=== PATIENT | male | born 1930 | race Hispanic/Latino ===

== ENCOUNTER 2018-05-06 15:08 | Inpatient (IN) | payer SELFPAY ==
[2018-05-06 16:07] LABS: BASO % 0.2 % (0.0-2.0); HEMOGLOBIN 16.3 g/dL (12.0-18.0); LYMPH # 0.6 K/uL (1.0-4.3); LYMPH % 4.7 % (20.0-40.0); MEAN CELL VOLUME 91.4 fL (80.0-94.0); MEAN CORPUSCULAR HEMOGLOBIN 31.9 pg (27.0-31.0); MEAN CORPUSCULAR HGB CONC 34.9 g/dL (33.0-37.0); MEAN PLATELET VOLUME 8.3 fL (7.2-11.7); MONO # 1.2 K/uL (0.0-0.8); MONO % 8.9 % (0.0-10.0); NEUT # 11.3 K/uL (1.8-7.0); NEUT % 86.2 % (50.0-75.0); PLATELET COUNT 272 K/uL (130-400); RBC 5.11 Mil/uL (4.40-5.90); RED CELL DISTRIBUTION WIDTH 13.7 % (11.5-14.5); WHITE BLOOD COUNT 13.1 K/uL (4.8-10.8)
[2018-05-06] MEDS ORDERED: cefTRIAXone IV 1 gm in Dextros 50 ML IV ONE (16:09)
[2018-05-06] MEDS ORDERED: Azithromycin 500 MG in Sodium Chloride 0.9% 250 ML IV STA (16:09)
[2018-05-06 16:17] LABS: INR 1.2; PROTHROMBIN TIME 12.6 SECONDS (9.7-12.2)
[2018-05-06 16:17] LABS: SQUAMOUS EPITHIAL < 1 /hpf (0-5); URINE BACTERIA RARE (<OCC); URINE BILIRUBIN NEGATIVE (NEGATIVE); URINE BLOOD 3+ (NEGATIVE); URINE CLARITY Clear (Clear); URINE COLOR Amber (YELLOW); URINE GLUCOSE (UA) NORMAL (Normal); URINE LEUKOCYTE ESTERASE NEG Leu/uL (Negative); URINE PROTEIN 3+ mg/dL (NEGATIVE)
--- NOTE | 2018-05-06 16:27 | RAD ---
Date of service: 05/06/2018 PROCEDURE: CHEST RADIOGRAPH, 1 VIEW HISTORY: SOB COMPARISON: None available. FINDINGS: LUNGS: Left lower lobe atelectasis versus infiltrate. PLEURA: No pneumothorax or pleural fluid seen. CARDIOVASCULAR: Atherosclerotic aortic calcifications. Cardiomediastinal silhouette enlarged. OSSEOUS STRUCTURES: Old left 7th posterior rib fracture. Degenerative changes. VISUALIZED UPPER ABDOMEN: Normal. OTHER FINDINGS: None. IMPRESSION: Left lower lobe atelectasis versus infiltrate.
[2018-05-06 16:40] LABS: B-TYPE NATRIURETIC PEPTIDE 7020 pg/mL (0-900)
[2018-05-06 16:47] LABS: ALB/GLOB RATIO 1.2 (1.0-2.1); ALBUMIN 4.1 g/dL (3.5-5.0); ALT/SGPT 47 U/L (21-72); AST/SGOT 94 U/L (17-59); BLOOD UREA NITROGEN 33 mg/dL (9-20); CALCIUM 9.2 mg/dl (8.6-10.4); GFR NON-AFRICAN AMERICAN > 60
--- NOTE | 2018-05-06 16:51 | CT ---
Date of service: 05/06/2018 PROCEDURE: CT HEAD WITHOUT CONTRAST. HISTORY: fall, change of MS, on ground @ home COMPARISON: None available. TECHNIQUE: Axial computed tomography images were obtained through the head/brain without intravenous contrast. Radiation dose: Total exam DLP = 1029.5 mGy-cm. This CT exam was performed using one or more of the following dose reduction techniques: Automated exposure control, adjustment of the mA and/or kV according to patient size, and/or use of iterative reconstruction technique. FINDINGS: HEMORRHAGE: No intracranial hemorrhage. BRAIN: No mass effect or edema. Atrophy. Chronic microvascular ischemic changes. Subtle hypodensity in the left MCA territory. 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 VENTRICLES: Unremarkable. No hydrocephalus. CALVARIUM: Unremarkable. PARANASAL SINUSES: Unremarkable as visualized. No significant inflammatory changes. MASTOID AIR CELLS: Unremarkable as visualized. No inflammatory changes. OTHER FINDINGS: None. IMPRESSION: Subtle hypodensity in the left MCA territory is nonspecific and may represent subacute infarction. MRI can be obtained for further evaluation as clinically warranted.
[2018-05-06 16:59] LABS: BARBITURATES, UR NEGATIVE (NEGATIVE); BENZODIAZEPINES, UR NEGATIVE (NEGATIVE); OPIATES, UR NEGATIVE (NEGATIVE); PHENCYCLIDINE, UR NEGATIVE (NEGATIVE)
--- NOTE | 2018-05-06 17:05 | C.PDOC ---
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 Patient lives alone. Of note, HPI is limited because patient has dementia. per social work program coordinator pt without h/o expressive aphasia Time Seen by Provider: 05/06/18 15:45 Chief Complaint (Nursing): Altered Mental Status History Per: Patient History/Exam Limitations: Clinical Condition (dementia) Past Medical History Reviewed: Historical Data, Nursing Documentation, Vital Signs Vital Signs: Last Vital Signs Temp 98.2 F 05/06/18 18:25 Pulse 72 05/06/18 19:35 Resp 19 05/06/18 19:35 BP 178/59 H 05/06/18 19:35 Pulse Ox 95 05/06/18 19:40 Surgical History: No Surg Hx Family History: States: No Known Family Hx - Social History Hx Alcohol Use: No (UNKNOWN) Hx Substance Use: No (UNKNOWN) - Immunization History Hx Tetanus Toxoid Vaccination: (UNK) Hx Influenza Vaccination: (UNK) Hx Pneumococcal Vaccination: (UNK) Review Of Systems Review Of Systems: ROS cannot be obtained secondary to pt's inabilty to answer questions. Physical Exam - Physical Exam Appears: Non-toxic, No Acute Distress, Other (awake, alert, confused) Skin: Normal Color, Warm, Dry Head: Normacephalic, Other Eye(s): bilateral: Normal Inspection Nose: Normal Oral Mucosa: Moist Neck: Supple Chest: Symmetrical Cardiovascular: Rhythm Regular Respiratory: Normal Breath Sounds, No Rales, No Rhonchi, No Wheezing Gastrointestinal/Abdominal: Normal Exam, Soft, No Tenderness, No Guarding, No Rebound Neurological/Psych: Other (awake, alert, confused) ED Course And Treatment - Laboratory Results Result Diagrams: 05/06/18 16:03 05/06/18 16:03 Lab Interpretation: Abnormal (+ mild leukocytosis) ECG: Interpreted By Ks ECG Rhythm: Atrial Flutter ECG Interpretation: Abnormal Rate From EC (no prior to compare) O2 Sat by Pulse Oximetry: 95 Pulse Ox Interpretation: Normal - Radiology CXR: Interpreted by Ks CXR Interpretation: Yes: Infiltrates (+LLL PNA) - CT Scan/US head CT Other Rad Studies (CT/US): Radiology Report Reviewed (no acute changes) Reevaluation Time: 17:06 Reassessment Condition: Improved - Physician Consult Information Outcome Of Conversation: 1700: d/w Hospialist- Dr. Conway- covering uninsured pt 's, ok to admit. NIHSS Stroke Scale - Date/Time Evaluation Performed Date Performed: 05/06/18 Time Performed: 15:45 When Was NIHSS Performed: Baseline - How Severe is the Stoke Level of Consciousness: 0=Alert LOC to Questions: 0=Both comments correct LOC to commands: 0=Obeys both correctly Best Gaze: 0=Normal Visual: 0=No visual loss Facial: 0=Normal Motor Arm - Left: 0=No drift Motor Arm - Right: 0=No drift Motor Leg - Left: 0=No drift Motor Leg - Right: 0=No drift Limb Ataxia: 0=Absent Sensory: 0=Normal Best Language: 2=Severe aphasia Dysarthia: 0=Normal articulation Extinction & Inattention (Neglect): 0=Normal, no object Score: 2 Severity Of Stroke: 1-4= Minor Stroke rTPA Inclusion/Exclusion - Refusal of Treatment Patient Refused Treatment: No - Inclusion Criteria for Altepase Patient is 18 years or Older: Yes Clinical DX Ischemic Stroke Cause Neurological Deficit: Yes Time of Onset Established Less Than 270 Mins Before TX Begin: No Risk/Benefit Discussed With Patient/Family Member Present: No - Exclusion Criteria for Altepase Uncontrolled Hypertension at Time of TX (SBP>185 or DBP>110): Yes - Warning to TPA With Conditions Condition: Stroke Serevity Too Mild Medical Decision Making Medical Decision Making: advanced dementia Unclear how not observed in advanced dementia LLL PNA: Rocephin/Azithromycin for CAP low susp of rhabdo: CPK pending. Renal and urine labs wnl gentle hydration started. A-flutter 55 ? new or old ? related to PNA Defer anticoagulation now in light of recent fall/trauma. L MCA area hypotensity c/w subacute infarct pt with expressive aphasia not previously described ASA given consider MRI in AM Disposition Doctor Will See Patient In The: Hospital - Disposition Disposition: HOSPITALIZED Disposition Time: 17:08 Condition: GOOD - Clinical Impression Clinical Impression: Change in mental state, CAP (community acquired pneumonia) - Scribe Statement The provider has reviewed the documentation as recorded by the Scribe Ann Cuenca Provider Attestation: All medical record entries made by the Scribe were at my direction and personally dictated by me. I have reviewed the chart and agree that the record accurately reflects my personal performance of the history, physical exam, medical decision making, and the department course for this patient. I have also personally directed, reviewed, and agree with the discharge instructions and disposition.
[2018-05-06] MEDS ORDERED: Sodium Chloride 0.9% 1,000 ML IV STA (17:06)
[2018-05-06] MEDS ORDERED: Sodium Chloride 0.9% 1,000 ML ONE (17:14)
[2018-05-06 18:36] LABS: LYMPHOCYTE 2 % (20-40); MONOCYTE 6 % (0-10); NEUTROPHIL 92 % (50-75); PLATELET ESTIMATE NORMAL (NORMAL); TOTAL CELLS COUNTED 100
[2018-05-06] MEDS: Sodium Chloride 0.9% 1,000 ML IV SCH (19:06)
[2018-05-06 19:33] LABS: HDL CHOLESTEROL 37 mg/dL (30-70)
[2018-05-06] MEDS ORDERED: Aspirin 325 mg EC Tablets PO STA ×2 (19:38→21:01)
[2018-05-06 19:44] LABS: LDL CHOLESTEROL 62 mg/dL (0-129)
[2018-05-06 19:52] LABS: T4 9.17 ug/dL (5.5-11.0)
--- NOTE | 2018-05-06 20:05 | CP.PCM.HP ---
Addendum entered and electronically signed by Chi Welch DO 05/07/18 07: 18: Correction on Physical Exam Findings: skin tears noted on *RIGHT* lateral thigh , shoulder, and lateral malleolus. Original Note: <Chi Welch - Last Filed: 05/06/18 20:02> History of Present Illness - History of Present Illness History of Present Illness: This is an 88 year old male with past medical history of hypertension, advanced dementia and psychiatric illness, and possible past medical history of hypertension who presents to ED brought in by ambulance for AMS. Note: most of the history was obtained by ED nurse, as the patient is a poor historian. Patient was found to be altered and on the ground covered in his feces. EMS was called by the patient's cleaning lady who comes to visit on a weekly basis to help the patient with chores at home. It is unknown how long the patient was down on the ground. Patient was apparently not verbal. Per nurse, the patient has a case sealer who helps the patient since he lives at home alone and has underlying dementia and psychiatric issue, however, per nurse, the patient was said to be completely independent at performing activities of daily life according to the case sealer who is on his case on an out-patient basis. Per nurse, the rest of the patient's history was unknown to the case sealer. Present on Admission - Present on Admission Any Indicators Present on Admission: Yes History of DVT/PE: No History of Uncontrolled Diabetes: No Urinary Catheter: No Decubitus Ulcer Present: Yes (Left thigh, Left lateral malleolus, Left shoulder ) History Surgical Site Infection Following: None Review of Systems - Review of Systems All systems: reviewed and no additional remarkable complaints except - Constitutional Constitutional: As Per HPI - EENT Eyes: As Per HPI Nose/Mouth/Throat: As Per HPI - Cardiovascular Cardiovascular: As Per HPI - Respiratory Respiratory: As Per HPI - Gastrointestinal Gastrointestinal: As Per HPI - Genitourinary Genitourinary: As Per HPI - Musculoskeletal Musculoskeletal: As Per HPI - Integumentary Integumentary: As Per HPI - Neurological Neurological: As Per HPI - Psychiatric Psychiatric: As Per HPI Past Patient History - Tetanus Immunizations Tetanus Immunization: Unknown - Past Medical History & Family History Past Medical History?: No - Past Social History Smoking Status: Unknown If Ever Smoked - PSYCHIATRIC Hx Substance Use: No (UNKNOWN) - SURGICAL HISTORY Other/Comment: UNABLE TO OBTAIN AT TIME OF TRIAGE Meds Allergies/Adverse Reactions: Allergies Allergy/AdvReac Type Severity Reaction Status Date / Time Unobtainable Allergy Unverified 05/06/18 15:28 Physical Exam - Constitutional Appears: Non-toxic, No Acute Distress, Unkempt, Confused Additional comments: Patient is non-verbal, but able to follow commands, and use body language to communicate "yes/no" to most questions, but not all. - Head Exam Head Exam: ATRAUMATIC, NORMAL INSPECTION, NORMOCEPHALIC - Eye Exam Eye Exam: EOMI, Normal appearance, PERRL. absent: Conjunctival injection, Scleral icterus Pupil Exam: PERRL. absent: NORMAL ACCOMODATION - ENT Exam ENT Exam: Mucous Membranes Dry Additional comments: Dry oral cavity. No teeth. No dentures were worn by patient. - Cardiovascular Exam Cardiovascular Exam: Irregular Rhythm (atrial flutter ), +S1, +S2, Systolic Murmur (appreciated on auscultation of both right and left sternal border at 2nd intercostal space bilaterally. ). absent: Gallop, Rubs - GI/Abdominal Exam GI & Abdominal Exam: Normal Bowel Sounds, Soft. absent: Firm, Guarding, Hernia , Pulsatile Mass, Rebound, Tenderness - Extremities Exam Extremities exam: Positive for: full ROM, normal capillary refill, pedal pulses present. Negative for: calf tenderness, joint swelling, pedal edema, tenderness Additional comments: lateral malleolus (Left) ulcer lateral thigh (left) ulcer shoulder (left) ulcer - Back Exam Back exam: FULL ROM, NORMAL INSPECTION. absent: muscle spasm, tenderness - Neurological Exam Neurological exam: Alert, CN II-XII Intact, Normal Gait, Reflexes Normal - Psychiatric Exam Psychiatric exam: Normal Affect, Normal Mood - Skin Skin Exam: Dry, Intact, Warm Additional comments: noted ulcers on left shoulder, lateral thigh, and lateral malleolus. Results - Vital Signs Recent Vital Signs: Last Vital Signs Temp 98.2 F 05/06/18 18:25 Pulse 72 05/06/18 19:35 Resp 19 05/06/18 19:35 BP 178/59 H 05/06/18 19:35 Pulse Ox 95 05/06/18 19:40 - Labs Result Diagrams: 05/06/18 16:03 05/06/18 16:03 Labs: Laboratory Results - last 24 hr 05/06/18 05/06/18 05/06/18 15:31 16:03 16:03 WBC 13.1 H RBC 5.11 Hgb 16.3 Hct 46.7 MCV 91.4 MCH 31.9 H MCHC 34.9 RDW 13.7 Plt Count 272 MPV 8.3 Neut % (Auto) 86.2 H Lymph % (Auto) 4.7 L Norton % (Auto) 8.9 Eos % (Auto) 0.0 Baso % (Auto) 0.2 Neut # (Auto) 11.3 H Lymph # (Auto) 0.6 L Norton # (Auto) 1.2 H Eos # (Auto) 0.0 Baso # (Auto) 0.0 Neutrophils % (Manual) 92 H Lymphocytes % (Manual) 2 L Monocytes % (Manual) 6 Platelet Estimate Normal PT 12.6 H INR 1.2 APTT 28 Sodium Potassium Chloride Carbon Dioxide Anion Gap BUN Creatinine Est GFR ( Amer) Est GFR (Non-Af Amer) POC Glucose (mg/dL) 119 H Random Glucose Hemoglobin A1c Calcium Total Bilirubin AST ALT Alkaline Phosphatase Troponin I NT-Pro-B Natriuret Pep Total Protein Albumin Globulin Albumin/Globulin Ratio Triglycerides Cholesterol LDL Cholesterol Direct HDL Cholesterol Procalcitonin Thyroxine (T4) Urine Color Urine Clarity Urine pH Ur Specific [place] Urine Protein Urine Glucose (UA) Urine Ketones Urine Blood Urine Nitrate Urine Bilirubin Urine Urobilinogen Ur Leukocyte Esterase Urine WBC (Auto) Urine RBC (Auto) Ur Squamous Epith Cells Urine Bacteria Urine Opiates Screen Urine Methadone Screen Ur Barbiturates Screen Ur Phencyclidine Scrn Ur Amphetamines Screen U Benzodiazepines Scrn U Oth Cocaine Metabols U Cannabinoids Screen RPR 05/06/18 05/06/18 05/06/18 16:03 16:11 16:11 WBC RBC Hgb Hct MCV MCH MCHC RDW Plt Count MPV Neut % (Auto) Lymph % (Auto) Norton % (Auto) Eos % (Auto) Baso % (Auto) Neut # (Auto) Lymph # (Auto) Norton # (Auto) Eos # (Auto) Baso # (Auto) Neutrophils % (Manual) Lymphocytes % (Manual) Monocytes % (Manual) Platelet Estimate PT INR APTT Sodium 142 Potassium 3.9 Chloride 103 Carbon Dioxide 25 Anion Gap 18 BUN 33 H Creatinine 0.9 Est GFR ( Amer) > 60 Est GFR (Non-Af Amer) > 60 POC Glucose (mg/dL) Random Glucose 128 H Hemoglobin A1c Calcium 9.2 Total Bilirubin 1.5 H AST 94 H ALT 47 Alkaline Phosphatase 86 Troponin I 0.0600 NT-Pro-B Natriuret Pep 7020 H Total Protein 7.5 Albumin 4.1 Globulin 3.4 Albumin/Globulin Ratio 1.2 Triglycerides Cholesterol LDL Cholesterol Direct HDL Cholesterol Procalcitonin Thyroxine (T4) Urine Color [place] Urine Clarity Clear Urine pH 5.0 Ur Specific [place] 1.027 Urine Protein 3+ H Urine Glucose (UA) Normal Urine Ketones 1+ H Urine Blood 3+ H Urine Nitrate Negative Urine Bilirubin Negative Urine Urobilinogen 2.0 Ur Leukocyte Esterase Neg Urine WBC (Auto) 1 Urine RBC (Auto) 3 Ur Squamous Epith Cells < 1 Urine Bacteria Rare Urine Opiates Screen Negative Urine Methadone Screen Negative Ur Barbiturates Screen Negative Ur Phencyclidine Scrn Negative Ur Amphetamines Screen Negative U Benzodiazepines Scrn Negative U Oth Cocaine Metabols Negative U Cannabinoids Screen Negative RPR 05/06/18 05/06/18 05/06/18 19:18 19:18 19:18 WBC RBC Hgb Hct MCV MCH MCHC RDW Plt Count MPV Neut % (Auto) Lymph % (Auto) Norton % (Auto) Eos % (Auto) Baso % (Auto) Neut # (Auto) Lymph # (Auto) Norton # (Auto) Eos # (Auto) Baso # (Auto) Neutrophils % (Manual) Lymphocytes % (Manual) Monocytes % (Manual) Platelet Estimate PT INR APTT Sodium Potassium Chloride Carbon Dioxide Anion Gap BUN Creatinine Est GFR ( Amer) Est GFR (Non-Af Amer) POC Glucose (mg/dL) Random Glucose Hemoglobin A1c 5.1 Calcium Total Bilirubin AST ALT Alkaline Phosphatase Troponin I NT-Pro-B Natriuret Pep Total Protein Albumin Globulin Albumin/Globulin Ratio Triglycerides 69 Cholesterol 132 LDL Cholesterol Direct 62 HDL Cholesterol 37 Procalcitonin Thyroxine (T4) 9.17 Urine Color Urine Clarity Urine pH Ur Specific [place] Urine Protein Urine Glucose (UA) Urine Ketones Urine Blood Urine Nitrate Urine Bilirubin Urine Urobilinogen Ur Leukocyte Esterase Urine WBC (Auto) Urine RBC (Auto) Ur Squamous Epith Cells Urine Bacteria Urine Opiates Screen Urine Methadone Screen Ur Barbiturates Screen Ur Phencyclidine Scrn Ur Amphetamines Screen U Benzodiazepines Scrn U Oth Cocaine Metabols U Cannabinoids Screen RPR Nonreactive 05/06/18 Unknown WBC RBC Hgb Hct MCV MCH MCHC RDW Plt Count MPV Neut % (Auto) Lymph % (Auto) Norton % (Auto) Eos % (Auto) Baso % (Auto) Neut # (Auto) Lymph # (Auto) Norton # (Auto) Eos # (Auto) Baso # (Auto) Neutrophils % (Manual) Lymphocytes % (Manual) Monocytes % (Manual) Platelet Estimate PT INR APTT Sodium Potassium Chloride Carbon Dioxide Anion Gap BUN Creatinine Est GFR ( Amer) Est GFR (Non-Af Amer) POC Glucose (mg/dL) Random Glucose Hemoglobin A1c Calcium Total Bilirubin AST ALT Alkaline Phosphatase Troponin I NT-Pro-B Natriuret Pep Total Protein Albumin Globulin Albumin/Globulin Ratio Triglycerides Cholesterol LDL Cholesterol Direct HDL Cholesterol Procalcitonin < 0.05 L Thyroxine (T4) Urine Color Urine Clarity Urine pH Ur Specific [place] Urine Protein Urine Glucose (UA) Urine Ketones Urine Blood Urine Nitrate Urine Bilirubin Urine Urobilinogen Ur Leukocyte Esterase Urine WBC (Auto) Urine RBC (Auto) Ur Squamous Epith Cells Urine Bacteria Urine Opiates Screen Urine Methadone Screen Ur Barbiturates Screen Ur Phencyclidine Scrn Ur Amphetamines Screen U Benzodiazepines Scrn U Oth Cocaine Metabols U Cannabinoids Screen RPR - EKG Data EKG Interpreted by: Myself - EKG Data EKG comments: atrial flutter Assessment & Plan - Assessment and Plan (Free Text) Assessment: This is an 88 year old male with past medical history of hypertension, advanced dementia and psychiatric illness, and possible past medical history of hypertension who presents to ED brought in by ambulance for AMS. Note: most of the history was obtained by ED nurse, as the patient is a poor historian. Patient was subsequently admitted to Telemetry for further evaluation and treatment of possible CVA Altered mental status likely secondary to CVA - Neurology consulted on case (Dr. Kumar) - CT without contrast: subtle hypodensity in the left MCA territory ( nonspecific and may represent subacute infarct) - Focal deficit on physical exam: Aphagia - Chest X-ray: Left lower lobe infiltrates/atelectasis - CTA of Head and Neck ordered stat: pending - MRI without contrast: pending - ASA 81mg PO daily - Started on Cardiac heparin therapy, per Dr. Vance and Dr. Kumar recommendation - Neuro check Q4H - Community Acquired Pneumonia - Chest X-ray: Left lower lobe infiltrates/atelectasis - CBC: WBC=13.1 - CMP: BUN=33 - Rocephin 1g IVBP - Azithromycin 500mg IVPB Q24H - probiotic 250mg PO Q12H - IV fluids @100mls/hr - AM CBC, CMP - Urine Cx pending - Blood Cx pending Atrial flutter - EKG reviewed - known risk factors: age, hypertension - Cardio consulted on case (Dr. Vance) recommendations appreciated - Echo pending - ASA 81mg PO daily - Rosuvastatin 10mg HS - ECHO pending - Pending T4, TSH, B12, Folate, Magnesium, Phos, CPK - BNP > 7000 - Trop neg x1 - Started on cardiac heparin therapy (per Dr. Vance and Dr. Kumar recommendation) - monitor on tele Ulcers secondary to being on the ground for unknown duration - Wound Care consulted, eval and treat Advanced Dementia - Case management consulted, recommendations appreciated - PT/OT eval and treat - Swallow eval performed at ED bedside - Pureed diet and thick liquid diet PPx: - DVT: SCD - GI: Protonix 40mg PO daily Patient evaluated and case discussed in detail with Attending Physician Dr. Tricia Welch PGY1 <Madina Clarke - Last Filed: 05/08/18 19:39> Results - Vital Signs Recent Vital Signs: Last Vital Signs Temp 98.6 F 05/08/18 18:00 Pulse 68 05/08/18 18:30 Resp 19 05/08/18 18:30 BP 168/71 H 05/08/18 17:47 Pulse Ox 100 05/08/18 15:20 - Labs Result Diagrams: 05/08/18 06:34 05/08/18 06:28 Labs: Laboratory Results - last 24 hr 05/08/18 05/08/18 05/08/18 06:28 06:34 06:34 WBC 10.1 RBC 4.28 L Hgb 13.9 Hct 39.6 MCV 92.6 MCH 32.4 H MCHC 35.0 RDW 13.9 Plt Count 220 MPV 8.6 Neut % (Auto) 81.7 H Lymph % (Auto) 7.8 L [place] % (Auto) 9.1 Eos % (Auto) 0.9 Baso % (Auto) 0.5 Neut # (Auto) 8.3 H Lymph # (Auto) 0.8 L Norton # (Auto) 0.9 H Eos # (Auto) 0.1 Baso # (Auto) 0.1 Neutrophils % (Manual) 86 H Lymphocytes % (Manual) 6 L Monocytes % (Manual) 7 Eosinophils % (Manual) 1 Platelet Estimate Normal RBC Morphology Normal APTT 88 H Sodium 146 Potassium 3.6 Chloride 112 H Carbon Dioxide 20 L Anion Gap 17 BUN 33 H Creatinine 0.8 Est GFR ( Amer) > 60 Est GFR (Non-Af Amer) > 60 Random Glucose 106 Calcium 8.6 Phosphorus 2.7 Magnesium 1.9 Total Bilirubin 1.1 AST 57 ALT 42 Alkaline Phosphatase 67 Troponin I Total Protein 6.6 Albumin 3.4 L Globulin 3.2 Albumin/Globulin Ratio 1.0 05/08/18 09:43 WBC RBC Hgb Hct MCV MCH MCHC RDW Plt Count MPV Neut % (Auto) Lymph % (Auto) Norton % (Auto) Eos % (Auto) Baso % (Auto) Neut # (Auto) Lymph # (Auto) Norton # (Auto) Eos # (Auto) Baso # (Auto) Neutrophils % (Manual) Lymphocytes % (Manual) Monocytes % (Manual) Eosinophils % (Manual) Platelet Estimate RBC Morphology APTT Sodium Potassium Chloride Carbon Dioxide Anion Gap BUN Creatinine Est GFR ( Amer) Est GFR (Non-Af Amer) Random Glucose Calcium Phosphorus Magnesium Total Bilirubin AST ALT Alkaline Phosphatase Troponin I 0.0640 Total Protein Albumin Globulin Albumin/Globulin Ratio Attending/Attestation - Attestation I have personally seen and examined this patient.: Yes I have fully participated in the care of the patient.: Yes I have reviewed all pertinent clinical information: Yes Notes (Text): seen and examined. patient is awake and nonverbal. follow commands.denies pain.able to move all four extremities without pain no focal weakness noted .He is aphasic,not able to write?. has Atrial flutter with heart block,subacute CVA Patient was living alone with social service help?. History of dementia ?, psychiatry disorder and HTN as per ER documentation. we will contact patient's guardian Assessment and the plan discussed with the resident
[2018-05-06] MEDS ORDERED: Iohexol 350mg/ml 100 ML ONE (21:23)
[2018-05-06 21:24] LABS: FOLATE 8.2 ng/mL
[2018-05-06] MEDS: Saccharomyces Boulardi 250 mg Cap PO SCH ×2 (21:56→22:21)
[2018-05-06] MEDS: Heparin25000 units/250ml 1/2NS 25,000 UNITS/250 ML BAG IV PRN (22:25)
[2018-05-07] MEDS: Sodium Chloride 0.9% 1,000 ML IV SCH ×3 (04:24→23:28)
[2018-05-07 08:00] LABS: BASO # 0.1 K/uL (0.0-0.2); BASO % 0.6 % (0.0-2.0); EOS % 0.3 % (0.0-4.0); HEMOGLOBIN 14.5 g/dL (12.0-18.0); LYMPH % 10.4 % (20.0-40.0); MEAN CELL VOLUME 92.1 fL (80.0-94.0); MEAN CORPUSCULAR HEMOGLOBIN 32.6 pg (27.0-31.0); MEAN CORPUSCULAR HGB CONC 35.5 g/dL (33.0-37.0); MEAN PLATELET VOLUME 8.6 fL (7.2-11.7); MONO # 1.1 K/uL (0.0-0.8); MONO % 11.2 % (0.0-10.0); NEUT # 7.4 K/uL (1.8-7.0); NEUT % 77.5 % (50.0-75.0); NRBC % 0.2 % (0.0-2.0); RBC 4.43 Mil/uL (4.40-5.90); RED CELL DISTRIBUTION WIDTH 14.2 % (11.5-14.5); WHITE BLOOD COUNT 9.6 K/uL (4.8-10.8)
[2018-05-07] MEDS ORDERED: Azithromycin 500 MG in Sodium Chloride 0.9% 250 ML IVPB SCH (08:00)
[2018-05-07 08:01] LABS: ALB/GLOB RATIO 1.2 (1.0-2.1); ALBUMIN 3.3 g/dL (3.5-5.0); ALT/SGPT 45 U/L (21-72); AST/SGOT 67 U/L (17-59); BLOOD UREA NITROGEN 35 mg/dL (9-20); CALCIUM 8.7 mg/dl (8.6-10.4); GFR NON-AFRICAN AMERICAN > 60
--- NOTE | 2018-05-07 08:19 | CP.PCM.CON ---
History of Present Illness - History of Present Illness History of Present Illness: 88 yo male with h/o dementia, HTN, under legal guardianship, was reportedly found at home, on the floor covered in feces. Patient is unable to provide history. Aphasia is reportedly new. Denies chest pain or dyspnea at present. Called last night by the resident with EKG, which showed Aflutter with slow response. CT head suggestive of acute/subacute stroke. Review of Systems - Review of Systems Review of Systems: Unable to obtain, except HPI Past Patient History - Tetanus Immunizations Tetanus Immunization: Unknown - Past Medical History & Family History Past Medical History?: No - Past Social History Smoking Status: Unknown If Ever Smoked - MUSCULOSKELETAL/RHEUMATOLOGICAL Hx Falls: Yes - PSYCHIATRIC Hx Substance Use: No (UNKNOWN) - SURGICAL HISTORY Other/Comment: UNABLE TO OBTAIN AT TIME OF TRIAGE - ANESTHESIA Hx Anesthesia: (UNABLE TO GET INFO AT THIS TIME ,PT APHASIC) Meds Allergies/Adverse Reactions: Allergies Allergy/AdvReac Type Severity Reaction Status Date / Time Unobtainable Allergy Unverified 05/06/18 15:28 - Medications Medications: Current Medications Aspirin (Aspirin Chewable) 81 mg PO DAILY ANUPAM Sodium Chloride (Sodium Chloride 0.9%) 1,000 mls @ 100 mls/hr IV .Q10H ANUPAM Last Admin: 05/07/18 04:24 Dose: Not Given Azithromycin 500 mg/ Sodium (Chloride) 250 mls @ 250 mls/hr IVPB Q24H ANUPAM PRN Reason: Protocol Ceftriaxone Sodium 1 gm/ (Sodium Chloride) 100 mls @ 200 mls/hr IVPB DAILY ANUPAM PRN Reason: Protocol Heparin Sodium/Sodium Chloride (Heparin 46888 Units/250ml 1/2 Normal Saline) 25 ,000 units in 250 mls @ 9.798 mls/hr IV .Q24H PRN; Protocol; 12 UNITS/KG/HR PRN Reason: ADJUST RATE PER PROTOCOL Last Admin: 05/06/18 22:25 Dose: 12 units/kg/hr, 9.798 mls/hr Pantoprazole Sodium (Protonix Ec Tab) 40 mg PO DAILY ANUPAM Rosuvastatin Calcium (Crestor) 10 mg PO HS ANUPAM Last Admin: 05/06/18 21:56 Dose: 10 mg Saccharomyces Boulardii (Florastor) 250 mg PO Q12H ANUPAM Last Admin: 05/06/18 22:21 Dose: Not Given Physical Exam - Constitutional Appears: Unkempt, Cachectic - Head Exam Head Exam: ATRAUMATIC, NORMOCEPHALIC - Eye Exam Pupil Exam: PERRL - ENT Exam ENT Exam: Mucous Membranes Moist - Respiratory Exam Respiratory Exam: Clear to Auscultation Bilateral. absent: Rales - Cardiovascular Exam Cardiovascular Exam: Bradycardia, +S1, +S2. absent: JVD - GI/Abdominal Exam GI & Abdominal Exam: Soft. absent: Tenderness - Extremities Exam Extremities exam: Negative for: calf tenderness - Back Exam Back exam: absent: CVA tenderness (L) - Neurological Exam Additional comments: Aphasia+ - Skin Skin Exam: Normal Color Results - Vital Signs Recent Vital Signs: Last Vital Signs Temp 98.2 F 05/06/18 23:35 Pulse 55 L 05/07/18 06:00 Resp 18 05/07/18 06:00 BP 118/51 L 05/07/18 06:00 Pulse Ox 96 05/06/18 23:35 - Labs Result Diagrams: 05/07/18 07:35 05/07/18 07:35 Labs: Laboratory Results - last 24 hr 05/06/18 05/06/18 05/06/18 15:31 16:03 16:03 WBC 13.1 H RBC 5.11 Hgb 16.3 Hct 46.7 MCV 91.4 MCH 31.9 H MCHC 34.9 RDW 13.7 Plt Count 272 MPV 8.3 Neut % (Auto) 86.2 H Lymph % (Auto) 4.7 L [place] % (Auto) 8.9 Eos % (Auto) 0.0 Baso % (Auto) 0.2 Neut # (Auto) 11.3 H Lymph # (Auto) 0.6 L [place] # (Auto) 1.2 H Eos # (Auto) 0.0 Baso # (Auto) 0.0 Neutrophils % (Manual) 92 H Lymphocytes % (Manual) 2 L Monocytes % (Manual) 6 Platelet Estimate Normal PT 12.6 H INR 1.2 APTT 28 Sodium Potassium Chloride Carbon Dioxide Anion Gap BUN Creatinine Est GFR ( Amer) Est GFR (Non-Af Amer) POC Glucose (mg/dL) 119 H Random Glucose Hemoglobin A1c Calcium Phosphorus Magnesium Total Bilirubin AST ALT Alkaline Phosphatase Troponin I NT-Pro-B Natriuret Pep Total Protein Albumin Globulin Albumin/Globulin Ratio Triglycerides Cholesterol LDL Cholesterol Direct HDL Cholesterol Vitamin B12 Folate Procalcitonin Thyroxine (T4) TSH 3rd Generation Urine Color Urine Clarity Urine pH Ur Specific [place] Urine Protein Urine Glucose (UA) Urine Ketones Urine Blood Urine Nitrate Urine Bilirubin Urine Urobilinogen Ur Leukocyte Esterase Urine WBC (Auto) Urine RBC (Auto) Ur Squamous Epith Cells Urine Bacteria Urine Opiates Screen Urine Methadone Screen Ur Barbiturates Screen Ur Phencyclidine Scrn Ur Amphetamines Screen U Benzodiazepines Scrn U Oth Cocaine Metabols U Cannabinoids Screen RPR 05/06/18 05/06/18 05/06/18 16:03 16:11 16:11 WBC RBC Hgb Hct MCV MCH MCHC RDW Plt Count MPV Neut % (Auto) Lymph % (Auto) [place] % (Auto) Eos % (Auto) Baso % (Auto) Neut # (Auto) Lymph # (Auto) [place] # (Auto) Eos # (Auto) Baso # (Auto) Neutrophils % (Manual) Lymphocytes % (Manual) Monocytes % (Manual) Platelet Estimate PT INR APTT Sodium 142 Potassium 3.9 Chloride 103 Carbon Dioxide 25 Anion Gap 18 BUN 33 H Creatinine 0.9 Est GFR ( Amer) > 60 Est GFR (Non-Af Amer) > 60 POC Glucose (mg/dL) Random Glucose 128 H Hemoglobin A1c Calcium 9.2 Phosphorus Magnesium Total Bilirubin 1.5 H AST 94 H ALT 47 Alkaline Phosphatase 86 Troponin I 0.0600 NT-Pro-B Natriuret Pep 7020 H Total Protein 7.5 Albumin 4.1 Globulin 3.4 Albumin/Globulin Ratio 1.2 Triglycerides Cholesterol LDL Cholesterol Direct HDL Cholesterol Vitamin B12 Folate Procalcitonin Thyroxine (T4) TSH 3rd Generation Urine Color [place] Urine Clarity Clear Urine pH 5.0 Ur Specific [place] 1.027 Urine Protein 3+ H Urine Glucose (UA) Normal Urine Ketones 1+ H Urine Blood 3+ H Urine Nitrate Negative Urine Bilirubin Negative Urine Urobilinogen 2.0 Ur Leukocyte Esterase Neg Urine WBC (Auto) 1 Urine RBC (Auto) 3 Ur Squamous Epith Cells < 1 Urine Bacteria Rare Urine Opiates Screen Negative Urine Methadone Screen Negative Ur Barbiturates Screen Negative Ur Phencyclidine Scrn Negative Ur Amphetamines Screen Negative U Benzodiazepines Scrn Negative U Oth Cocaine Metabols Negative U Cannabinoids Screen Negative RPR 05/06/18 05/06/18 05/06/18 19:18 19:18 19:18 WBC RBC Hgb Hct MCV MCH MCHC RDW Plt Count MPV Neut % (Auto) Lymph % (Auto) [place] % (Auto) Eos % (Auto) Baso % (Auto) Neut # (Auto) Lymph # (Auto) [place] # (Auto) Eos # (Auto) Baso # (Auto) Neutrophils % (Manual) Lymphocytes % (Manual) Monocytes % (Manual) Platelet Estimate PT INR APTT Sodium Potassium Chloride Carbon Dioxide Anion Gap BUN Creatinine Est GFR ( Amer) Est GFR (Non-Af Amer) POC Glucose (mg/dL) Random Glucose Hemoglobin A1c 5.1 Calcium Phosphorus Magnesium Total Bilirubin AST ALT Alkaline Phosphatase Troponin I NT-Pro-B Natriuret Pep Total Protein Albumin Globulin Albumin/Globulin Ratio Triglycerides 69 Cholesterol 132 LDL Cholesterol Direct 62 HDL Cholesterol 37 Vitamin B12 > 1000 H Folate 8.2 Procalcitonin Thyroxine (T4) 9.17 TSH 3rd Generation 1.30 Urine Color Urine Clarity Urine pH Ur Specific [place] Urine Protein Urine Glucose (UA) Urine Ketones Urine Blood Urine Nitrate Urine Bilirubin Urine Urobilinogen Ur Leukocyte Esterase Urine WBC (Auto) Urine RBC (Auto) Ur Squamous Epith Cells Urine Bacteria Urine Opiates Screen Urine Methadone Screen Ur Barbiturates Screen Ur Phencyclidine Scrn Ur Amphetamines Screen U Benzodiazepines Scrn U Oth Cocaine Metabols U Cannabinoids Screen RPR Nonreactive 05/06/18 05/07/18 05/07/18 Unknown 07:35 07:35 WBC 9.6 RBC 4.43 Hgb 14.5 Hct 40.8 MCV 92.1 MCH 32.6 H MCHC 35.5 RDW 14.2 Plt Count 218 MPV 8.6 Neut % (Auto) 77.5 H Lymph % (Auto) 10.4 L [place] % (Auto) 11.2 H Eos % (Auto) 0.3 Baso % (Auto) 0.6 Neut # (Auto) 7.4 H Lymph # (Auto) 1.0 [place] # (Auto) 1.1 H Eos # (Auto) 0.0 Baso # (Auto) 0.1 Neutrophils % (Manual) Lymphocytes % (Manual) Monocytes % (Manual) Platelet Estimate PT INR APTT Sodium 144 Potassium 3.7 Chloride 110 H Carbon Dioxide 24 Anion Gap 14 BUN 35 H Creatinine 1.0 Est GFR ( Amer) > 60 Est GFR (Non-Af Amer) > 60 POC Glucose (mg/dL) Random Glucose 104 Hemoglobin A1c Calcium 8.7 Phosphorus 2.9 Magnesium 2.1 Total Bilirubin 1.2 AST 67 H D ALT 45 Alkaline Phosphatase 69 Troponin I NT-Pro-B Natriuret Pep Total Protein 6.2 L Albumin 3.3 L Globulin 2.9 Albumin/Globulin Ratio 1.2 Triglycerides Cholesterol LDL Cholesterol Direct HDL Cholesterol Vitamin B12 Folate Procalcitonin < 0.05 L Thyroxine (T4) TSH 3rd Generation Urine Color Urine Clarity Urine pH Ur Specific [place] Urine Protein Urine Glucose (UA) Urine Ketones Urine Blood Urine Nitrate Urine Bilirubin Urine Urobilinogen Ur Leukocyte Esterase Urine WBC (Auto) Urine RBC (Auto) Ur Squamous Epith Cells Urine Bacteria Urine Opiates Screen Urine Methadone Screen Ur Barbiturates Screen Ur Phencyclidine Scrn Ur Amphetamines Screen U Benzodiazepines Scrn U Oth Cocaine Metabols U Cannabinoids Screen RPR 05/07/18 07:35 WBC RBC Hgb Hct MCV MCH MCHC RDW Plt Count MPV Neut % (Auto) Lymph % (Auto) [place] % (Auto) Eos % (Auto) Baso % (Auto) Neut # (Auto) Lymph # (Auto) [place] # (Auto) Eos # (Auto) Baso # (Auto) Neutrophils % (Manual) Lymphocytes % (Manual) Monocytes % (Manual) Platelet Estimate PT INR APTT 72 H D Sodium Potassium Chloride Carbon Dioxide Anion Gap BUN Creatinine Est GFR ( Amer) Est GFR (Non-Af Amer) POC Glucose (mg/dL) Random Glucose Hemoglobin A1c Calcium Phosphorus Magnesium Total Bilirubin AST ALT Alkaline Phosphatase Troponin I NT-Pro-B Natriuret Pep Total Protein Albumin Globulin Albumin/Globulin Ratio Triglycerides Cholesterol LDL Cholesterol Direct HDL Cholesterol Vitamin B12 Folate Procalcitonin Thyroxine (T4) TSH 3rd Generation Urine Color Urine Clarity Urine pH Ur Specific [place] Urine Protein Urine Glucose (UA) Urine Ketones Urine Blood Urine Nitrate Urine Bilirubin Urine Urobilinogen Ur Leukocyte Esterase Urine WBC (Auto) Urine RBC (Auto) Ur Squamous Epith Cells Urine Bacteria Urine Opiates Screen Urine Methadone Screen Ur Barbiturates Screen Ur Phencyclidine Scrn Ur Amphetamines Screen U Benzodiazepines Scrn U Oth Cocaine Metabols U Cannabinoids Screen RPR Assessment & Plan (1) Acute ischemic stroke Assessment and Plan: Likely stroke with aphasia, unknown duration Cont with Aspirin and high dose statin Anticoagulation for stroke prevention if cleared by neurology Obtain MRI head Permissive HTN, avoid antiHTN for now 2D echo Status: Acute (2) Atrial flutter Assessment and Plan: Likely the cause of stroke Bradycardic ventricular response, but hemodynamically stable Anticoagulation for stroke prevention if cleared by neuro 2D echo Status: Acute (3) Bradycardia Assessment and Plan: Bradycardiac ventricualr response Heomodynamically stable Will discuss with EP Status: Acute
--- NOTE | 2018-05-07 09:49 | CT ---
PROCEDURE: CTA HEAD AND NECK WITH CONTRAST HISTORY: CVA (?) COMPARISON: None available. TECHNIQUE: Initial noncontrast head CT was performed. Subsequently, CT angiogram of the head and neck were performed after the intravenous administration of 80 mL of Omnipaque 350. Contiguous 1.5mm thick images were obtained in the axial plane of the neck. 2-D coronal and sagittal MPR images were obtained. Imaging postprocessing was performed with 3-D images also obtained. A delayed contrast head CT was also obtained. This CT exam was performed using one or more of the following dose reduction techniques: Automated exposure control, adjustment of the mA and/or kV according to patient size, and/or use of iterative reconstruction technique. Contrast dose: 100 mL Omnipaque 350 Radiation dose: Total exam DLP = 724.72 mGy-cm. FINDINGS: HEAD: Right: The intracranial internal carotid artery, and anterior and middle cerebral arteries are widely patent. The A1 segment is hypoplastic, an anatomic variant with Left: The intracranial internal carotid artery, and anterior and middle cerebral arteries are widely patent. Atherosclerotic soft plaque and mild asymmetric narrowing of the supraclinoid ICA. Posterior circulation: The visualized intracranial vertebral arteries, basilar artery and posterior cerebral arteries are widely patent. There is origin of the right posterior cerebral artery, an anatomic variant. There is low origin of the left posterior inferior cerebellar artery. There is no endoluminal filling defect to suggest thrombus. There is no intracranial saccular aneurysm. NECK: There is a three vessel aortic arch. There is no stenosis at the origins of the great vessels at the level of the aortic arch. Right Carotid: On the right, the common carotid and external carotid arteries are widely patent. There are advanced atherosclerotic calcified and noncalcified plaques in the proximal ICA with approximately 60% luminal narrowing. There is no hemodynamically significant stenosis in the internal carotid artery by NASCET criteria. Left Carotid: On the left, the common carotid, internal carotid and external carotid arteries are widely patent.There is no hemodynamically significant stenosis in the internal carotid arteries. There are atherosclerotic soft and calcified plaques in the proximal ICA. There is no hemodynamically significant stenosis in the internal carotid artery by NASCET criteria. The vertebral arteries are widely patent. The left vertebral artery is hypoplastic, an anatomic variant. The visualized soft tissues of the neck are normal. The visualized brain and cervical spine are within normal limits. The lung apices are clear. IMPRESSION: 1. No evidence of endoluminal thrombus,occlusion or definite significant stenosis in the intracranial arteries. 2. No evidence of hemodynamically significant stenosis in the internal carotid arteries.Approximately 60% luminal narrowing in the proximal right internal carotid artery. Correlation with duplex carotid ultrasound is advised. 3. Patent bilateral vertebral arteries. The left vertebral artery is hypoplastic, an anatomic variant. A preliminary report was provided by [employer].
[2018-05-07] MEDS: Pantoprazole 40 mg EC Tab PO SCH ×2 (11:33→11:52)
[2018-05-07] MEDS: Saccharomyces Boulardi 250 mg Cap PO SCH ×3 (11:34→22:25)
--- NOTE | 2018-05-07 15:00 | CP.PCM.CON ---
Addendum entered and electronically signed by Artur Womack 05/07/18 20:13: Patient's NIHSS on my examination was 6 Original Note: <Artur Womack - Last Filed: 05/07/18 15:08> History of Present Illness - History of Present Illness History of Present Illness: PGY-2 neurology consult note for Dr Kumar Mr Javed is a 88 year old male with a PMHx of dementia, HTN, living alone under legal guardianship who was found by patient's cleaning lady lying on the ground at his home. Per chart review patient was said to be completely independent of ADL prior to this incident. It is unknown how long the patient was on the floor. Patient was brought to the ED where a CT head showed hypodensity in left MCA territory which may represent subacute infarction. On evaluation patient is asphasic, able to follow commands, and denied pain or weakness. It was reported the patient's aphasia is new. Review of Systems - Review of Systems Systems not reviewed;Unavailable: Dementia Past Patient History - Tetanus Immunizations Tetanus Immunization: Unknown - Past Medical History & Family History Past Medical History?: No - Past Social History Smoking Status: Unknown If Ever Smoked - MUSCULOSKELETAL/RHEUMATOLOGICAL Hx Falls: Yes - PSYCHIATRIC Hx Substance Use: No (UNKNOWN) - SURGICAL HISTORY Other/Comment: UNABLE TO OBTAIN AT TIME OF TRIAGE - ANESTHESIA Hx Anesthesia: (UNABLE TO GET INFO AT THIS TIME ,PT APHASIC) Meds Allergies/Adverse Reactions: Allergies Allergy/AdvReac Type Severity Reaction Status Date / Time Unobtainable Allergy Unverified 05/06/18 15:28 - Medications Medications: Current Medications Aspirin (Aspirin Chewable) 81 mg PO DAILY ANUPAM Last Admin: 05/07/18 11:51 Dose: Not Given Sodium Chloride (Sodium Chloride 0.9%) 1,000 mls @ 100 mls/hr IV .Q10H ANUPAM Last Admin: 05/07/18 04:24 Dose: Not Given Azithromycin 500 mg/ Sodium (Chloride) 250 mls @ 250 mls/hr IVPB Q24H ANUPAM PRN Reason: Protocol Last Admin: 05/07/18 12:05 Dose: 250 mls/hr Ceftriaxone Sodium 1 gm/ (Sodium Chloride) 100 mls @ 200 mls/hr IVPB DAILY ANUPAM PRN Reason: Protocol Last Admin: 05/07/18 11:35 Dose: 200 mls/hr Heparin Sodium/Sodium Chloride (Heparin 42229 Units/250ml 1/2 Normal Saline) 25 ,000 units in 250 mls @ 9.798 mls/hr IV .Q24H PRN; Protocol; 12 UNITS/KG/HR PRN Reason: ADJUST RATE PER PROTOCOL Last Admin: 05/06/18 22:25 Dose: 12 units/kg/hr, 9.798 mls/hr Pantoprazole Sodium (Protonix Ec Tab) 40 mg PO DAILY [facility] Last Admin: 05/07/18 11:52 Dose: Not Given Pneumococcal Polyvalent Vaccine (Pneumovax 23 Vaccine) 0.5 ml IM .ONCE ONE Stop: 05/08/18 10:01 Rosuvastatin Calcium (Crestor) 10 mg PO HS [facility] Last Admin: 05/06/18 21:56 Dose: 10 mg Saccharomyces Boulardii (Florastor) 250 mg PO Q12H [facility] Last Admin: 05/07/18 11:51 Dose: Not Given Physical Exam - Expanded Neurological Exam Expanded Neurological exam: Expressive Aphasia Patient oriented to: person, place Speech: Expressive Aphasia Cranial nerves: EOM's Intact: Normal, Gag Reflex: Normal, Tongue Deviation: Normal Cerebellar Function: Finger to Nose: Normal, Heel to [place]: Normal Upper motor neuron: Babinski Sign: Normal, Pronator Drift: Normal Sensory exam: Lower Extremity 2 Point Discrimination: Normal, Upper Extremity 2 Point Discrimination: Normal Neuro motor strength exam: Left Upper Extremity: 5, Right Upper Extremity: 5, Left Lower Extremity: 5, Right Lower Extremity: 5 Coma Scale Eye Opening: SPONTANEOUS Coma Scale Motor Response: OBEYS COMMANDS - Additional Findings Additional findings: - Constitutional Appears: Non-toxic, No Acute Distress, Unkempt, Confused Additional comments: Patient is non-verbal, but able to follow commands, and use body language to communicate "yes/no" to most questions, but not all. - Head Exam Head Exam: ATRAUMATIC, NORMAL INSPECTION, NORMOCEPHALIC - Eye Exam Eye Exam: EOMI, Normal appearance, PERRL. absent: Conjunctival injection, Scleral icterus Pupil Exam: PERRL. absent: NORMAL ACCOMODATION - ENT Exam ENT Exam: Mucous Membranes Dry Additional comments: Dry oral cavity. No teeth. No dentures were worn by patient. - Cardiovascular Exam Cardiovascular Exam: Irregular Rhythm (atrial flutter ), +S1, +S2, Systolic Murmur (appreciated on auscultation of both right and left sternal border at 2nd intercostal space bilaterally. ). absent: Gallop, Rubs - GI/Abdominal Exam GI & Abdominal Exam: Normal Bowel Sounds, Soft. absent: Firm, Guarding, Hernia , Pulsatile Mass, Rebound, Tenderness - Extremities Exam Extremities exam: Positive for: full ROM, normal capillary refill, pedal pulses present. Negative for: calf tenderness, joint swelling, pedal edema, tenderness Additional comments: lateral malleolus (Left) ulcer lateral thigh (left) ulcer shoulder (left) ulcer - Back Exam Back exam: FULL ROM, NORMAL INSPECTION. absent: muscle spasm, tenderness - Neurological Exam Neurological exam: Alert, CN II-XII Intact, Normal Gait, Reflexes Normal - Psychiatric Exam Psychiatric exam: Normal Affect, Normal Mood - Skin Skin Exam: Dry, Intact, Warm Additional comments: noted ulcers on left shoulder, lateral thigh, and lateral malleolus. Results - Vital Signs Recent Vital Signs: Last Vital Signs Temp 97.6 F 05/07/18 08:30 Pulse 45 L 05/07/18 08:30 Resp 18 05/07/18 08:30 BP 120/61 05/07/18 08:30 Pulse Ox 97 05/07/18 08:30 - Labs Result Diagrams: 05/07/18 07:35 05/07/18 07:35 Labs: Laboratory Results - last 24 hr 05/06/18 05/06/18 05/06/18 15:31 16:03 16:03 WBC 13.1 H RBC 5.11 Hgb 16.3 Hct 46.7 MCV 91.4 MCH 31.9 H MCHC 34.9 RDW 13.7 Plt Count 272 MPV 8.3 Neut % (Auto) 86.2 H Lymph % (Auto) 4.7 L [place] % (Auto) 8.9 Eos % (Auto) 0.0 Baso % (Auto) 0.2 Neut # (Auto) 11.3 H Lymph # (Auto) 0.6 L [place] # (Auto) 1.2 H Eos # (Auto) 0.0 Baso # (Auto) 0.0 Neutrophils % (Manual) 92 H Lymphocytes % (Manual) 2 L Monocytes % (Manual) 6 Platelet Estimate Normal PT 12.6 H INR 1.2 APTT 28 Sodium Potassium Chloride Carbon Dioxide Anion Gap BUN Creatinine Est GFR ( Amer) Est GFR (Non-Af Amer) POC Glucose (mg/dL) 119 H Random Glucose Hemoglobin A1c Calcium Phosphorus Magnesium Total Bilirubin AST ALT Alkaline Phosphatase Troponin I NT-Pro-B Natriuret Pep Total Protein Albumin Globulin Albumin/Globulin Ratio Triglycerides Cholesterol LDL Cholesterol Direct HDL Cholesterol Vitamin B12 Folate Procalcitonin Thyroxine (T4) TSH 3rd Generation Urine Color Urine Clarity Urine pH Ur Specific [place] Urine Protein Urine Glucose (UA) Urine Ketones Urine Blood Urine Nitrate Urine Bilirubin Urine Urobilinogen Ur Leukocyte Esterase Urine WBC (Auto) Urine RBC (Auto) Ur Squamous Epith Cells Urine Bacteria Urine Opiates Screen Urine Methadone Screen Ur Barbiturates Screen Ur Phencyclidine Scrn Ur Amphetamines Screen U Benzodiazepines Scrn U Oth Cocaine Metabols U Cannabinoids Screen RPR 05/06/18 05/06/18 05/06/18 16:03 16:11 16:11 WBC RBC Hgb Hct MCV MCH MCHC RDW Plt Count MPV Neut % (Auto) Lymph % (Auto) [place] % (Auto) Eos % (Auto) Baso % (Auto) Neut # (Auto) Lymph # (Auto) [place] # (Auto) Eos # (Auto) Baso # (Auto) Neutrophils % (Manual) Lymphocytes % (Manual) Monocytes % (Manual) Platelet Estimate PT INR APTT Sodium 142 Potassium 3.9 Chloride 103 Carbon Dioxide 25 Anion Gap 18 BUN 33 H Creatinine 0.9 Est GFR ( Amer) > 60 Est GFR (Non-Af Amer) > 60 POC Glucose (mg/dL) Random Glucose 128 H Hemoglobin A1c Calcium 9.2 Phosphorus Magnesium Total Bilirubin 1.5 H AST 94 H ALT 47 Alkaline Phosphatase 86 Troponin I 0.0600 NT-Pro-B Natriuret Pep 7020 H Total Protein 7.5 Albumin 4.1 Globulin 3.4 Albumin/Globulin Ratio 1.2 Triglycerides Cholesterol LDL Cholesterol Direct HDL Cholesterol Vitamin B12 Folate Procalcitonin Thyroxine (T4) TSH 3rd Generation Urine Color [place] Urine Clarity Clear Urine pH 5.0 Ur Specific [place] 1.027 Urine Protein 3+ H Urine Glucose (UA) Normal Urine Ketones 1+ H Urine Blood 3+ H Urine Nitrate Negative Urine Bilirubin Negative Urine Urobilinogen 2.0 Ur Leukocyte Esterase Neg Urine WBC (Auto) 1 Urine RBC (Auto) 3 Ur Squamous Epith Cells < 1 Urine Bacteria Rare Urine Opiates Screen Negative Urine Methadone Screen Negative Ur Barbiturates Screen Negative Ur Phencyclidine Scrn Negative Ur Amphetamines Screen Negative U Benzodiazepines Scrn Negative U Oth Cocaine Metabols Negative U Cannabinoids Screen Negative RPR 05/06/18 05/06/18 05/06/18 19:18 19:18 19:18 WBC RBC Hgb Hct MCV MCH MCHC RDW Plt Count MPV Neut % (Auto) Lymph % (Auto) [place] % (Auto) Eos % (Auto) Baso % (Auto) Neut # (Auto) Lymph # (Auto) [place] # (Auto) Eos # (Auto) Baso # (Auto) Neutrophils % (Manual) Lymphocytes % (Manual) Monocytes % (Manual) Platelet Estimate PT INR APTT Sodium Potassium Chloride Carbon Dioxide Anion Gap BUN Creatinine Est GFR ( Amer) Est GFR (Non-Af Amer) POC Glucose (mg/dL) Random Glucose Hemoglobin A1c 5.1 Calcium Phosphorus Magnesium Total Bilirubin AST ALT Alkaline Phosphatase Troponin I NT-Pro-B Natriuret Pep Total Protein Albumin Globulin Albumin/Globulin Ratio Triglycerides 69 Cholesterol 132 LDL Cholesterol Direct 62 HDL Cholesterol 37 Vitamin B12 > 1000 H Folate 8.2 Procalcitonin Thyroxine (T4) 9.17 TSH 3rd Generation 1.30 Urine Color Urine Clarity Urine pH Ur Specific [place] Urine Protein Urine Glucose (UA) Urine Ketones Urine Blood Urine Nitrate Urine Bilirubin Urine Urobilinogen Ur Leukocyte Esterase Urine WBC (Auto) Urine RBC (Auto) Ur Squamous Epith Cells Urine Bacteria Urine Opiates Screen Urine Methadone Screen Ur Barbiturates Screen Ur Phencyclidine Scrn Ur Amphetamines Screen U Benzodiazepines Scrn U Oth Cocaine Metabols U Cannabinoids Screen RPR Nonreactive 05/06/18 05/07/18 05/07/18 Unknown 07:35 07:35 WBC 9.6 RBC 4.43 Hgb 14.5 Hct 40.8 MCV 92.1 MCH 32.6 H MCHC 35.5 RDW 14.2 Plt Count 218 MPV 8.6 Neut % (Auto) 77.5 H Lymph % (Auto) 10.4 L [place] % (Auto) 11.2 H Eos % (Auto) 0.3 Baso % (Auto) 0.6 Neut # (Auto) 7.4 H Lymph # (Auto) 1.0 [place] # (Auto) 1.1 H Eos # (Auto) 0.0 Baso # (Auto) 0.1 Neutrophils % (Manual) Lymphocytes % (Manual) Monocytes % (Manual) Platelet Estimate PT INR APTT Sodium 144 Potassium 3.7 Chloride 110 H Carbon Dioxide 24 Anion Gap 14 BUN 35 H Creatinine 1.0 Est GFR ( Amer) > 60 Est GFR (Non-Af Amer) > 60 POC Glucose (mg/dL) Random Glucose 104 Hemoglobin A1c Calcium 8.7 Phosphorus 2.9 Magnesium 2.1 Total Bilirubin 1.2 AST 67 H D ALT 45 Alkaline Phosphatase 69 Troponin I NT-Pro-B Natriuret Pep Total Protein 6.2 L Albumin 3.3 L Globulin 2.9 Albumin/Globulin Ratio 1.2 Triglycerides Cholesterol LDL Cholesterol Direct HDL Cholesterol Vitamin B12 Folate Procalcitonin < 0.05 L Thyroxine (T4) TSH 3rd Generation Urine Color Urine Clarity Urine pH Ur Specific [place] Urine Protein Urine Glucose (UA) Urine Ketones Urine Blood Urine Nitrate Urine Bilirubin Urine Urobilinogen Ur Leukocyte Esterase Urine WBC (Auto) Urine RBC (Auto) Ur Squamous Epith Cells Urine Bacteria Urine Opiates Screen Urine Methadone Screen Ur Barbiturates Screen Ur Phencyclidine Scrn Ur Amphetamines Screen U Benzodiazepines Scrn U Oth Cocaine Metabols U Cannabinoids Screen RPR 05/07/18 07:35 WBC RBC Hgb Hct MCV MCH MCHC RDW Plt Count MPV Neut % (Auto) Lymph % (Auto) [place] % (Auto) Eos % (Auto) Baso % (Auto) Neut # (Auto) Lymph # (Auto) [place] # (Auto) Eos # (Auto) Baso # (Auto) Neutrophils % (Manual) Lymphocytes % (Manual) Monocytes % (Manual) Platelet Estimate PT INR APTT 72 H D Sodium Potassium Chloride Carbon Dioxide Anion Gap BUN Creatinine Est GFR ( Amer) Est GFR (Non-Af Amer) POC Glucose (mg/dL) Random Glucose Hemoglobin A1c Calcium Phosphorus Magnesium Total Bilirubin AST ALT Alkaline Phosphatase Troponin I NT-Pro-B Natriuret Pep Total Protein Albumin Globulin Albumin/Globulin Ratio Triglycerides Cholesterol LDL Cholesterol Direct HDL Cholesterol Vitamin B12 Folate Procalcitonin Thyroxine (T4) TSH 3rd Generation Urine Color Urine Clarity Urine pH Ur Specific [place] Urine Protein Urine Glucose (UA) Urine Ketones Urine Blood Urine Nitrate Urine Bilirubin Urine Urobilinogen Ur Leukocyte Esterase Urine WBC (Auto) Urine RBC (Auto) Ur Squamous Epith Cells Urine Bacteria Urine Opiates Screen Urine Methadone Screen Ur Barbiturates Screen Ur Phencyclidine Scrn Ur Amphetamines Screen U Benzodiazepines Scrn U Oth Cocaine Metabols U Cannabinoids Screen RPR Assessment & Plan - Assessment and Plan (Free Text) Plan: Mr Javed is a 88 year old male with a PMHx of dementia, HTN, living alone under legal guardianship who was found by patient's cleaning lady lying on the ground at his home with reportedly new aphasia: Left MCA Sub-Acute Infarction -This is most likely a cardioembolic stroke -Head CT showed hypodensity in left MCA territory which may represent subacute infarction -CTA head/nec - <50% stenosis in left and right internal carotids -aspirin 81mg po qd discontinued as patient already on heparin drip cardiac protocol * will leave it to cardio to decide which AO best for patient - not necessary for patient to be on both aspirin and AO -Continue crestor 10mg po hs -F/U brain MRI w/o contrast A-Flutter -aspirin 81mg po qd discontinued as patient already on heparin drip cardiac protocol * will leave it to cardio to decide which AO best for patient - not necessary for patient to be on aspirin and AO <Jonny Kumar - Last Filed: 05/08/18 15:38> Meds - Medications Medications: Current Medications Atropine Sulfate (Atropine) 1 mg IVP Q3H PRN PRN Reason: Other Last Admin: 05/07/18 23:40 Dose: 1 mg Sodium Chloride (Sodium Chloride 0.9%) 1,000 mls @ 100 mls/hr IV .Q10H ANUPAM Last Admin: 05/08/18 00:45 Dose: Not Given Ceftriaxone Sodium 1 gm/ (Sodium Chloride) 100 mls @ 200 mls/hr IVPB DAILY ANUPAM PRN Reason: Protocol Last Admin: 05/08/18 09:50 Dose: 200 mls/hr Heparin Sodium/Sodium Chloride (Heparin 57357 Units/250ml 1/2 Normal Saline) 25 ,000 units in 250 mls @ 9.798 mls/hr IV .Q24H PRN; Protocol; 12 UNITS/KG/HR PRN Reason: ADJUST RATE PER PROTOCOL Last Admin: 05/07/18 23:31 Dose: 12 units/kg/hr, 9.798 mls/hr Dopamine HCl/Dextrose (Dopamine 400mg/250ml D5w) 400 mg in 250 mls @ 8.318 mls/ hr IV .Q24H PRN; 3 MCG/KG/MIN PRN Reason: TITRATE PER MD ORDER Last Admin: 05/07/18 21:30 Dose: 8.318 mls/hr Nitroglycerin (Nitro-Bid 2% Oint) 1 ea TOP Q6H [facility] Last Admin: 05/08/18 09:50 Dose: 1 ea Pantoprazole Sodium (Protonix Ec Tab) 40 mg PO DAILY [facility] Last Admin: 05/08/18 09:51 Dose: 40 mg Rosuvastatin Calcium (Crestor) 10 mg PO HS [facility] Last Admin: 05/07/18 22:22 Dose: 10 mg Saccharomyces Boulardii (Florastor) 250 mg PO Q12H [facility] Last Admin: 05/08/18 09:50 Dose: 250 mg Results - Vital Signs Recent Vital Signs: Last Vital Signs Temp 97.6 F 05/07/18 08:30 Pulse 54 L 05/07/18 21:30 Resp 21 05/07/18 21:30 BP 164/64 H 05/07/18 21:30 Pulse Ox 97 05/07/18 08:30 - Labs Result Diagrams: 05/08/18 06:34 05/08/18 06:28 Labs: Laboratory Results - last 24 hr 05/07/18 05/07/18 05/07/18 16:22 18:23 18:23 WBC 9.3 RBC 4.35 L Hgb 14.1 Hct 40.2 MCV 92.4 MCH 32.4 H MCHC 35.1 RDW 14.2 Plt Count 197 MPV 8.5 Neut % (Auto) 74.0 Lymph % (Auto) 13.5 L [place] % (Auto) 11.6 H Eos % (Auto) 0.5 Baso % (Auto) 0.4 Neut # (Auto) 6.9 Lymph # (Auto) 1.2 [place] # (Auto) 1.1 H Eos # (Auto) 0.0 Baso # (Auto) 0.0 Neutrophils % (Manual) Lymphocytes % (Manual) Monocytes % (Manual) Eosinophils % (Manual) Platelet Estimate RBC Morphology APTT 88 H D Sodium 144 Potassium 3.7 Chloride 110 H Carbon Dioxide 25 Anion Gap 14 BUN 36 H Creatinine 1.0 Est GFR ( Amer) > 60 Est GFR (Non-Af Amer) > 60 Random Glucose 93 Calcium 8.7 Phosphorus 2.9 Magnesium 2.1 Total Bilirubin 0.9 AST 55 ALT 40 Alkaline Phosphatase 68 Total Creatine Kinase 531 H CK-MB (Mass) 3.74 H Troponin I 0.0790 Total Protein 6.3 Albumin 3.2 L Globulin 3.1 Albumin/Globulin Ratio 1.0 Procalcitonin 05/07/18 05/08/18 05/08/18 18:23 06:28 06:34 WBC 10.1 RBC 4.28 L Hgb 13.9 Hct 39.6 MCV 92.6 MCH 32.4 H MCHC 35.0 RDW 13.9 Plt Count 220 MPV 8.6 Neut % (Auto) 81.7 H Lymph % (Auto) 7.8 L [place] % (Auto) 9.1 Eos % (Auto) 0.9 Baso % (Auto) 0.5 Neut # (Auto) 8.3 H Lymph # (Auto) 0.8 L [place] # (Auto) 0.9 H Eos # (Auto) 0.1 Baso # (Auto) 0.1 Neutrophils % (Manual) 86 H Lymphocytes % (Manual) 6 L Monocytes % (Manual) 7 Eosinophils % (Manual) 1 Platelet Estimate Normal RBC Morphology Normal APTT Sodium 146 Potassium 3.6 Chloride 112 H Carbon Dioxide 20 L Anion Gap 17 BUN 33 H Creatinine 0.8 Est GFR ( Amer) > 60 Est GFR (Non-Af Amer) > 60 Random Glucose 106 Calcium 8.6 Phosphorus 2.7 Magnesium 1.9 Total Bilirubin 1.1 AST 57 ALT 42 Alkaline Phosphatase 67 Total Creatine Kinase CK-MB (Mass) Troponin I Total Protein 6.6 Albumin 3.4 L Globulin 3.2 Albumin/Globulin Ratio 1.0 Procalcitonin < 0.05 L 05/08/18 05/08/18 06:34 09:43 WBC RBC Hgb Hct MCV MCH MCHC RDW Plt Count MPV Neut % (Auto) Lymph % (Auto) [place] % (Auto) Eos % (Auto) Baso % (Auto) Neut # (Auto) Lymph # (Auto) [place] # (Auto) Eos # (Auto) Baso # (Auto) Neutrophils % (Manual) Lymphocytes % (Manual) Monocytes % (Manual) Eosinophils % (Manual) Platelet Estimate RBC Morphology APTT 88 H Sodium Potassium Chloride Carbon Dioxide Anion Gap BUN Creatinine Est GFR ( Amer) Est GFR (Non-Af Amer) Random Glucose Calcium Phosphorus Magnesium Total Bilirubin AST ALT Alkaline Phosphatase Total Creatine Kinase CK-MB (Mass) Troponin I 0.0640 Total Protein Albumin Globulin Albumin/Globulin Ratio Procalcitonin NIHSS Stroke Scale 3 - Date/Time Evaluation Performed Date Performed: 05/07/18 Time Performed: 16:00 - How Severe is the Stroke Level of Consciousness: 0=Alert LOC to Questions: 1=One correct LOC to commands: 0=Obeys both correctly Best Gaze: 0=Normal Visual: 0=No visual loss Facial: 0=Normal Motor Arm - Left: 0=No drift Motor Arm - Right: 0=No drift Motor Leg - Left: 0=No drift Motor Leg - Right: 0=No drift Limb Ataxia: 0=Absent Sensory: 0=Normal Best Language: 3=Mute Dysarthia: 0=Normal articulation Extinction & Inattention (Neglect): 0=Normal, no object Score: 4 Severity Of Stroke: 1-4 = Minor Stroke Attending/Attestation - Attestation I have personally seen and examined this patient.: Yes I have fully participated in the care of the patient.: Yes I have reviewed all pertinent clinical information: Yes Notes (Text): 05/08/18 15:37 On my exam, the patient had an NIHSS of 4
--- NOTE | 2018-05-07 18:18 | PCM.RRT ---
DRY BOSS Nurses Assessment - Situation Date: 05/07/18 Time DRY BOSS was called: 17:55 DRY BOSS Responder Arrival Time:: 17:56 DRY BOSS Location:: Med/Surg Room Number: 668A DRY BOSS Reason for Call: Bradycardia, Hypotension DRY BOSS Called By: RN - IV IV Inserted during DRY BOSS?: No - Respiratory DRY BOSS Delivery Method: Nasal Cannula @L/min Oxygen Flow Rate: 3 Received Nebulizer Treatments: No Was the Patient Ventilated with Bag/Mask 100% O2?: No Secretions Suctioned?: No Was the Patient Intubated?: No Was the Patient Placed on a Ventilator?: No - Diagnostic Test Ordered EKG: Yes CPR started during DRY BOSS?: No - Vital Signs Vital Signs: Rapid Response Vital Sign Pulse Rate 24 Respiratory Rate 18 Temperature 98.4 F Oxygen Saturation 95 - Sepsis Screen Part 1 Sepsis Screen Part 1: Hypotensive - Recommendations Notifications: Attending Physician, Consultations I.Reason for DRY BOSS - A) Acute Change in Patient: (Select all that apply): Acute change in SBP below (unable to retrieve BP ) - Neurological Status (Select all that apply): Disoriented, Confused Other (Please specify): non-verbal - Respiratory Oxygen Delivery Method: Room Air Oxygen Flow Rate: 3 - Extremities Exam Additional comments: - Constitutional Appears: Non-toxic, No Acute Distress, Unkempt, Confused Additional comments: Patient is non-verbal, but able to follow commands, and use body language to communicate "yes/no" to most questions, but not all. - Head Exam Head Exam: ATRAUMATIC, NORMAL INSPECTION, NORMOCEPHALIC - Eye Exam Eye Exam: EOMI, Normal appearance, PERRL. absent: Conjunctival injection, Scleral icterus Pupil Exam: PERRL. absent: NORMAL ACCOMODATION - ENT Exam ENT Exam: Mucous Membranes Dry Additional comments: Dry oral cavity. No teeth. No dentures were worn by patient. - Cardiovascular Exam Cardiovascular Exam: Irregular Rhythm (atrial flutter ), +S1, +S2, Systolic Murmur (appreciated on auscultation of both right and left sternal border at 2nd intercostal space bilaterally. ). absent: Gallop, Rubs - GI/Abdominal Exam GI & Abdominal Exam: Normal Bowel Sounds, Soft. absent: Firm, Guarding, Hernia , Pulsatile Mass, Rebound, Tenderness - Extremities Exam Extremities exam: Positive for: full ROM, normal capillary refill, pedal pulses present. Negative for: calf tenderness, joint swelling, pedal edema, tenderness Additional comments: lateral malleolus (right) ulcer lateral thigh (right) ulcer shoulder (right) ulcer - Back Exam Back exam: FULL ROM, NORMAL INSPECTION. absent: muscle spasm, tenderness - Neurological Exam Neurological exam: Alert, CN II-XII Intact, Normal Gait, Reflexes Normal - Psychiatric Exam Psychiatric exam: Normal Affect, Normal Mood - Skin Skin Exam: Dry, Intact, Warm Additional comments: noted ulcers on left shoulder, lateral thigh, and lateral malleolus. Plan - Assessment of Findings&Treatment Plan DRY BOSS called by RN unable to retrieve manual blood pressure. Patient placed in reverse trendelenburg. Patient is currently on heparin drip for history of afib. EKG obtained showing atrial fib with prolonged QT. Dr. Smith has spoken to cardio on case. EP notified, will evaluate the patient tomorrow. Repeat blood work was done at time of rapid: CBC, CMP, Phos, Mag, EVON. Discontinued Azithromycin due to prolonged QT. Dr. Smith spoke to ICU. Patient accepted to ICU. Patient will be transfered to ICU for further monitoring. Please contact the following number to contact state guardianship if the patient requires consent for procedures as needed: .
[2018-05-07 18:33] LABS: BASO % 0.4 % (0.0-2.0); EOS % 0.5 % (0.0-4.0); HEMOGLOBIN 14.1 g/dL (12.0-18.0); LYMPH # 1.2 K/uL (1.0-4.3); LYMPH % 13.5 % (20.0-40.0); MEAN CELL VOLUME 92.4 fL (80.0-94.0); MEAN CORPUSCULAR HEMOGLOBIN 32.4 pg (27.0-31.0); MEAN CORPUSCULAR HGB CONC 35.1 g/dL (33.0-37.0); MEAN PLATELET VOLUME 8.5 fL (7.2-11.7); MONO # 1.1 K/uL (0.0-0.8); MONO % 11.6 % (0.0-10.0); NEUT # 6.9 K/uL (1.8-7.0); NRBC % 0.1 % (0.0-2.0); RBC 4.35 Mil/uL (4.40-5.90); RED CELL DISTRIBUTION WIDTH 14.2 % (11.5-14.5); WHITE BLOOD COUNT 9.3 K/uL (4.8-10.8)
--- NOTE | 2018-05-07 18:45 | CP.PCM.PN ---
Addendum entered and electronically signed by Chi Welch DO 05/07/18 19: 46: Correction: Patient with atrial flutter, NETWORK SPECIALIST called today 05/07. Please see addendum to NETWORK SPECIALIST note. Correction: Past Medical History of the patient is unknown at this time. Patient may have dementia. His baseline is currently unknown, as we could not get a detailed history. Correction: Crocheter Hand consulted: Dr. Billingsley Patient evaluated and case discussed in detail with Attending Physician Dr. Tricia Welch PGY1 Original Note: <Chi Welch - Last Filed: 05/07/18 18:41> Subjective - Date & Time of Evaluation Date of Evaluation: 05/07/18 Time of Evaluation: 18:41 - Subjective Subjective: Medicine Progress Note - Chi Welch PGY1 Patient was evaluated at bedside this morning. Patient is without complaints today. Patient is still non-verbal, but is able to follow commands and expresses that he understand with nodding and/or shaking his head when answering "no." Per nurse, the patient was bradycardic overnight. Cardiology was notified. Patient was asymptomatic at the time. Later today, the nurse called a rapid response due to unattainable manual blood pressure. Patient was subsequently accepted for ICU transfer, per Dr. You. Please see NETWORK SPECIALIST note from 05/07/18 for more information. Objective - Vital Signs/Intake and Output Vital Signs (last 24 hours): Temp Pulse Resp BP Pulse Ox 97.6 F 45 L 18 120/61 97 05/07/18 08:30 05/07/18 08:30 05/07/18 08:30 05/07/18 08:30 05/07/18 08:30 Intake and Output: 05/07/18 05/07/18 06:59 18:59 Output Total 50 Balance -50 - Medications Medications: Current Medications Sodium Chloride (Sodium Chloride 0.9%) 1,000 mls @ 100 mls/hr IV .Q10H ANUPAM Last Admin: 05/07/18 14:45 Dose: 100 mls/hr Azithromycin 500 mg/ Sodium (Chloride) 250 mls @ 250 mls/hr IVPB Q24H ANUPAM PRN Reason: Protocol Last Admin: 05/07/18 12:05 Dose: 250 mls/hr Ceftriaxone Sodium 1 gm/ (Sodium Chloride) 100 mls @ 200 mls/hr IVPB DAILY ANUPAM PRN Reason: Protocol Last Admin: 05/07/18 11:35 Dose: 200 mls/hr Heparin Sodium/Sodium Chloride (Heparin 79612 Units/250ml 1/2 Normal Saline) 25 ,000 units in 250 mls @ 9.798 mls/hr IV .Q24H PRN; Protocol; 12 UNITS/KG/HR PRN Reason: ADJUST RATE PER PROTOCOL Last Admin: 05/06/18 22:25 Dose: 12 units/kg/hr, 9.798 mls/hr Pantoprazole Sodium (Protonix Ec Tab) 40 mg PO DAILY [facility] Last Admin: 05/07/18 11:52 Dose: Not Given Pneumococcal Polyvalent Vaccine (Pneumovax 23 Vaccine) 0.5 ml IM .ONCE ONE Stop: 05/08/18 10:01 Rosuvastatin Calcium (Crestor) 10 mg PO HS [facility] Last Admin: 05/06/18 21:56 Dose: 10 mg Saccharomyces Boulardii (Florastor) 250 mg PO Q12H [facility] Last Admin: 05/07/18 11:51 Dose: Not Given - Labs Labs: 05/07/18 18:23 05/07/18 07:35 PT 12.6 SECONDS (9.7-12.2) H 05/06/18 16:03 INR 1.2 05/06/18 16:03 APTT 88 SECONDS (21-34) H D 05/07/18 16:22 - Additional Findings Additional findings: - Constitutional Appears: Non-toxic, No Acute Distress, Confused Additional comments: Patient is non-verbal, but able to follow commands, and use body language to communicate "yes/no" to most questions, but not all. - Head Exam Head Exam: ATRAUMATIC, NORMAL INSPECTION, NORMOCEPHALIC - Eye Exam Eye Exam: EOMI, Normal appearance, PERRL. absent: Conjunctival injection, Scleral icterus Pupil Exam: PERRL. - ENT Exam ENT Exam: Mucous Membranes Dry Additional comments: Dry oral cavity. No teeth. No dentures were worn by patient. - Cardiovascular Exam Cardiovascular Exam: Irregular Rhythm (atrial flutter ), +S1, +S2, Systolic Murmur (appreciated on auscultation of both right and left sternal border at 2nd intercostal space bilaterally. ). absent: Gallop, Rubs - GI/Abdominal Exam GI & Abdominal Exam: Normal Bowel Sounds, Soft. absent: Firm, Guarding, Hernia , Pulsatile Mass, Rebound, Tenderness - Extremities Exam Extremities exam: Positive for: full ROM, normal capillary refill, pedal pulses present. Negative for: calf tenderness, joint swelling, pedal edema, tenderness Additional comments: lateral malleolus (right) ulcer lateral thigh (right) ulcer shoulder (right) ulcer - Back Exam Back exam: FULL ROM, NORMAL INSPECTION. absent: muscle spasm, tenderness - Neurological Exam Neurological exam: Alert, CN II-XII Intact, Normal Gait, Reflexes Normal - Psychiatric Exam Psychiatric exam: Normal Affect, Normal Mood - Skin Skin Exam: Dry, Intact, Warm Additional comments: noted ulcers on right shoulder, lateral thigh, and lateral malleolus. Assessment and Plan - Assessment and Plan (Free Text) Assessment: This is an 88 year old male with past medical history of hypertension, advanced dementia and psychiatric illness, and possible past medical history of hypertension who presents to ED brought in by ambulance for AMS. Note: most of the history was obtained by ED nurse, as the patient is a poor historian. Patient was subsequently admitted to Telemetry for further evaluation of CVA and A-flutter. Rapid Response called on 05/07 for unattainable blood pressure read (manual) and patient was subsequently upgraded to ICU. 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 Kumar) - CT without contrast: subtle hypodensity in the left MCA territory ( nonspecific and may represent subacute infarct) - Focal deficit on physical exam: Aphagia - Chest X-ray: Left lower lobe infiltrates/atelectasis - CTA of Head and Neck ordered stat - Continue with cardiac heparin therapy, per Dr. Vance and Dr. Kumar recommendation - Discontinue ASA 81mg PO daily, as patient is on Heparin, per neuro recommendation - Continue Crestor 10mg PO HS - Follow up with brain MRI without contrast - Bone Scan to determine whether patient has any metal was ordered - Neuro check Q4H Atrial flutter, bradycardia on EKG from 05/06, Rapid Response on 05/07 --> Admitted to ICU - EVON panel ordered: pending - EKG repeat: pending - Known risk factors: age, hypertension - Cardio consulted on case (Dr. aVnce) recommendations appreciated - Echo obtained: pending report - Continue Rosuvastatin 10mg HS - Hemodynamically stable - Bradycardic ventricular response - EP was consulted and called about the patient, recommendations appreciated - BNP > 7000 - Trop neg x1 (05/06) - Continue cardiac heparin therapy (per Dr. Vance and Dr. Kumar recommendation) - Monitor Bradycardia on EKG from 05/06, Rapid Response on 05/07 --> Admitted to ICU - EVON panel ordered: pending - EKG repeat: pending - Obtained repeat Mg and Phos: pending - Continue heparin therapy - Discontinue azithromycin - Monitor in ICU Advanced Dementia - Patient is under the guardianship of the state - farmworker field crop (Todd) came to see the patient, and patient's condition was discussed with Catshovel Driver and Dr. Clarke - Paper Bags Sewing Machine Operator/ Catshovel Driver contact: - Please call for consent if needed during admission - Baseline not entirely known - Per child welfare caseworker patient was said to be fully functional with ability to preform activities of daily living with limited assistance at home - Case management at [facility] was consulted, recommendations appreciated - PT/OT eval and treat - Swallow eval performed at ED bedside - Pureed diet and thick liquid diet Community Acquired Pneumonia - Chest X-ray: Left lower lobe infiltrates/atelectasis - Afebrile, no leukocytosis - Procalcitonin < 0.05 - CBC: WBC=13.1 - CMP: BUN=35 (up from 33) - Rocephin 1g IVBP - Discontinued: Azithromycin 500mg IVPB Q24H due to prolonged QT seen on EKG during rapid response - Continue probiotic 250mg PO Q12H - Continue IV fluids @100mls/hr - Urine Cx pending - Blood Cx pending Ulcers secondary to being on the ground for unknown duration - Wound Care consulted, eval and treat PPx: - DVT: SCD - GI: Protonix 40mg PO daily Patient evaluated and case discussed in detail with Attending Physician Dr. Tricia Welch PGY1 <Madina Clarke - Last Filed: 05/16/18 15:06> Objective - Vital Signs/Intake and Output Vital Signs (last 24 hours): Temp Pulse Resp BP Pulse Ox 98.4 F 48 L 16 133/40 L 99 05/16/18 12:00 05/16/18 13:22 05/16/18 13:22 05/16/18 13:22 05/16/18 13:00 Intake and Output: 05/16/18 05/16/18 06:59 18:59 Intake Total 1435.2 1237.2 Output Total 580 200 Balance 855.2 1037.2 - Medications Medications: Current Medications Albuterol Sulfate (Albuterol 0.083% Inhal Suellen (2.5 Mg/3 Ml) Ud) 2.5 mg INH RQ6 [facility] Last Admin: 05/16/18 13:42 Dose: 2.5 mg Amlodipine Besylate (Norvasc) 5 mg PO DAILY [facility] Last Admin: 05/16/18 09:14 Dose: 5 mg Aspirin (Ecotrin) 81 mg PO DAILY [facility] Last Admin: 05/16/18 09:14 Dose: 81 mg Atropine Sulfate (Atropine) 1 mg IVP Q3H PRN PRN Reason: Other Last Admin: 05/16/18 11:30 Dose: 1 mg Bisacodyl (Dulcolax) 10 mg IN HS PRN PRN Reason: Constipation Docusate Sodium (Colace) 100 mg PO TID [facility] Hydralazine HCl (Apresoline) 10 mg IVP Q6H PRN PRN Reason: SBP > 160 Hydralazine HCl (Apresoline) 25 mg PO TID [facility] Last Admin: 05/16/18 14:11 Dose: 25 mg Heparin Sodium/Sodium Chloride (Heparin 98239 Units/250ml 1/2 Normal Saline) 25 ,000 units in 250 mls @ 9.58 mls/hr IV .Q24H PRN; Protocol; 12 UNITS/KG/HR PRN Reason: ADJUST RATE PER PROTOCOL Last Admin: 05/15/18 12:53 Dose: 12 units/kg/hr, 9.58 mls/hr Ceftriaxone Sodium 1 gm/ (Sodium Chloride) 100 mls @ 100 mls/hr IVPB Q24H [facility]UPAM PRN Reason: Protocol Stop: 05/17/18 11:29 Last Admin: 05/16/18 10:44 Dose: 100 mls/hr Sodium Chloride (Sodium Chloride 0.45%) 1,000 mls @ 75 mls/hr IV .[id number] [facility] Last Admin: 05/16/18 14:08 Dose: Not Given Pantoprazole Sodium (Protonix Ec Tab) 40 mg PO DAILY [facility] Last Admin: 05/16/18 09:14 Dose: 40 mg Rosuvastatin Calcium (Crestor) 10 mg PO HS [facility] Last Admin: 05/15/18 22:08 Dose: 10 mg Saccharomyces Boulardii (Florastor) 250 mg PO Q12H [facility]UP[facility] Last Admin: 05/16/18 09:14 Dose: 250 mg Sennosides (Senokot Tab) 8.6 mg PO DAILY [facility] Tamsulosin HCl (Flomax) 0.4 mg PO DAILY [facility] Last Admin: 05/16/18 09:14 Dose: 0.4 mg Terazosin HCl (Hytrin) 1 mg PO HS [facility] Last Admin: 05/15/18 22:08 Dose: 1 mg - Labs Labs: 05/16/18 06:30 05/16/18 06:30 PT 14.2 SECONDS (9.7-12.2) H 05/12/18 05:54 INR 1.3 05/12/18 05:54 APTT 59 SECONDS (21-34) H D 05/16/18 06:30 Attending/Attestation - Attestation I have personally seen and examined this patient.: Yes I have fully participated in the care of the patient.: Yes I have reviewed all pertinent clinical information, including history, physical exam and plan: Yes Notes (Text): Seen and examined .Patient was seen and examined in the morning and later during NETWORK SPECIALIST. patient is in atrial flutter with bradycardic and now symptomatic ? Awake and rseponsive Discussed with Dr Austin You pt will be transferred to ICU for clos monitoring and temp pacemaker as needed Spoke to his chief physical therapist. D/W resident and I agree with the documentation
--- NOTE | 2018-05-07 18:51 | CP.PCM.CON ---
<Ronni Guo - Last Filed: 05/07/18 20:04> History of Present Illness - History of Present Illness History of Present Illness: ICU consult note Patient is a 88 year old male with possible history of hypertension and unknown psychiatric illness who presented for evaluation after patient was reportedly found on the floor in his house by cleaning staff in his home. Unknown if patient has dementia. Unknown how long he was on the floor. Patient has since reportedly been altered since. At baseline, patient is reportedly completely independent in his activities. Patient is under state guardianship. ICU consulted for bradycardia with evidence of Atrial flutter on EKG. State guardian . PMH: unknown Allergies unknown Review of Systems - Review of Systems Systems not reviewed;Unavailable: Other (Patient is nonverbal, follows commands , can shake his head yes or no. ) Past Patient History - Tetanus Immunizations Tetanus Immunization: Unknown - Past Medical History & Family History Past Medical History?: No - Past Social History Smoking Status: Unknown If Ever Smoked - CARDIAC Hx Hypertension: Yes - MUSCULOSKELETAL/RHEUMATOLOGICAL Hx Falls: Yes - PSYCHIATRIC Hx Substance Use: No (UNKNOWN) - SURGICAL HISTORY Other/Comment: UNABLE TO OBTAIN AT TIME OF TRIAGE - ANESTHESIA Hx Anesthesia: (UNABLE TO GET INFO AT THIS TIME ,PT APHASIC) Meds Allergies/Adverse Reactions: Allergies Allergy/AdvReac Type Severity Reaction Status Date / Time Unobtainable Allergy Unverified 05/06/18 15:28 - Medications Medications: Current Medications Sodium Chloride (Sodium Chloride 0.9%) 1,000 mls @ 100 mls/hr IV .Q10H ANUPAM Last Admin: 05/07/18 14:45 Dose: 100 mls/hr Azithromycin 500 mg/ Sodium (Chloride) 250 mls @ 250 mls/hr IVPB Q24H ANUPAM PRN Reason: Protocol Last Admin: 05/07/18 12:05 Dose: 250 mls/hr Ceftriaxone Sodium 1 gm/ (Sodium Chloride) 100 mls @ 200 mls/hr IVPB DAILY ANUPAM PRN Reason: Protocol Last Admin: 05/07/18 11:35 Dose: 200 mls/hr Heparin Sodium/Sodium Chloride (Heparin 06923 Units/250ml 1/2 Normal Saline) 25 ,000 units in 250 mls @ 9.798 mls/hr IV .Q24H PRN; Protocol; 12 UNITS/KG/HR PRN Reason: ADJUST RATE PER PROTOCOL Last Admin: 05/06/18 22:25 Dose: 12 units/kg/hr, 9.798 mls/hr Pantoprazole Sodium (Protonix Ec Tab) 40 mg PO DAILY [facility] Last Admin: 05/07/18 11:52 Dose: Not Given Pneumococcal Polyvalent Vaccine (Pneumovax 23 Vaccine) 0.5 ml IM .ONCE ONE Stop: 05/08/18 10:01 Rosuvastatin Calcium (Crestor) 10 mg PO HS [facility] Last Admin: 05/06/18 21:56 Dose: 10 mg Saccharomyces Boulardii (Florastor) 250 mg PO Q12H [facility] Last Admin: 05/07/18 11:51 Dose: Not Given Physical Exam - Constitutional Appears: No Acute Distress, Unkempt, Other (Nonverbal, able to nod his head and follows commands) - Head Exam Head Exam: ATRAUMATIC, NORMOCEPHALIC - Eye Exam Eye Exam: EOMI - ENT Exam ENT Exam: Mucous Membranes Dry - Respiratory Exam Respiratory Exam: Clear to Auscultation Bilateral. absent: Rales, Rhonchi, Wheezes, Respiratory Distress, Stridor - Cardiovascular Exam Cardiovascular Exam: Bradycardia, Irregular Rhythm, +S1, +S2, Systolic Murmur - GI/Abdominal Exam GI & Abdominal Exam: Normal Bowel Sounds, Soft. absent: Distended, Firm, Guarding, Tenderness - Extremities Exam Extremities exam: Positive for: pedal pulses present (2+ dorsalis pedis pulses present. ). Negative for: calf tenderness, pedal edema - Psychiatric Exam Psychiatric exam: Normal Affect - Skin Skin Exam: Dry, Intact, Warm Additional comments: (+) ulcer on right lateral thigh (+) ulcer on lateral knee. Results - Vital Signs Recent Vital Signs: Last Vital Signs Temp 97.6 F 05/07/18 08:30 Pulse 32 L 05/07/18 18:00 Resp 18 05/07/18 08:30 BP 116/68 05/07/18 18:00 Pulse Ox 97 05/07/18 08:30 - Labs Result Diagrams: 05/07/18 18:23 05/07/18 18:23 Labs: Laboratory Results - last 24 hr 05/06/18 05/06/18 05/06/18 19:18 19:18 19:18 WBC RBC Hgb Hct MCV MCH MCHC RDW Plt Count MPV Neut % (Auto) Lymph % (Auto) [place] % (Auto) Eos % (Auto) Baso % (Auto) Neut # (Auto) Lymph # (Auto) [place] # (Auto) Eos # (Auto) Baso # (Auto) APTT Sodium Potassium Chloride Carbon Dioxide Anion Gap BUN Creatinine Est GFR ( Amer) Est GFR (Non-Af Amer) Random Glucose Hemoglobin A1c 5.1 Calcium Phosphorus Magnesium Total Bilirubin AST ALT Alkaline Phosphatase Total Protein Albumin Globulin Albumin/Globulin Ratio Triglycerides 69 Cholesterol 132 LDL Cholesterol Direct 62 HDL Cholesterol 37 Vitamin B12 > 1000 H Folate 8.2 Procalcitonin Thyroxine (T4) 9.17 TSH 3rd Generation 1.30 RPR Nonreactive 05/06/18 05/07/18 05/07/18 Unknown 07:35 07:35 WBC 9.6 RBC 4.43 Hgb 14.5 Hct 40.8 MCV 92.1 MCH 32.6 H MCHC 35.5 RDW 14.2 Plt Count 218 MPV 8.6 Neut % (Auto) 77.5 H Lymph % (Auto) 10.4 L [place] % (Auto) 11.2 H Eos % (Auto) 0.3 Baso % (Auto) 0.6 Neut # (Auto) 7.4 H Lymph # (Auto) 1.0 [place] # (Auto) 1.1 H Eos # (Auto) 0.0 Baso # (Auto) 0.1 APTT Sodium 144 Potassium 3.7 Chloride 110 H Carbon Dioxide 24 Anion Gap 14 BUN 35 H Creatinine 1.0 Est GFR ( Amer) > 60 Est GFR (Non-Af Amer) > 60 Random Glucose 104 Hemoglobin A1c Calcium 8.7 Phosphorus 2.9 Magnesium 2.1 Total Bilirubin 1.2 AST 67 H D ALT 45 Alkaline Phosphatase 69 Total Protein 6.2 L Albumin 3.3 L Globulin 2.9 Albumin/Globulin Ratio 1.2 Triglycerides Cholesterol LDL Cholesterol Direct HDL Cholesterol Vitamin B12 Folate Procalcitonin < 0.05 L Thyroxine (T4) TSH 3rd Generation RPR 05/07/18 05/07/18 05/07/18 07:35 16:22 18:23 WBC 9.3 RBC 4.35 L Hgb 14.1 Hct 40.2 MCV 92.4 MCH 32.4 H MCHC 35.1 RDW 14.2 Plt Count 197 MPV 8.5 Neut % (Auto) 74.0 Lymph % (Auto) 13.5 L [place] % (Auto) 11.6 H Eos % (Auto) 0.5 Baso % (Auto) 0.4 Neut # (Auto) 6.9 Lymph # (Auto) 1.2 [place] # (Auto) 1.1 H Eos # (Auto) 0.0 Baso # (Auto) 0.0 APTT 72 H D 88 H D Sodium Potassium Chloride Carbon Dioxide Anion Gap BUN Creatinine Est GFR ( Amer) Est GFR (Non-Af Amer) Random Glucose Hemoglobin A1c Calcium Phosphorus Magnesium Total Bilirubin AST ALT Alkaline Phosphatase Total Protein Albumin Globulin Albumin/Globulin Ratio Triglycerides Cholesterol LDL Cholesterol Direct HDL Cholesterol Vitamin B12 Folate Procalcitonin Thyroxine (T4) TSH 3rd Generation RPR Assessment & Plan - Assessment and Plan (Free Text) Assessment: 88 year old male with history of dementia and unspecified psychiatric illness who presented for evaluation after he was found altered at home. Rapid response was called after nurse was unable to obtain blood pressure on patient. EKG revealed A flutter with slowed rate of 34 with prolonged QTc. Azithromycin d/ milly given prolonged QTc. On heparin drip currently. Plan: Neuro: Hx of advanced dementia Altered mental status Tox screen negative RPR negative Patient unable to speak, however appears to understand some commands Brain CT without contrast: subtle hypodensity in the left MCA territory ( nonspecific and may represent subacute infarct) CTA of Head and Neck 1. No evidence of endoluminal thrombus,occlusion or definite significant stenosis in the intracranial arteries.2. No evidence of hemodynamically significant stenosis in the internal carotid arteries.Approximately 60% luminal narrowing in the proximal right internal carotid artery. Correlation with duplex carotid ultrasound is advised. 3. Patent bilateral vertebral arteries. The left vertebral artery is hypoplastic, an anatomic variant. f/u brain MRI On Heparin drip per recommendation of Neuro Neurology Dr. Kumar consulted, help appreciated Cardiovascular: Initial EKG: Atrial flutter at rate 45 Repeat EKG: A flutter at 34 with prolonged Qtc 490. Azithromycin Dced given prolonged QTc. Bradycardic in 30s Glucagon 2mg x1 and Atropine 1 amp given, patient responded with HR up to 80s Atropine Q3 PRN HR <45 Trops q8 0.0790 Crestor 10mg F/u echo Heparin drip proBNP 7020 Dr. Billingsley on case f/u digoxin level Pulmonary Chest X-ray: Left lower lobe infiltrates/atelectasis Rocephin 1g IV Florastor 250mg Q12 GI Protonix 40mg PO Renal: NS 1L @ 100cc/hr IV BUN 36 Cr 1.0 I&Os ID LLL infiltrates on CXR Rocephin 1g IV Florastor 250mg Q12 Urine culture no growth Blood culture pending UA 3+ protein 1+ ketones 3+ blood Azithromycin Dced given prolonged QTc. Endo Maintain euglycemia Heme H/H stable PPX: Heparin drip. Case discussed with Dr. Caity You. <Caity You M - Last Filed: 05/08/18 05:31> Meds - Medications Medications: Current Medications Atropine Sulfate (Atropine) 1 mg IVP Q3H PRN PRN Reason: Other Last Admin: 05/07/18 23:40 Dose: 1 mg Sodium Chloride (Sodium Chloride 0.9%) 1,000 mls @ 100 mls/hr IV .Q10H [facility] Last Admin: 05/08/18 00:45 Dose: Not Given Ceftriaxone Sodium 1 gm/ (Sodium Chloride) 100 mls @ 200 mls/hr IVPB DAILY [facility] PRN Reason: Protocol Last Admin: 05/07/18 11:35 Dose: 200 mls/hr Heparin Sodium/Sodium Chloride (Heparin 61833 Units/250ml 1/2 Normal Saline) 25 ,000 units in 250 mls @ 9.798 mls/hr IV .Q24H PRN; Protocol; 12 UNITS/KG/HR PRN Reason: ADJUST RATE PER PROTOCOL Last Admin: 05/07/18 23:31 Dose: 12 units/kg/hr, 9.798 mls/hr Dopamine HCl/Dextrose (Dopamine 400mg/250ml D5w) 400 mg in 250 mls @ 8.318 mls/ hr IV .Q24H PRN; 3 MCG/KG/MIN PRN Reason: TITRATE PER MD ORDER Last Admin: 05/07/18 21:30 Dose: 8.318 mls/hr Nitroglycerin (Nitro-Bid 2% Oint) 1 ea TOP Q6H [facility] Last Admin: 05/08/18 02:30 Dose: 1 ea Pantoprazole Sodium (Protonix Ec Tab) 40 mg PO DAILY [facility] Last Admin: 05/07/18 11:52 Dose: Not Given Pneumococcal Polyvalent Vaccine (Pneumovax 23 Vaccine) 0.5 ml IM .ONCE ONE Stop: 05/08/18 10:01 Rosuvastatin Calcium (Crestor) 10 mg PO HS [facility] Last Admin: 05/07/18 22:22 Dose: 10 mg Saccharomyces Boulardii (Florastor) 250 mg PO Q12H [facility] Last Admin: 05/07/18 22:25 Dose: 250 mg Results - Vital Signs Recent Vital Signs: Last Vital Signs Temp 97.6 F 05/07/18 08:30 Pulse 54 L 05/07/18 21:30 Resp 21 05/07/18 21:30 BP 164/64 H 05/07/18 21:30 Pulse Ox 97 05/07/18 08:30 - Labs Result Diagrams: 05/07/18 18:23 05/07/18 18:23 Labs: Laboratory Results - last 24 hr 05/07/18 05/07/18 05/07/18 07:35 07:35 07:35 WBC 9.6 RBC 4.43 Hgb 14.5 Hct 40.8 MCV 92.1 MCH 32.6 H MCHC 35.5 RDW 14.2 Plt Count 218 MPV 8.6 Neut % (Auto) 77.5 H Lymph % (Auto) 10.4 L [place] % (Auto) 11.2 H Eos % (Auto) 0.3 Baso % (Auto) 0.6 Neut # (Auto) 7.4 H Lymph # (Auto) 1.0 [place] # (Auto) 1.1 H Eos # (Auto) 0.0 Baso # (Auto) 0.1 APTT 72 H D Sodium 144 Potassium 3.7 Chloride 110 H Carbon Dioxide 24 Anion Gap 14 BUN 35 H Creatinine 1.0 Est GFR ( Amer) > 60 Est GFR (Non-Af Amer) > 60 Random Glucose 104 Calcium 8.7 Phosphorus 2.9 Magnesium 2.1 Total Bilirubin 1.2 AST 67 H D ALT 45 Alkaline Phosphatase 69 Total Creatine Kinase CK-MB (Mass) Troponin I Total Protein 6.2 L Albumin 3.3 L Globulin 2.9 Albumin/Globulin Ratio 1.2 Procalcitonin 05/07/18 05/07/18 05/07/18 16:22 18:23 18:23 WBC 9.3 RBC 4.35 L Hgb 14.1 Hct 40.2 MCV 92.4 MCH 32.4 H MCHC 35.1 RDW 14.2 Plt Count 197 MPV 8.5 Neut % (Auto) 74.0 Lymph % (Auto) 13.5 L [place] % (Auto) 11.6 H Eos % (Auto) 0.5 Baso % (Auto) 0.4 Neut # (Auto) 6.9 Lymph # (Auto) 1.2 [place] # (Auto) 1.1 H Eos # (Auto) 0.0 Baso # (Auto) 0.0 APTT 88 H D Sodium 144 Potassium 3.7 Chloride 110 H Carbon Dioxide 25 Anion Gap 14 BUN 36 H Creatinine 1.0 Est GFR ( Amer) > 60 Est GFR (Non-Af Amer) > 60 Random Glucose 93 Calcium 8.7 Phosphorus 2.9 Magnesium 2.1 Total Bilirubin 0.9 AST 55 ALT 40 Alkaline Phosphatase 68 Total Creatine Kinase 531 H CK-MB (Mass) 3.74 H Troponin I 0.0790 Total Protein 6.3 Albumin 3.2 L Globulin 3.1 Albumin/Globulin Ratio 1.0 Procalcitonin 05/07/18 18:23 WBC RBC Hgb Hct MCV MCH MCHC RDW Plt Count MPV Neut % (Auto) Lymph % (Auto) [place] % (Auto) Eos % (Auto) Baso % (Auto) Neut # (Auto) Lymph # (Auto) [place] # (Auto) Eos # (Auto) Baso # (Auto) APTT Sodium Potassium Chloride Carbon Dioxide Anion Gap BUN Creatinine Est GFR ( Amer) Est GFR (Non-Af Amer) Random Glucose Calcium Phosphorus Magnesium Total Bilirubin AST ALT Alkaline Phosphatase Total Creatine Kinase CK-MB (Mass) Troponin I Total Protein Albumin Globulin Albumin/Globulin Ratio Procalcitonin < 0.05 L Assessment & Plan - Assessment and Plan (Free Text) Plan: Above patient seen and examined at bedside. above resident documents my clinnical management -Bradycardia: EKG reveals ventricular junctional; however still responsive to atropine and dopamine -2 mg of glucagon and atropine PRN -continue empirical abx -wound care right shoulder and hip -continue dvt/pud ppx Patient will benefit from ICU level care. cc time 45 minutes - Date & Time Date: 05/07/18 Time: 21:00
[2018-05-07 18:54] LABS: ALBUMIN 3.2 g/dL (3.5-5.0); ALT/SGPT 40 U/L (21-72); AST/SGOT 55 U/L (17-59); BLOOD UREA NITROGEN 36 mg/dL (9-20); CALCIUM 8.7 mg/dl (8.6-10.4); GFR NON-AFRICAN AMERICAN > 60
[2018-05-07 19:05] LABS: CK-MB 3.74 ng/mL (0.0-3.38)
[2018-05-07] MEDS ORDERED: Glucagon Recombinant 1 mg Inj IV STA ×2 (19:17→19:45)
--- NOTE | 2018-05-07 19:35 | CARD ---
APPROVED REPORT Date of service: 05/06/2018 EKG Measurement Heart [id number] <Conclusion> Atrial flutter with variable AV block Left ventricular hypertrophy with repolarization abnormality Abnormal ECG
[2018-05-07] MEDS: Nitroglycerin 2% Ointment Foilpak UD TOP SCH (20:30)
[2018-05-07] MEDS ORDERED: DOPamine 400mg/250ml D5W 400 MG/250 ML BAG IV PRN (21:06)
[2018-05-07] MEDS: Heparin25000 units/250ml 1/2NS 25,000 UNITS/250 ML BAG IV PRN (23:31)
[2018-05-08] MEDS: Sodium Chloride 0.9% 1,000 ML IV SCH (00:45)
[2018-05-08] MEDS: Nitroglycerin 2% Ointment Foilpak UD TOP SCH ×4 (02:30→21:04)
[2018-05-08 06:45] LABS: BASO # 0.1 K/uL (0.0-0.2); BASO % 0.5 % (0.0-2.0); EOS # 0.1 K/uL (0.0-0.7); EOS % 0.9 % (0.0-4.0); HEMOGLOBIN 13.9 g/dL (12.0-18.0); LYMPH # 0.8 K/uL (1.0-4.3); LYMPH % 7.8 % (20.0-40.0); MEAN CELL VOLUME 92.6 fL (80.0-94.0); MEAN CORPUSCULAR HEMOGLOBIN 32.4 pg (27.0-31.0); MEAN PLATELET VOLUME 8.6 fL (7.2-11.7); MONO # 0.9 K/uL (0.0-0.8); MONO % 9.1 % (0.0-10.0); NEUT # 8.3 K/uL (1.8-7.0); NEUT % 81.7 % (50.0-75.0); PLATELET COUNT 220 K/uL (130-400); RBC 4.28 Mil/uL (4.40-5.90); RED CELL DISTRIBUTION WIDTH 13.9 % (11.5-14.5); WHITE BLOOD COUNT 10.1 K/uL (4.8-10.8)
[2018-05-08 06:53] LABS: ALBUMIN 3.4 g/dL (3.5-5.0); ALT/SGPT 42 U/L (21-72); AST/SGOT 57 U/L (17-59); BLOOD UREA NITROGEN 33 mg/dL (9-20); CALCIUM 8.6 mg/dl (8.6-10.4); GFR NON-AFRICAN AMERICAN > 60
--- NOTE | 2018-05-08 08:41 | CP.CCUPN ---
<Rosalio Muñoz - Last Filed: 05/08/18 08:27> CCU Subjective - Physician Review Subjective (Free Text): 05/08/18 08:27 Patient seen and examined at bedside. Awake and alert, but remains non-verbal ( attempts to speak, but unable to verbalize). Able to nod/shake head yes/no to questions appropriately. Knows he is in [facility], correctly identifies his birthday, unsure of year. Shakes head no to questions about being in pain, denies nausea or emesis, no chest pain, admits to hunger and pantomimes wanting to eat and have hand mitts taken off. Appears to understand when told why he can't eat yet, and why the mitt remains on (to prevent from pulling out IV). On review of overnight telemetry, HR consistently between mid-50's to 60's, with intermittent dips into mid-40's lasting for few minutes at a time. Appears to otherwise be in sinus, no flutter appreciated on telemetry. CCU Objective - Vital Signs / Intake & Output Intake and Output (Last 8hrs): Intake & Output 05/07/18 05/08/18 05/08/18 22:59 06:59 14:59 Intake Total 319.4 958.0 118.0 Output Total 0 0 Balance 319.4 958.0 118.0 Weight 74.39 kg Intake: IV 250 Intake, IV Amount 219.4 708.0 118.0 Left Antecubital 200 600 100 Right Hand 49.8 8.3 side port left AC 19.4 58.2 9.7 Oral 100 Output: Urine 0 0 Condom 0 0 Other: # Voids Urine, Voided 150 - Physical Exam Head: Positive for: Atraumatic, Normocephalic Pupils: Negative for: Non-Reactive, Pinpoint Extroacular Muscles: Positive for: EOMI Conjunctiva: Positive for: Normal. Negative for: Injected, Icteric Mouth: Positive for: Moist Mucous Membranes, Normal Lips. Negative for: Dry, Drooling Nose (External): Positive for: Atraumatic. Negative for: Abrasion, Contusion, Laceration Nose (Internal): Positive for: No Active Bleeding. Negative for: Epistaxis Neck: Positive for: Normal Range of Motion, Trachea Midline. Negative for: JVD Respiratory/Chest: Positive for: Clear to Auscultation, Good Air Exchange. Negative for: Respiratory Distress, Accessory Muscle Use, Wheezes, Decreased Breath Sounds, Rales, Rhonchi Cardiovascular: Positive for: Murmurs (holosystolic murmur of equal intesity in all areas auscultated, no radiation to carotids), Normal S1, S2, Peripheal Pulses Present (+2 radials and +1 dorsalis pedis), Bradycardic (50's on monitor during exam). Negative for: Irregular Rhythm, Tachycardic Abdomen: Positive for: Normal Bowel Sounds. Negative for: Tenderness, Distention, Guarding Upper Extremity: Positive for: Normal Inspection, Normal ROM, NORMAL PULSES. Negative for: Cyanosis, Edema, Tenderness, Swelling, Erythema Lower Extremity: Positive for: NORMAL PULSES, Normal ROM, Other (bandaged ulcers on right lateral thigh and lateral knee). Negative for: Edema, CALF TENDERNESS, Cyanosis, Tenderness, Swelling, Erythema Neurological: Positive for: GCS=15, Motor Func Grossly Intact, Other (awake and alert, following commands appropriately). Negative for: Speech Normal (non- verbal, attempts to speak but unable to verbalize) Skin: Positive for: Warm, Dry, Normal Color. Negative for: Rashes Psychiatric: Positive for: Other (awake and alert, able to nod/shake head appropriately to yes/no questions, oriented to self and location but not year, not overtly anxious/agitated) - Medications Active Medications: Active Medications Generic Name Dose Route Start Last Admin Trade Name Freq PRN Reason Stop Dose Admin Atropine Sulfate 1 mg 05/07/18 19:43 05/07/18 23:40 Atropine IVP 1 mg Q3H PRN Administration Other Sodium Chloride 1,000 mls @ 100 mls/hr 05/06/18 18:45 05/08/18 00:45 Sodium Chloride 0.9% IV Not Given .Q10H ANUPAM Ceftriaxone Sodium 1 gm/ 100 mls @ 200 mls/hr 05/07/18 10:00 05/07/18 11:35 Sodium Chloride IVPB 200 mls/hr DAILY ANUPAM Administration Protocol Heparin Sodium/Sodium Chloride 25,000 units in 250 mls @ 9.798 mls/hr 19:47 05/07/18 23:31 Heparin 22972 Units/250ml 1/2 Normal Saline IV 12 units/kg/hr .Q24H PRN 9.798 mls/hr ADJUST RATE PER PROTOCOL Administration Protocol 12 UNITS/KG/HR Dopamine HCl/Dextrose 400 mg in 250 mls @ 8.318 mls/hr 05/07/18 21:06 21:30 Dopamine 400mg/250ml D5w IV 8.318 mls/hr .Q24H PRN Administration TITRATE PER MD ORDER 3 MCG/KG/MIN Nitroglycerin 1 ea 05/07/18 20:30 05/08/18 02:30 Nitro-Bid 2% Oint TOP 1 ea Q6H ANUPAM Administration Pantoprazole Sodium 40 mg 05/07/18 10:00 05/07/18 11:52 Protonix Ec Tab PO Not Given DAILY ANUPAM Pneumococcal Polyvalent Vaccine 0.5 ml 05/08/18 10:00 Pneumovax 23 Vaccine IM 05/08/18 10:01 .ONCE ONE Rosuvastatin Calcium 10 mg 05/06/18 22:00 05/07/18 22:22 Crestor PO 10 mg HS ANUPAM Administration Saccharomyces Boulardii 250 mg 05/06/18 20:00 05/07/18 22:25 Florastor PO 250 mg Q12H ANUPAM Administration - Patient Studies Lab Studies: Microbiology Studies 05/06/18 17:40 Blood Culture - Preliminary Blood-Venous NO GROWTH AFTER 24 HOURS 05/06/18 15:00 Blood Culture - Preliminary Blood-Venous NO GROWTH AFTER 24 HOURS 05/06/18 16:00 Urine Culture - Final Urine,Catheterized No Growth (<1,000 CFU/ML) Lab Studies 05/08/18 05/08/18 05/08/18 Range/Units 06:34 06:34 06:28 WBC 10.1 (4.8-10.8) K/uL RBC 4.28 L (4.40-5.90) Mil/uL Hgb 13.9 (12.0-18.0) g/dL Hct 39.6 (35.0-51.0) % MCV 92.6 (80.0-94.0) fL MCH 32.4 H (27.0-31.0) pg MCHC 35.0 (33.0-37.0) g/dL RDW 13.9 (11.5-14.5) % Plt Count 220 (130-400) K/uL MPV 8.6 (7.2-11.7) fL Neut % (Auto) 81.7 H (50.0-75.0) % Lymph % (Auto) 7.8 L (20.0-40.0) % [place] % (Auto) 9.1 (0.0-10.0) % Eos % (Auto) 0.9 (0.0-4.0) % Baso % (Auto) 0.5 (0.0-2.0) % Neut # (Auto) 8.3 H (1.8-7.0) K/uL Lymph # (Auto) 0.8 L (1.0-4.3) K/uL [place] # (Auto) 0.9 H (0.0-0.8) K/uL Eos # (Auto) 0.1 (0.0-0.7) K/uL Baso # (Auto) 0.1 (0.0-0.2) K/uL APTT 88 H (21-34) SECONDS Sodium 146 (132-148) mmol/L Potassium 3.6 (3.6-5.2) mmol/L Chloride 112 H (98-107) mmol/L Carbon Dioxide 20 L (22-30) mmol/L Anion Gap 17 (10-20) BUN 33 H (9-20) mg/dL Creatinine 0.8 (0.8-1.5) mg/dL Est GFR ( Amer) > 60 Est GFR (Non-Af Amer) > 60 Random Glucose 106 (75-110) mg/dL Calcium 8.6 (8.6-10.4) mg/dl Phosphorus 2.7 (2.5-4.5) mg/dL Magnesium 1.9 (1.6-2.3) mg/dL Total Bilirubin 1.1 (0.2-1.3) mg/dL AST 57 (17-59) U/L ALT 42 (21-72) U/L Alkaline Phosphatase 67 (38-126) U/L Total Creatine Kinase (55-170) U/L CK-MB (Mass) (0.0-3.38) ng/mL Troponin I (0.00-0.120) ng/mL Total Protein 6.6 (6.3-8.3) g/dL Albumin 3.4 L (3.5-5.0) g/dL Globulin 3.2 (2.2-3.9) gm/dL Albumin/Globulin Ratio 1.0 (1.0-2.1) Procalcitonin (0.19-0.49) NG/ML 05/07/18 05/07/18 05/07/18 Range/Units 18:23 18:23 18:23 WBC 9.3 (4.8-10.8) K/uL RBC 4.35 L (4.40-5.90) Mil/uL Hgb 14.1 (12.0-18.0) g/dL Hct 40.2 (35.0-51.0) % MCV 92.4 (80.0-94.0) fL MCH 32.4 H (27.0-31.0) pg MCHC 35.1 (33.0-37.0) g/dL RDW 14.2 (11.5-14.5) % Plt Count 197 (130-400) K/uL MPV 8.5 (7.2-11.7) fL Neut % (Auto) 74.0 (50.0-75.0) % Lymph % (Auto) 13.5 L (20.0-40.0) % [place] % (Auto) 11.6 H (0.0-10.0) % Eos % (Auto) 0.5 (0.0-4.0) % Baso % (Auto) 0.4 (0.0-2.0) % Neut # (Auto) 6.9 (1.8-7.0) K/uL Lymph # (Auto) 1.2 (1.0-4.3) K/uL [place] # (Auto) 1.1 H (0.0-0.8) K/uL Eos # (Auto) 0.0 (0.0-0.7) K/uL Baso # (Auto) 0.0 (0.0-0.2) K/uL APTT (21-34) SECONDS Sodium 144 (132-148) mmol/L Potassium 3.7 (3.6-5.2) mmol/L Chloride 110 H (98-107) mmol/L Carbon Dioxide 25 (22-30) mmol/L Anion Gap 14 (10-20) BUN 36 H (9-20) mg/dL Creatinine 1.0 (0.8-1.5) mg/dL Est GFR ( Amer) > 60 Est GFR (Non-Af Amer) > 60 Random Glucose 93 (75-110) mg/dL Calcium 8.7 (8.6-10.4) mg/dl Phosphorus 2.9 (2.5-4.5) mg/dL Magnesium 2.1 (1.6-2.3) mg/dL Total Bilirubin 0.9 (0.2-1.3) mg/dL AST 55 (17-59) U/L ALT 40 (21-72) U/L Alkaline Phosphatase 68 (38-126) U/L Total Creatine Kinase 531 H (55-170) U/L CK-MB (Mass) 3.74 H (0.0-3.38) ng/mL Troponin I 0.0790 (0.00-0.120) ng/mL Total Protein 6.3 (6.3-8.3) g/dL Albumin 3.2 L (3.5-5.0) g/dL Globulin 3.1 (2.2-3.9) gm/dL Albumin/Globulin Ratio 1.0 (1.0-2.1) Procalcitonin < 0.05 L (0.19-0.49) NG/ML 05/07/18 Range/Units 16:22 WBC (4.8-10.8) K/uL RBC (4.40-5.90) Mil/uL Hgb (12.0-18.0) g/dL Hct (35.0-51.0) % MCV (80.0-94.0) fL MCH (27.0-31.0) pg MCHC (33.0-37.0) g/dL RDW (11.5-14.5) % Plt Count (130-400) K/uL MPV (7.2-11.7) fL Neut % (Auto) (50.0-75.0) % Lymph % (Auto) (20.0-40.0) % [place] % (Auto) (0.0-10.0) % Eos % (Auto) (0.0-4.0) % Baso % (Auto) (0.0-2.0) % Neut # (Auto) (1.8-7.0) K/uL Lymph # (Auto) (1.0-4.3) K/uL [place] # (Auto) (0.0-0.8) K/uL Eos # (Auto) (0.0-0.7) K/uL Baso # (Auto) (0.0-0.2) K/uL APTT 88 H D (21-34) SECONDS Sodium (132-148) mmol/L Potassium (3.6-5.2) mmol/L Chloride (98-107) mmol/L Carbon Dioxide (22-30) mmol/L Anion Gap (10-20) BUN (9-20) mg/dL Creatinine (0.8-1.5) mg/dL Est GFR ( Amer) Est GFR (Non-Af Amer) Random Glucose (75-110) mg/dL Calcium (8.6-10.4) mg/dl Phosphorus (2.5-4.5) mg/dL Magnesium (1.6-2.3) mg/dL Total Bilirubin (0.2-1.3) mg/dL AST (17-59) U/L ALT (21-72) U/L Alkaline Phosphatase (38-126) U/L Total Creatine Kinase (55-170) U/L CK-MB (Mass) (0.0-3.38) ng/mL Troponin I (0.00-0.120) ng/mL Total Protein (6.3-8.3) g/dL Albumin (3.5-5.0) g/dL Globulin (2.2-3.9) gm/dL Albumin/Globulin Ratio (1.0-2.1) Procalcitonin (0.19-0.49) NG/ML Laboratory Results - last 24 hr 05/07/18 05/07/18 05/07/18 16:22 18:23 18:23 WBC 9.3 RBC 4.35 L Hgb 14.1 Hct 40.2 MCV 92.4 MCH 32.4 H MCHC 35.1 RDW 14.2 Plt Count 197 MPV 8.5 Neut % (Auto) 74.0 Lymph % (Auto) 13.5 L [place] % (Auto) 11.6 H Eos % (Auto) 0.5 Baso % (Auto) 0.4 Neut # (Auto) 6.9 Lymph # (Auto) 1.2 [place] # (Auto) 1.1 H Eos # (Auto) 0.0 Baso # (Auto) 0.0 APTT 88 H D Sodium 144 Potassium 3.7 Chloride 110 H Carbon Dioxide 25 Anion Gap 14 BUN 36 H Creatinine 1.0 Est GFR ( Amer) > 60 Est GFR (Non-Af Amer) > 60 Random Glucose 93 Calcium 8.7 Phosphorus 2.9 Magnesium 2.1 Total Bilirubin 0.9 AST 55 ALT 40 Alkaline Phosphatase 68 Total Creatine Kinase 531 H CK-MB (Mass) 3.74 H Troponin I 0.0790 Total Protein 6.3 Albumin 3.2 L Globulin 3.1 Albumin/Globulin Ratio 1.0 Procalcitonin 05/07/18 05/08/18 05/08/18 18:23 06:28 06:34 WBC 10.1 RBC 4.28 L Hgb 13.9 Hct 39.6 MCV 92.6 MCH 32.4 H MCHC 35.0 RDW 13.9 Plt Count 220 MPV 8.6 Neut % (Auto) 81.7 H Lymph % (Auto) 7.8 L [place] % (Auto) 9.1 Eos % (Auto) 0.9 Baso % (Auto) 0.5 Neut # (Auto) 8.3 H Lymph # (Auto) 0.8 L [place] # (Auto) 0.9 H Eos # (Auto) 0.1 Baso # (Auto) 0.1 APTT Sodium 146 Potassium 3.6 Chloride 112 H Carbon Dioxide 20 L Anion Gap 17 BUN 33 H Creatinine 0.8 Est GFR ( Amer) > 60 Est GFR (Non-Af Amer) > 60 Random Glucose 106 Calcium 8.6 Phosphorus 2.7 Magnesium 1.9 Total Bilirubin 1.1 AST 57 ALT 42 Alkaline Phosphatase 67 Total Creatine Kinase CK-MB (Mass) Troponin I Total Protein 6.6 Albumin 3.4 L Globulin 3.2 Albumin/Globulin Ratio 1.0 Procalcitonin < 0.05 L 05/08/18 06:34 WBC RBC Hgb Hct MCV MCH MCHC RDW Plt Count MPV Neut % (Auto) Lymph % (Auto) [place] % (Auto) Eos % (Auto) Baso % (Auto) Neut # (Auto) Lymph # (Auto) [place] # (Auto) Eos # (Auto) Baso # (Auto) APTT 88 H Sodium Potassium Chloride Carbon Dioxide Anion Gap BUN Creatinine Est GFR ( Amer) Est GFR (Non-Af Amer) Random Glucose Calcium Phosphorus Magnesium Total Bilirubin AST ALT Alkaline Phosphatase Total Creatine Kinase CK-MB (Mass) Troponin I Total Protein Albumin Globulin Albumin/Globulin Ratio Procalcitonin EKG/Cardiology Studies: Cardiology / EKG Studies 05/07/18 17:58 EKG [ELECTROCARDIOGRAM] Stat Comment: Mode Of Transportation: Reason For Exam: atrial flutter 05/07/18 18:06 ELECTROCARDIOGRAM Stat Comment: Mode Of Transportation: PORTABLE Reason For Exam: Bradycardia and A-flutter Fingerstick Blood Sugar Results: 119 Review of Systems - Review of Systems Systems not reviewed;Unavailable: Other (non-verbal, so limited ROS; as per subjective) Critical Care Progress Note - Nutrition Nutrition: Nutrition Category Date Time Status Pureed [Dysphagia/Modified Consistency Diet] [DIET] Diets 05/07/18 Dinner Active Assessment/Plan - Assessment and Plan (Free Text) Assessment: 88 year old male with history of dementia and unspecified psychiatric illness who presented for evaluation after he was found altered at home. Rapid response was called after nurse was unable to obtain blood pressure on patient, and was found to be in A-flutter at 34 bpm with prolonged QTc. Now in ICU, remains on Dopamine drip with HR in 50's-60's, remains on heparin drip. 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 -Brain MRI ordered, pending -On Heparin drip per recommendation of Neuro -Neurology Dr. 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 -EKG ordered today, will f/u -Azithromycin Dced given prolonged QTc on initial EKGs -HR on dopamine drip 50's-60s, intermittently dips into 40's but resolves within minutes -continue Atropine Q3 PRN HR <45 -Trops post-[employer] 0.0790, trending 3 more q8 -continue Crestor, heparin drip, dopamine drip -Echo obtained, pending official read -pro-BNP 7020 on admission; unknown if hx CHF, avoid aggressive fluid rehydration -Cardio (Dr. Billingsley) following, appreciate all recs; cont ASA and high-dose statin, AC if cleared by Neuro, to discuss case with EP -Dig level ordered, pending Pulmonary -Admission Chest X-ray: Left lower lobe infiltrates vs atelectasis; clear to auscultation on exam today -continue Rocephin 1g IV, Florastor 250mg Q12 -maintain SaO2 > 92%, satting well (93-96%) on 3L NC, continue GI -Protonix 40mg PO for GI ppx -Pureed diet ordered, monitor for signs of aspiration Renal: -NS 1L @ 100cc/hr IV -BUN 33, Cr 0.8 -continue to monitor I&O's; currently net positive ~1.5L, try to maintain euvolemia due to elevated BNP ID -WBCs 10.1, afebrile -LLL infiltrates vs atelectasis on CXR -continue empiric coverage with Rocephin 1g IV, Azithromycin Dced given prolonged QTc in setting of Marcus Aflutter -continue Florastor 250mg Q12 -Urine culture no growth, Blood culture negative at 24 hrs -UA 3+ protein 1+ ketones 3+ blood Endo -Maintain euglycemia Heme -H/H stable at 13.9/39.6 -Heparin drip covers for DVT, continue routine coags as per Heparin drip protocol Dispo: ICU, close monitoring of HR on dopamine drip, pending Echo results, pending MRI FEN: Pureed diet, NS 100cc/hr Access: Peripheral IVs Consults: ICU, Neuro, Cardio Ppx: Heparin drip covers for DVT, Protonix for GI Code Status: Unknown, so Full by default Pt reviewed and discussed with attending, Dr. Higuera <Maicol Higuera - Last Filed: 05/10/18 11:44> CCU Objective - Vital Signs / Intake & Output Vital Signs (Last 4 hours): Vital Signs Temp Pulse Resp BP Pulse Ox 05/10/18 11:00 84 24 95 05/10/18 10:46 55 L 22 163/75 H 93 L 05/10/18 10:13 45 L 24 140/57 L 97 05/10/18 10:00 51 L 25 H 96 05/10/18 09:36 64 27 H 161/90 H 05/10/18 09:16 68 23 171/81 H 98 05/10/18 09:00 91 H 26 H 97 05/10/18 08:00 97.6 F 49 L 21 98 05/10/18 07:59 56 L 15 156/74 H 98 Intake and Output (Last 8hrs): Intake & Output 05/09/18 05/10/18 05/10/18 22:59 06:59 14:59 Intake Total 1654.0 344.8 90.5 Output Total 100 200 Balance 1554.0 144.8 90.5 Weight 164 lb Intake: Intake, IV Amount 874.0 144.8 90.5 Right Hand 66.4 66.4 41.5 Right Hand Y Port 607.6 78.4 49.0 Right Upper Arm 200 Oral 780 200 Output: Urine 100 200 Urine, Voided 100 200 Other: # Bowel Movements 0 0 - Medications Active Medications: Active Medications Generic Name Dose Route Start Last Admin Trade Name Freq PRN Reason Stop Dose Admin Atropine Sulfate 1 mg 05/07/18 19:43 05/10/18 02:43 Atropine IVP 1 mg Q3H PRN Administration Other Hydralazine HCl 10 mg 05/09/18 15:22 Apresoline IVP Q6H PRN SBP > 160 Ceftriaxone Sodium 1 gm/ 100 mls @ 200 mls/hr 05/07/18 10:00 05/10/18 09:00 Sodium Chloride IVPB 200 mls/hr DAILY ANUPAM Administration Protocol Heparin Sodium/Sodium Chloride 25,000 units in 250 mls @ 9.798 mls/hr 19:47 05/09/18 05:45 Heparin 02036 Units/250ml 1/2 Normal Saline IV 12 units/kg/hr .Q24H PRN 9.798 mls/hr ADJUST RATE PER PROTOCOL Administration Protocol 12 UNITS/KG/HR Sodium Chloride 500 mls @ 30 mls/hr 05/10/18 11:45 Sodium Chloride 0.45% IV .[id number] ANUPAM Potassium Chloride 20 meq in 100 mls @ 50 mls/hr 05/10/18 11:43 Potassium Chloride 20 Meq/100 Ml IVPB 05/10/18 13:42 ONCE ONE Nitroglycerin 1 ea 05/07/18 20:30 05/10/18 08:45 Nitro-Bid 2% Oint TOP 1 ea Q6H ANUPAM Administration Pantoprazole Sodium 40 mg 05/07/18 10:00 05/10/18 09:06 Protonix Ec Tab PO 40 mg DAILY ANUPAM Administration Rosuvastatin Calcium 10 mg 05/06/18 22:00 05/09/18 21:47 Crestor PO 10 mg HS ANUPAM Administration Saccharomyces Boulardii 250 mg 05/06/18 20:00 05/10/18 08:45 Florastor PO 250 mg Q12H ANUPAM Administration - Patient Studies Lab Studies: Microbiology Studies 05/06/18 17:40 Blood Culture - Preliminary Blood-Venous NO GROWTH AFTER 3 DAYS 05/06/18 15:00 Blood Culture - Preliminary Blood-Venous NO GROWTH AFTER 3 DAYS Lab Studies 05/10/18 05/10/18 05/10/18 Range/Units 06:36 06:36 06:33 WBC 12.5 H (4.8-10.8) K/uL RBC 4.30 L (4.40-5.90) Mil/uL Hgb 14.0 (12.0-18.0) g/dL Hct 40.0 (35.0-51.0) % MCV 92.9 (80.0-94.0) fL MCH 32.4 H (27.0-31.0) pg MCHC 34.9 (33.0-37.0) g/dL RDW 14.4 (11.5-14.5) % Plt Count 229 (130-400) K/uL MPV 9.3 (7.2-11.7) fL Neut % (Auto) 85.2 H (50.0-75.0) % Lymph % (Auto) 5.4 L (20.0-40.0) % [place] % (Auto) 8.0 (0.0-10.0) % Eos % (Auto) 1.0 (0.0-4.0) % Baso % (Auto) 0.4 (0.0-2.0) % Neut # (Auto) 10.6 H (1.8-7.0) K/uL Lymph # (Auto) 0.7 L (1.0-4.3) K/uL [place] # (Auto) 1.0 H (0.0-0.8) K/uL Eos # (Auto) 0.1 (0.0-0.7) K/uL Baso # (Auto) 0.1 (0.0-0.2) K/uL Neutrophils % (Manual) 90 H (50-75) % Lymphocytes % (Manual) 3 L (20-40) % Monocytes % (Manual) 7 (0-10) % Toxic Granulation Present Platelet Estimate Normal (NORMAL) Large Platelets Present Giant Platelets Present Anisocytosis (manual) Slight PT 13.8 H (9.7-12.2) SECONDS INR 1.3 APTT 45 H D (21-34) SECONDS Sodium (132-148) mmol/L Potassium (3.6-5.2) mmol/L Chloride (98-107) mmol/L Carbon Dioxide (22-30) mmol/L Anion Gap (10-20) BUN (9-20) mg/dL Creatinine (0.8-1.5) mg/dL Est GFR ( Amer) Est GFR (Non-Af Amer) Random Glucose (75-110) mg/dL Calcium (8.6-10.4) mg/dl Phosphorus (2.5-4.5) mg/dL Magnesium (1.6-2.3) mg/dL Total Bilirubin (0.2-1.3) mg/dL AST (17-59) U/L ALT (21-72) U/L Alkaline Phosphatase (38-126) U/L Troponin I 0.0540 (0.00-0.120) ng/mL Total Protein (6.3-8.3) g/dL Albumin (3.5-5.0) g/dL Globulin (2.2-3.9) gm/dL Albumin/Globulin Ratio (1.0-2.1) 05/10/18 Range/Units 06:33 WBC (4.8-10.8) K/uL RBC (4.40-5.90) Mil/uL Hgb (12.0-18.0) g/dL Hct (35.0-51.0) % MCV (80.0-94.0) fL MCH (27.0-31.0) pg MCHC (33.0-37.0) g/dL RDW (11.5-14.5) % Plt Count (130-400) K/uL MPV (7.2-11.7) fL Neut % (Auto) (50.0-75.0) % Lymph % (Auto) (20.0-40.0) % [place] % (Auto) (0.0-10.0) % Eos % (Auto) (0.0-4.0) % Baso % (Auto) (0.0-2.0) % Neut # (Auto) (1.8-7.0) K/uL Lymph # (Auto) (1.0-4.3) K/uL [place] # (Auto) (0.0-0.8) K/uL Eos # (Auto) (0.0-0.7) K/uL Baso # (Auto) (0.0-0.2) K/uL Neutrophils % (Manual) (50-75) % Lymphocytes % (Manual) (20-40) % Monocytes % (Manual) (0-10) % Toxic Granulation Platelet Estimate (NORMAL) Large Platelets Giant Platelets Anisocytosis (manual) PT (9.7-12.2) SECONDS INR APTT (21-34) SECONDS Sodium 150 H (132-148) mmol/L Potassium 3.5 L (3.6-5.2) mmol/L Chloride 113 H (98-107) mmol/L Carbon Dioxide 24 (22-30) mmol/L Anion Gap 16 (10-20) BUN 32 H (9-20) mg/dL Creatinine 1.9 H (0.8-1.5) mg/dL Est GFR ( Amer) 41 Est GFR (Non-Af Amer) 34 Random Glucose 120 H (75-110) mg/dL Calcium 9.1 (8.6-10.4) mg/dl Phosphorus 3.8 (2.5-4.5) mg/dL Magnesium 2.0 (1.6-2.3) mg/dL Total Bilirubin 0.9 (0.2-1.3) mg/dL AST 41 (17-59) U/L ALT 37 (21-72) U/L Alkaline Phosphatase 77 (38-126) U/L Troponin I (0.00-0.120) ng/mL Total Protein 6.8 (6.3-8.3) g/dL Albumin 3.5 (3.5-5.0) g/dL Globulin 3.3 (2.2-3.9) gm/dL Albumin/Globulin Ratio 1.1 (1.0-2.1) Laboratory Results - last 24 hr 05/10/18 05/10/18 05/10/18 06:33 06:33 06:36 WBC 12.5 H RBC 4.30 L Hgb 14.0 Hct 40.0 MCV 92.9 MCH 32.4 H MCHC 34.9 RDW 14.4 Plt Count 229 MPV 9.3 Neut % (Auto) 85.2 H Lymph % (Auto) 5.4 L [place] % (Auto) 8.0 Eos % (Auto) 1.0 Baso % (Auto) 0.4 Neut # (Auto) 10.6 H Lymph # (Auto) 0.7 L [place] # (Auto) 1.0 H Eos # (Auto) 0.1 Baso # (Auto) 0.1 Neutrophils % (Manual) 90 H Lymphocytes % (Manual) 3 L Monocytes % (Manual) 7 Toxic Granulation Present Platelet Estimate Normal Large Platelets Present Giant Platelets Present Anisocytosis (manual) Slight PT INR APTT Sodium 150 H Potassium 3.5 L Chloride 113 H Carbon Dioxide 24 Anion Gap 16 BUN 32 H Creatinine 1.9 H Est GFR ( Amer) 41 Est GFR (Non-Af Amer) 34 Random Glucose 120 H Calcium 9.1 Phosphorus 3.8 Magnesium 2.0 Total Bilirubin 0.9 AST 41 ALT 37 Alkaline Phosphatase 77 Troponin I 0.0540 Total Protein 6.8 Albumin 3.5 Globulin 3.3 Albumin/Globulin Ratio 1.1 05/10/18 06:36 WBC RBC Hgb Hct MCV MCH MCHC RDW Plt Count MPV Neut % (Auto) Lymph % (Auto) [place] % (Auto) Eos % (Auto) Baso % (Auto) Neut # (Auto) Lymph # (Auto) [place] # (Auto) Eos # (Auto) Baso # (Auto) Neutrophils % (Manual) Lymphocytes % (Manual) Monocytes % (Manual) Toxic Granulation Platelet Estimate Large Platelets Giant Platelets Anisocytosis (manual) PT 13.8 H INR 1.3 APTT 45 H D Sodium Potassium Chloride Carbon Dioxide Anion Gap BUN Creatinine Est GFR ( Amer) Est GFR (Non-Af Amer) Random Glucose Calcium Phosphorus Magnesium Total Bilirubin AST ALT Alkaline Phosphatase Troponin I Total Protein Albumin Globulin Albumin/Globulin Ratio Critical Care Progress Note - Nutrition Nutrition: Nutrition Category Date Time Status Pureed [Dysphagia/Modified Consistency Diet] [DIET] Diets 05/07/18 Dinner Active Attending/Attestation - Attestation I have personally seen and examined this patient.: Yes I have fully participated in the care of the patient.: Yes I have reviewed all pertinent clinical information: Yes
[2018-05-08 08:49] LABS: EOSINOPHIL 1 % (0-4); LYMPHOCYTE 6 % (20-40); MONOCYTE 7 % (0-10); NEUTROPHIL 86 % (50-75); PLATELET ESTIMATE NORMAL (NORMAL); TOTAL CELLS COUNTED 100
[2018-05-08] MEDS: Saccharomyces Boulardi 250 mg Cap PO SCH ×2 (09:50→21:04)
[2018-05-08] MEDS: Pantoprazole 40 mg EC Tab PO SCH (09:51)
--- NOTE | 2018-05-08 09:54 | CP.PCM.PN ---
Subjective - Date & Time of Evaluation Date of Evaluation: 05/08/18 Time of Evaluation: 09:48 - Subjective Subjective: Seen and examined,alert and following commands Denies pain.No sob,nonverbal His HR 52,Atrial flutter with heart block BP 145/70 Objective - Vital Signs/Intake and Output Vital Signs (last 24 hours): Temp Pulse Resp BP Pulse Ox 97.6 F 54 L 21 164/64 H 97 05/07/18 08:30 05/07/18 21:30 05/07/18 21:30 05/07/18 21:30 05/07/18 08:30 Intake and Output: 05/08/18 05/08/18 06:59 18:59 Intake Total 1277.4 354.0 Output Total 0 0 Balance 1277.4 354.0 - Medications Medications: Current Medications Atropine Sulfate (Atropine) 1 mg IVP Q3H PRN PRN Reason: Other Last Admin: 05/07/18 23:40 Dose: 1 mg Sodium Chloride (Sodium Chloride 0.9%) 1,000 mls @ 100 mls/hr IV .Q10H [facility] Last Admin: 05/08/18 00:45 Dose: Not Given Ceftriaxone Sodium 1 gm/ (Sodium Chloride) 100 mls @ 200 mls/hr IVPB DAILY [facility] PRN Reason: Protocol Last Admin: 05/07/18 11:35 Dose: 200 mls/hr Heparin Sodium/Sodium Chloride (Heparin 74768 Units/250ml 1/2 Normal Saline) 25 ,000 units in 250 mls @ 9.798 mls/hr IV .Q24H PRN; Protocol; 12 UNITS/KG/HR PRN Reason: ADJUST RATE PER PROTOCOL Last Admin: 05/07/18 23:31 Dose: 12 units/kg/hr, 9.798 mls/hr Dopamine HCl/Dextrose (Dopamine 400mg/250ml D5w) 400 mg in 250 mls @ 8.318 mls/ hr IV .Q24H PRN; 3 MCG/KG/MIN PRN Reason: TITRATE PER MD ORDER Last Admin: 05/07/18 21:30 Dose: 8.318 mls/hr Nitroglycerin (Nitro-Bid 2% Oint) 1 ea TOP Q6H [facility] Last Admin: 05/08/18 02:30 Dose: 1 ea Pantoprazole Sodium (Protonix Ec Tab) 40 mg PO DAILY [facility] Last Admin: 05/07/18 11:52 Dose: Not Given Pneumococcal Polyvalent Vaccine (Pneumovax 23 Vaccine) 0.5 ml IM .ONCE ONE Stop: 05/08/18 10:01 Rosuvastatin Calcium (Crestor) 10 mg PO HS [facility] Last Admin: 05/07/18 22:22 Dose: 10 mg Saccharomyces Boulardii (Florastor) 250 mg PO Q12H [facility] Last Admin: 05/07/18 22:25 Dose: 250 mg - Labs Labs: 05/08/18 06:34 05/08/18 06:28 PT 12.6 SECONDS (9.7-12.2) H 05/06/18 16:03 INR 1.2 05/06/18 16:03 APTT 88 SECONDS (21-34) H 05/08/18 06:34 - Constitutional Appears: Non-toxic, No Acute Distress, Unkempt - Head Exam Head Exam: NORMAL INSPECTION - Eye Exam Eye Exam: Normal appearance - ENT Exam ENT Exam: Mucous Membranes Moist - Neck Exam Neck Exam: Full ROM - Respiratory Exam Respiratory Exam: Clear to Ausculation Bilateral, NORMAL BREATHING PATTERN - Cardiovascular Exam Cardiovascular Exam: Irregular Rhythm - GI/Abdominal Exam GI & Abdominal Exam: Soft, Normal Bowel Sounds - Extremities Exam Extremities Exam: Full ROM. absent: Normal Inspection (right hip ulcer,right shoulder abration,right malleolus pressure sore) Assessment and Plan - Assessment and Plan (Free Text) Assessment: This is a frail 88 year old male with possible history of hypertension ,unknown psychiatric illness and possible dementia was brought for evaluation after patient was reportedly found on the floor in his house by cleaning staff in his home. Unknown how long he was on the floor. Patient is under state guardianship.He was living alone with the help of once a week home care service.On admission patient was in atrial flutter with varing response.His lowest rate was in 30ies. Patient was asymptomatic on admission and admitted to tele. His HR went down to 25 and her RN was not able to hrecord BP INFECTION PREVENTION PRACTITIONER was loomis Brought to ICU for bradycardia with evidence of Atrial flutter with block.Patient will be seen by EP physician. Possible pace maker Advance directive -full code Patient has no family.He was living alone with once a week help.History of dementia,psychiatry disorder and hypertension.He was refusing medical care in the past as per his nurse outreach case manager d/w patient's case assistant. His state guardian is on vacation State guardian . Plan: 1.Atrial flutter with block, bradycardia Electrolytes normal Has elevated BNP Echo obtained: pending report continue heparin,started on dopamine by ICU Blood pressure remains good Discussed with trust and estates paralegal Dr Billingsley yesterday. He asked EP physcian to see him We will follow with EP physician likely needs a pacemaker 2.New CVA with aphasia /subacute stroke - Neurology consulted on case (Dr. Kumar) - CT without contrast: subtle hypodensity in the left MCA territory ( nonspecific and may represent subacute infarct) patient is on Heparinn Continue Crestor 10mg PO HS brain MRI without contrast resquested by neuro 3 Community Acquired Pneumonia Chest X-ray: Left lower lobe infiltrates/atelectasis Rocephin 1g IVBP 4.Ulcers secondary to being on the ground for unknown duration - Wound Care 5.Advance directives-full code d/w patient's case assistant. His state guardian is on vacation
[2018-05-08] MEDS ORDERED: Pneumococcal 23-Valent Vaccine IM ONE (10:00)
--- NOTE | 2018-05-08 15:40 | CP.PCM.PN ---
Subjective - Date & Time of Evaluation Date of Evaluation: 05/08/18 Time of Evaluation: 15:38 - Subjective Subjective: Mr. Javed was seen and examined today in the ICU. He continues to be mute. Follows commands and attempts at non-verbal communication are successful. He is still on heparin drip per cardiology. Objective - Vital Signs/Intake and Output Vital Signs (last 24 hours): Temp Pulse Resp BP Pulse Ox 97.6 F 54 L 21 164/64 H 97 05/07/18 08:30 05/07/18 21:30 05/07/18 21:30 05/07/18 21:30 05/07/18 08:30 Intake and Output: 05/08/18 05/08/18 06:59 18:59 Intake Total 1277.4 1062.0 Output Total 0 0 Balance 1277.4 1062.0 - Medications Medications: Current Medications Atropine Sulfate (Atropine) 1 mg IVP Q3H PRN PRN Reason: Other Last Admin: 05/07/18 23:40 Dose: 1 mg Sodium Chloride (Sodium Chloride 0.9%) 1,000 mls @ 100 mls/hr IV .Q10H [facility] Last Admin: 05/08/18 00:45 Dose: Not Given Ceftriaxone Sodium 1 gm/ (Sodium Chloride) 100 mls @ 200 mls/hr IVPB DAILY [facility] PRN Reason: Protocol Last Admin: 05/08/18 09:50 Dose: 200 mls/hr Heparin Sodium/Sodium Chloride (Heparin 24448 Units/250ml 1/2 Normal Saline) 25 ,000 units in 250 mls @ 9.798 mls/hr IV .Q24H PRN; Protocol; 12 UNITS/KG/HR PRN Reason: ADJUST RATE PER PROTOCOL Last Admin: 05/07/18 23:31 Dose: 12 units/kg/hr, 9.798 mls/hr Dopamine HCl/Dextrose (Dopamine 400mg/250ml D5w) 400 mg in 250 mls @ 8.318 mls/ hr IV .Q24H PRN; 3 MCG/KG/MIN PRN Reason: TITRATE PER MD ORDER Last Admin: 05/07/18 21:30 Dose: 8.318 mls/hr Nitroglycerin (Nitro-Bid 2% Oint) 1 ea TOP Q6H [facility] Last Admin: 09/01/18 15:37 Dose: 1 ea Pantoprazole Sodium (Protonix Ec Tab) 40 mg PO DAILY [facility] Last Admin: 05/08/18 09:51 Dose: 40 mg Rosuvastatin Calcium (Crestor) 10 mg PO HS [facility] Last Admin: 05/07/18 22:22 Dose: 10 mg Saccharomyces Boulardii (Florastor) 250 mg PO Q12H [facility] Last Admin: 05/08/18 09:50 Dose: 250 mg - Labs Labs: 05/08/18 06:34 05/08/18 06:28 PT 12.6 SECONDS (9.7-12.2) H 05/06/18 16:03 INR 1.2 05/06/18 16:03 APTT 88 SECONDS (21-34) H 05/08/18 06:34 - Neurological Exam Neurological Exam: Awake, CN II-XII Intact, Oriented x3 Neuro motor strength exam: Left Upper Extremity: 5, Right Upper Extremity: 5, Left Lower Extremity: 5, Right Lower Extremity: 5 Additional comments: Mute. NIHSS= 4 Assessment and Plan (1) Acute ischemic stroke Assessment & Plan: Continue current management of vitals, underlying causes and initiate PT/OT and speech therapy. Consider converting to oral anticoagulation. Will defer to cardiology. Thank you. Status: Acute
[2018-05-09] MEDS: Nitroglycerin 2% Ointment Foilpak UD TOP SCH ×4 (02:30→20:29)
[2018-05-09] MEDS: Heparin25000 units/250ml 1/2NS 25,000 UNITS/250 ML BAG IV PRN (05:45)
[2018-05-09 06:41] LABS: BASO % 0.3 % (0.0-2.0); EOS # 0.1 K/uL (0.0-0.7); EOS % 0.5 % (0.0-4.0); HEMOGLOBIN 13.7 g/dL (12.0-18.0); LYMPH # 0.9 K/uL (1.0-4.3); LYMPH % 8.9 % (20.0-40.0); MEAN CELL VOLUME 93.1 fL (80.0-94.0); MEAN CORPUSCULAR HEMOGLOBIN 32.9 pg (27.0-31.0); MEAN CORPUSCULAR HGB CONC 35.4 g/dL (33.0-37.0); MEAN PLATELET VOLUME 8.6 fL (7.2-11.7); MONO # 1.1 K/uL (0.0-0.8); MONO % 10.4 % (0.0-10.0); NEUT # 8.5 K/uL (1.8-7.0); NEUT % 79.9 % (50.0-75.0); PLATELET COUNT 222 K/uL (130-400); RBC 4.17 Mil/uL (4.40-5.90); RED CELL DISTRIBUTION WIDTH 14.1 % (11.5-14.5); WHITE BLOOD COUNT 10.6 K/uL (4.8-10.8)
[2018-05-09 06:53] LABS: ALB/GLOB RATIO 1.1 (1.0-2.1); ALBUMIN 3.5 g/dL (3.5-5.0); ALT/SGPT 43 U/L (21-72); AST/SGOT 49 U/L (17-59); BLOOD UREA NITROGEN 28 mg/dL (9-20); GFR NON-AFRICAN AMERICAN > 60
[2018-05-09 07:59] LABS: BANDS 1 % (0-2); LYMPHOCYTE 8 % (20-40); MONOCYTE 10 % (0-10); NEUTROPHIL 81 % (50-75); PLATELET ESTIMATE NORMAL (NORMAL); TOTAL CELLS COUNTED 100
[2018-05-09] MEDS: Saccharomyces Boulardi 250 mg Cap PO SCH ×2 (08:10→20:29)
[2018-05-09] MEDS: Pantoprazole 40 mg EC Tab PO SCH (09:00)
--- NOTE | 2018-05-09 10:01 | CP.PCM.PN ---
Subjective - Date & Time of Evaluation Date of Evaluation: 05/09/18 Time of Evaluation: 09:30 - Subjective Subjective: Seen and examined this morning,Patient is awake and responsive,Trying to talk, follow commands,denies pain On Dopamine drip and heparin drip Atrial flutter with heart block HR 50/min, BP 177/69 Objective - Vital Signs/Intake and Output Vital Signs (last 24 hours): Temp Pulse Resp BP Pulse Ox 98 F 52 L 21 153/86 H 100 05/09/18 00:00 05/09/18 01:00 05/09/18 01:00 05/08/18 22:45 05/08/18 15:20 Intake and Output: 05/09/18 05/09/18 06:59 18:59 Intake Total 466.0 18.0 Balance 466.0 18.0 - Medications Medications: Current Medications Atropine Sulfate (Atropine) 1 mg IVP Q3H PRN PRN Reason: Other Last Admin: 05/09/18 09:28 Dose: 1 mg Ceftriaxone Sodium 1 gm/ (Sodium Chloride) 100 mls @ 200 mls/hr IVPB DAILY [facility] PRN Reason: Protocol Last Admin: 05/09/18 09:00 Dose: 200 mls/hr Heparin Sodium/Sodium Chloride (Heparin 92716 Units/250ml 1/2 Normal Saline) 25 ,000 units in 250 mls @ 9.798 mls/hr IV .Q24H PRN; Protocol; 12 UNITS/KG/HR PRN Reason: ADJUST RATE PER PROTOCOL Last Admin: 05/09/18 05:45 Dose: 12 units/kg/hr, 9.798 mls/hr Dopamine HCl/Dextrose (Dopamine 400mg/250ml D5w) 400 mg in 250 mls @ 8.318 mls/ hr IV .Q24H PRN; 3 MCG/KG/MIN PRN Reason: TITRATE PER MD ORDER Last Admin: 05/07/18 21:30 Dose: 8.318 mls/hr Nitroglycerin (Nitro-Bid 2% Oint) 1 ea TOP Q6H [facility] Last Admin: 05/09/18 08:10 Dose: 1 ea Pantoprazole Sodium (Protonix Ec Tab) 40 mg PO DAILY [facility] Last Admin: 05/09/18 09:00 Dose: 40 mg Rosuvastatin Calcium (Crestor) 10 mg PO HS [facility] Last Admin: 05/08/18 21:03 Dose: 10 mg Saccharomyces Christopher (Florastor) 250 mg PO Q12H [facility] Last Admin: 05/09/18 08:10 Dose: 250 mg - Labs Labs: 05/09/18 06:32 05/09/18 06:32 PT 12.6 SECONDS (9.7-12.2) H 05/06/18 16:03 INR 1.2 05/06/18 16:03 APTT 65 SECONDS (21-34) H D 05/09/18 06:32 - Constitutional Appears: Non-toxic, No Acute Distress - Head Exam Head Exam: NORMAL INSPECTION - Eye Exam Eye Exam: Normal appearance - ENT Exam ENT Exam: Mucous Membranes Moist - Neck Exam Neck Exam: Full ROM - Respiratory Exam Respiratory Exam: Clear to Ausculation Bilateral, NORMAL BREATHING PATTERN - Cardiovascular Exam Cardiovascular Exam: REGULAR RHYTHM - GI/Abdominal Exam GI & Abdominal Exam: Soft, Normal Bowel Sounds - Extremities Exam Extremities Exam: Full ROM. absent: Normal Inspection (right hip wound,righ shoulder and lat malleolus wound) - Neurological Exam Neurological Exam: Awake. absent: Oriented x3 (trying to talk,) Neuro motor strength exam: Left Upper Extremity: 5 - Psychiatric Exam Psychiatric exam: Normal Affect, Normal Mood - Skin Skin Exam: Dry Assessment and Plan - Assessment and Plan (Free Text) Assessment: This is a frail 88 year old male with possible history of hypertension ,unknown psychiatric illness and possible dementia was brought for evaluation after patient was reportedly found on the floor in his house by cleaning staff in his home. Unknown how long he was on the floor. Patient is under state guardianship.He was living alone with the help of once a week home care service.On admission patient was in atrial flutter with varing response.His lowest rate was in 30ies. Patient was asymptomatic on admission and admitted to tele. Brought to ICU for bradycardia with evidence of Atrial flutter with block.Patient will be seen by EP physician. Possible pace maker Advance directive -full code Patient has no family.He was living alone with once a week help.History of dementia,psychiatry disorder and hypertension.He was refusing medical care in the past as per his nurse case manager d/w patient's housing case manager. His state guardian is on vacation State guardian . Plan: 1.Atrial flutter with block, bradycardia Electrolytes normal Has elevated BNP Echo obtained: pending report continue heparin,started on dopamine by ICU Blood pressure remains good Discussed with auto specialty services manager Dr Billingsley yesterday. He asked EP physcian to see him We will follow with EP physician likely needs a pacemaker Continue heparin drip and follow echo.We will discuss with auto specialty services manager about antibiotics choice 2.New CVA with aphasia /subacute stroke - Neurology consulted on case (Dr. Kumar) - CT without contrast: subtle hypodensity in the left MCA territory ( nonspecific and may represent subacute infarct) patient is on Heparinn Continue Crestor 10mg PO HS Pending brain MRI 3 Community Acquired Pneumonia Chest X-ray: Left lower lobe infiltrates/atelectasis Rocephin 1g IVBP 4.Ulcers secondary to being on the ground for unknown duration - Wound Care 5.Advance directives-full code d/w patient's housing case manager. His state guardian is on vacation
--- NOTE | 2018-05-09 13:40 | CP.CCUPN ---
<Rosalio Muñoz - Last Filed: 05/09/18 15:04> CCU Subjective - Physician Review Subjective (Free Text): 05/09/18 14:57 Patient seen and examined at bedside. Awake and alert, but remains non-verbal ( comprehension intact, but unable to verbalize). Able to nod/shake head yes/no to most questions appropriately. Mitts remain due to intermittent pulling and agitation. As per nursing overnight, became more confused overnight, no longer understood that he was at [facility]. Got Atropine IV x1 overnight for low HR, increased briefly to 70's, then returned to 40's-50's, and has remained since. IVF was discontinued but SBP remains elevated at 160's-180's. CCU Objective - Vital Signs / Intake & Output Vital Signs (Last 4 hours): Vital Signs Temp Pulse Resp BP Pulse Ox 05/09/18 13:00 46 L 18 98 05/09/18 12:47 58 L 22 138/116 H 98 05/09/18 12:40 50 L 16 177/69 H 98 05/09/18 12:00 98.9 F 52 L 20 98 05/09/18 11:54 50 L 17 172/82 H 98 05/09/18 11:00 64 25 H 98 05/09/18 10:45 64 25 H 151/122 H 98 05/09/18 10:03 85 22 179/77 H 99 05/09/18 10:01 43 L 22 177/71 H 99 05/09/18 10:00 41 L 22 99 05/09/18 09:46 43 L 21 174/75 H 97 Intake and Output (Last 8hrs): Intake & Output 05/08/18 05/09/18 05/09/18 22:59 06:59 14:59 Intake Total 344.0 394.0 755.8 Balance 344.0 394.0 755.8 Weight 74.394 kg Intake: IV 250 Intake, IV Amount 344.0 144.0 755.8 Left Antecubital 200 Right Hand 66.4 66.4 58.1 Right Hand Y Port 77.6 77.6 597.7 Right Upper Arm 100 Other: # Bowel Movements 0 0 0 - Physical Exam Head: Positive for: Atraumatic, Normocephalic Pupils: Negative for: Non-Reactive, Pinpoint Extroacular Muscles: Positive for: EOMI Conjunctiva: Positive for: Normal. Negative for: Injected, Icteric Mouth: Positive for: Moist Mucous Membranes, Normal Lips. Negative for: Dry, Drooling Nose (External): Positive for: Atraumatic. Negative for: Abrasion, Contusion, Laceration Nose (Internal): Positive for: No Active Bleeding. Negative for: Epistaxis Neck: Positive for: Normal Range of Motion, Trachea Midline. Negative for: JVD Respiratory/Chest: Positive for: Clear to Auscultation, Good Air Exchange. Negative for: Respiratory Distress, Accessory Muscle Use, Wheezes, Decreased Breath Sounds, Rales, Rhonchi Cardiovascular: Positive for: Murmurs (holosystolic murmur of equal intesity in all areas auscultated, no radiation to carotids), Normal S1, S2, Peripheal Pulses Present (+2 radials and +1 dorsalis pedis), Bradycardic (40's on monitor during exam). Negative for: Irregular Rhythm, Tachycardic Abdomen: Positive for: Normal Bowel Sounds. Negative for: Tenderness, Distention, Guarding Upper Extremity: Positive for: Normal Inspection, Normal ROM, NORMAL PULSES. Negative for: Cyanosis, Edema, Tenderness, Swelling, Erythema Lower Extremity: Positive for: NORMAL PULSES, Normal ROM, Other (bandaged ulcers on right lateral thigh and lateral knee). Negative for: Edema, CALF TENDERNESS, Cyanosis, Tenderness, Swelling, Erythema Neurological: Positive for: GCS=15, Motor Func Grossly Intact, Other (awake and alert, following commands appropriately). Negative for: Speech Normal (non- verbal, comprehension of speech intact but unable to verbalize any words) Skin: Positive for: Warm, Dry, Normal Color. Negative for: Rashes Psychiatric: Positive for: Other (awake and alert, able to nod/shake head appropriately to most yes/no questions, not overtly anxious/agitated) - Medications Active Medications: Active Medications Generic Name Dose Route Start Last Admin Trade Name Freq PRN Reason Stop Dose Admin Atropine Sulfate 1 mg 05/07/18 19:43 05/09/18 09:28 Atropine IVP 1 mg Q3H PRN Administration Other Ceftriaxone Sodium 1 gm/ 100 mls @ 200 mls/hr 05/07/18 10:00 05/09/18 09:00 Sodium Chloride IVPB 200 mls/hr DAILY ANUPAM Administration Protocol Heparin Sodium/Sodium Chloride 25,000 units in 250 mls @ 9.798 mls/hr 19:47 05/09/18 05:45 Heparin 61906 Units/250ml 1/2 Normal Saline IV 12 units/kg/hr .Q24H PRN 9.798 mls/hr ADJUST RATE PER PROTOCOL Administration Protocol 12 UNITS/KG/HR Dopamine HCl/Dextrose 400 mg in 250 mls @ 8.318 mls/hr 05/07/18 21:06 21:30 Dopamine 400mg/250ml D5w IV 8.318 mls/hr .Q24H PRN Administration TITRATE PER MD ORDER 3 MCG/KG/MIN Nitroglycerin 1 ea 05/07/18 20:30 05/09/18 08:10 Nitro-Bid 2% Oint TOP 1 ea Q6H ANUPAM Administration Pantoprazole Sodium 40 mg 05/07/18 10:00 05/09/18 09:00 Protonix Ec Tab PO 40 mg DAILY ANUPAM Administration Rosuvastatin Calcium 10 mg 05/06/18 22:00 05/08/18 21:03 Crestor PO 10 mg HS ANUPAM Administration Saccharomyces Boulardii 250 mg 05/06/18 20:00 05/09/18 08:10 Florastor PO 250 mg Q12H ANUPAM Administration - Patient Studies Lab Studies: Microbiology Studies 05/06/18 17:40 Blood Culture - Preliminary Blood-Venous NO GROWTH AFTER 48 HOURS 05/06/18 15:00 Blood Culture - Preliminary Blood-Venous NO GROWTH AFTER 48 HOURS Lab Studies 05/09/18 05/09/18 05/09/18 Range/Units 06:32 06:32 06:32 WBC (4.8-10.8) K/uL RBC (4.40-5.90) Mil/uL Hgb (12.0-18.0) g/dL Hct (35.0-51.0) % MCV (80.0-94.0) fL MCH (27.0-31.0) pg MCHC (33.0-37.0) g/dL RDW (11.5-14.5) % Plt Count (130-400) K/uL MPV (7.2-11.7) fL Neut % (Auto) (50.0-75.0) % Lymph % (Auto) (20.0-40.0) % [place] % (Auto) (0.0-10.0) % Eos % (Auto) (0.0-4.0) % Baso % (Auto) (0.0-2.0) % Neut # (Auto) (1.8-7.0) K/uL Lymph # (Auto) (1.0-4.3) K/uL [place] # (Auto) (0.0-0.8) K/uL Eos # (Auto) (0.0-0.7) K/uL Baso # (Auto) (0.0-0.2) K/uL Neutrophils % (Manual) (50-75) % Band Neutrophils % (0-2) % Lymphocytes % (Manual) (20-40) % Monocytes % (Manual) (0-10) % Platelet Estimate (NORMAL) RBC Morphology APTT 65 H D (21-34) SECONDS Sodium 147 (132-148) mmol/L Potassium 3.5 L (3.6-5.2) mmol/L Chloride 112 H (98-107) mmol/L Carbon Dioxide 24 (22-30) mmol/L Anion Gap 14 (10-20) BUN 28 H (9-20) mg/dL Creatinine 0.9 (0.8-1.5) mg/dL Est GFR ( Amer) > 60 Est GFR (Non-Af Amer) > 60 Random Glucose 128 H (75-110) mg/dL Calcium 9.0 (8.6-10.4) mg/dl Phosphorus 3.2 (2.5-4.5) mg/dL Magnesium 1.9 (1.6-2.3) mg/dL Total Bilirubin 1.1 (0.2-1.3) mg/dL AST 49 (17-59) U/L ALT 43 (21-72) U/L Alkaline Phosphatase 78 (38-126) U/L Troponin I 0.0690 (0.00-0.120) ng/mL Total Protein 6.6 (6.3-8.3) g/dL Albumin 3.5 (3.5-5.0) g/dL Globulin 3.1 (2.2-3.9) gm/dL Albumin/Globulin Ratio 1.1 (1.0-2.1) 05/09/18 Range/Units 06:32 WBC 10.6 (4.8-10.8) K/uL RBC 4.17 L (4.40-5.90) Mil/uL Hgb 13.7 (12.0-18.0) g/dL Hct 38.8 (35.0-51.0) % MCV 93.1 (80.0-94.0) fL MCH 32.9 H (27.0-31.0) pg MCHC 35.4 (33.0-37.0) g/dL RDW 14.1 (11.5-14.5) % Plt Count 222 (130-400) K/uL MPV 8.6 (7.2-11.7) fL Neut % (Auto) 79.9 H (50.0-75.0) % Lymph % (Auto) 8.9 L (20.0-40.0) % [place] % (Auto) 10.4 H (0.0-10.0) % Eos % (Auto) 0.5 (0.0-4.0) % Baso % (Auto) 0.3 (0.0-2.0) % Neut # (Auto) 8.5 H (1.8-7.0) K/uL Lymph # (Auto) 0.9 L (1.0-4.3) K/uL [place] # (Auto) 1.1 H (0.0-0.8) K/uL Eos # (Auto) 0.1 (0.0-0.7) K/uL Baso # (Auto) 0.0 (0.0-0.2) K/uL Neutrophils % (Manual) 81 H (50-75) % Band Neutrophils % 1 (0-2) % Lymphocytes % (Manual) 8 L (20-40) % Monocytes % (Manual) 10 (0-10) % Platelet Estimate Normal (NORMAL) RBC Morphology Normal APTT (21-34) SECONDS Sodium (132-148) mmol/L Potassium (3.6-5.2) mmol/L Chloride (98-107) mmol/L Carbon Dioxide (22-30) mmol/L Anion Gap (10-20) BUN (9-20) mg/dL Creatinine (0.8-1.5) mg/dL Est GFR ( Amer) Est GFR (Non-Af Amer) Random Glucose (75-110) mg/dL Calcium (8.6-10.4) mg/dl Phosphorus (2.5-4.5) mg/dL Magnesium (1.6-2.3) mg/dL Total Bilirubin (0.2-1.3) mg/dL AST (17-59) U/L ALT (21-72) U/L Alkaline Phosphatase (38-126) U/L Troponin I (0.00-0.120) ng/mL Total Protein (6.3-8.3) g/dL Albumin (3.5-5.0) g/dL Globulin (2.2-3.9) gm/dL Albumin/Globulin Ratio (1.0-2.1) Laboratory Results - last 24 hr 05/09/18 05/09/18 05/09/18 06:32 06:32 06:32 WBC 10.6 RBC 4.17 L Hgb 13.7 Hct 38.8 MCV 93.1 MCH 32.9 H MCHC 35.4 RDW 14.1 Plt Count 222 MPV 8.6 Neut % (Auto) 79.9 H Lymph % (Auto) 8.9 L [place] % (Auto) 10.4 H Eos % (Auto) 0.5 Baso % (Auto) 0.3 Neut # (Auto) 8.5 H Lymph # (Auto) 0.9 L [place] # (Auto) 1.1 H Eos # (Auto) 0.1 Baso # (Auto) 0.0 Neutrophils % (Manual) 81 H Band Neutrophils % 1 Lymphocytes % (Manual) 8 L Monocytes % (Manual) 10 Platelet Estimate Normal RBC Morphology Normal APTT Sodium 147 Potassium 3.5 L Chloride 112 H Carbon Dioxide 24 Anion Gap 14 BUN 28 H Creatinine 0.9 Est GFR ( Amer) > 60 Est GFR (Non-Af Amer) > 60 Random Glucose 128 H Calcium 9.0 Phosphorus 3.2 Magnesium 1.9 Total Bilirubin 1.1 AST 49 ALT 43 Alkaline Phosphatase 78 Troponin I 0.0690 Total Protein 6.6 Albumin 3.5 Globulin 3.1 Albumin/Globulin Ratio 1.1 05/09/18 06:32 WBC RBC Hgb Hct MCV MCH MCHC RDW Plt Count MPV Neut % (Auto) Lymph % (Auto) [place] % (Auto) Eos % (Auto) Baso % (Auto) Neut # (Auto) Lymph # (Auto) [place] # (Auto) Eos # (Auto) Baso # (Auto) Neutrophils % (Manual) Band Neutrophils % Lymphocytes % (Manual) Monocytes % (Manual) Platelet Estimate RBC Morphology APTT 65 H D Sodium Potassium Chloride Carbon Dioxide Anion Gap BUN Creatinine Est GFR ( Amer) Est GFR (Non-Af Amer) Random Glucose Calcium Phosphorus Magnesium Total Bilirubin AST ALT Alkaline Phosphatase Troponin I Total Protein Albumin Globulin Albumin/Globulin Ratio Fingerstick Blood Sugar Results: 119 Review of Systems - Review of Systems Systems not reviewed;Unavailable: Other (non-verbal) Critical Care Progress Note - Nutrition Nutrition: Nutrition Category Date Time Status Pureed [Dysphagia/Modified Consistency Diet] [DIET] Diets 05/07/18 Dinner Active Assessment/Plan - Assessment and Plan (Free Text) Assessment: This is a 88 year old male with history of dementia and unspecified psychiatric illness who presented for evaluation after he was found altered at home. Rapid response was called after nurse was unable to obtain blood pressure on patient, and was found to be in A-flutter at 34 bpm with prolonged QTc. Now in ICU, remains on Dopamine drip with HR in 40's-50's, remains on heparin drip. Pending possible pacemaker for persistent bradycardia with aflutter, down to 30' s. Pending speech therapy and PT/OT s/p L MCA infarct. 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 -Brain MRI ordered, pending -On Heparin drip, pending conversion to oral anticoagulant, Neuro deferring choice -Neurology Dr. 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 -Azithromycin Dc'ed given prolonged QTc on initial EKGs -HR on dopamine drip 40's-50s, intermittently dips into 30's but resolves within minutes; s/p IV atropine x1 overnight -continue Atropine Q3 PRN for HR < 45 -Trops post-SHOW HOST/HOSTESS 0.0790, 0.0640, 0.0690 -continue Crestor, heparin drip, dopamine drip -Echo obtained, pending official read -pro-BNP 7020 on admission; unknown if hx CHF, avoid aggressive fluid rehydration -Cardio (Dr. Billingsley) following, appreciate all recs; cont ASA and high-dose statin, AC if cleared by Neuro, to discuss case with EP -Dig level ordered, pending -BP elevated today, up to 180's systolic, Hydralazine 10mg IVP q6 prn for SBP > 160 Pulmonary -Admission Chest X-ray: Left lower lobe infiltrates vs atelectasis; clear to auscultation on exam today -continue Rocephin 1g IV, Florastor 250mg Q12 -maintain SaO2 > 92%, satting well (93-96%) on 3L NC, continue -Aspiration precautions, head of bed to 30 degrees GI -Protonix 40mg PO for GI ppx -Pureed diet ordered, monitor for signs of aspiration Renal: -off IVF -BUN 28, Cr 0.9 -continue to monitor I&O's; currently net positive ~3L, try to maintain euvolemia due to elevated BNP ID -WBCs 10.6, afebrile -LLL infiltrates vs atelectasis on CXR -continue empiric coverage with Rocephin 1g IV, Azithromycin Dced given prolonged QTc in setting of Marcus + Aflutter -continue Florastor 250mg Q12 -Urine culture no growth, Blood culture negative at 24 hrs -UA 3+ protein 1+ ketones 3+ blood Endo -Maintain euglycemia Heme -H/H stable at 13.7/38.8 -Heparin drip covers for DVT, continue routine coags as per Heparin drip protocol Dispo: ICU, close monitoring of HR on dopamine drip, pending Echo results, pending MRI, pending possible Pacer for persistent marcus aflutter FEN: Pureed diet Access: Peripheral IVs Consults: ICU, Neuro, Cardio, EP Ppx: Heparin drip covers for DVT, Protonix for GI Code Status: Unknown, so Full by default Pt reviewed and discussed with attending, Dr. Higuera <Maicol Higuera - Last Filed: 05/10/18 11:44> CCU Objective - Vital Signs / Intake & Output Vital Signs (Last 4 hours): Vital Signs Temp Pulse Resp BP Pulse Ox 05/10/18 11:00 84 24 95 05/10/18 10:46 55 L 22 163/75 H 93 L 05/10/18 10:13 45 L 24 140/57 L 97 05/10/18 10:00 51 L 25 H 96 05/10/18 09:36 64 27 H 161/90 H 05/10/18 09:16 68 23 171/81 H 98 05/10/18 09:00 91 H 26 H 97 05/10/18 08:00 97.6 F 49 L 21 98 05/10/18 07:59 56 L 15 156/74 H 98 Intake and Output (Last 8hrs): Intake & Output 05/09/18 05/10/18 05/10/18 22:59 06:59 14:59 Intake Total 1654.0 344.8 90.5 Output Total 100 200 Balance 1554.0 144.8 90.5 Weight 164 lb Intake: Intake, IV Amount 874.0 144.8 90.5 Right Hand 66.4 66.4 41.5 Right Hand Y Port 607.6 78.4 49.0 Right Upper Arm 200 Oral 780 200 Output: Urine 100 200 Urine, Voided 100 200 Other: # Bowel Movements 0 0 - Medications Active Medications: Active Medications Generic Name Dose Route Start Last Admin Trade Name Freq PRN Reason Stop Dose Admin Atropine Sulfate 1 mg 05/07/18 19:43 05/10/18 02:43 Atropine IVP 1 mg Q3H PRN Administration Other Hydralazine HCl 10 mg 05/09/18 15:22 Apresoline IVP Q6H PRN SBP > 160 Ceftriaxone Sodium 1 gm/ 100 mls @ 200 mls/hr 05/07/18 10:00 05/10/18 09:00 Sodium Chloride IVPB 200 mls/hr DAILY ANUPAM Administration Protocol Heparin Sodium/Sodium Chloride 25,000 units in 250 mls @ 9.798 mls/hr 19:47 05/09/18 05:45 Heparin 46074 Units/250ml 1/2 Normal Saline IV 12 units/kg/hr .Q24H PRN 9.798 mls/hr ADJUST RATE PER PROTOCOL Administration Protocol 12 UNITS/KG/HR Sodium Chloride 500 mls @ 30 mls/hr 05/10/18 11:45 Sodium Chloride 0.45% IV .[id number] ANUPAM Potassium Chloride 20 meq in 100 mls @ 50 mls/hr 05/10/18 11:43 Potassium Chloride 20 Meq/100 Ml IVPB 05/10/18 13:42 ONCE ONE Nitroglycerin 1 ea 05/07/18 20:30 05/10/18 08:45 Nitro-Bid 2% Oint TOP 1 ea Q6H ANUPAM Administration Pantoprazole Sodium 40 mg 05/07/18 10:00 05/10/18 09:06 Protonix Ec Tab PO 40 mg DAILY ANUPAM Administration Rosuvastatin Calcium 10 mg 05/06/18 22:00 05/09/18 21:47 Crestor PO 10 mg HS ANUPAM Administration Saccharomyces Boulardii 250 mg 05/06/18 20:00 05/10/18 08:45 Florastor PO 250 mg Q12H ANUPAM Administration - Patient Studies Lab Studies: Microbiology Studies 05/06/18 17:40 Blood Culture - Preliminary Blood-Venous NO GROWTH AFTER 3 DAYS 05/06/18 15:00 Blood Culture - Preliminary Blood-Venous NO GROWTH AFTER 3 DAYS Lab Studies 05/10/18 05/10/18 05/10/18 Range/Units 06:36 06:36 06:33 WBC 12.5 H (4.8-10.8) K/uL RBC 4.30 L (4.40-5.90) Mil/uL Hgb 14.0 (12.0-18.0) g/dL Hct 40.0 (35.0-51.0) % MCV 92.9 (80.0-94.0) fL MCH 32.4 H (27.0-31.0) pg MCHC 34.9 (33.0-37.0) g/dL RDW 14.4 (11.5-14.5) % Plt Count 229 (130-400) K/uL MPV 9.3 (7.2-11.7) fL Neut % (Auto) 85.2 H (50.0-75.0) % Lymph % (Auto) 5.4 L (20.0-40.0) % [place] % (Auto) 8.0 (0.0-10.0) % Eos % (Auto) 1.0 (0.0-4.0) % Baso % (Auto) 0.4 (0.0-2.0) % Neut # (Auto) 10.6 H (1.8-7.0) K/uL Lymph # (Auto) 0.7 L (1.0-4.3) K/uL [place] # (Auto) 1.0 H (0.0-0.8) K/uL Eos # (Auto) 0.1 (0.0-0.7) K/uL Baso # (Auto) 0.1 (0.0-0.2) K/uL Neutrophils % (Manual) 90 H (50-75) % Lymphocytes % (Manual) 3 L (20-40) % Monocytes % (Manual) 7 (0-10) % Toxic Granulation Present Platelet Estimate Normal (NORMAL) Large Platelets Present Giant Platelets Present Anisocytosis (manual) Slight PT 13.8 H (9.7-12.2) SECONDS INR 1.3 APTT 45 H D (21-34) SECONDS Sodium (132-148) mmol/L Potassium (3.6-5.2) mmol/L Chloride (98-107) mmol/L Carbon Dioxide (22-30) mmol/L Anion Gap (10-20) BUN (9-20) mg/dL Creatinine (0.8-1.5) mg/dL Est GFR ( Amer) Est GFR (Non-Af Amer) Random Glucose (75-110) mg/dL Calcium (8.6-10.4) mg/dl Phosphorus (2.5-4.5) mg/dL Magnesium (1.6-2.3) mg/dL Total Bilirubin (0.2-1.3) mg/dL AST (17-59) U/L ALT (21-72) U/L Alkaline Phosphatase (38-126) U/L Troponin I 0.0540 (0.00-0.120) ng/mL Total Protein (6.3-8.3) g/dL Albumin (3.5-5.0) g/dL Globulin (2.2-3.9) gm/dL Albumin/Globulin Ratio (1.0-2.1) 05/10/18 Range/Units 06:33 WBC (4.8-10.8) K/uL RBC (4.40-5.90) Mil/uL Hgb (12.0-18.0) g/dL Hct (35.0-51.0) % MCV (80.0-94.0) fL MCH (27.0-31.0) pg MCHC (33.0-37.0) g/dL RDW (11.5-14.5) % Plt Count (130-400) K/uL MPV (7.2-11.7) fL Neut % (Auto) (50.0-75.0) % Lymph % (Auto) (20.0-40.0) % [place] % (Auto) (0.0-10.0) % Eos % (Auto) (0.0-4.0) % Baso % (Auto) (0.0-2.0) % Neut # (Auto) (1.8-7.0) K/uL Lymph # (Auto) (1.0-4.3) K/uL [place] # (Auto) (0.0-0.8) K/uL Eos # (Auto) (0.0-0.7) K/uL Baso # (Auto) (0.0-0.2) K/uL Neutrophils % (Manual) (50-75) % Lymphocytes % (Manual) (20-40) % Monocytes % (Manual) (0-10) % Toxic Granulation Platelet Estimate (NORMAL) Large Platelets Giant Platelets Anisocytosis (manual) PT (9.7-12.2) SECONDS INR APTT (21-34) SECONDS Sodium 150 H (132-148) mmol/L Potassium 3.5 L (3.6-5.2) mmol/L Chloride 113 H (98-107) mmol/L Carbon Dioxide 24 (22-30) mmol/L Anion Gap 16 (10-20) BUN 32 H (9-20) mg/dL Creatinine 1.9 H (0.8-1.5) mg/dL Est GFR ( Amer) 41 Est GFR (Non-Af Amer) 34 Random Glucose 120 H (75-110) mg/dL Calcium 9.1 (8.6-10.4) mg/dl Phosphorus 3.8 (2.5-4.5) mg/dL Magnesium 2.0 (1.6-2.3) mg/dL Total Bilirubin 0.9 (0.2-1.3) mg/dL AST 41 (17-59) U/L ALT 37 (21-72) U/L Alkaline Phosphatase 77 (38-126) U/L Troponin I (0.00-0.120) ng/mL Total Protein 6.8 (6.3-8.3) g/dL Albumin 3.5 (3.5-5.0) g/dL Globulin 3.3 (2.2-3.9) gm/dL Albumin/Globulin Ratio 1.1 (1.0-2.1) Laboratory Results - last 24 hr 05/10/18 05/10/18 05/10/18 06:33 06:33 06:36 WBC 12.5 H RBC 4.30 L Hgb 14.0 Hct 40.0 MCV 92.9 MCH 32.4 H MCHC 34.9 RDW 14.4 Plt Count 229 MPV 9.3 Neut % (Auto) 85.2 H Lymph % (Auto) 5.4 L [place] % (Auto) 8.0 Eos % (Auto) 1.0 Baso % (Auto) 0.4 Neut # (Auto) 10.6 H Lymph # (Auto) 0.7 L [place] # (Auto) 1.0 H Eos # (Auto) 0.1 Baso # (Auto) 0.1 Neutrophils % (Manual) 90 H Lymphocytes % (Manual) 3 L Monocytes % (Manual) 7 Toxic Granulation Present Platelet Estimate Normal Large Platelets Present Giant Platelets Present Anisocytosis (manual) Slight PT INR APTT Sodium 150 H Potassium 3.5 L Chloride 113 H Carbon Dioxide 24 Anion Gap 16 BUN 32 H Creatinine 1.9 H Est GFR ( Amer) 41 Est GFR (Non-Af Amer) 34 Random Glucose 120 H Calcium 9.1 Phosphorus 3.8 Magnesium 2.0 Total Bilirubin 0.9 AST 41 ALT 37 Alkaline Phosphatase 77 Troponin I 0.0540 Total Protein 6.8 Albumin 3.5 Globulin 3.3 Albumin/Globulin Ratio 1.1 05/10/18 06:36 WBC RBC Hgb Hct MCV MCH MCHC RDW Plt Count MPV Neut % (Auto) Lymph % (Auto) [place] % (Auto) Eos % (Auto) Baso % (Auto) Neut # (Auto) Lymph # (Auto) [place] # (Auto) Eos # (Auto) Baso # (Auto) Neutrophils % (Manual) Lymphocytes % (Manual) Monocytes % (Manual) Toxic Granulation Platelet Estimate Large Platelets Giant Platelets Anisocytosis (manual) PT 13.8 H INR 1.3 APTT 45 H D Sodium Potassium Chloride Carbon Dioxide Anion Gap BUN Creatinine Est GFR ( Amer) Est GFR (Non-Af Amer) Random Glucose Calcium Phosphorus Magnesium Total Bilirubin AST ALT Alkaline Phosphatase Troponin I Total Protein Albumin Globulin Albumin/Globulin Ratio Critical Care Progress Note - Nutrition Nutrition: Nutrition Category Date Time Status Pureed [Dysphagia/Modified Consistency Diet] [DIET] Diets 05/07/18 Dinner Active Attending/Attestation - Attestation I have personally seen and examined this patient.: Yes I have fully participated in the care of the patient.: Yes I have reviewed all pertinent clinical information: Yes
--- NOTE | 2018-05-09 15:56 | CARD ---
APPROVED REPORT Date of service: 05/07/2018 EXAM: Two-dimensional and M-mode echocardiogram with Doppler and color Doppler. Other Information Quality : [employer] : INDICATION Atrial Fibrillation CARDIOMEGALY ON CXR RISK FACTORS Hypertension 2D DIMENSIONS IVSd0.9 (0.7-1.1cm)LVDd4.7 (3.9-5.9cm) LVOT Diameter1.7 (1.8-2.4cm)PWd1.0 (0.7-1.1cm) LVDs2.6 (2.5-4.0cm)FS (%) 44.5 % LVEF (%)75.8 (>50%) M-Mode DIMENSIONS Left Atrium (MM)5.15 (2.5-4.0cm)Aortic Root3.30 (2.2-3.7cm) Aortic Cusp Exc.1.24 (1.5-2.0cm) Aortic Valve AoV Peak Ckbbzjjl998.2cm/sAoV VTI79.4cmAO Peak GR.52mmHg LVOT Peak Gttgmcjk103.0cm/sLVOT VTI26.70cmAO Mean GR.23mmHg FRANKIE (VMAX)0.30uy4VVP (VTI)0.76cm2 Mitral Valve MV E Wrdeadag035.8cm/sMV A Itwkdtps750.5cm/sMV VAM364ln E/A ratio1.1MVA (PHT)1.69cm2 TDI E/Lateral E'0.0E/Medial E'0.0 Tricuspid Valve TR Peak Uvmufthp749cl/sTR Peak Gr.[id number] <Conclusion> poor wqindow. tds. la is severely dilated. nomral size lv,ra & rv. normal lv wall motion,thickness & systolic function with lvef of 55-60%. aortic valve is probably trileaflet & heavily calcified with peak/mean gradinet of 52/23 mm of hg & calculated frankie of 0.8 cmsq,c/w severe aortic stenosis. mac.mild mr, mild to moderate tr with caluclated pulmonary systolic pressures of 60 mm of hg,c/w moderately severe pulmonary hypertension. sclerotic normal size aortic root. no pericardial effusion seen.
--- NOTE | 2018-05-09 18:43 | RAD ---
Date of service: 05/08/2018 PROCEDURE: Bone survey HISTORY: Evaluate for metal for MRI COMPARISON: Comparison made with CT scan brain and chest radiograph both dated 05/06/2018 TECHNIQUE: Bone survey performed in standard fashion. FINDINGS: Interval improvement previously suspected pulmonary venous congestion however patchy bibasilar opacities are again seen left more significant than the right. There are no metallic radiopaque foreign bodies however there is tubing seen overlying the mid symphysis, pelvis and left lower abdomen. This may be extrinsic to the patient. Clinical correlation recommended. IMPRESSION: No metallic radiopaque foreign bodies are identified however there is tubing seen overlying the mid symphysis, pelvis and left lower abdomen which could be extrinsic to the patient. Clinical correlation recommended. And slightly improved pulmonary venous congestive changes with persistent patchy lower lobe opacities.
[2018-05-10] MEDS: Nitroglycerin 2% Ointment Foilpak UD TOP SCH ×4 (02:42→20:22)
[2018-05-10 06:47] LABS: BASO # 0.1 K/uL (0.0-0.2); BASO % 0.4 % (0.0-2.0); EOS # 0.1 K/uL (0.0-0.7); LYMPH # 0.7 K/uL (1.0-4.3); LYMPH % 5.4 % (20.0-40.0); MEAN CELL VOLUME 92.9 fL (80.0-94.0); MEAN CORPUSCULAR HEMOGLOBIN 32.4 pg (27.0-31.0); MEAN CORPUSCULAR HGB CONC 34.9 g/dL (33.0-37.0); MEAN PLATELET VOLUME 9.3 fL (7.2-11.7); NEUT # 10.6 K/uL (1.8-7.0); NEUT % 85.2 % (50.0-75.0); PLATELET COUNT 229 K/uL (130-400); RED CELL DISTRIBUTION WIDTH 14.4 % (11.5-14.5); WHITE BLOOD COUNT 12.5 K/uL (4.8-10.8)
[2018-05-10 06:49] LABS: INR 1.3; PROTHROMBIN TIME 13.8 SECONDS (9.7-12.2)
[2018-05-10 07:05] LABS: ALB/GLOB RATIO 1.1 (1.0-2.1); ALBUMIN 3.5 g/dL (3.5-5.0); CALCIUM 9.1 mg/dl (8.6-10.4)
[2018-05-10] MEDS: Saccharomyces Boulardi 250 mg Cap PO SCH ×2 (08:45→20:21)
[2018-05-10] MEDS: Pantoprazole 40 mg EC Tab PO SCH (09:06)
[2018-05-10 09:23] LABS: LYMPHOCYTE 3 % (20-40); MONOCYTE 7 % (0-10); NEUTROPHIL 90 % (50-75); TOTAL CELLS COUNTED 100
[2018-05-10 09:26] LABS: ANISOCYTOSIS SLIGHT; LARGE PLATELETS PRESENT; PLATELET ESTIMATE NORMAL (NORMAL); TOXIC GRANULATION PRESENT
[2018-05-10 09:27] LABS: GIANT PLATELETS PRESENT
--- NOTE | 2018-05-10 11:38 | CP.CCUPN ---
CCU Subjective - Physician Review Critical Care Time Spent (in minutes): 45 CCU Objective - Vital Signs / Intake & Output Vital Signs (Last 4 hours): Vital Signs Temp Pulse Resp BP Pulse Ox 05/10/18 11:00 84 24 95 05/10/18 10:46 55 L 22 163/75 H 93 L 05/10/18 10:13 45 L 24 140/57 L 97 05/10/18 10:00 51 L 25 H 96 05/10/18 09:36 64 27 H 161/90 H 05/10/18 09:16 68 23 171/81 H 98 05/10/18 09:00 91 H 26 H 97 05/10/18 08:00 97.6 F 49 L 21 98 05/10/18 07:59 56 L 15 156/74 H 98 Intake and Output (Last 8hrs): Intake & Output 05/09/18 05/10/18 05/10/18 22:59 06:59 14:59 Intake Total 1654.0 344.8 90.5 Output Total 100 200 Balance 1554.0 144.8 90.5 Weight 164 lb Intake: Intake, IV Amount 874.0 144.8 90.5 Right Hand 66.4 66.4 41.5 Right Hand Y Port 607.6 78.4 49.0 Right Upper Arm 200 Oral 780 200 Output: Urine 100 200 Urine, Voided 100 200 Other: # Bowel Movements 0 0 - Physical Exam Narrative Physical Exam (Free Text): 05/10/18 11:40 The last 24 hours patient had episodes of bradycardia. Patient is now sitting up comfortably. Very poorly eating. Leg swelling negative. Not in any distress. Clinical examination: Still continues to have a bradycardia Heart rate in the range of 40-60. Chest good air entry Regular heart sound noted. Edema negative Patient's potassium on the low side, elevated sodium level noted Assessment: 88 male with a history of hypertension, dementia, admitted with altered mental status. Patient also has a atrial fibrillation and flutter, and episodes of bradycardia, . Patient brought into the ICU because of hypotension, severe bradycardia. He was placed on dopamine drip, will continue to taper off. Seen by teacher aide, but the plan is still pending. Patient may need pacemaker. Will continue to monitor and will follow-up the patient in the ICU. Head: Positive for: Atraumatic, Normocephalic Pupils: Negative for: Non-Reactive, Pinpoint Extroacular Muscles: Positive for: EOMI Conjunctiva: Positive for: Normal. Negative for: Injected, Icteric Mouth: Positive for: Moist Mucous Membranes, Normal Lips. Negative for: Dry, Drooling Nose (External): Positive for: Atraumatic. Negative for: Abrasion, Contusion, Laceration Nose (Internal): Positive for: No Active Bleeding. Negative for: Epistaxis Neck: Positive for: Normal Range of Motion, Trachea Midline. Negative for: JVD Respiratory/Chest: Positive for: Clear to Auscultation, Good Air Exchange. Negative for: Respiratory Distress, Accessory Muscle Use, Wheezes, Decreased Breath Sounds, Rales, Rhonchi Cardiovascular: Positive for: Murmurs (holosystolic murmur of equal intesity in all areas auscultated, no radiation to carotids), Normal S1, S2, Peripheal Pulses Present (+2 radials and +1 dorsalis pedis), Bradycardic (40's on monitor during exam). Negative for: Irregular Rhythm, Tachycardic Abdomen: Positive for: Normal Bowel Sounds. Negative for: Tenderness, Distention, Guarding Upper Extremity: Positive for: Normal Inspection, Normal ROM, NORMAL PULSES. Negative for: Cyanosis, Edema, Tenderness, Swelling, Erythema Lower Extremity: Positive for: NORMAL PULSES, Normal ROM, Other (bandaged ulcers on right lateral thigh and lateral knee). Negative for: Edema, CALF TENDERNESS, Cyanosis, Tenderness, Swelling, Erythema Neurological: Positive for: GCS=15, Motor Func Grossly Intact, Other (awake and alert, following commands appropriately). Negative for: Speech Normal (non- verbal, comprehension of speech intact but unable to verbalize any words) Skin: Positive for: Warm, Dry, Normal Color. Negative for: Rashes Psychiatric: Positive for: Other (awake and alert, able to nod/shake head appropriately to most yes/no questions, not overtly anxious/agitated) - Medications Active Medications: Active Medications Generic Name Dose Route Start Last Admin Trade Name Freq PRN Reason Stop Dose Admin Atropine Sulfate 1 mg 05/07/18 19:43 05/10/18 02:43 Atropine IVP 1 mg Q3H PRN Administration Other Hydralazine HCl 10 mg 05/09/18 15:22 Apresoline IVP Q6H PRN SBP > 160 Ceftriaxone Sodium 1 gm/ 100 mls @ 200 mls/hr 05/07/18 10:00 05/10/18 09:00 Sodium Chloride IVPB 200 mls/hr DAILY ANUP[facility] Administration Protocol Heparin Sodium/Sodium Chloride 25,000 units in 250 mls @ 9.798 mls/hr 19:47 05/09/18 05:45 Heparin 80660 Units/250ml 1/2 Normal Saline IV 12 units/kg/hr .Q24H PRN 9.798 mls/hr ADJUST RATE PER PROTOCOL Administration Protocol 12 UNITS/KG/HR Nitroglycerin 1 ea 05/07/18 20:30 05/10/18 08:45 Nitro-Bid 2% Oint TOP 1 ea Q6H ANUP[facility] Administration Pantoprazole Sodium 40 mg 05/07/18 10:00 05/10/18 09:06 Protonix Ec Tab PO 40 mg DAILY ANUPAM Administration Rosuvastatin Calcium 10 mg 05/06/18 22:00 05/09/18 21:47 Crestor PO 10 mg HS ANUPAM Administration Saccharomyces Boulardii 250 mg 05/06/18 20:00 05/10/18 08:45 Florastor PO 250 mg Q12H ANUP[facility] Administration - Patient Studies Lab Studies: Microbiology Studies 05/06/18 17:40 Blood Culture - Preliminary Blood-Venous NO GROWTH AFTER 3 DAYS 05/06/18 15:00 Blood Culture - Preliminary Blood-Venous NO GROWTH AFTER 3 DAYS Lab Studies 05/10/18 05/10/18 05/10/18 Range/Units 06:36 06:36 06:33 WBC 12.5 H (4.8-10.8) K/uL RBC 4.30 L (4.40-5.90) Mil/uL Hgb 14.0 (12.0-18.0) g/dL Hct 40.0 (35.0-51.0) % MCV 92.9 (80.0-94.0) fL MCH 32.4 H (27.0-31.0) pg MCHC 34.9 (33.0-37.0) g/dL RDW 14.4 (11.5-14.5) % Plt Count 229 (130-400) K/uL MPV 9.3 (7.2-11.7) fL Neut % (Auto) 85.2 H (50.0-75.0) % Lymph % (Auto) 5.4 L (20.0-40.0) % [place] % (Auto) 8.0 (0.0-10.0) % Eos % (Auto) 1.0 (0.0-4.0) % Baso % (Auto) 0.4 (0.0-2.0) % Neut # (Auto) 10.6 H (1.8-7.0) K/uL Lymph # (Auto) 0.7 L (1.0-4.3) K/uL [place] # (Auto) 1.0 H (0.0-0.8) K/uL Eos # (Auto) 0.1 (0.0-0.7) K/uL Baso # (Auto) 0.1 (0.0-0.2) K/uL Neutrophils % (Manual) 90 H (50-75) % Lymphocytes % (Manual) 3 L (20-40) % Monocytes % (Manual) 7 (0-10) % Toxic Granulation Present Platelet Estimate Normal (NORMAL) Large Platelets Present Giant Platelets Present Anisocytosis (manual) Slight PT 13.8 H (9.7-12.2) SECONDS INR 1.3 APTT 45 H D (21-34) SECONDS Sodium (132-148) mmol/L Potassium (3.6-5.2) mmol/L Chloride (98-107) mmol/L Carbon Dioxide (22-30) mmol/L Anion Gap (10-20) BUN (9-20) mg/dL Creatinine (0.8-1.5) mg/dL Est GFR ( Amer) Est GFR (Non-Af Amer) Random Glucose (75-110) mg/dL Calcium (8.6-10.4) mg/dl Phosphorus (2.5-4.5) mg/dL Magnesium (1.6-2.3) mg/dL Total Bilirubin (0.2-1.3) mg/dL AST (17-59) U/L ALT (21-72) U/L Alkaline Phosphatase (38-126) U/L Troponin I 0.0540 (0.00-0.120) ng/mL Total Protein (6.3-8.3) g/dL Albumin (3.5-5.0) g/dL Globulin (2.2-3.9) gm/dL Albumin/Globulin Ratio (1.0-2.1) 05/10/18 Range/Units 06:33 WBC (4.8-10.8) K/uL RBC (4.40-5.90) Mil/uL Hgb (12.0-18.0) g/dL Hct (35.0-51.0) % MCV (80.0-94.0) fL MCH (27.0-31.0) pg MCHC (33.0-37.0) g/dL RDW (11.5-14.5) % Plt Count (130-400) K/uL MPV (7.2-11.7) fL Neut % (Auto) (50.0-75.0) % Lymph % (Auto) (20.0-40.0) % [place] % (Auto) (0.0-10.0) % Eos % (Auto) (0.0-4.0) % Baso % (Auto) (0.0-2.0) % Neut # (Auto) (1.8-7.0) K/uL Lymph # (Auto) (1.0-4.3) K/uL [place] # (Auto) (0.0-0.8) K/uL Eos # (Auto) (0.0-0.7) K/uL Baso # (Auto) (0.0-0.2) K/uL Neutrophils % (Manual) (50-75) % Lymphocytes % (Manual) (20-40) % Monocytes % (Manual) (0-10) % Toxic Granulation Platelet Estimate (NORMAL) Large Platelets Giant Platelets Anisocytosis (manual) PT (9.7-12.2) SECONDS INR APTT (21-34) SECONDS Sodium 150 H (132-148) mmol/L Potassium 3.5 L (3.6-5.2) mmol/L Chloride 113 H (98-107) mmol/L Carbon Dioxide 24 (22-30) mmol/L Anion Gap 16 (10-20) BUN 32 H (9-20) mg/dL Creatinine 1.9 H (0.8-1.5) mg/dL Est GFR ( Amer) 41 Est GFR (Non-Af Amer) 34 Random Glucose 120 H (75-110) mg/dL Calcium 9.1 (8.6-10.4) mg/dl Phosphorus 3.8 (2.5-4.5) mg/dL Magnesium 2.0 (1.6-2.3) mg/dL Total Bilirubin 0.9 (0.2-1.3) mg/dL AST 41 (17-59) U/L ALT 37 (21-72) U/L Alkaline Phosphatase 77 (38-126) U/L Troponin I (0.00-0.120) ng/mL Total Protein 6.8 (6.3-8.3) g/dL Albumin 3.5 (3.5-5.0) g/dL Globulin 3.3 (2.2-3.9) gm/dL Albumin/Globulin Ratio 1.1 (1.0-2.1) Laboratory Results - last 24 hr 05/10/18 05/10/18 05/10/18 06:33 06:33 06:36 WBC 12.5 H RBC 4.30 L Hgb 14.0 Hct 40.0 MCV 92.9 MCH 32.4 H MCHC 34.9 RDW 14.4 Plt Count 229 MPV 9.3 Neut % (Auto) 85.2 H Lymph % (Auto) 5.4 L [place] % (Auto) 8.0 Eos % (Auto) 1.0 Baso % (Auto) 0.4 Neut # (Auto) 10.6 H Lymph # (Auto) 0.7 L [place] # (Auto) 1.0 H Eos # (Auto) 0.1 Baso # (Auto) 0.1 Neutrophils % (Manual) 90 H Lymphocytes % (Manual) 3 L Monocytes % (Manual) 7 Toxic Granulation Present Platelet Estimate Normal Large Platelets Present Giant Platelets Present Anisocytosis (manual) Slight PT INR APTT Sodium 150 H Potassium 3.5 L Chloride 113 H Carbon Dioxide 24 Anion Gap 16 BUN 32 H Creatinine 1.9 H Est GFR ( Amer) 41 Est GFR (Non-Af Amer) 34 Random Glucose 120 H Calcium 9.1 Phosphorus 3.8 Magnesium 2.0 Total Bilirubin 0.9 AST 41 ALT 37 Alkaline Phosphatase 77 Troponin I 0.0540 Total Protein 6.8 Albumin 3.5 Globulin 3.3 Albumin/Globulin Ratio 1.1 05/10/18 06:36 WBC RBC Hgb Hct MCV MCH MCHC RDW Plt Count MPV Neut % (Auto) Lymph % (Auto) [place] % (Auto) Eos % (Auto) Baso % (Auto) Neut # (Auto) Lymph # (Auto) [place] # (Auto) Eos # (Auto) Baso # (Auto) Neutrophils % (Manual) Lymphocytes % (Manual) Monocytes % (Manual) Toxic Granulation Platelet Estimate Large Platelets Giant Platelets Anisocytosis (manual) PT 13.8 H INR 1.3 APTT 45 H D Sodium Potassium Chloride Carbon Dioxide Anion Gap BUN Creatinine Est GFR ( Amer) Est GFR (Non-Af Amer) Random Glucose Calcium Phosphorus Magnesium Total Bilirubin AST ALT Alkaline Phosphatase Troponin I Total Protein Albumin Globulin Albumin/Globulin Ratio Fingerstick Blood Sugar Results: 119 Critical Care Progress Note - Nutrition Nutrition: Nutrition Category Date Time Status Pureed [Dysphagia/Modified Consistency Diet] [DIET] Diets 05/07/18 Dinner Active
[2018-05-10] MEDS: Heparin25000 units/250ml 1/2NS 25,000 UNITS/250 ML BAG IV PRN (12:00)
--- NOTE | 2018-05-10 14:52 | CP.PCM.PN ---
Subjective - Date & Time of Evaluation Date of Evaluation: 05/10/18 Time of Evaluation: 14:30 - Subjective Subjective: Patient was seen and examined. He is awake and looks at me. However he does not seem to follow commands. He is also relatively non verbal as well From what I understand he has state guardianship As of this morning was off of the dopamin ggt. The staff explain the HR does decrease and he will need atropine Objective - Vital Signs/Intake and Output Vital Signs (last 24 hours): Temp Pulse Resp BP Pulse Ox 97.6 F 66 26 H 163/83 H 91 L 05/10/18 08:00 05/10/18 14:41 05/10/18 14:41 05/10/18 14:41 05/10/18 14:41 Intake and Output: 05/10/18 05/10/18 06:59 18:59 Intake Total 787.3 369.9 Output Total 200 Balance 587.3 369.9 - Medications Medications: Current Medications Atropine Sulfate (Atropine) 1 mg IVP Q3H PRN PRN Reason: Other Last Admin: 05/10/18 12:03 Dose: 1 mg Hydralazine HCl (Apresoline) 10 mg IVP Q6H PRN PRN Reason: SBP > 160 Ceftriaxone Sodium 1 gm/ (Sodium Chloride) 100 mls @ 200 mls/hr IVPB DAILY ANUPAM PRN Reason: Protocol Last Admin: 05/10/18 09:00 Dose: 200 mls/hr Heparin Sodium/Sodium Chloride (Heparin 32844 Units/250ml 1/2 Normal Saline) 25 ,000 units in 250 mls @ 9.798 mls/hr IV .Q24H PRN; Protocol; 12 UNITS/KG/HR PRN Reason: ADJUST RATE PER PROTOCOL Last Admin: 05/10/18 12:00 Dose: 12 units/kg/hr, 9.798 mls/hr Sodium Chloride (Sodium Chloride 0.45%) 500 mls @ 30 mls/hr IV .[id number] [facility] Last Admin: 05/10/18 12:00 Dose: 30 mls/hr Nitroglycerin (Nitro-Bid 2% Oint) 1 ea TOP Q6H [facility]UP[facility] Last Admin: 05/10/18 14:41 Dose: 1 ea Pantoprazole Sodium (Protonix Ec Tab) 40 mg PO DAILY [facility] Last Admin: 05/10/18 09:06 Dose: 40 mg Rosuvastatin Calcium (Crestor) 10 mg PO HS [facility] Last Admin: 05/09/18 21:47 Dose: 10 mg Saccharomyces Boulardii (Florastor) 250 mg PO Q12H [facility] Last Admin: 05/10/18 08:45 Dose: 250 mg - Labs Labs: 05/10/18 06:36 05/10/18 06:33 PT 13.8 SECONDS (9.7-12.2) H 05/10/18 06:36 INR 1.3 05/10/18 06:36 APTT 45 SECONDS (21-34) H D 05/10/18 06:36 - Constitutional Appears: Unkempt, Chronically Ill - Respiratory Exam Respiratory Exam: Clear to Ausculation Bilateral, NORMAL BREATHING PATTERN - Cardiovascular Exam Cardiovascular Exam: Irregular Rhythm, Murmur Additional comments: Signifigant systolic mumur - GI/Abdominal Exam GI & Abdominal Exam: Soft, Normal Bowel Sounds - Neurological Exam Neurological Exam: Alert, Altered, Awake. absent: Oriented x3 Neuro motor strength exam: Left Upper Extremity: 4, Right Upper Extremity: 4 Additional comments: Non verbal, appears confused. Does not follow commands - Psychiatric Exam Psychiatric exam: Depressed, Flat Affect - Skin Skin Exam: Pallor, Warm Assessment and Plan - Assessment and Plan (Free Text) Assessment: From Previous: " This is a frail 88 year old male with possible history of hypertension , unknown psychiatric illness and possible dementia was brought for evaluation after patient was reportedly found on the floor in his house by cleaning staff in his home. Unknown how long he was on the floor. Patient is under state guardianship.He was living alone with the help of once a week home care service.On admission patient was in atrial flutter with varing response.His lowest rate was in 30ies. Patient was asymptomatic on admission and admitted to tele. Brought to ICU for bradycardia with evidence of Atrial flutter with block.Patient will be seen by EP physician. Possible pace maker Advance directive -full code Patient has no family.He was living alone with once a week help.History of dementia,psychiatry disorder and hypertension.He was refusing medical care in the past as per his egg caser d/w patient's geriatric case manager. His state guardian is on vacation State guardian . " 1.Atrial flutter with block, bradycardia 05/10: As of this morning he is now off of the dopamine ggt. The blood pressure is stable however HR can still decrease to the 30s. He remains on the heparin ggt at this time. Pending decision if patient will need a pacer or not 2. Severe Aortic Stenosis 05/10: Echo returned, there is ALEXANDER of 0.8, also moderate to severe pulmonary HTN seen and severely dialated left atrium He remains on heparin ggt at this time. 3 .New CVA with aphasia /subacute stroke - Neurology consulted on case (Dr. Kumar) - CT without contrast: subtle hypodensity in the left MCA territory ( nonspecific and may represent subacute infarct) patient is on Heparinn Continue Crestor 10mg PO HS Pending brain MRI 4 Community Acquired Pneumonia 05/10: Cultures have been negative 3 days now. He remains on IV rocephin Chest X-ray: Left lower lobe infiltrates/atelectasis 4.Ulcers secondary to being on the ground for unknown duration - Wound Care 5.Advance directives-full code d/w patient's geriatric case manager. His state guardian is on vacation
[2018-05-11] MEDS: Nitroglycerin 2% Ointment Foilpak UD TOP SCH ×2 (02:29→09:03)
[2018-05-11 06:06] LABS: BASO % 0.2 % (0.0-2.0); EOS % 0.2 % (0.0-4.0); HEMOGLOBIN 14.3 g/dL (12.0-18.0); LYMPH # 0.7 K/uL (1.0-4.3); LYMPH % 5.3 % (20.0-40.0); MEAN CELL VOLUME 92.3 fL (80.0-94.0); MEAN CORPUSCULAR HEMOGLOBIN 32.4 pg (27.0-31.0); MEAN CORPUSCULAR HGB CONC 35.1 g/dL (33.0-37.0); MEAN PLATELET VOLUME 9.1 fL (7.2-11.7); MONO # 1.3 K/uL (0.0-0.8); MONO % 9.4 % (0.0-10.0); NEUT # 11.7 K/uL (1.8-7.0); NEUT % 84.9 % (50.0-75.0); NRBC % 0.1 % (0.0-2.0); PLATELET COUNT 225 K/uL (130-400); RBC 4.42 Mil/uL (4.40-5.90); WHITE BLOOD COUNT 13.8 K/uL (4.8-10.8)
[2018-05-11 06:23] LABS: ALB/GLOB RATIO 1.1 (1.0-2.1); ALBUMIN 3.7 g/dL (3.5-5.0); CALCIUM 9.4 mg/dl (8.6-10.4)
[2018-05-11 08:36] LABS: LYMPHOCYTE 6 % (20-40); MONOCYTE 11 % (0-10); NEUTROPHIL 83 % (50-75); PLATELET ESTIMATE NORMAL (NORMAL); TOTAL CELLS COUNTED 100
[2018-05-11] MEDS: Pantoprazole 40 mg EC Tab PO SCH (09:03)
[2018-05-11] MEDS: Saccharomyces Boulardi 250 mg Cap PO SCH ×2 (09:03→21:27)
--- NOTE | 2018-05-11 09:49 | CP.PCM.PN ---
Subjective - Date & Time of Evaluation Date of Evaluation: 05/11/18 Time of Evaluation: 09:10 - Subjective Subjective: Patient was seen and examined by me Today he seemed much more awake than yesterday. The patient was able to raise both arms up with prompting and stick his tounge at me to mimic me. Otherwise he is mostly nonverbal and this has not changed from previous Remains off of the dopamine ggt. His BP is stable However HR is still variable - on the telemetry mostly 50s to 60s however episodes in the 30s and per nursing he had atropine given this morning Objective - Vital Signs/Intake and Output Vital Signs (last 24 hours): Temp Pulse Resp BP Pulse Ox 98.4 F 51 L 25 H 181/93 H 96 05/11/18 08:00 05/11/18 09:12 05/11/18 09:12 05/11/18 09:12 05/11/18 09:12 Intake and Output: 05/11/18 05/11/18 06:59 18:59 Intake Total 1127.6 119.4 Output Total 200 Balance 927.6 119.4 - Medications Medications: Current Medications Atropine Sulfate (Atropine) 1 mg IVP Q3H PRN PRN Reason: Other Last Admin: 05/11/18 02:28 Dose: 1 mg Hydralazine HCl (Apresoline) 10 mg IVP Q6H PRN PRN Reason: SBP > 160 Hydralazine HCl (Apresoline) 25 mg PO DAILY [facility] Ceftriaxone Sodium 1 gm/ (Sodium Chloride) 100 mls @ 200 mls/hr IVPB DAILY [facility]UP[facility] PRN Reason: Protocol Last Admin: 05/11/18 09:42 Dose: 200 mls/hr Heparin Sodium/Sodium Chloride (Heparin 88932 Units/250ml 1/2 Normal Saline) 25 ,000 units in 250 mls @ 9.798 mls/hr IV .Q24H PRN; Protocol; 12 UNITS/KG/HR PRN Reason: ADJUST RATE PER PROTOCOL Last Admin: 05/10/18 12:00 Dose: 12 units/kg/hr, 9.798 mls/hr Sodium Chloride (Sodium Chloride 0.45%) 500 mls @ 30 mls/hr IV .[id number] [facility] Last Admin: 05/11/18 05:30 Dose: 30 mls/hr Nitroglycerin (Nitro-Bid 2% Oint) 1 ea TOP Q6H [facility] Last Admin: 05/11/18 09:03 Dose: 1 ea Pantoprazole Sodium (Protonix Ec Tab) 40 mg PO DAILY [facility] Last Admin: 05/11/18 09:03 Dose: 40 mg Rosuvastatin Calcium (Crestor) 10 mg PO HS [facility] Last Admin: 05/10/18 21:06 Dose: 10 mg Saccharomyces Boulardii (Florastor) 250 mg PO Q12H [facility] Last Admin: 05/11/18 09:03 Dose: 250 mg - Labs Labs: 05/11/18 05:59 05/11/18 05:59 PT 13.8 SECONDS (9.7-12.2) H 05/10/18 06:36 INR 1.3 05/10/18 06:36 APTT 45 SECONDS (21-34) H D 05/10/18 06:36 - Constitutional Appears: Unkempt, Chronically Ill - Head Exam Head Exam: NORMAL INSPECTION - Eye Exam Eye Exam: EOMI, Normal appearance - ENT Exam ENT Exam: Mucous Membranes Moist - Respiratory Exam Respiratory Exam: Clear to Ausculation Bilateral - Cardiovascular Exam Cardiovascular Exam: Murmur Additional comments: + systolic mumur heard. Per review of echo has severe - Neurological Exam Neurological Exam: Alert, Altered, Awake. absent: Oriented x3 Neuro motor strength exam: Left Upper Extremity: 4, Right Upper Extremity: 4 - Psychiatric Exam Psychiatric exam: Flat Affect - Skin Skin Exam: Pallor, Warm Assessment and Plan - Assessment and Plan (Free Text) Assessment: From Previous: " This is a frail 88 year old male with possible history of hypertension , unknown psychiatric illness and possible dementia was brought for evaluation after patient was reportedly found on the floor in his house by cleaning staff in his home. Unknown how long he was on the floor. Patient is under state guardianship.He was living alone with the help of once a week home care service.On admission patient was in atrial flutter with varing response.His lowest rate was in 30ies. Patient was asymptomatic on admission and admitted to tele. Brought to ICU for bradycardia with evidence of Atrial flutter with block.Patient will be seen by EP physician. Possible pace maker Advance directive -full code Patient has no family.He was living alone with once a week help.History of dementia,psychiatry disorder and hypertension.He was refusing medical care in the past as per his mental health case manager d/w patient's case management assistant. His state guardian is on vacation State guardian . " 1.Atrial flutter with block, bradycardia 05/11: Remains off of the dopamine, the blood pressure is stable however HR still dropping into the 30s and still getting atropine 05/10: As of this morning he is now off of the dopamine ggt. The blood pressure is stable however HR can still decrease to the 30s. He remains on the heparin ggt at this time. Pending decision if patient will need a pacer or not 2. Severe Aortic Stenosis 05/10: Echo returned, there is ALEXANDER of 0.8, also moderate to severe pulmonary HTN seen and severely dialated left atrium He remains on heparin ggt at this time. 3 .New CVA with aphasia /subacute stroke - Neurology consulted on case (Dr. Kumar) - CT without contrast: subtle hypodensity in the left MCA territory ( nonspecific and may represent subacute infarct) patient is on Heparinn Continue Crestor 10mg PO HS Pending brain MRI 4 Community Acquired Pneumonia 05/10: Cultures have been negative 3 days now. He remains on IV rocephin Chest X-ray: Left lower lobe infiltrates/atelectasis 4.Ulcers secondary to being on the ground for unknown duration - Wound Care 5.Advance directives-full code Previously d/w patient's case management assistant. His state guardian is on vacation
--- NOTE | 2018-05-11 10:05 | CP.CCUPN ---
<Ronni Guo - Last Filed: 05/11/18 14:09> CCU Subjective - Physician Review Subjective (Free Text): ICU progress note Patient seen and examined at bedside. Patient has been nonverbal and unable to provide history since his admission here. He remains awake and alert, but is nonverbal. He is able to follow some commands including lifting both his hands. Patient attempts to try talking however speech is still incomprehensible. CCU Objective - Vital Signs / Intake & Output Vital Signs (Last 4 hours): Vital Signs Temp Pulse Resp BP Pulse Ox 05/11/18 09:12 51 L 25 H 181/93 H 96 05/11/18 09:00 54 L 23 95 05/11/18 08:00 98.4 F 68 25 H 95 05/11/18 07:33 57 L 24 174/88 H 98 05/11/18 07:25 39 L 16 205/83 H 98 05/11/18 07:22 45 L 17 202/85 H 98 05/11/18 07:14 41 L 17 203/89 H 98 05/11/18 07:00 60 28 H 98 05/11/18 06:13 49 L 16 154/85 H 99 Intake and Output (Last 8hrs): Intake & Output 05/10/18 05/11/18 05/11/18 22:59 06:59 14:59 Intake Total 1558.4 568.4 119.4 Output Total 350 200 Balance 1208.4 368.4 119.4 Weight 164 lb 1.6 oz Intake: Intake, IV Amount 198.4 318.4 119.4 Right Forearm 49.0 29.4 Right Hand 120 90 Right Hand Y Port 78.4 29.4 Rt FA y-port 150 90 Oral 1360 250 Output: Urine 350 200 Condom 350 200 - Physical Exam Head: Positive for: Atraumatic, Normocephalic Pupils: Negative for: Non-Reactive, Pinpoint Extroacular Muscles: Positive for: EOMI Conjunctiva: Positive for: Normal. Negative for: Injected, Icteric Mouth: Positive for: Moist Mucous Membranes, Normal Lips. Negative for: Dry, Drooling Nose (External): Positive for: Atraumatic. Negative for: Abrasion, Contusion, Laceration Nose (Internal): Positive for: No Active Bleeding. Negative for: Epistaxis Neck: Positive for: Normal Range of Motion, Trachea Midline. Negative for: JVD Respiratory/Chest: Positive for: Clear to Auscultation, Good Air Exchange. Negative for: Respiratory Distress, Accessory Muscle Use, Wheezes, Decreased Breath Sounds, Rales, Rhonchi Cardiovascular: Positive for: Murmurs (holosystolic murmur ), Normal S1, S2, Peripheal Pulses Present (+1 dorsalis pedis), Bradycardic (50's on monitor during exam, occasionally drops down to 40s). Negative for: Irregular Rhythm, Tachycardic Abdomen: Positive for: Normal Bowel Sounds. Negative for: Tenderness, Distention, Guarding Upper Extremity: Positive for: Normal Inspection, Normal ROM, NORMAL PULSES ( Radial pulses present). Negative for: Cyanosis, Edema, Tenderness, Swelling, Erythema Lower Extremity: Positive for: NORMAL PULSES, Normal ROM, Other (bandaged ulcers on right lateral thigh. Ulcer on right lateral knee. ). Negative for: Edema, CALF TENDERNESS, Cyanosis, Tenderness, Swelling, Erythema Neurological: Positive for: GCS=15, Motor Func Grossly Intact, Other (awake and alert, following some commands). Negative for: Speech Normal (non-verbal, comprehension of speech intact but unable to verbalize any words) Skin: Positive for: Warm, Dry, Normal Color. Negative for: Rashes Psychiatric: Positive for: Other (awake and alert, able to nod/shake head appropriately to most yes/no questions. Does not appear anxious/agitated) - Medications Active Medications: Active Medications Generic Name Dose Route Start Last Admin Trade Name Freq PRN Reason Stop Dose Admin Atropine Sulfate 1 mg 05/07/18 19:43 05/11/18 02:28 Atropine IVP 1 mg Q3H PRN Administration Other Hydralazine HCl 10 mg 05/09/18 15:22 Apresoline IVP Q6H PRN SBP > 160 Hydralazine HCl 25 mg 05/11/18 10:00 Apresoline PO DAILY ANUPAM Ceftriaxone Sodium 1 gm/ 100 mls @ 200 mls/hr 05/07/18 10:00 05/11/18 09:42 Sodium Chloride IVPB 200 mls/hr DAILY ANUPAM Administration Protocol Heparin Sodium/Sodium Chloride 25,000 units in 250 mls @ 9.798 mls/hr 19:47 05/10/18 12:00 Heparin 66235 Units/250ml 1/2 Normal Saline IV 12 units/kg/hr .Q24H PRN 9.798 mls/hr ADJUST RATE PER PROTOCOL Administration Protocol 12 UNITS/KG/HR Sodium Chloride 500 mls @ 30 mls/hr 05/10/18 12:00 05/11/18 05:30 Sodium Chloride 0.45% IV 30 mls/hr .[id number] ANUPAM Administration Nitroglycerin 1 ea 05/07/18 20:30 05/11/18 09:03 Nitro-Bid 2% Oint TOP 1 ea Q6H ANUPAM Administration Pantoprazole Sodium 40 mg 05/07/18 10:00 05/11/18 09:03 Protonix Ec Tab PO 40 mg DAILY ANUPAM Administration Rosuvastatin Calcium 10 mg 05/06/18 22:00 05/10/18 21:06 Crestor PO 10 mg HS ANUPAM Administration Saccharomyces Boulardii 250 mg 05/06/18 20:00 05/11/18 09:03 Florastor PO 250 mg Q12H ANUPAM Administration - Patient Studies Lab Studies: Microbiology Studies 05/06/18 17:40 Blood Culture - Preliminary Blood-Venous NO GROWTH AFTER 4 DAYS 05/06/18 15:00 Blood Culture - Preliminary Blood-Venous NO GROWTH AFTER 4 DAYS Lab Studies 05/11/18 05/11/18 Range/Units 05:59 05:59 WBC 13.8 H (4.8-10.8) K/uL RBC 4.42 (4.40-5.90) Mil/uL Hgb 14.3 (12.0-18.0) g/dL Hct 40.8 (35.0-51.0) % MCV 92.3 (80.0-94.0) fL MCH 32.4 H (27.0-31.0) pg MCHC 35.1 (33.0-37.0) g/dL RDW 14.0 (11.5-14.5) % Plt Count 225 (130-400) K/uL MPV 9.1 (7.2-11.7) fL Neut % (Auto) 84.9 H (50.0-75.0) % Lymph % (Auto) 5.3 L (20.0-40.0) % Clinton % (Auto) 9.4 (0.0-10.0) % Eos % (Auto) 0.2 (0.0-4.0) % Baso % (Auto) 0.2 (0.0-2.0) % Neut # (Auto) 11.7 H (1.8-7.0) K/uL Lymph # (Auto) 0.7 L (1.0-4.3) K/uL Clinton # (Auto) 1.3 H (0.0-0.8) K/uL Eos # (Auto) 0.0 (0.0-0.7) K/uL Baso # (Auto) 0.0 (0.0-0.2) K/uL Neutrophils % (Manual) 83 H (50-75) % Lymphocytes % (Manual) 6 L (20-40) % Monocytes % (Manual) 11 H (0-10) % Platelet Estimate Normal (NORMAL) Sodium 149 H (132-148) mmol/L Potassium 3.7 (3.6-5.2) mmol/L Chloride 112 H (98-107) mmol/L Carbon Dioxide 26 (22-30) mmol/L Anion Gap 15 (10-20) BUN 36 H (9-20) mg/dL Creatinine 1.7 H (0.8-1.5) mg/dL Est GFR ( Amer) 46 Est GFR (Non-Af Amer) 38 Random Glucose 124 H (75-110) mg/dL Calcium 9.4 (8.6-10.4) mg/dl Phosphorus 3.8 (2.5-4.5) mg/dL Magnesium 2.1 (1.6-2.3) mg/dL Total Bilirubin 0.9 (0.2-1.3) mg/dL AST 33 (17-59) U/L ALT 38 (21-72) U/L Alkaline Phosphatase 79 (38-126) U/L Total Protein 7.0 (6.3-8.3) g/dL Albumin 3.7 (3.5-5.0) g/dL Globulin 3.3 (2.2-3.9) gm/dL Albumin/Globulin Ratio 1.1 (1.0-2.1) Laboratory Results - last 24 hr 05/11/18 05/11/18 05:59 05:59 WBC 13.8 H RBC 4.42 Hgb 14.3 Hct 40.8 MCV 92.3 MCH 32.4 H MCHC 35.1 RDW 14.0 Plt Count 225 MPV 9.1 Neut % (Auto) 84.9 H Lymph % (Auto) 5.3 L Clinton % (Auto) 9.4 Eos % (Auto) 0.2 Baso % (Auto) 0.2 Neut # (Auto) 11.7 H Lymph # (Auto) 0.7 L Clinton # (Auto) 1.3 H Eos # (Auto) 0.0 Baso # (Auto) 0.0 Neutrophils % (Manual) 83 H Lymphocytes % (Manual) 6 L Monocytes % (Manual) 11 H Platelet Estimate Normal Sodium 149 H Potassium 3.7 Chloride 112 H Carbon Dioxide 26 Anion Gap 15 BUN 36 H Creatinine 1.7 H Est GFR ( Amer) 46 Est GFR (Non-Af Amer) 38 Random Glucose 124 H Calcium 9.4 Phosphorus 3.8 Magnesium 2.1 Total Bilirubin 0.9 AST 33 ALT 38 Alkaline Phosphatase 79 Total Protein 7.0 Albumin 3.7 Globulin 3.3 Albumin/Globulin Ratio 1.1 Fingerstick Blood Sugar Results: 119 Review of Systems - Review of Systems Systems not reviewed;Unavailable: Other (patient unable to provide history, has been nonverbal) Critical Care Progress Note - Nutrition Nutrition: Nutrition Category Date Time Status Pureed [Dysphagia/Modified Consistency Diet] [DIET] Diets 05/07/18 Dinner Active Assessment/Plan - Assessment and Plan (Free Text) Assessment: This is a 88 year old male with history of possible dementia and unspecified psychiatric illness who presented for evaluation after he was found altered at home. Patient is reportedly under state guardianship. Rapid response was called after nurse was unable to obtain blood pressure on patient, and was found to be in A-flutter at 34 bpm with prolonged QTc. Patient was admitted to ICU for bradycardia with atrial flutter. CT head revealed subtle hypodensity of L MCA territory. Pending possible pacemaker for persistent bradycardia with aflutter, down to 30' s. 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 -Bone survey done, no metallic radioopaque foreign bodies noted. -Brain MRI ordered, pending -On Heparin drip -Neurology Dr. 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 -Current HR in 50s, occasionally drops down to 40s -Dopamine drip d/milly -Received Atropine IV x1 overnight -continue Atropine Q3 PRN for HR < 45 - Nitro Q6 topical -Trops post-HISTORY DEPARTMENT CHAIR 0.0790, 0.0640, 0.0690 -continue Crestor, heparin drip -05/06/18 Echo left atrium is severely dilated. Normal sized LV, RA, RV. Normal LV wall motion and systolic function with EF of 55-60%. Aortic valve is probably trileaflet and heavily calcified with peak/mean gradient or 52/23 mmHg and calculated frankie of 0.8mcaq, c/w severe aortic stenosis. mac. mild MR. mild to moderate TR with calculated pulmonary systolic pressures of 60mmHg, c/w moderately severe pulmonary HTN. sclerotic normal size aortic root. no pericardial effusion seen. -pro-BNP 7020 on admission; unknown if hx CHF, avoid aggressive fluid rehydration -Cardio (Dr. Billingsley) following, appreciate all recs; -Dig level ordered, pending -BP elevated today 177/84, Hydralazine 10mg IVP q6 prn for SBP > 160, Hydralazine 25mg PO daily Pulmonary -Admission Chest X-ray: Left lower lobe infiltrates vs atelectasis -continue Rocephin 1g IV, Florastor 250mg Q12 -maintain SaO2 > 92%, satting well (93-96%) on 3L NC -Aspiration precautions, head of bed to 30 degrees GI -Protonix 40mg PO for GI ppx -Pureed diet ordered, monitor for signs of aspiration Renal: -1/2 NS IVF -BUN 36 Cr 1.7 -continue to monitor I&O's; currently net positive +1946ml ID -WBCs 13.8, afebrile -LLL infiltrates vs atelectasis on CXR -continue empiric coverage with Rocephin 1g IV -continue Florastor 250mg Q12 -Urine culture no growth, Blood culture prelim negative at 24 hrs -UA 3+ protein 1+ ketones 3+ blood Endo -Maintain euglycemia Heme -H/H stable at 14.3/40.8 -Heparin drip covers for DVT, continue routine coags as per Heparin drip protocol Dispo: ICU, close monitoring of HR on Atropine PRN, pending Brain MRI, pending possible Pacer for persistent awyne aflutter Case discussed with Dr. Posey <Kristofer Posey - Last Filed: 05/11/18 17:43> CCU Objective - Vital Signs / Intake & Output Vital Signs (Last 4 hours): Vital Signs Temp Pulse Resp BP Pulse Ox 05/11/18 17:00 46 L 22 05/11/18 16:00 98.3 F 44 L 23 05/11/18 15:15 100 H 14 185/136 H 55 L 05/11/18 15:00 84 16 05/11/18 14:14 68 28 H 169/78 H 05/11/18 14:00 61 25 H Intake and Output (Last 8hrs): Intake & Output 05/11/18 05/11/18 05/11/18 06:59 14:59 22:59 Intake Total 568.4 318.4 79.6 Output Total 200 Balance 368.4 318.4 79.6 Weight 164 lb 1.6 oz Intake: Intake, IV Amount 318.4 318.4 79.6 Right Forearm 49.0 78.4 19.6 Right Hand 90 Right Hand Y Port 29.4 Rt FA y-port 150 240 60 Oral 250 Output: Urine 200 Condom 200 - Medications Active Medications: Active Medications Generic Name Dose Route Start Last Admin Trade Name Freq PRN Reason Stop Dose Admin Amlodipine Besylate 2.5 mg 05/11/18 18:00 Norvasc PO BID ANUPAM Atropine Sulfate 1 mg 05/07/18 19:43 05/11/18 02:28 Atropine IVP 1 mg Q3H PRN Administration Other Hydralazine HCl 10 mg 05/09/18 15:22 Apresoline IVP Q6H PRN SBP > 160 Ceftriaxone Sodium 1 gm/ 100 mls @ 200 mls/hr 05/07/18 10:00 05/11/18 09:42 Sodium Chloride IVPB 200 mls/hr DAILY ANUPAM Administration Protocol Heparin Sodium/Sodium Chloride 25,000 units in 250 mls @ 9.798 mls/hr 19:47 05/10/18 12:00 Heparin 45087 Units/250ml 1/2 Normal Saline IV 12 units/kg/hr .Q24H PRN 9.798 mls/hr ADJUST RATE PER PROTOCOL Administration Protocol 12 UNITS/KG/HR Sodium Chloride 500 mls @ 30 mls/hr 05/10/18 12:00 05/11/18 05:30 Sodium Chloride 0.45% IV 30 mls/hr .[id number] ANUPAM Administration Pantoprazole Sodium 40 mg 05/07/18 10:00 05/11/18 09:03 Protonix Ec Tab PO 40 mg DAILY ANUPAM Administration Rosuvastatin Calcium 10 mg 05/06/18 22:00 05/10/18 21:06 Crestor PO 10 mg HS ANUPAM Administration Saccharomyces Boulardii 250 mg 05/06/18 20:00 05/11/18 09:03 Florastor PO 250 mg Q12H ANUPAM Administration - Patient Studies Lab Studies: Microbiology Studies 05/06/18 17:40 Blood Culture - Preliminary Blood-Venous NO GROWTH AFTER 4 DAYS 05/06/18 15:00 Blood Culture - Preliminary Blood-Venous NO GROWTH AFTER 4 DAYS Lab Studies 05/11/18 05/11/18 Range/Units 05:59 05:59 WBC 13.8 H (4.8-10.8) K/uL RBC 4.42 (4.40-5.90) Mil/uL Hgb 14.3 (12.0-18.0) g/dL Hct 40.8 (35.0-51.0) % MCV 92.3 (80.0-94.0) fL MCH 32.4 H (27.0-31.0) pg MCHC 35.1 (33.0-37.0) g/dL RDW 14.0 (11.5-14.5) % Plt Count 225 (130-400) K/uL MPV 9.1 (7.2-11.7) fL Neut % (Auto) 84.9 H (50.0-75.0) % Lymph % (Auto) 5.3 L (20.0-40.0) % Clinton % (Auto) 9.4 (0.0-10.0) % Eos % (Auto) 0.2 (0.0-4.0) % Baso % (Auto) 0.2 (0.0-2.0) % Neut # (Auto) 11.7 H (1.8-7.0) K/uL Lymph # (Auto) 0.7 L (1.0-4.3) K/uL [place] # (Auto) 1.3 H (0.0-0.8) K/uL Eos # (Auto) 0.0 (0.0-0.7) K/uL Baso # (Auto) 0.0 (0.0-0.2) K/uL Neutrophils % (Manual) 83 H (50-75) % Lymphocytes % (Manual) 6 L (20-40) % Monocytes % (Manual) 11 H (0-10) % Platelet Estimate Normal (NORMAL) Sodium 149 H (132-148) mmol/L Potassium 3.7 (3.6-5.2) mmol/L Chloride 112 H (98-107) mmol/L Carbon Dioxide 26 (22-30) mmol/L Anion Gap 15 (10-20) BUN 36 H (9-20) mg/dL Creatinine 1.7 H (0.8-1.5) mg/dL Est GFR ( Amer) 46 Est GFR (Non-Af Amer) 38 Random Glucose 124 H (75-110) mg/dL Calcium 9.4 (8.6-10.4) mg/dl Phosphorus 3.8 (2.5-4.5) mg/dL Magnesium 2.1 (1.6-2.3) mg/dL Total Bilirubin 0.9 (0.2-1.3) mg/dL AST 33 (17-59) U/L ALT 38 (21-72) U/L Alkaline Phosphatase 79 (38-126) U/L Total Protein 7.0 (6.3-8.3) g/dL Albumin 3.7 (3.5-5.0) g/dL Globulin 3.3 (2.2-3.9) gm/dL Albumin/Globulin Ratio 1.1 (1.0-2.1) Laboratory Results - last 24 hr 05/11/18 05/11/18 05:59 05:59 WBC 13.8 H RBC 4.42 Hgb 14.3 Hct 40.8 MCV 92.3 MCH 32.4 H MCHC 35.1 RDW 14.0 Plt Count 225 MPV 9.1 Neut % (Auto) 84.9 H Lymph % (Auto) 5.3 L [place] % (Auto) 9.4 Eos % (Auto) 0.2 Baso % (Auto) 0.2 Neut # (Auto) 11.7 H Lymph # (Auto) 0.7 L [place] # (Auto) 1.3 H Eos # (Auto) 0.0 Baso # (Auto) 0.0 Neutrophils % (Manual) 83 H Lymphocytes % (Manual) 6 L Monocytes % (Manual) 11 H Platelet Estimate Normal Sodium 149 H Potassium 3.7 Chloride 112 H Carbon Dioxide 26 Anion Gap 15 BUN 36 H Creatinine 1.7 H Est GFR ( Amer) 46 Est GFR (Non-Af Amer) 38 Random Glucose 124 H Calcium 9.4 Phosphorus 3.8 Magnesium 2.1 Total Bilirubin 0.9 AST 33 ALT 38 Alkaline Phosphatase 79 Total Protein 7.0 Albumin 3.7 Globulin 3.3 Albumin/Globulin Ratio 1.1 Critical Care Progress Note - Nutrition Nutrition: Nutrition Category Date Time Status Pureed [Dysphagia/Modified Consistency Diet] [DIET] Diets 05/07/18 Dinner Active Attending/Attestation - Attestation I have personally seen and examined this patient.: Yes I have fully participated in the care of the patient.: Yes I have reviewed all pertinent clinical information: Yes Notes (Text): 05/11/18 17:43 Patient seen and examined in the intensive care unit. pt scheduled for MRI of the head echocardiogram consistent with severe aortic stenosis Patient seen by cardiology
--- NOTE | 2018-05-11 16:00 | CP.PCM.PN ---
Subjective - Date & Time of Evaluation Date of Evaluation: 05/11/18 Time of Evaluation: 16:00 - Subjective Subjective: Pt nods his head, non verbal. Objective - Vital Signs/Intake and Output Vital Signs (last 24 hours): Temp Pulse Resp BP Pulse Ox 98.3 F 68 28 H 169/78 H 88 L 05/11/18 12:00 05/11/18 14:14 05/11/18 14:14 05/11/18 14:14 05/11/18 13:13 Intake and Output: 05/11/18 05/11/18 06:59 18:59 Intake Total 1127.6 318.4 Output Total 200 Balance 927.6 318.4 - Medications Medications: Current Medications Atropine Sulfate (Atropine) 1 mg IVP Q3H PRN PRN Reason: Other Last Admin: 05/11/18 02:28 Dose: 1 mg Hydralazine HCl (Apresoline) 10 mg IVP Q6H PRN PRN Reason: SBP > 160 Hydralazine HCl (Apresoline) 25 mg PO DAILY [facility] Last Admin: 05/11/18 10:00 Dose: 25 mg Ceftriaxone Sodium 1 gm/ (Sodium Chloride) 100 mls @ 200 mls/hr IVPB DAILY ANUPAM PRN Reason: Protocol Last Admin: 05/11/18 09:42 Dose: 200 mls/hr Heparin Sodium/Sodium Chloride (Heparin 69891 Units/250ml 1/2 Normal Saline) 25 ,000 units in 250 mls @ 9.798 mls/hr IV .Q24H PRN; Protocol; 12 UNITS/KG/HR PRN Reason: ADJUST RATE PER PROTOCOL Last Admin: 05/10/18 12:00 Dose: 12 units/kg/hr, 9.798 mls/hr Sodium Chloride (Sodium Chloride 0.45%) 500 mls @ 30 mls/hr IV .[id number] [facility] Last Admin: 05/11/18 05:30 Dose: 30 mls/hr Nitroglycerin (Nitro-Bid 2% Oint) 1 ea TOP Q6H [facility] Last Admin: 05/11/18 09:03 Dose: 1 ea Pantoprazole Sodium (Protonix Ec Tab) 40 mg PO DAILY [facility] Last Admin: 05/11/18 09:03 Dose: 40 mg Rosuvastatin Calcium (Crestor) 10 mg PO HS [facility] Last Admin: 05/10/18 21:06 Dose: 10 mg Saccharomyces Christopher (Florastor) 250 mg PO Q12H [facility] Last Admin: 05/11/18 09:03 Dose: 250 mg - Labs Labs: 05/11/18 05:59 05/11/18 05:59 PT 13.8 SECONDS (9.7-12.2) H 05/10/18 06:36 INR 1.3 05/10/18 06:36 APTT 45 SECONDS (21-34) H D 05/10/18 06:36 - Constitutional Appears: Chronically Ill - Head Exam Head Exam: ATRAUMATIC - ENT Exam ENT Exam: Mucous Membranes Moist - Neck Exam Neck Exam: Normal Inspection - Respiratory Exam Respiratory Exam: NORMAL BREATHING PATTERN - Cardiovascular Exam Cardiovascular Exam: Irregular Rhythm, Murmur - GI/Abdominal Exam GI & Abdominal Exam: Normal Bowel Sounds - Extremities Exam Extremities Exam: Normal Inspection - Back Exam Back Exam: NORMAL INSPECTION - Neurological Exam Neurological Exam: Awake - Psychiatric Exam Psychiatric exam: Flat Affect - Skin Skin Exam: Normal Color Assessment and Plan - Assessment and Plan (Free Text) Assessment: 1. The patient was found on the floor, and also had an episode of hypotension in the hospital. Hypotension and possible syncope very possible from severe aortic stenosis. pt has very slow atrial fib, but he has been noted to be awake and oriented, asymptomatic with hear rate of 35-45 bpm. No very long pauses reported. QTC, when corrected for rate, was mildy prolonged at 490 msec. Nitrates should be stopped, as reduced preload can precipitate syncope. HTN; will Rx norvasc for now. pt cannot sign informed consent. pt; dementia may prohibit him for TAVR evaluation. however, will discuss with TAVR performing physician. Would also need family member consent, if it gets to that point. In terms of need for ppm, if slow rate and no symptoms, pt may not need. But if a direct correlation to slow heart rate and symptoms, and/or long pauses are noted, then a ppm cam be considered. The question of severe should be addressed first. The notes say the EP phsyican was called, but Dr De La Rosa, out creosoting engineer and who wa production line operator this weekend, did not receive a call regarding this patient.
--- NOTE | 2018-05-11 18:04 | CP.PCM.PN ---
<Emmy Lynch - Last Filed: 05/11/18 18:15> Subjective - Date & Time of Evaluation Date of Evaluation: 05/11/18 Time of Evaluation: 18:02 - Subjective Subjective: Neurology Progress Note - Dr Kumar Patient seen and examined at bedside. Per nursing no acute events overnight. Brain MRI is pending. Patient speech slightly improved, he is able to say pen. Patient follows commands and attempts at non-verbal communication are succ essful. Objective - Vital Signs/Intake and Output Vital Signs (last 24 hours): Temp Pulse Resp BP Pulse Ox 98.3 F 46 L 22 185/136 H 55 L 05/11/18 16:00 05/11/18 17:00 05/11/18 17:00 05/11/18 15:15 05/11/18 15:15 Intake and Output: 05/11/18 05/11/18 06:59 18:59 Intake Total 1127.6 437.8 Output Total 200 Balance 927.6 437.8 - Medications Medications: Current Medications Amlodipine Besylate (Norvasc) 2.5 mg PO BID [facility] Atropine Sulfate (Atropine) 1 mg IVP Q3H PRN PRN Reason: Other Last Admin: 05/11/18 02:28 Dose: 1 mg Hydralazine HCl (Apresoline) 10 mg IVP Q6H PRN PRN Reason: SBP > 160 Ceftriaxone Sodium 1 gm/ (Sodium Chloride) 100 mls @ 200 mls/hr IVPB DAILY [facility] PRN Reason: Protocol Last Admin: 05/11/18 09:42 Dose: 200 mls/hr Heparin Sodium/Sodium Chloride (Heparin 07888 Units/250ml 1/2 Normal Saline) 25 ,000 units in 250 mls @ 9.798 mls/hr IV .Q24H PRN; Protocol; 12 UNITS/KG/HR PRN Reason: ADJUST RATE PER PROTOCOL Last Admin: 05/10/18 12:00 Dose: 12 units/kg/hr, 9.798 mls/hr Sodium Chloride (Sodium Chloride 0.45%) 500 mls @ 30 mls/hr IV .[id number] [facility] Last Admin: 05/11/18 05:30 Dose: 30 mls/hr Pantoprazole Sodium (Protonix Ec Tab) 40 mg PO DAILY [facility] Last Admin: 05/11/18 09:03 Dose: 40 mg Rosuvastatin Calcium (Crestor) 10 mg PO HS [facility] Last Admin: 05/10/18 21:06 Dose: 10 mg Saccharomyces Boulardii (Florastor) 250 mg PO Q12H [facility] Last Admin: 05/11/18 09:03 Dose: 250 mg - Labs Labs: 05/11/18 05:59 05/11/18 05:59 PT 13.8 SECONDS (9.7-12.2) H 05/10/18 06:36 INR 1.3 05/10/18 06:36 APTT 45 SECONDS (21-34) H D 05/10/18 06:36 - Constitutional Appears: Non-toxic - Head Exam Head Exam: ATRAUMATIC, NORMAL INSPECTION - Eye Exam Eye Exam: EOMI, Normal appearance - Neurological Exam Neurological Exam: Alert, Awake, CN II-XII Intact Additional comments: Patient is aphasic, speech is slighty improved, able to follow commands - Skin Skin Exam: Dry, Normal Color, Warm Assessment and Plan - Assessment and Plan (Free Text) Assessment: Acute Ischemic Stroke -Stable, afebrile -This is most likely a cardioembolic stroke -Head CT showed subtle hypodensity in the left MCA territory (nonspecific vs subacute infarct) -CTA of Head and Neck notable for ~60% luminal narrowing of proximal right ICA, patent bilateral vertebral arteries, and hypoplastic left vertebral artery (anatomic variant); negative for endoluminal thrombus/occlusion, definite significant stenosis in the intracranial arteries, or hemodynamically significant stenosis in the internal carotid arteries. -Bone survey done, no metallic radioopaque foreign bodies noted. -Brain MRI ordered, pending -Patient on Heparin drip -We will defer to cardio for choice of anticoagulation Plan discussed with Dr José Lynch DO PGY-2 <Jonny Kumar - Last Filed: 06/07/18 20:05> Objective - Vital Signs/Intake and Output Vital Signs (last 24 hours): Temp Pulse Resp BP Pulse Ox 98.2 F 69 20 117/69 97 06/07/18 07:36 06/07/18 07:36 06/07/18 07:36 06/07/18 07:36 06/07/18 07:36 Intake and Output: 06/07/18 06/08/18 18:59 06:59 Intake Total 360 Output Total 500 Balance -140 - Medications Medications: Current Medications Amlodipine Besylate (Norvasc) 5 mg PO DAILY [facility] Last Admin: 06/07/18 09:48 Dose: 5 mg Aspirin (Aspirin Chewable) 81 mg PO DAILY [facility] Last Admin: 06/07/18 09:48 Dose: 81 mg Docusate Sodium (Colace) 100 mg PO TID [facility] Last Admin: 06/07/18 17:36 Dose: 100 mg Enoxaparin Sodium (Lovenox) 70 mg SC Q12 [facility] Last Admin: 06/07/18 09:49 Dose: 70 mg Famotidine (Pepcid) 20 mg PO DAILY [facility] Last Admin: 06/07/18 09:49 Dose: 20 mg Nystatin (Nystop Topical Powder) 1 applic TOP BID [facility] Last Admin: 06/07/18 09:50 Dose: 1 applic Rosuvastatin Calcium (Crestor) 10 mg PO HS [facility] Last Admin: 06/06/18 21:31 Dose: 10 mg Sennosides (Senokot Tab) 8.6 mg PO DAILY [facility] Last Admin: 06/07/18 09:48 Dose: 8.6 mg Tamsulosin HCl (Flomax) 0.4 mg PO DAILY [facility] Last Admin: 06/07/18 09:48 Dose: 0.4 mg - Labs Labs: 06/05/18 03:41 06/05/18 03:41 PT 15.8 SECONDS (9.7-12.2) H 06/07/18 07:43 INR 1.4 06/07/18 07:43 APTT 31 SECONDS (21-34) D 05/18/18 05:01 Assessment and Plan (1) Acute ischemic stroke Status: Acute Attending/Attestation - Attestation I have personally seen and examined this patient.: Yes I have fully participated in the care of the patient.: Yes I have reviewed all pertinent clinical information, including history, physical exam and plan: Yes Notes (Text): 06/07/18 20:05 I agree with the assessment and plan. Stroke work-up is pending. Continue anticoagulation per cardiology.
[2018-05-11] MEDS: Heparin25000 units/250ml 1/2NS 25,000 UNITS/250 ML BAG IV PRN (21:27)
--- NOTE | 2018-05-11 22:19 | CARD ---
APPROVED REPORT Date of service: 05/07/2018 EKG Measurement Heart [id number] <Conclusion> Atrial fibrillation with slow ventricular response ST & T wave abnormality, consider anterolateral ischemia Prolonged QT Abnormal ECG
[2018-05-12 06:00] LABS: BASO # 0.1 K/uL (0.0-0.2); BASO % 0.4 % (0.0-2.0); EOS # 0.1 K/uL (0.0-0.7); EOS % 0.6 % (0.0-4.0); HEMOGLOBIN 13.1 g/dL (12.0-18.0); LYMPH # 0.8 K/uL (1.0-4.3); LYMPH % 6.4 % (20.0-40.0); MEAN CELL VOLUME 93.6 fL (80.0-94.0); MEAN CORPUSCULAR HEMOGLOBIN 32.7 pg (27.0-31.0); MEAN PLATELET VOLUME 9.5 fL (7.2-11.7); MONO # 1.2 K/uL (0.0-0.8); MONO % 9.6 % (0.0-10.0); NEUT # 10.7 K/uL (1.8-7.0); PLATELET COUNT 218 K/uL (130-400); RBC 4.01 Mil/uL (4.40-5.90); RED CELL DISTRIBUTION WIDTH 14.5 % (11.5-14.5); WHITE BLOOD COUNT 12.9 K/uL (4.8-10.8)
[2018-05-12 06:05] LABS: INR 1.3; PROTHROMBIN TIME 14.2 SECONDS (9.7-12.2)
[2018-05-12 06:24] LABS: ALB/GLOB RATIO 1.1 (1.0-2.1); ALBUMIN 3.2 g/dL (3.5-5.0); CALCIUM 8.9 mg/dl (8.6-10.4)
[2018-05-12 08:26] LABS: LYMPHOCYTE 9 % (20-40); MONOCYTE 3 % (0-10); NEUTROPHIL 88 % (50-75); PLATELET ESTIMATE NORMAL (NORMAL); TOTAL CELLS COUNTED 100
[2018-05-12] MEDS: Saccharomyces Boulardi 250 mg Cap PO SCH ×2 (08:44→20:37)
[2018-05-12] MEDS: Pantoprazole 40 mg EC Tab PO SCH (09:44)
--- NOTE | 2018-05-12 09:53 | CP.PCM.PN ---
Subjective - Date & Time of Evaluation Date of Evaluation: 05/12/18 Time of Evaluation: 09:45 - Subjective Subjective: Patient was seen and examined As mentioned previously he remains awake and alert, however confused appearing. Non verbal. Overnight and in the morning he still is getting atropine due to low HRs. Blood pressure has been ok without the dopamine. Later he is pending MRI to further assess for CVA. Objective - Vital Signs/Intake and Output Vital Signs (last 24 hours): Temp Pulse Resp BP Pulse Ox 98 F 70 15 118/94 H 96 05/12/18 04:00 05/12/18 07:00 05/12/18 07:00 05/12/18 05:50 05/12/18 07:00 Intake and Output: 05/12/18 05/12/18 06:59 18:59 Intake Total 476.5 39.7 Balance 476.5 39.7 - Medications Medications: Current Medications Amlodipine Besylate (Norvasc) 2.5 mg PO BID [facility] Last Admin: 05/12/18 09:43 Dose: 2.5 mg Atropine Sulfate (Atropine) 1 mg IVP Q3H PRN PRN Reason: Other Last Admin: 05/12/18 02:21 Dose: 1 mg Hydralazine HCl (Apresoline) 10 mg IVP Q6H PRN PRN Reason: SBP > 160 Ceftriaxone Sodium 1 gm/ (Sodium Chloride) 100 mls @ 200 mls/hr IVPB DAILY [facility] PRN Reason: Protocol Last Admin: 05/12/18 09:43 Dose: 200 mls/hr Heparin Sodium/Sodium Chloride (Heparin 87091 Units/250ml 1/2 Normal Saline) 25 ,000 units in 250 mls @ 9.798 mls/hr IV .Q24H PRN; Protocol; 12 UNITS/KG/HR PRN Reason: ADJUST RATE PER PROTOCOL Last Admin: 05/11/18 21:27 Dose: 12 units/kg/hr, 9.798 mls/hr Sodium Chloride (Sodium Chloride 0.45%) 500 mls @ 30 mls/hr IV .[id number] [facility] Last Admin: 05/12/18 02:21 Dose: 30 mls/hr Pantoprazole Sodium (Protonix Ec Tab) 40 mg PO DAILY [facility] Last Admin: 05/12/18 09:44 Dose: 40 mg Rosuvastatin Calcium (Crestor) 10 mg PO HS [facility] Last Admin: 05/11/18 21:27 Dose: 10 mg Saccharomyces Boulardii (Florastor) 250 mg PO Q12H [facility] Last Admin: 05/12/18 08:44 Dose: 250 mg - Labs Labs: 05/12/18 05:54 05/12/18 05:54 PT 14.2 SECONDS (9.7-12.2) H 05/12/18 05:54 INR 1.3 05/12/18 05:54 APTT 67 SECONDS (21-34) H D 05/12/18 05:54 Attending/Attestation - Attestation I have personally seen and examined this patient.: Yes I have fully participated in the care of the patient.: Yes I have reviewed all pertinent clinical information, including history, physical exam and plan: Yes Notes (Text): 05/12/18 15:27 I spoke with [place] Patient operations support representative over the phone, her name is Anabelle Norman. She explains that she normally sees him on a weekly basis. She is the court appointed guardian. I explained to her the findings of the very slow HRs and also the severe aortic stenosis findings. I explained to her that he has had a CVA and that the overall prognosis was not good. We also discussed about code status and she understood the prognosis was not good. She explained to me that she will need to report this to a committe and that later maybe can become DNR status. Her telephone work number is [phone] and the communications and signals supervisor state number is [phone]
--- NOTE | 2018-05-12 10:06 | CP.CCUPN ---
<Ronni Guo - Last Filed: 05/12/18 16:19> CCU Subjective - Physician Review Subjective (Free Text): ICU progress note Patient seen and examined at bedside. Patient remains nonverbal and cannot provide history since his admission here. He remains awake and alert. He is able to follow some commands and is able to shake his head to yes/no questions. Patient attempts to try talking however speech is still incomprehensible. State guardian Anabelle Austin present at bedside ). Anabelle unable to provide further medical history, states patient might have dementia or psychiatric illness. She states patient was last seen by her 1 week before he was found by staff. He was verbal at baseline prior to this admission as per her and was independent in ADLs. 05/12/18 11:06 CCU Objective - Vital Signs / Intake & Output Vital Signs (Last 4 hours): Vital Signs Pulse Resp Pulse Ox 05/12/18 07:00 70 15 96 Intake and Output (Last 8hrs): Intake & Output 05/11/18 05/12/18 05/12/18 22:59 06:59 14:59 Intake Total 318.1 317.6 39.7 Balance 318.1 317.6 39.7 Weight 178 lb 3.2 oz Intake: Intake, IV Amount 318.1 317.6 39.7 Right Forearm 49.0 Right Proximal Port Upper 90 240 30 arm Right Upper Arm 29.1 77.6 9.7 Rt FA y-port 150 - Physical Exam Head: Positive for: Atraumatic, Normocephalic Pupils: Negative for: Non-Reactive, Pinpoint Extroacular Muscles: Positive for: EOMI Conjunctiva: Positive for: Normal. Negative for: Injected, Icteric Mouth: Positive for: Moist Mucous Membranes, Normal Lips. Negative for: Dry, Drooling Nose (External): Positive for: Atraumatic. Negative for: Abrasion, Contusion, Laceration Nose (Internal): Positive for: No Active Bleeding. Negative for: Epistaxis Neck: Positive for: Normal Range of Motion, Trachea Midline. Negative for: JVD Respiratory/Chest: Positive for: Clear to Auscultation, Good Air Exchange. Negative for: Respiratory Distress, Accessory Muscle Use, Wheezes, Decreased Breath Sounds, Rales, Rhonchi Cardiovascular: Positive for: Murmurs (holosystolic murmur ), Normal S1, S2, Peripheal Pulses Present (+1 dorsalis pedis), Bradycardic (Currently in 60s. ). Negative for: Irregular Rhythm, Tachycardic Abdomen: Positive for: Normal Bowel Sounds. Negative for: Tenderness, Distention, Guarding Upper Extremity: Positive for: Normal Inspection, Normal ROM, NORMAL PULSES ( Radial pulses present). Negative for: Cyanosis, Edema, Tenderness, Swelling, Erythema Lower Extremity: Positive for: NORMAL PULSES, Normal ROM, Other (bandaged ulcers on right lateral thigh. Ulcer on right lateral knee. ). Negative for: Edema, CALF TENDERNESS, Cyanosis, Tenderness, Swelling, Erythema Neurological: Positive for: Motor Func Grossly Intact, Other (awake and alert, following some commands, can nod/shake his head to some yes/no questions). Negative for: Speech Normal (non-verbal, comprehension of speech intact but unable to verbalize any words) Skin: Positive for: Warm, Dry, Normal Color. Negative for: Rashes Psychiatric: Positive for: Alert, Other (awake and alert, able to nod/shake head appropriately to most yes/no questions. Does not appear anxious/agitated) - Medications Active Medications: Active Medications Generic Name Dose Route Start Last Admin Trade Name Freq PRN Reason Stop Dose Admin Amlodipine Besylate 2.5 mg 05/11/18 18:00 05/12/18 09:43 Norvasc PO 2.5 mg BID ANUPAM Administration Atropine Sulfate 1 mg 05/07/18 19:43 05/12/18 02:21 Atropine IVP 1 mg Q3H PRN Administration Other Hydralazine HCl 10 mg 05/09/18 15:22 Apresoline IVP Q6H PRN SBP > 160 Ceftriaxone Sodium 1 gm/ 100 mls @ 200 mls/hr 05/07/18 10:00 05/12/18 09:43 Sodium Chloride IVPB 200 mls/hr DAILY ANUPAM Administration Protocol Heparin Sodium/Sodium Chloride 25,000 units in 250 mls @ 9.798 mls/hr 19:47 05/11/18 21:27 Heparin 75452 Units/250ml 1/2 Normal Saline IV 12 units/kg/hr .Q24H PRN 9.798 mls/hr ADJUST RATE PER PROTOCOL Administration Protocol 12 UNITS/KG/HR Sodium Chloride 500 mls @ 30 mls/hr 05/10/18 12:00 05/12/18 02:21 Sodium Chloride 0.45% IV 30 mls/hr .[id number] ANUPAM Administration Pantoprazole Sodium 40 mg 05/07/18 10:00 05/12/18 09:44 Protonix Ec Tab PO 40 mg DAILY ANUPAM Administration Rosuvastatin Calcium 10 mg 05/06/18 22:00 05/11/18 21:27 Crestor PO 10 mg HS ANUPAM Administration Saccharomyces Boulardii 250 mg 05/06/18 20:00 05/12/18 08:44 Florastor PO 250 mg Q12H ANUPAM Administration - Patient Studies Lab Studies: Microbiology Studies 05/06/18 17:40 Blood Culture - Final Blood-Venous NO GROWTH AFTER 5 DAYS Gram Stain - Final TEST NOT PERFORMED 05/06/18 15:00 Blood Culture - Final Blood-Venous NO GROWTH AFTER 5 DAYS Gram Stain - Final TEST NOT PERFORMED Lab Studies 05/12/18 05/12/18 05/12/18 Range/Units 05:54 05:54 05:54 WBC 12.9 H (4.8-10.8) K/uL RBC 4.01 L (4.40-5.90) Mil/uL Hgb 13.1 (12.0-18.0) g/dL Hct 37.5 (35.0-51.0) % MCV 93.6 (80.0-94.0) fL MCH 32.7 H (27.0-31.0) pg MCHC 35.0 (33.0-37.0) g/dL RDW 14.5 (11.5-14.5) % Plt Count 218 (130-400) K/uL MPV 9.5 (7.2-11.7) fL Neut % (Auto) 83.0 H (50.0-75.0) % Lymph % (Auto) 6.4 L (20.0-40.0) % Stokes % (Auto) 9.6 (0.0-10.0) % Eos % (Auto) 0.6 (0.0-4.0) % Baso % (Auto) 0.4 (0.0-2.0) % Neut # (Auto) 10.7 H (1.8-7.0) K/uL Lymph # (Auto) 0.8 L (1.0-4.3) K/uL Stokes # (Auto) 1.2 H (0.0-0.8) K/uL Eos # (Auto) 0.1 (0.0-0.7) K/uL Baso # (Auto) 0.1 (0.0-0.2) K/uL Neutrophils % (Manual) 88 H (50-75) % Lymphocytes % (Manual) 9 L (20-40) % Monocytes % (Manual) 3 (0-10) % Platelet Estimate Normal (NORMAL) PT 14.2 H (9.7-12.2) SECONDS INR 1.3 APTT 67 H D (21-34) SECONDS Sodium 148 (132-148) mmol/L Potassium 3.8 (3.6-5.2) mmol/L Chloride 117 H (98-107) mmol/L Carbon Dioxide 23 (22-30) mmol/L Anion Gap 13 (10-20) BUN 42 H (9-20) mg/dL Creatinine 2.4 H (0.8-1.5) mg/dL Est GFR ( Amer) 31 Est GFR (Non-Af Amer) 26 Random Glucose 109 (75-110) mg/dL Calcium 8.9 (8.6-10.4) mg/dl Phosphorus 3.7 (2.5-4.5) mg/dL Magnesium 2.1 (1.6-2.3) mg/dL Total Bilirubin 0.6 (0.2-1.3) mg/dL AST 30 (17-59) U/L ALT 33 (21-72) U/L Alkaline Phosphatase 62 (38-126) U/L Total Protein 6.2 L (6.3-8.3) g/dL Albumin 3.2 L (3.5-5.0) g/dL Globulin 3.0 (2.2-3.9) gm/dL Albumin/Globulin Ratio 1.1 (1.0-2.1) Laboratory Results - last 24 hr 05/12/18 05/12/18 05/12/18 05:54 05:54 05:54 WBC 12.9 H RBC 4.01 L Hgb 13.1 Hct 37.5 MCV 93.6 MCH 32.7 H MCHC 35.0 RDW 14.5 Plt Count 218 MPV 9.5 Neut % (Auto) 83.0 H Lymph % (Auto) 6.4 L Stokes % (Auto) 9.6 Eos % (Auto) 0.6 Baso % (Auto) 0.4 Neut # (Auto) 10.7 H Lymph # (Auto) 0.8 L Stokes # (Auto) 1.2 H Eos # (Auto) 0.1 Baso # (Auto) 0.1 Neutrophils % (Manual) 88 H Lymphocytes % (Manual) 9 L Monocytes % (Manual) 3 Platelet Estimate Normal PT 14.2 H INR 1.3 APTT 67 H D Sodium 148 Potassium 3.8 Chloride 117 H Carbon Dioxide 23 Anion Gap 13 BUN 42 H Creatinine 2.4 H Est GFR ( Amer) 31 Est GFR (Non-Af Amer) 26 Random Glucose 109 Calcium 8.9 Phosphorus 3.7 Magnesium 2.1 Total Bilirubin 0.6 AST 30 ALT 33 Alkaline Phosphatase 62 Total Protein 6.2 L Albumin 3.2 L Globulin 3.0 Albumin/Globulin Ratio 1.1 Fingerstick Blood Sugar Results: 119 Review of Systems - Review of Systems Systems not reviewed;Unavailable: Altered Mental Status Critical Care Progress Note - Nutrition Nutrition: Nutrition Category Date Time Status Pureed [Dysphagia/Modified Consistency Diet] [DIET] Diets 05/07/18 Dinner Active Assessment/Plan - Assessment and Plan (Free Text) Assessment: This is a 88 year old male with history of possible dementia and unspecified psychiatric illness who presented for evaluation after he was found altered at home. Patient is reportedly under state guardianship. Rapid response was called after nurse was unable to obtain blood pressure on patient, and was found to be in A-flutter at 34 bpm with prolonged QTc. Patient was admitted to ICU for bradycardia with atrial flutter. CT head revealed subtle hypodensity of L MCA territory. Pending brain MRI and possible TAVR as per Cardio recommendations. 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 -Bone survey done, no metallic radioopaque foreign bodies noted. -Brain MRI ordered, pending -Heparin drip held since patient has hematuria -Neurology Dr. Kumar consulted, help appreciated; Cardiovascular: -Initial EKG: Atrial flutter at rate 45; Repeat EKG: A flutter at 34 with prolonged Qtc 490. -Current HR in 60s, varies -Received Atropine IV x1 overnight -continue Atropine Q3 PRN for HR < 45 -Trops post-[employer] 0.0790, 0.0640, 0.0690 -Norvasc 2.5mg PO BID -continue Crestor, heparin drip -05/06/18 Echo left atrium is severely dilated. Normal sized LV, RA, RV. Normal LV wall motion and systolic function with EF of 55-60%. Aortic valve is probably trileaflet and heavily calcified with peak/mean gradient or 52/23 mmHg and calculated frankie of 0.8mcaq, c/w severe aortic stenosis. mac. mild MR. mild to moderate TR with calculated pulmonary systolic pressures of 60mmHg, c/w moderately severe pulmonary HTN. sclerotic normal size aortic root. no pericardial effusion seen. -pro-BNP 7020 on admission; unknown if hx CHF, avoid aggressive fluid rehydration -Cardio (Dr. Billingsley) following, appreciate all recs; -Dig level ordered, pending -BP today 118/94, Norvasc 2.5mg PO BID, Hydralazine 10mg IVP q6 prn for SBP > 160 - As per Dr. Monroe's notes, recommends Norvasc for HTN. Nitrates not advised at this time. Since patient has had slow A fib without pauses without correlation to his HR and syncope, does not recommend pacemaker for now. Recommends pacemaker only if pauses occur or HR drops even lower. Defer to neurologist or psychiatrist ability to understand regarding TAVR. Pulmonary -Admission Chest X-ray: Left lower lobe infiltrates vs atelectasis -continue Rocephin 1g IV, Florastor 250mg Q12 -maintain SaO2 > 92%, sating well (93-96%) on 3L NC GI -Protonix 40mg PO for GI ppx -Pureed diet ordered, monitor for signs of aspiration Renal: -1/2 NS IVF -BUN 42 Cr 2.4 -Bladder scan revealed patient was retaining urine, moran inserted with urinary output, patient noted to have hematuria. Heparin held. -continue to monitor I&O's; currently net positive +1204ml ID -WBCs 12.9, afebrile -LLL infiltrates vs atelectasis on CXR -continue empiric coverage with Rocephin 1g IV -continue Florastor 250mg Q12 -Urine culture no growth, Blood culture final no growth -UA 3+ protein 1+ ketones 3+ blood Endo -Maintain euglycemia Heme -H/H stable at 13.1/37.5 -Heparin held Dispo: ICU, close monitoring of HR on Atropine PRN, pending Brain MRI Case discussed with Dr. Posey <Kristofer Posey S - Last Filed: 05/12/18 17:47> CCU Objective - Vital Signs / Intake & Output Vital Signs (Last 4 hours): Vital Signs Pulse Resp BP Pulse Ox 05/12/18 17:09 48 L 15 155/52 H 05/12/18 17:00 53 L 14 85 L 05/12/18 16:00 50 L 15 96 05/12/18 15:59 53 L 16 136/53 L 96 05/12/18 15:00 54 L 15 99 05/12/18 14:49 55 L 15 158/101 H 95 05/12/18 14:12 63 97 05/12/18 14:00 57 L 17 99 05/12/18 13:49 65 12 166/115 H 92 L Intake and Output (Last 8hrs): Intake & Output 05/12/18 05/12/18 05/12/18 06:59 14:59 22:59 Intake Total 317.6 268.2 Balance 317.6 268.2 Weight 178 lb 3.2 oz Intake: Intake, IV Amount 317.6 268.2 Right Proximal Port Upper 240 210 arm Right Upper Arm 77.6 58.2 - Medications Active Medications: Active Medications Generic Name Dose Route Start Last Admin Trade Name Freq PRN Reason Stop Dose Admin Amlodipine Besylate 2.5 mg 05/11/18 18:00 05/12/18 17:40 Norvasc PO 2.5 mg BID ANUPAM Administration Atropine Sulfate 1 mg 05/07/18 19:43 05/12/18 14:56 Atropine IVP 1 mg Q3H PRN Administration Other Hydralazine HCl 10 mg 05/09/18 15:22 Apresoline IVP Q6H PRN SBP > 160 Ceftriaxone Sodium 1 gm/ 100 mls @ 200 mls/hr 05/07/18 10:00 05/12/18 09:43 Sodium Chloride IVPB 200 mls/hr DAILY ANUPAM Administration Protocol Heparin Sodium/Sodium Chloride 25,000 units in 250 mls @ 9.798 mls/hr 19:47 05/11/18 21:27 Heparin 70950 Units/250ml 1/2 Normal Saline IV 12 units/kg/hr .Q24H PRN 9.798 mls/hr ADJUST RATE PER PROTOCOL Administration Protocol 12 UNITS/KG/HR Sodium Chloride 500 mls @ 30 mls/hr 05/10/18 12:00 05/12/18 02:21 Sodium Chloride 0.45% IV 30 mls/hr .[id number] ANUPAM Administration Pantoprazole Sodium 40 mg 05/07/18 10:00 05/12/18 09:44 Protonix Ec Tab PO 40 mg DAILY ANUPAM Administration Rosuvastatin Calcium 10 mg 05/06/18 22:00 05/11/18 21:27 Crestor PO 10 mg HS ANUPAM Administration Saccharomyces Boulardii 250 mg 05/06/18 20:00 05/12/18 08:44 Florastor PO 250 mg Q12H ANUPAM Administration - Patient Studies Lab Studies: Microbiology Studies 05/06/18 17:40 Blood Culture - Final Blood-Venous NO GROWTH AFTER 5 DAYS Gram Stain - Final TEST NOT PERFORMED 05/06/18 15:00 Blood Culture - Final Blood-Venous NO GROWTH AFTER 5 DAYS Gram Stain - Final TEST NOT PERFORMED Lab Studies 05/12/18 05/12/18 05/12/18 Range/Units 05:54 05:54 05:54 WBC 12.9 H (4.8-10.8) K/uL RBC 4.01 L (4.40-5.90) Mil/uL Hgb 13.1 (12.0-18.0) g/dL Hct 37.5 (35.0-51.0) % MCV 93.6 (80.0-94.0) fL MCH 32.7 H (27.0-31.0) pg MCHC 35.0 (33.0-37.0) g/dL RDW 14.5 (11.5-14.5) % Plt Count 218 (130-400) K/uL MPV 9.5 (7.2-11.7) fL Neut % (Auto) 83.0 H (50.0-75.0) % Lymph % (Auto) 6.4 L (20.0-40.0) % Stokes % (Auto) 9.6 (0.0-10.0) % Eos % (Auto) 0.6 (0.0-4.0) % Baso % (Auto) 0.4 (0.0-2.0) % Neut # (Auto) 10.7 H (1.8-7.0) K/uL Lymph # (Auto) 0.8 L (1.0-4.3) K/uL Stokes # (Auto) 1.2 H (0.0-0.8) K/uL Eos # (Auto) 0.1 (0.0-0.7) K/uL Baso # (Auto) 0.1 (0.0-0.2) K/uL Neutrophils % (Manual) 88 H (50-75) % Lymphocytes % (Manual) 9 L (20-40) % Monocytes % (Manual) 3 (0-10) % Platelet Estimate Normal (NORMAL) PT 14.2 H (9.7-12.2) SECONDS INR 1.3 APTT 67 H D (21-34) SECONDS Sodium 148 (132-148) mmol/L Potassium 3.8 (3.6-5.2) mmol/L Chloride 117 H (98-107) mmol/L Carbon Dioxide 23 (22-30) mmol/L Anion Gap 13 (10-20) BUN 42 H (9-20) mg/dL Creatinine 2.4 H (0.8-1.5) mg/dL Est GFR ( Amer) 31 Est GFR (Non-Af Amer) 26 Random Glucose 109 (75-110) mg/dL Calcium 8.9 (8.6-10.4) mg/dl Phosphorus 3.7 (2.5-4.5) mg/dL Magnesium 2.1 (1.6-2.3) mg/dL Total Bilirubin 0.6 (0.2-1.3) mg/dL AST 30 (17-59) U/L ALT 33 (21-72) U/L Alkaline Phosphatase 62 (38-126) U/L Total Protein 6.2 L (6.3-8.3) g/dL Albumin 3.2 L (3.5-5.0) g/dL Globulin 3.0 (2.2-3.9) gm/dL Albumin/Globulin Ratio 1.1 (1.0-2.1) Laboratory Results - last 24 hr 05/12/18 05/12/18 05/12/18 05:54 05:54 05:54 WBC 12.9 H RBC 4.01 L Hgb 13.1 Hct 37.5 MCV 93.6 MCH 32.7 H MCHC 35.0 RDW 14.5 Plt Count 218 MPV 9.5 Neut % (Auto) 83.0 H Lymph % (Auto) 6.4 L Stokes % (Auto) 9.6 Eos % (Auto) 0.6 Baso % (Auto) 0.4 Neut # (Auto) 10.7 H Lymph # (Auto) 0.8 L Stokes # (Auto) 1.2 H Eos # (Auto) 0.1 Baso # (Auto) 0.1 Neutrophils % (Manual) 88 H Lymphocytes % (Manual) 9 L Monocytes % (Manual) 3 Platelet Estimate Normal PT 14.2 H INR 1.3 APTT 67 H D Sodium 148 Potassium 3.8 Chloride 117 H Carbon Dioxide 23 Anion Gap 13 BUN 42 H Creatinine 2.4 H Est GFR ( Amer) 31 Est GFR (Non-Af Amer) 26 Random Glucose 109 Calcium 8.9 Phosphorus 3.7 Magnesium 2.1 Total Bilirubin 0.6 AST 30 ALT 33 Alkaline Phosphatase 62 Total Protein 6.2 L Albumin 3.2 L Globulin 3.0 Albumin/Globulin Ratio 1.1 Critical Care Progress Note - Nutrition Nutrition: Nutrition Category Date Time Status Pureed [Dysphagia/Modified Consistency Diet] [DIET] Diets 05/07/18 Dinner Active Attending/Attestation - Attestation I have personally seen and examined this patient.: Yes I have fully participated in the care of the patient.: Yes I have reviewed all pertinent clinical information: Yes Notes (Text): 05/12/18 17:47 patient seen and examined in the intensive care unit. Heparin drip on hold because of hematuria For MRI of head Continue antibiotics Continue ICU observation Seen by cardiology
--- NOTE | 2018-05-12 12:14 | CP.PCM.PN ---
Subjective - Date & Time of Evaluation Date of Evaluation: 05/12/18 Time of Evaluation: 12:03 - Subjective Subjective: The pt is comfortable, in the chair, nos his head appropriately to conversation , but is incoherent.. Objective - Vital Signs/Intake and Output Vital Signs (last 24 hours): Temp Pulse Resp BP Pulse Ox 98 F 70 15 118/94 H 96 05/12/18 04:00 05/12/18 07:00 05/12/18 07:00 05/12/18 05:50 05/12/18 07:00 Intake and Output: 05/12/18 05/12/18 06:59 18:59 Intake Total 476.5 39.7 Balance 476.5 39.7 - Medications Medications: Current Medications Amlodipine Besylate (Norvasc) 2.5 mg PO BID [facility] Last Admin: 05/12/18 09:43 Dose: 2.5 mg Atropine Sulfate (Atropine) 1 mg IVP Q3H PRN PRN Reason: Other Last Admin: 05/12/18 11:25 Dose: 1 mg Hydralazine HCl (Apresoline) 10 mg IVP Q6H PRN PRN Reason: SBP > 160 Ceftriaxone Sodium 1 gm/ (Sodium Chloride) 100 mls @ 200 mls/hr IVPB DAILY ANUPAM PRN Reason: Protocol Last Admin: 05/12/18 09:43 Dose: 200 mls/hr Heparin Sodium/Sodium Chloride (Heparin 19528 Units/250ml 1/2 Normal Saline) 25 ,000 units in 250 mls @ 9.798 mls/hr IV .Q24H PRN; Protocol; 12 UNITS/KG/HR PRN Reason: ADJUST RATE PER PROTOCOL Last Admin: 05/11/18 21:27 Dose: 12 units/kg/hr, 9.798 mls/hr Sodium Chloride (Sodium Chloride 0.45%) 500 mls @ 30 mls/hr IV .[id number] [facility] Last Admin: 05/12/18 02:21 Dose: 30 mls/hr Pantoprazole Sodium (Protonix Ec Tab) 40 mg PO DAILY [facility] Last Admin: 05/12/18 09:44 Dose: 40 mg Rosuvastatin Calcium (Crestor) 10 mg PO HS [facility] Last Admin: 05/11/18 21:27 Dose: 10 mg Saccharomyces Boulardii (Florastor) 250 mg PO Q12H [facility] Last Admin: 05/12/18 08:44 Dose: 250 mg - Labs Labs: 05/12/18 05:54 05/12/18 05:54 PT 14.2 SECONDS (9.7-12.2) H 05/12/18 05:54 INR 1.3 05/12/18 05:54 APTT 67 SECONDS (21-34) H D 05/12/18 05:54 - Constitutional Appears: No Acute Distress, Unkempt - Eye Exam Eye Exam: EOMI - ENT Exam ENT Exam: Mucous Membranes Moist - Neck Exam Neck Exam: Full ROM - Respiratory Exam Respiratory Exam: Clear to Ausculation Bilateral - Cardiovascular Exam Cardiovascular Exam: REGULAR RHYTHM - GI/Abdominal Exam GI & Abdominal Exam: Normal Bowel Sounds - Exam External exam: NORMAL EXTERNAL EXAM - Extremities Exam Extremities Exam: Normal Inspection - Back Exam Back Exam: NORMAL INSPECTION - Neurological Exam Neurological Exam: Alert, Awake - Psychiatric Exam Psychiatric exam: Flat Affect - Skin Skin Exam: Normal Color Assessment and Plan - Assessment and Plan (Free Text) Assessment: 1. A state appointed guardian has opined that the patient should not undergo any aggressive treatment. In that case, we must accept that his severe aortic stenosis has a poor prognosis, and in the setting of syncope, the patient has a very high risk of chf and sudden . Severe will ultimately prove fatal. it is true that for him to undergo TAVR, he would have to understand the process and be cooperative and agreement to all procedures, starting with c cath and moving on to tavr. Without understanding and cooperation, TAVR would not be able to be performed. I cannot make that determinaton, and would be nterested to know a neurologist's/and/or psychiatrist's opinion regarding his ability to understand. 2. the patient has had slow atrial fib, but no pauses, and no correlation has been made to his heart rate and syncope, therefore no pacemaker for now. if pauses occur, or heart rates are even slower, ppm should be considered. 3. Regarding care home anticoagulation, pt does not appear to be competent to understand anticoagulation. Also in the setting of falls, this is a problem. If the patient goes to a supervised nursing facility, and falling risk can be mitigated, then care home anticoagulation is advised. 4. HTN: very yigh yesterday, normal today. Norvasc was ordered very low dose with parameters, and held today. 5. Nitrates are not advised in severe aortic stenosis, and were stopped.
--- NOTE | 2018-05-12 13:23 | CP.PCM.PN ---
Subjective - Date & Time of Evaluation Date of Evaluation: 05/12/18 Time of Evaluation: 13:22 - Subjective Subjective: Neurology Progress Note - Froy Patient seen and examined at bedside. Per nursing no acute events overnight. Patient still remains on heparin drip. Patient still remains aphasic. He is able to identify objects in the room. Follows commands. Objective - Vital Signs/Intake and Output Vital Signs (last 24 hours): Temp Pulse Resp BP Pulse Ox 98 F 70 15 118/94 H 96 05/12/18 04:00 05/12/18 07:00 05/12/18 07:00 05/12/18 05:50 05/12/18 07:00 Intake and Output: 05/12/18 05/12/18 06:59 18:59 Intake Total 476.5 39.7 Balance 476.5 39.7 - Medications Medications: Current Medications Amlodipine Besylate (Norvasc) 2.5 mg PO BID [facility] Last Admin: 05/12/18 09:43 Dose: 2.5 mg Atropine Sulfate (Atropine) 1 mg IVP Q3H PRN PRN Reason: Other Last Admin: 05/12/18 11:25 Dose: 1 mg Hydralazine HCl (Apresoline) 10 mg IVP Q6H PRN PRN Reason: SBP > 160 Ceftriaxone Sodium 1 gm/ (Sodium Chloride) 100 mls @ 200 mls/hr IVPB DAILY [facility] PRN Reason: Protocol Last Admin: 05/12/18 09:43 Dose: 200 mls/hr Heparin Sodium/Sodium Chloride (Heparin 82636 Units/250ml 1/2 Normal Saline) 25 ,000 units in 250 mls @ 9.798 mls/hr IV .Q24H PRN; Protocol; 12 UNITS/KG/HR PRN Reason: ADJUST RATE PER PROTOCOL Last Admin: 05/11/18 21:27 Dose: 12 units/kg/hr, 9.798 mls/hr Sodium Chloride (Sodium Chloride 0.45%) 500 mls @ 30 mls/hr IV .[id number] [facility] Last Admin: 05/12/18 02:21 Dose: 30 mls/hr Pantoprazole Sodium (Protonix Ec Tab) 40 mg PO DAILY [facility] Last Admin: 05/12/18 09:44 Dose: 40 mg Rosuvastatin Calcium (Crestor) 10 mg PO HS [facility] Last Admin: 05/11/18 21:27 Dose: 10 mg Saccharomyces Adrianai (Florastor) 250 mg PO Q12H [facility]UP[facility] Last Admin: 05/12/18 08:44 Dose: 250 mg - Labs Labs: 05/12/18 05:54 05/12/18 05:54 PT 14.2 SECONDS (9.7-12.2) H 05/12/18 05:54 INR 1.3 05/12/18 05:54 APTT 67 SECONDS (21-34) H D 05/12/18 05:54 - Constitutional Appears: Non-toxic, Unkempt - Head Exam Head Exam: ATRAUMATIC, NORMAL INSPECTION - Eye Exam Eye Exam: Normal appearance - Respiratory Exam Respiratory Exam: NORMAL BREATHING PATTERN - Neurological Exam Neurological Exam: Alert, Awake, CN II-XII Intact Neuro motor strength exam: Left Upper Extremity: 5, Right Upper Extremity: 5, Left Lower Extremity: 5, Right Lower Extremity: 5 Additional comments: Patient is aphasic, speech is slighty improved, able to follow commands - Skin Skin Exam: Dry, Normal Color, Warm Assessment and Plan - Assessment and Plan (Free Text) Assessment: Acute Ischemic Stroke -Stable, afebrile -This is most likely a cardioembolic stroke -Head CT showed subtle hypodensity in the left MCA territory (nonspecific vs subacute infarct) -CTA of Head and Neck notable for ~60% luminal narrowing of proximal right ICA, patent bilateral vertebral arteries, and 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 -Bone survey done, no metallic radioopaque foreign bodies noted. -Brain MRI ordered, pending -Patient on Heparin drip -We will defer to cardio for choice of anticoagulation Plan discussed with Dr Froy Lynch DO PGY-2
[2018-05-12 19:05] LABS: SQUAMOUS EPITHIAL < 1 /hpf (0-5); URINE BACTERIA RARE (<OCC); URINE BILIRUBIN NEGATIVE (NEGATIVE); URINE BLOOD 3+ (NEGATIVE); URINE CLARITY Hazy (Clear); URINE COLOR Yellow (YELLOW); URINE GLUCOSE (UA) NORMAL (Normal); URINE LEUKOCYTE ESTERASE 3+ Leu/uL (Negative); URINE PROTEIN 1+ mg/dL (NEGATIVE); URINE UROBILINOGEN NORMAL mg/dL (0.2-1.0)
[2018-05-13 05:57] LABS: BASO % 0.4 % (0.0-2.0); EOS # 0.4 K/uL (0.0-0.7); EOS % 3.9 % (0.0-4.0); HEMOGLOBIN 12.9 g/dL (12.0-18.0); LYMPH # 0.9 K/uL (1.0-4.3); LYMPH % 9.9 % (20.0-40.0); MEAN CELL VOLUME 94.1 fL (80.0-94.0); MEAN CORPUSCULAR HEMOGLOBIN 32.3 pg (27.0-31.0); MEAN CORPUSCULAR HGB CONC 34.3 g/dL (33.0-37.0); MEAN PLATELET VOLUME 8.9 fL (7.2-11.7); MONO % 10.8 % (0.0-10.0); NEUT # 6.9 K/uL (1.8-7.0); NRBC % 0.1 % (0.0-2.0); PLATELET COUNT 214 K/uL (130-400); RBC 3.98 Mil/uL (4.40-5.90); RED CELL DISTRIBUTION WIDTH 14.6 % (11.5-14.5); WHITE BLOOD COUNT 9.2 K/uL (4.8-10.8)
[2018-05-13 06:24] LABS: CALCIUM 8.8 mg/dl (8.6-10.4)
--- NOTE | 2018-05-13 06:41 | CP.PCM.PN ---
Subjective - Date & Time of Evaluation Date of Evaluation: 05/13/18 Time of Evaluation: 06:39 - Subjective Subjective: Ms. Javed was seen and examined at the bedside. He is awake, expressive aphasia, communicates using non-verbal cues such as nodding or shaking his head. He denies any headache, dizziness, lightheadedness. He follows simple commands with right side weakness. He remains on heparin drip with slow heart rate and a-flutter. Atropine was given last night. Objective - Vital Signs/Intake and Output Vital Signs (last 24 hours): Temp Pulse Resp BP Pulse Ox 97.8 F 41 L 13 162/65 H 99 05/13/18 04:00 05/13/18 06:00 05/13/18 06:00 05/13/18 03:49 05/13/18 06:00 Intake and Output: 05/12/18 05/13/18 18:59 06:59 Intake Total 418.2 360 Output Total 2000 940 Balance -1581.8 -580 - Medications Medications: Current Medications Amlodipine Besylate (Norvasc) 2.5 mg PO BID [facility] Last Admin: 05/12/18 17:40 Dose: 2.5 mg Atropine Sulfate (Atropine) 1 mg IVP Q3H PRN PRN Reason: Other Last Admin: 05/13/18 02:57 Dose: 1 mg Hydralazine HCl (Apresoline) 10 mg IVP Q6H PRN PRN Reason: SBP > 160 Ceftriaxone Sodium 1 gm/ (Sodium Chloride) 100 mls @ 200 mls/hr IVPB DAILY [facility] PRN Reason: Protocol Last Admin: 05/12/18 09:43 Dose: 200 mls/hr Heparin Sodium/Sodium Chloride (Heparin 49509 Units/250ml 1/2 Normal Saline) 25 ,000 units in 250 mls @ 9.798 mls/hr IV .Q24H PRN; Protocol; 12 UNITS/KG/HR PRN Reason: ADJUST RATE PER PROTOCOL Last Admin: 05/11/18 21:27 Dose: 12 units/kg/hr, 9.798 mls/hr Sodium Chloride (Sodium Chloride 0.45%) 500 mls @ 30 mls/hr IV .[id number] [facility] Last Admin: 05/12/18 20:35 Dose: 30 mls/hr Pantoprazole Sodium (Protonix Ec Tab) 40 mg PO DAILY [facility] Last Admin: 05/12/18 09:44 Dose: 40 mg Rosuvastatin Calcium (Crestor) 10 mg PO HS [facility] Last Admin: 05/12/18 21:40 Dose: 10 mg Saccharomyces Boulardii (Florastor) 250 mg PO Q12H [facility] Last Admin: 05/12/18 20:37 Dose: 250 mg - Labs Labs: 05/13/18 05:51 05/13/18 05:51 PT 14.2 SECONDS (9.7-12.2) H 05/12/18 05:54 INR 1.3 05/12/18 05:54 APTT 67 SECONDS (21-34) H D 05/12/18 05:54 - Constitutional Appears: No Acute Distress - Head Exam Head Exam: NORMAL INSPECTION - Eye Exam Pupil Exam: Miosis, PERRL - Neurological Exam Neurological Exam: Awake Neuro motor strength exam: Left Upper Extremity: 5, Right Upper Extremity: 4, Left Lower Extremity: 5, Right Lower Extremity: 4 Additional comments: neurological unchanged from previous examination. Assessment and Plan (1) Ischemic stroke Assessment & Plan: Continue all current medical, physical, occupational therapies. Pending MRI of the brain. Recommend to follow any recommendation from cardiology with regards with anticoagulation, blood pressure control, keep head of bed elevated at least 30 degrees. Status: Acute
[2018-05-13 08:22] LABS: EOSINOPHIL 3 % (0-4); LYMPHOCYTE 13 % (20-40); MONOCYTE 11 % (0-10); NEUTROPHIL 73 % (50-75); PLATELET ESTIMATE NORMAL (NORMAL); TOTAL CELLS COUNTED 100
[2018-05-13] MEDS: Saccharomyces Boulardi 250 mg Cap PO SCH ×2 (08:42→22:11)
--- NOTE | 2018-05-13 09:07 | RAD ---
Date of service: 05/13/2018 HISTORY: infiltrates COMPARISON: 05/06/2018 FINDINGS: LUNGS: Interval partial re-expansion of left inferolateral discoid atelectasis. Note is made of some relative lucency here as well the possibly of coalescent pneumatocele is at this left lateral lung base is possible. Trace fluid in any such pneumatoceles is not excluded. For the CT of the chest would be more sensitive. Interval increased opacity left mid lung zone lateral aspect. Worsening infiltrate with or without left pleural parenchymal contiguous involvement possible. PLEURA: Small left pleural effusion probable. A distinct left hemidiaphragm is not visualized. No lateral views available for correlation. No pneumothorax appreciated. CARDIOVASCULAR: Cardiomegaly-similar. Pulmonary venous congestion -increased since prior exam. 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 VISUALIZED UPPER ABDOMEN: Normal. OTHER FINDINGS: None. IMPRESSION: Interval increase opacity left mid lung zone - developing infiltrate here with or without pleural contiguous involvement needs to be considered. Coalescent gas/air densities at the left costophrenic angle appearing beyond/ cephalad to an expected left hemidiaphragm location 13.7 perceived left hemidiaphragm not identified). Coalescent pneumatocele with trace fluid within them is 1 consideration. Other etiologies are not excluded. For this consider CT of the chest without IV contrast. Cardiomegaly with increasing symmetrical pulmonary venous congestion.
[2018-05-13] MEDS: Pantoprazole 40 mg EC Tab PO SCH (09:54)
--- NOTE | 2018-05-13 11:41 | CP.PCM.PN ---
Subjective - Date & Time of Evaluation Date of Evaluation: 05/13/18 Time of Evaluation: 11:30 - Subjective Subjective: Patient was seen and examined He was awake, alert. He was able to point to the door and television on exam. One of the staff reported that he was able to say "Ok" however that is the extent of his verbalization. He is still pending the MRI that was ordered, they have to have medical/staff go down with the patient during MRI. I tried calling the [place] [employer] Appointed Guardian again today and left a message [phone]. Maybe we can change the code status to DNR after I discuss with the guardian. Objective - Vital Signs/Intake and Output Vital Signs (last 24 hours): Temp Pulse Resp BP Pulse Ox 98.5 F 52 L 17 160/82 H 100 05/13/18 08:00 05/13/18 11:00 05/13/18 11:00 05/13/18 10:50 05/13/18 11:00 Intake and Output: 05/13/18 05/13/18 06:59 18:59 Intake Total 360 120 Output Total 940 320 Balance -580 -200 - Medications Medications: Current Medications Aspirin (Ecotrin) 81 mg PO DAILY [facility] Last Admin: 05/13/18 09:54 Dose: 81 mg Atropine Sulfate (Atropine) 1 mg IVP Q3H PRN PRN Reason: Other Last Admin: 05/13/18 09:47 Dose: 1 mg Hydralazine HCl (Apresoline) 10 mg IVP Q6H PRN PRN Reason: SBP > 160 Hydralazine HCl (Apresoline) 25 mg PO TID [facility] Last Admin: 05/13/18 09:54 Dose: 25 mg Ceftriaxone Sodium 1 gm/ (Sodium Chloride) 100 mls @ 200 mls/hr IVPB DAILY [facility] PRN Reason: Protocol Last Admin: 05/13/18 09:51 Dose: 200 mls/hr Heparin Sodium/Sodium Chloride (Heparin 43965 Units/250ml 1/2 Normal Saline) 25 ,000 units in 250 mls @ 9.798 mls/hr IV .Q24H PRN; Protocol; 12 UNITS/KG/HR PRN Reason: ADJUST RATE PER PROTOCOL Last Admin: 05/11/18 21:27 Dose: 12 units/kg/hr, 9.798 mls/hr Sodium Chloride (Sodium Chloride 0.45%) 500 mls @ 30 mls/hr IV .[id number] [facility] Last Admin: 05/12/18 20:35 Dose: 30 mls/hr Pantoprazole Sodium (Protonix Ec Tab) 40 mg PO DAILY [facility] Last Admin: 05/13/18 09:54 Dose: 40 mg Rosuvastatin Calcium (Crestor) 10 mg PO HS [facility] Last Admin: 05/12/18 21:40 Dose: 10 mg Saccharomyces Boulardii (Florastor) 250 mg PO Q12H [facility] Last Admin: 05/13/18 08:42 Dose: 250 mg - Labs Labs: 05/13/18 05:51 05/13/18 05:51 PT 14.2 SECONDS (9.7-12.2) H 05/12/18 05:54 INR 1.3 05/12/18 05:54 APTT 67 SECONDS (21-34) H D 05/12/18 05:54 - Constitutional Appears: Unkempt, Confused, Chronically Ill - Head Exam Head Exam: NORMAL INSPECTION, NORMOCEPHALIC - Eye Exam Eye Exam: EOMI - ENT Exam ENT Exam: Mucous Membranes Moist - Cardiovascular Exam Cardiovascular Exam: Irregular Rhythm - GI/Abdominal Exam GI & Abdominal Exam: Soft, Normal Bowel Sounds - Neurological Exam Neurological Exam: Alert, Altered, Awake. absent: CN II-XII Intact, Normal Gait , Oriented x3 Neuro motor strength exam: Left Upper Extremity: 4, Right Upper Extremity: 4 Additional comments: Patient is non verbal and does not follow any meaningful commands. The most he was able to do was point to the door and television when I asked him. - Psychiatric Exam Psychiatric exam: Depressed, Flat Affect - Skin Skin Exam: Pallor, Pallor Assessment and Plan - Assessment and Plan (Free Text) Assessment: From Previous: " This is a frail 88 year old male with possible history of hypertension , unknown psychiatric illness and possible dementia was brought for evaluation after patient was reportedly found on the floor in his house by cleaning staff in his home. Unknown how long he was on the floor. Patient is under state guardianship.He was living alone with the help of once a week home care service.On admission patient was in atrial flutter with varing response.His lowest rate was in 30ies. Patient was asymptomatic on admission and admitted to tele. Brought to ICU for bradycardia with evidence of Atrial flutter with block.Patient will be seen by EP physician. Possible pace maker Advance directive -full code Patient has no family.He was living alone with once a week help.History of dementia,psychiatry disorder and hypertension.He was refusing medical care in the past as per his medical case manager d/w patient's skilled nursing case manager. His state guardian is on vacation State guardian . " The State appointed Guardin number is [phone] - her name is Norman Ahn 1. Severe Aortic Stenosis 05/13: Per my previous discussion with [place] Appointed Guardian she was inclined to not do any invasive procedures including valve replacement but that she needs to follow up with the committee she reports to. I called again today and left a message. 05/10: Echo returned, there is ALEXANDER of 0.8, also moderate to severe pulmonary HTN seen and severely dialated left atrium He remains on heparin ggt at this time. 2. Atrial flutter with block, bradycardia 05/13: Still requiring atropine from time to time. 05/11: Remains off of the dopamine, the blood pressure is stable however HR still dropping into the 30s and still getting atropine 05/10: As of this morning he is now off of the dopamine ggt. The blood pressure is stable however HR can still decrease to the 30s. He remains on the heparin ggt at this time. Pending decision if patient will need a pacer or not 3 .New CVA with aphasia /subacute stroke 05/13: Still pending the MRI to be done. - Neurology consulted on case (Dr. Kumar) - CT without contrast: subtle hypodensity in the left MCA territory ( nonspecific and may represent subacute infarct) patient is on Heparinn Continue Crestor 10mg PO HS Pending brain MRI 4 Community Acquired Pneumonia 05/10: Cultures have been negative 3 days now. He remains on IV rocephin Chest X-ray: Left lower lobe infiltrates/atelectasis 4.Ulcers secondary to being on the ground for unknown duration - Wound Care 5.Advance directives-full code Previously d/w patient's skilled nursing case manager. His state guardian is on vacation
--- NOTE | 2018-05-13 12:22 | US ---
Date of service: 05/13/2018 PROCEDURE: Ultrasound of the Kidneys HISTORY: r/o kidney injury COMPARISON: None available. TECHNIQUE: Sonogram of the kidneys. FINDINGS: RIGHT KIDNEY: Measures: 5.2 x 10.7 cm. Normal in size, irregular and echogenicity. No stone, solid mass lesion or hydronephrosis visualized. LEFT KIDNEY: Measures: 4.2 x 9.7 cm. Normal in size, contour and echogenicity. No stone, solid mass lesion or hydronephrosis visualized. OTHER FINDINGS: None. IMPRESSION: No acute abnormalities. Irregular contour to the right kidney. No evidence of obstructive uropathy, calculus disease or mass lesion.
--- NOTE | 2018-05-13 12:46 | CP.CCUPN ---
<Ronni Guo - Last Filed: 05/13/18 16:39> CCU Subjective - Physician Review Subjective (Free Text): ICU progress note Patient seen and examined at bedside. Patient remains nonverbal and cannot provide any history. Patient was provided with pen and paper to communicate, patient write S and A, but not able to communicate clearly. He remains awake and alert. He is able to follow some commands and is able to shake his head to yes/no questions. Patient continues to try talking. State guardian Anabelle Austin ) makes decisions for him. 05/13/18 12:43 CCU Objective - Vital Signs / Intake & Output Vital Signs (Last 4 hours): Vital Signs Pulse Resp BP Pulse Ox 05/13/18 11:00 52 L 17 100 05/13/18 10:50 64 17 160/82 H 05/13/18 10:00 60 21 98 05/13/18 09:49 47 L 19 173/78 H 100 05/13/18 09:00 47 L 22 96 05/13/18 08:51 48 L 22 200/68 H 97 Intake and Output (Last 8hrs): Intake & Output 05/12/18 05/13/18 05/13/18 22:59 06:59 14:59 Intake Total 240 240 120 Output Total 2300 640 320 Balance -2060 -400 -200 Weight 176 lb Intake: Intake, IV Amount 240 240 120 Right Proximal Port Upper 240 240 120 arm Output: Urine 2300 640 320 Urethral (Moran) 2300 640 320 Other: # Bowel Movements 1 - Physical Exam Head: Positive for: Atraumatic, Normocephalic Pupils: Negative for: Non-Reactive, Pinpoint Extroacular Muscles: Positive for: EOMI Conjunctiva: Positive for: Normal. Negative for: Injected, Icteric Mouth: Positive for: Moist Mucous Membranes, Normal Lips. Negative for: Dry, Drooling Nose (External): Positive for: Atraumatic. Negative for: Abrasion, Contusion, Laceration Nose (Internal): Positive for: No Active Bleeding. Negative for: Epistaxis Neck: Positive for: Normal Range of Motion, Trachea Midline. Negative for: JVD Respiratory/Chest: Positive for: Clear to Auscultation, Good Air Exchange. Negative for: Respiratory Distress, Accessory Muscle Use, Wheezes, Decreased Breath Sounds, Rales, Rhonchi Cardiovascular: Positive for: Murmurs (holosystolic murmur ), Normal S1, S2, Peripheal Pulses Present (+1 dorsalis pedis), Bradycardic (Currently in 60s. ). Negative for: Irregular Rhythm, Tachycardic Abdomen: Positive for: Normal Bowel Sounds. Negative for: Tenderness, Distention, Guarding Upper Extremity: Positive for: Normal Inspection, Normal ROM, NORMAL PULSES ( Radial pulses present). Negative for: Cyanosis, Edema, Tenderness, Swelling, Erythema Lower Extremity: Positive for: NORMAL PULSES, Normal ROM, Other (bandaged ulcers on right lateral thigh. Ulcer on right lateral knee. ). Negative for: Edema, CALF TENDERNESS, Cyanosis, Tenderness, Swelling, Erythema Neurological: Positive for: Motor Func Grossly Intact, Other (awake and alert, following some commands, can nod/shake his head to some yes/no questions). Negative for: Speech Normal (non-verbal, comprehension of speech intact but unable to verbalize any words) Skin: Positive for: Warm, Dry, Normal Color. Negative for: Rashes Psychiatric: Positive for: Alert, Other (awake and alert, able to nod/shake head appropriately to most yes/no questions. Does not appear anxious/agitated) - Medications Active Medications: Active Medications Generic Name Dose Route Start Last Admin Trade Name Freq PRN Reason Stop Dose Admin Aspirin 81 mg 05/13/18 10:00 05/13/18 09:54 Ecotrin PO 81 mg DAILY ANUPAM Administration Atropine Sulfate 1 mg 05/07/18 19:43 05/13/18 09:47 Atropine IVP 1 mg Q3H PRN Administration Other Hydralazine HCl 10 mg 05/09/18 15:22 Apresoline IVP Q6H PRN SBP > 160 Hydralazine HCl 25 mg 05/13/18 10:00 05/13/18 09:54 Apresoline PO 25 mg TID ANUPAM Administration Ceftriaxone Sodium 1 gm/ 100 mls @ 200 mls/hr 05/07/18 10:00 05/13/18 09:51 Sodium Chloride IVPB 200 mls/hr DAILY ANUPAM Administration Protocol Heparin Sodium/Sodium Chloride 25,000 units in 250 mls @ 9.798 mls/hr 19:47 05/11/18 21:27 Heparin 96772 Units/250ml 1/2 Normal Saline IV 12 units/kg/hr .Q24H PRN 9.798 mls/hr ADJUST RATE PER PROTOCOL Administration Protocol 12 UNITS/KG/HR Sodium Chloride 500 mls @ 30 mls/hr 05/10/18 12:00 05/12/18 20:35 Sodium Chloride 0.45% IV 30 mls/hr .[id number] ANUPAM Administration Potassium Chloride/Dextrose 10 1,010 mls @ 50 mls/hr 05/13/18 12:39 ml/ Sodium Chloride IV 05/14/18 08:50 .[id number] ONE Pantoprazole Sodium 40 mg 05/07/18 10:00 05/13/18 09:54 Protonix Ec Tab PO 40 mg DAILY ANUPAM Administration Rosuvastatin Calcium 10 mg 05/06/18 22:00 05/12/18 21:40 Crestor PO 10 mg HS ANUPAM Administration Saccharomyces Boulardii 250 mg 05/06/18 20:00 05/13/18 08:42 Florastor PO 250 mg Q12H ANUPAM Administration - Patient Studies Lab Studies: Lab Studies 05/13/18 05/13/18 05/12/18 Range/Units 05:51 05:51 18:23 WBC 9.2 (4.8-10.8) K/uL RBC 3.98 L (4.40-5.90) Mil/uL Hgb 12.9 (12.0-18.0) g/dL Hct 37.5 (35.0-51.0) % MCV 94.1 H (80.0-94.0) fL MCH 32.3 H (27.0-31.0) pg MCHC 34.3 (33.0-37.0) g/dL RDW 14.6 H (11.5-14.5) % Plt Count 214 (130-400) K/uL MPV 8.9 (7.2-11.7) fL Neut % (Auto) 75.0 (50.0-75.0) % Lymph % (Auto) 9.9 L (20.0-40.0) % Tripp % (Auto) 10.8 H (0.0-10.0) % Eos % (Auto) 3.9 (0.0-4.0) % Baso % (Auto) 0.4 (0.0-2.0) % Neut # (Auto) 6.9 (1.8-7.0) K/uL Lymph # (Auto) 0.9 L (1.0-4.3) K/uL Tripp # (Auto) 1.0 H (0.0-0.8) K/uL Eos # (Auto) 0.4 (0.0-0.7) K/uL Baso # (Auto) 0.0 (0.0-0.2) K/uL Neutrophils % (Manual) 73 (50-75) % Lymphocytes % (Manual) 13 L (20-40) % Monocytes % (Manual) 11 H (0-10) % Eosinophils % (Manual) 3 (0-4) % Platelet Estimate Normal (NORMAL) Sodium 150 H (132-148) mmol/L Potassium 3.6 (3.6-5.2) mmol/L Chloride 117 H (98-107) mmol/L Carbon Dioxide 26 (22-30) mmol/L Anion Gap 11 (10-20) BUN 35 H (9-20) mg/dL Creatinine 1.5 (0.8-1.5) mg/dL Est GFR ( Amer) 53 Est GFR (Non-Af Amer) 44 Random Glucose 92 (75-110) mg/dL Calcium 8.8 (8.6-10.4) mg/dl Phosphorus 2.8 (2.5-4.5) mg/dL Magnesium 2.1 (1.6-2.3) mg/dL Total Bilirubin 0.5 (0.2-1.3) mg/dL AST 28 (17-59) U/L ALT 38 (21-72) U/L Alkaline Phosphatase 60 (38-126) U/L Total Protein 5.9 L (6.3-8.3) g/dL Albumin 3.0 L (3.5-5.0) g/dL Globulin 2.9 (2.2-3.9) gm/dL Albumin/Globulin Ratio 1.0 (1.0-2.1) Urine Color Yellow (YELLOW) Urine Clarity Hazy (Clear) Urine pH 5.0 (5.0-8.0) Ur Specific [place] 1.013 (1.003-1.030) Urine Protein 1+ H (NEGATIVE) mg/dL Urine Glucose (UA) Normal (Normal) mg/dL Urine Ketones Negative (NEGATIVE) mg/dL Urine Blood 3+ H (NEGATIVE) Urine Nitrate Negative (NEGATIVE) Urine Bilirubin Negative (NEGATIVE) Urine Urobilinogen Normal (0.2-1.0) mg/dL Ur Leukocyte Esterase 3+ H (Negative) [place]/uL Urine WBC (Auto) 61 H (0-5) /hpf Urine RBC (Auto) 291 H (0-3) /hpf Ur Squamous Epith Cells < 1 (0-5) /hpf Urine Bacteria Rare (<OCC) Laboratory Results - last 24 hr 05/12/18 05/13/18 05/13/18 18:23 05:51 05:51 WBC 9.2 RBC 3.98 L Hgb 12.9 Hct 37.5 MCV 94.1 H MCH 32.3 H MCHC 34.3 RDW 14.6 H Plt Count 214 MPV 8.9 Neut % (Auto) 75.0 Lymph % (Auto) 9.9 L Tripp % (Auto) 10.8 H Eos % (Auto) 3.9 Baso % (Auto) 0.4 Neut # (Auto) 6.9 Lymph # (Auto) 0.9 L Tripp # (Auto) 1.0 H Eos # (Auto) 0.4 Baso # (Auto) 0.0 Neutrophils % (Manual) 73 Lymphocytes % (Manual) 13 L Monocytes % (Manual) 11 H Eosinophils % (Manual) 3 Platelet Estimate Normal Sodium 150 H Potassium 3.6 Chloride 117 H Carbon Dioxide 26 Anion Gap 11 BUN 35 H Creatinine 1.5 Est GFR ( Amer) 53 Est GFR (Non-Af Amer) 44 Random Glucose 92 Calcium 8.8 Phosphorus 2.8 Magnesium 2.1 Total Bilirubin 0.5 AST 28 ALT 38 Alkaline Phosphatase 60 Total Protein 5.9 L Albumin 3.0 L Globulin 2.9 Albumin/Globulin Ratio 1.0 Urine Color Yellow Urine Clarity Hazy Urine pH 5.0 Ur Specific [place] 1.013 Urine Protein 1+ H Urine Glucose (UA) Normal Urine Ketones Negative Urine Blood 3+ H Urine Nitrate Negative Urine Bilirubin Negative Urine Urobilinogen Normal Ur Leukocyte Esterase 3+ H Urine WBC (Auto) 61 H Urine RBC (Auto) 291 H Ur Squamous Epith Cells < 1 Urine Bacteria Rare Fingerstick Blood Sugar Results: 119 Review of Systems - Review of Systems Systems not reviewed;Unavailable: Other (Patient is nonverbal) Critical Care Progress Note - Nutrition Nutrition: Nutrition Category Date Time Status Pureed [Dysphagia/Modified Consistency Diet] [DIET] Diets 05/07/18 Dinner Active Assessment/Plan - Assessment and Plan (Free Text) Assessment: This is a 88 year old male with history of possible dementia and unspecified psychiatric illness who presented for evaluation after he was found altered at home. Patient is reportedly under state guardianship. Rapid response was called after nurse was unable to obtain blood pressure on patient, and was found to be in A-flutter at 34 bpm. Patient was admitted to ICU for bradycardia with atrial flutter. CT head revealed subtle hypodensity of L MCA territory. Pending brain MRI and Cardio recommendations for severe aortic stenosis. 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 -Bone survey done, no metallic radioopaque foreign bodies noted. -Brain MRI cancelled for now -Heparin drip held yesterday given hematuria, however patient not currently has hematuria. -Neurology Dr. Kumar consulted, help appreciated; Cardiovascular: -Initial EKG: Atrial flutter at rate 45; Repeat EKG: A flutter at 34 with prolonged Qtc 490. -Current HR in 60s, varies -continue Atropine Q3 PRN for HR < 45 -Trops post-VEST BACKER 0.0790, 0.0640, 0.0690 -Norvasc discontinued - Hydralazine 25mg TID - continue Crestor - heparin drip held - started back on ASA - CHADs score of 5 -8 Echo left atrium is severely dilated. Normal sized LV, RA, RV. Normal LV wall motion and systolic function with EF of 55-60%. Aortic valve is probably trileaflet and heavily calcified with peak/mean gradient or 52/23 mmHg and calculated frankie of 0.8mcaq, c/w severe aortic stenosis. mac. mild MR. mild to moderate TR with calculated pulmonary systolic pressures of 60mmHg, c/w moderately severe pulmonary HTN. sclerotic normal size aortic root. no pericardial effusion seen. -pro-BNP 7020 on admission; unknown if hx CHF, avoid aggressive fluid rehydration -Cardio (Dr. Billingsley) following, appreciate all recs; -Dig level ordered, pending -BP elevated today, Hydralazine 25mg PO TID, Hydralazine 10mg IVP q6 prn for SBP > 160 - As per Dr. Monroe's notes from yesterday, nitrates not advised at this time. Since patient has had slow A fib without pauses without correlation to his HR and syncope, does not recommend pacemaker for now. Recommends pacemaker only if pauses occur or HR drops even lower. Defer to neurologist or psychiatrist ability to understand regarding TAVR. Pulmonary -Admission Chest X-ray: Left lower lobe infiltrates vs atelectasis -continue Rocephin 1g IV, Florastor 250mg Q12 -O2 sat 98% on NC GI -Protonix 40mg PO for GI ppx -Pureed diet ordered, monitor for signs of aspiration Renal: -1/2 NS 20KCl @ 50cc/hr -BUN 35 Cr 1.5 -Bladder scan revealed patient was retaining urine, moran inserted with urinary output, patient noted to have hematuria. Heparin held. -continue to monitor I&O's; currently net positive +1204ml - renal US ordered. Renin, aldosterone and YOU level ordered. - Urine creatinine, urine sodium, urine protein ordered. ID -WBCs 12.9, afebrile -LLL infiltrates vs atelectasis on CXR -continue empiric coverage with Rocephin 1g IV Day #8 -continue Florastor 250mg Q12 -Urine culture no growth, Blood culture final no growth -UA 3+ protein 1+ ketones 3+ blood Endo -Maintain euglycemia Heme -H/H stable at 12.9/37.5 -Heparin held - f/u B12, folate Dispo: ICU, close monitoring of HR on Atropine PRN, pending cardio recs Case discussed with Dr. Gutierrez <Henrique Gutierrez - Last Filed: 05/13/18 16:57> CCU Objective - Vital Signs / Intake & Output Vital Signs (Last 4 hours): Vital Signs Temp Pulse Resp BP Pulse Ox 05/13/18 16:00 98.1 F 60 15 99 05/13/18 15:46 34 L 18 163/47 H 05/13/18 15:00 59 L 18 05/13/18 14:47 42 L 19 172/55 H 05/13/18 14:00 40 L 21 05/13/18 13:00 46 L 17 Intake and Output (Last 8hrs): Intake & Output 05/13/18 05/13/18 05/13/18 06:59 14:59 22:59 Intake Total 240 280 100 Output Total 640 640 160 Balance -400 -360 -60 Weight 176 lb Intake: Intake, IV Amount 240 280 100 Right Proximal Port Upper 240 280 100 arm Output: Urine 640 640 160 Urethral (Moran) 640 640 160 Other: # Bowel Movements 1 - Medications Active Medications: Active Medications Generic Name Dose Route Start Last Admin Trade Name Freq PRN Reason Stop Dose Admin Aspirin 81 mg 05/13/18 10:00 05/13/18 09:54 Ecotrin PO 81 mg DAILY ANUPAM Administration Atropine Sulfate 1 mg 05/07/18 19:43 05/13/18 15:48 Atropine IVP 1 mg Q3H PRN Administration Other Hydralazine HCl 10 mg 05/09/18 15:22 Apresoline IVP Q6H PRN SBP > 160 Hydralazine HCl 25 mg 05/13/18 10:00 05/13/18 14:48 Apresoline PO 25 mg TID ANUPAM Administration Ceftriaxone Sodium 1 gm/ 100 mls @ 200 mls/hr 05/07/18 10:00 05/13/18 09:51 Sodium Chloride IVPB 200 mls/hr DAILY ANUPAM Administration Protocol Heparin Sodium/Sodium Chloride 25,000 units in 250 mls @ 9.798 mls/hr 19:47 05/11/18 21:27 Heparin 12194 Units/250ml 1/2 Normal Saline IV 12 units/kg/hr .Q24H PRN 9.798 mls/hr ADJUST RATE PER PROTOCOL Administration Protocol 12 UNITS/KG/HR Potassium Chloride/Dextrose/Sod Cl 1,000 mls @ 50 mls/hr 05/13/18 13:00 05/13 13:47 Potassium Chl 20 Meq In D5-1/2ns IV 05/14/18 08:59 50 mls/hr .Q20H ONE Administration Pantoprazole Sodium 40 mg 05/07/18 10:00 05/13/18 09:54 Protonix Ec Tab PO 40 mg DAILY ANUPAM Administration Rosuvastatin Calcium 10 mg 05/06/18 22:00 05/12/18 21:40 Crestor PO 10 mg HS ANUPAM Administration Saccharomyces Boulardii 250 mg 05/06/18 20:00 05/13/18 08:42 Florastor PO 250 mg Q12H ANUPAM Administration - Patient Studies Lab Studies: Lab Studies 05/13/18 05/13/18 05/13/18 Range/Units 15:07 15:07 05:51 WBC 10.6 (4.8-10.8) K/uL RBC 4.36 L (4.40-5.90) Mil/uL Hgb 14.0 (12.0-18.0) g/dL Hct 40.9 (35.0-51.0) % MCV 93.7 (80.0-94.0) fL MCH 32.0 H (27.0-31.0) pg MCHC 34.1 (33.0-37.0) g/dL RDW 14.3 (11.5-14.5) % Plt Count 223 (130-400) K/uL MPV 8.7 (7.2-11.7) fL Neut % (Auto) 80.1 H (50.0-75.0) % Lymph % (Auto) 8.4 L (20.0-40.0) % Tripp % (Auto) 9.0 (0.0-10.0) % Eos % (Auto) 1.9 (0.0-4.0) % Baso % (Auto) 0.6 (0.0-2.0) % Neut # (Auto) 8.5 H (1.8-7.0) K/uL Lymph # (Auto) 0.9 L (1.0-4.3) K/uL Tripp # (Auto) 1.0 H (0.0-0.8) K/uL Eos # (Auto) 0.2 (0.0-0.7) K/uL Baso # (Auto) 0.1 (0.0-0.2) K/uL Neutrophils % (Manual) 88 H (50-75) % Lymphocytes % (Manual) 8 L (20-40) % Monocytes % (Manual) 3 (0-10) % Eosinophils % (Manual) 1 (0-4) % Platelet Estimate Normal (NORMAL) Sodium 149 H 150 H (132-148) mmol/L Potassium 3.6 3.6 (3.6-5.2) mmol/L Chloride 112 H 117 H (98-107) mmol/L Carbon Dioxide 28 26 (22-30) mmol/L Anion Gap 12 11 (10-20) BUN 31 H 35 H (9-20) mg/dL Creatinine 1.2 1.5 (0.8-1.5) mg/dL Est GFR ( Amer) > 60 53 Est GFR (Non-Af Amer) 57 44 Random Glucose 98 92 (75-110) mg/dL Calcium 9.1 8.8 (8.6-10.4) mg/dl Phosphorus 2.8 (2.5-4.5) mg/dL Magnesium 2.1 (1.6-2.3) mg/dL Total Bilirubin 0.6 0.5 (0.2-1.3) mg/dL AST 29 28 (17-59) U/L ALT 30 38 (21-72) U/L Alkaline Phosphatase 70 60 (38-126) U/L Total Protein 6.5 5.9 L (6.3-8.3) g/dL Albumin 3.3 L 3.0 L (3.5-5.0) g/dL Globulin 3.2 2.9 (2.2-3.9) gm/dL Albumin/Globulin Ratio 1.1 1.0 (1.0-2.1) Vitamin B12 829 (239-931) pg/mL Folate 8.4 ng/mL Urine Color (YELLOW) Urine Clarity (Clear) Urine pH (5.0-8.0) Ur Specific [place] (1.003-1.030) Urine Protein (NEGATIVE) mg/dL Urine Glucose (UA) (Normal) mg/dL Urine Ketones (NEGATIVE) mg/dL Urine Blood (NEGATIVE) Urine Nitrate (NEGATIVE) Urine Bilirubin (NEGATIVE) Urine Urobilinogen (0.2-1.0) mg/dL Ur Leukocyte Esterase (Negative) [place]/uL Urine WBC (Auto) (0-5) /hpf Urine RBC (Auto) (0-3) /hpf Ur Squamous Epith Cells (0-5) /hpf Urine Bacteria (<OCC) 05/13/18 05/12/18 Range/Units 05:51 18:23 WBC 9.2 (4.8-10.8) K/uL RBC 3.98 L (4.40-5.90) Mil/uL Hgb 12.9 (12.0-18.0) g/dL Hct 37.5 (35.0-51.0) % MCV 94.1 H (80.0-94.0) fL MCH 32.3 H (27.0-31.0) pg MCHC 34.3 (33.0-37.0) g/dL RDW 14.6 H (11.5-14.5) % Plt Count 214 (130-400) K/uL MPV 8.9 (7.2-11.7) fL Neut % (Auto) 75.0 (50.0-75.0) % Lymph % (Auto) 9.9 L (20.0-40.0) % Tripp % (Auto) 10.8 H (0.0-10.0) % Eos % (Auto) 3.9 (0.0-4.0) % Baso % (Auto) 0.4 (0.0-2.0) % Neut # (Auto) 6.9 (1.8-7.0) K/uL Lymph # (Auto) 0.9 L (1.0-4.3) K/uL Tripp # (Auto) 1.0 H (0.0-0.8) K/uL Eos # (Auto) 0.4 (0.0-0.7) K/uL Baso # (Auto) 0.0 (0.0-0.2) K/uL Neutrophils % (Manual) 73 (50-75) % Lymphocytes % (Manual) 13 L (20-40) % Monocytes % (Manual) 11 H (0-10) % Eosinophils % (Manual) 3 (0-4) % Platelet Estimate Normal (NORMAL) Sodium (132-148) mmol/L Potassium (3.6-5.2) mmol/L Chloride (98-107) mmol/L Carbon Dioxide (22-30) mmol/L Anion Gap (10-20) BUN (9-20) mg/dL Creatinine (0.8-1.5) mg/dL Est GFR ( Amer) Est GFR (Non-Af Amer) Random Glucose (75-110) mg/dL Calcium (8.6-10.4) mg/dl Phosphorus (2.5-4.5) mg/dL Magnesium (1.6-2.3) mg/dL Total Bilirubin (0.2-1.3) mg/dL AST (17-59) U/L ALT (21-72) U/L Alkaline Phosphatase (38-126) U/L Total Protein (6.3-8.3) g/dL Albumin (3.5-5.0) g/dL Globulin (2.2-3.9) gm/dL Albumin/Globulin Ratio (1.0-2.1) Vitamin B12 (239-931) pg/mL Folate ng/mL Urine Color Yellow (YELLOW) Urine Clarity Hazy (Clear) Urine pH 5.0 (5.0-8.0) Ur Specific [place] 1.013 (1.003-1.030) Urine Protein 1+ H (NEGATIVE) mg/dL Urine Glucose (UA) Normal (Normal) mg/dL Urine Ketones Negative (NEGATIVE) mg/dL Urine Blood 3+ H (NEGATIVE) Urine Nitrate Negative (NEGATIVE) Urine Bilirubin Negative (NEGATIVE) Urine Urobilinogen Normal (0.2-1.0) mg/dL Ur Leukocyte Esterase 3+ H (Negative) [place]/uL Urine WBC (Auto) 61 H (0-5) /hpf Urine RBC (Auto) 291 H (0-3) /hpf Ur Squamous Epith Cells < 1 (0-5) /hpf Urine Bacteria Rare (<OCC) Laboratory Results - last 24 hr 05/12/18 05/13/18 05/13/18 18:23 05:51 05:51 WBC 9.2 RBC 3.98 L Hgb 12.9 Hct 37.5 MCV 94.1 H MCH 32.3 H MCHC 34.3 RDW 14.6 H Plt Count 214 MPV 8.9 Neut % (Auto) 75.0 Lymph % (Auto) 9.9 L Tripp % (Auto) 10.8 H Eos % (Auto) 3.9 Baso % (Auto) 0.4 Neut # (Auto) 6.9 Lymph # (Auto) 0.9 L Tripp # (Auto) 1.0 H Eos # (Auto) 0.4 Baso # (Auto) 0.0 Neutrophils % (Manual) 73 Lymphocytes % (Manual) 13 L Monocytes % (Manual) 11 H Eosinophils % (Manual) 3 Platelet Estimate Normal Sodium 150 H Potassium 3.6 Chloride 117 H Carbon Dioxide 26 Anion Gap 11 BUN 35 H Creatinine 1.5 Est GFR ( Amer) 53 Est GFR (Non-Af Amer) 44 Random Glucose 92 Calcium 8.8 Phosphorus 2.8 Magnesium 2.1 Total Bilirubin 0.5 AST 28 ALT 38 Alkaline Phosphatase 60 Total Protein 5.9 L Albumin 3.0 L Globulin 2.9 Albumin/Globulin Ratio 1.0 Vitamin B12 Folate Urine Color Yellow Urine Clarity Hazy Urine pH 5.0 Ur Specific [place] 1.013 Urine Protein 1+ H Urine Glucose (UA) Normal Urine Ketones Negative Urine Blood 3+ H Urine Nitrate Negative Urine Bilirubin Negative Urine Urobilinogen Normal Ur Leukocyte Esterase 3+ H Urine WBC (Auto) 61 H Urine RBC (Auto) 291 H Ur Squamous Epith Cells < 1 Urine Bacteria Rare 05/13/18 05/13/18 15:07 15:07 WBC 10.6 RBC 4.36 L Hgb 14.0 Hct 40.9 MCV 93.7 MCH 32.0 H MCHC 34.1 RDW 14.3 Plt Count 223 MPV 8.7 Neut % (Auto) 80.1 H Lymph % (Auto) 8.4 L Tripp % (Auto) 9.0 Eos % (Auto) 1.9 Baso % (Auto) 0.6 Neut # (Auto) 8.5 H Lymph # (Auto) 0.9 L Tripp # (Auto) 1.0 H Eos # (Auto) 0.2 Baso # (Auto) 0.1 Neutrophils % (Manual) 88 H Lymphocytes % (Manual) 8 L Monocytes % (Manual) 3 Eosinophils % (Manual) 1 Platelet Estimate Normal Sodium 149 H Potassium 3.6 Chloride 112 H Carbon Dioxide 28 Anion Gap 12 BUN 31 H Creatinine 1.2 Est GFR ( Amer) > 60 Est GFR (Non-Af Amer) 57 Random Glucose 98 Calcium 9.1 Phosphorus Magnesium Total Bilirubin 0.6 AST 29 ALT 30 Alkaline Phosphatase 70 Total Protein 6.5 Albumin 3.3 L Globulin 3.2 Albumin/Globulin Ratio 1.1 Vitamin B12 829 Folate 8.4 Urine Color Urine Clarity Urine pH Ur Specific [place] Urine Protein Urine Glucose (UA) Urine Ketones Urine Blood Urine Nitrate Urine Bilirubin Urine Urobilinogen Ur Leukocyte Esterase Urine WBC (Auto) Urine RBC (Auto) Ur Squamous Epith Cells Urine Bacteria Critical Care Progress Note - Nutrition Nutrition: Nutrition Category Date Time Status Pureed [Dysphagia/Modified Consistency Diet] [DIET] Diets 05/07/18 Dinner Active Attending/Attestation - Attestation I have personally seen and examined this patient.: Yes I have fully participated in the care of the patient.: Yes I have reviewed all pertinent clinical information: Yes Notes (Text): 05/13/18 16:54 Today: , May 13, 2018 The Patient was seen and examined at the bedside, Medical records reviewed, and management issues were discussed and formulated with the house staff. I have reviewed all the relevant clinical, laboratory, hemodynamic, radiographic data and medications Events reviewed Pain issues, skin care, head of the bed elevation, glycemic control were addressed. Agree with above resident's assessment and treatment plans of care as transcribed in Dr. Guo's note. Continue IV Antibiotics Started on PO Hydralazine 25mg PO TIV PRN Atropiune Cardiology follow up requested full code
[2018-05-13] MEDS ORDERED: Potassium Ch 20mEq in D5-1/2NS 1,000 ML IV ONE (13:00)
[2018-05-13 15:20] LABS: BASO # 0.1 K/uL (0.0-0.2); BASO % 0.6 % (0.0-2.0); EOS # 0.2 K/uL (0.0-0.7); EOS % 1.9 % (0.0-4.0); LYMPH # 0.9 K/uL (1.0-4.3); LYMPH % 8.4 % (20.0-40.0); MEAN CELL VOLUME 93.7 fL (80.0-94.0); MEAN CORPUSCULAR HGB CONC 34.1 g/dL (33.0-37.0); MEAN PLATELET VOLUME 8.7 fL (7.2-11.7); NEUT # 8.5 K/uL (1.8-7.0); NEUT % 80.1 % (50.0-75.0); NRBC % 0.1 % (0.0-2.0); PLATELET COUNT 223 K/uL (130-400); RBC 4.36 Mil/uL (4.40-5.90); RED CELL DISTRIBUTION WIDTH 14.3 % (11.5-14.5); WHITE BLOOD COUNT 10.6 K/uL (4.8-10.8)
[2018-05-13 15:26] LABS: ALB/GLOB RATIO 1.1 (1.0-2.1); ALBUMIN 3.3 g/dL (3.5-5.0); ALT/SGPT 30 U/L (21-72); AST/SGOT 29 U/L (17-59); BLOOD UREA NITROGEN 31 mg/dL (9-20); CALCIUM 9.1 mg/dl (8.6-10.4); GFR NON-AFRICAN AMERICAN 57
[2018-05-13 15:54] LABS: EOSINOPHIL 1 % (0-4); LYMPHOCYTE 8 % (20-40); MONOCYTE 3 % (0-10); NEUTROPHIL 88 % (50-75); PLATELET ESTIMATE NORMAL (NORMAL); TOTAL CELLS COUNTED 100
[2018-05-13 16:30] LABS: FOLATE 8.4 ng/mL
[2018-05-13 17:11] LABS: CREATININE, RANDOM URINE 94.3 mg/dL
[2018-05-14] MEDS ORDERED: Enalaprilat 2.5 MG/2 ML IV ONE (03:45)
--- NOTE | 2018-05-14 06:26 | CP.PCM.PN ---
Subjective - Date & Time of Evaluation Date of Evaluation: 05/14/18 Time of Evaluation: 06:26 - Subjective Subjective: Ms. Javed was seen and examined at the bedside. He is awake, expressive aphasia, communicates using non-verbal cues such as nodding or shaking his head. He denies any headache, dizziness, lightheadedness. He follows simple commands with right side weakness. He remains a-flutter. He has episode of restlessness with bilateral hand mitten for patient safety. There was no untoward events overnight. Objective - Vital Signs/Intake and Output Vital Signs (last 24 hours): Temp Pulse Resp BP Pulse Ox 97.9 F 47 L 17 144/59 L 99 05/14/18 00:00 05/14/18 05:01 05/14/18 05:01 05/14/18 05:01 05/13/18 16:00 Intake and Output: 05/13/18 05/14/18 18:59 06:59 Intake Total 550 500 Output Total 960 710 Balance -410 -210 - Medications Medications: Current Medications Aspirin (Ecotrin) 81 mg PO DAILY [facility] [place] Last Admin: 05/13/18 09:54 Dose: 81 mg Atropine Sulfate (Atropine) 1 mg IVP Q3H PRN PRN Reason: Other Last Admin: 05/13/18 22:12 Dose: 1 mg Hydralazine HCl (Apresoline) 10 mg IVP Q6H PRN PRN Reason: SBP > 160 Hydralazine HCl (Apresoline) 25 mg PO TID [facility] [place] Last Admin: 05/13/18 17:42 Dose: 25 mg Ceftriaxone Sodium 1 gm/ (Sodium Chloride) 100 mls @ 200 mls/hr IVPB DAILY [facility] [place] PRN Reason: Protocol Last Admin: 05/13/18 09:51 Dose: 200 mls/hr Heparin Sodium/Sodium Chloride (Heparin 47247 Units/250ml 1/2 Normal Saline) 25 ,000 units in 250 mls @ 9.798 mls/hr IV .Q24H PRN; Protocol; 12 UNITS/KG/HR PRN Reason: ADJUST RATE PER PROTOCOL Last Admin: 05/11/18 21:27 Dose: 12 units/kg/hr, 9.798 mls/hr Potassium Chloride/Dextrose/Sod Cl (Potassium Chl 20 Meq In D5-1/2ns) 1,000 mls @ 50 mls/hr IV .Q20H ONE Stop: 05/14/18 08:59 Last Admin: 05/13/18 13:47 Dose: 50 mls/hr Pantoprazole Sodium (Protonix Ec Tab) 40 mg PO DAILY [facility] [place] Last Admin: 05/13/18 09:54 Dose: 40 mg Rosuvastatin Calcium (Crestor) 10 mg PO HS [facility] [place] Last Admin: 05/13/18 22:11 Dose: 10 mg Saccharomyces Boulardii (Florastor) 250 mg PO Q12H [facility] [place] Last Admin: 05/13/18 22:11 Dose: 250 mg - Labs Labs: 05/13/18 15:07 05/13/18 15:07 PT 14.2 SECONDS (9.7-12.2) H 05/12/18 05:54 INR 1.3 05/12/18 05:54 APTT 67 SECONDS (21-34) H D 05/12/18 05:54 - Constitutional Appears: No Acute Distress - Head Exam Head Exam: NORMAL INSPECTION - Eye Exam Pupil Exam: Miosis - Neurological Exam Neurological Exam: Alert, Awake Neuro motor strength exam: Left Upper Extremity: 4, Right Upper Extremity: 4, Left Lower Extremity: 3, Right Lower Extremity: 3 Additional comments: neurological unchanged from previous examination Assessment and Plan (1) Ischemic stroke Assessment & Plan: Continue all current medical, physical, occupational therapies. Recommend to follow any recommendation from cardiology with regards with anticoagulation, blood pressure control, keep head of bed elevated at least 30 degrees. treat any electrolyte abnormalities. Status: Acute
[2018-05-14 06:33] LABS: BASO % 0.3 % (0.0-2.0); EOS # 0.4 K/uL (0.0-0.7); EOS % 3.8 % (0.0-4.0); HEMOGLOBIN 12.4 g/dL (12.0-18.0); LYMPH # 0.9 K/uL (1.0-4.3); LYMPH % 9.5 % (20.0-40.0); MEAN CORPUSCULAR HEMOGLOBIN 32.4 pg (27.0-31.0); MEAN CORPUSCULAR HGB CONC 34.8 g/dL (33.0-37.0); MEAN PLATELET VOLUME 9.2 fL (7.2-11.7); MONO % 9.8 % (0.0-10.0); NEUT # 7.5 K/uL (1.8-7.0); NEUT % 76.6 % (50.0-75.0); PLATELET COUNT 220 K/uL (130-400); RBC 3.84 Mil/uL (4.40-5.90); RED CELL DISTRIBUTION WIDTH 14.3 % (11.5-14.5); WHITE BLOOD COUNT 9.8 K/uL (4.8-10.8)
[2018-05-14 06:52] LABS: ALBUMIN 2.8 g/dL (3.5-5.0); ALT/SGPT 34 U/L (21-72); AST/SGOT 26 U/L (17-59); BLOOD UREA NITROGEN 25 mg/dL (9-20); CALCIUM 8.5 mg/dl (8.6-10.4); GFR NON-AFRICAN AMERICAN > 60
[2018-05-14 08:42] LABS: EOSINOPHIL 2 % (0-4); LYMPHOCYTE 10 % (20-40); MONOCYTE 8 % (0-10); NEUTROPHIL 80 % (50-75); PLATELET ESTIMATE NORMAL (NORMAL); TOTAL CELLS COUNTED 100
--- NOTE | 2018-05-14 08:53 | RAD ---
Chest x-ray single frontal view History: Infiltrate. Comparison: 05/13/2018 Findings: Confluent ill-defined consolidative opacities in the left mid to lower lung zone as well as the right infrahilar region. Diffuse increased interstitial lung markings. Biapical pleural thickening with upper lobe granulomatous changes. Scattered nodular densities both lung watkins. Cardiomegaly. Degenerative changes in the spine and shoulders. Bony protuberance and or exostosis emanating from the medial cortex of the left proximal humerus. Impression: Confluent ill-defined consolidative opacities in the left mid to lower lung zone as well as the right infrahilar region. Diffuse increased interstitial lung markings. Biapical pleural thickening with upper lobe granulomatous changes. Scattered nodular densities both lung watkins. Cardiomegaly. Degenerative changes in the spine and shoulders. Bony protuberance and or exostosis emanating from the medial cortex of the left proximal humerus.
[2018-05-14] MEDS: Albuterol 0.083% Inhal Sol (2.5 mg/3 mL) UD INH SCH ×3 (09:25→21:01)
[2018-05-14] MEDS: Pantoprazole 40 mg EC Tab PO SCH (10:18)
[2018-05-14] MEDS: Saccharomyces Boulardi 250 mg Cap PO SCH ×2 (10:18→22:46)
--- NOTE | 2018-05-14 11:00 | PCM.PSYCH ---
Initial Psychiatric Evaluation - Initial Psychiatric Evaluation Type of Admission: Voluntary Legal Status: Capacity History of Present Illness and Precipitating Events: This is an 88 year old male with past medical history of hypertension, advanced dementia and psychiatric illness, and possible past medical history of hypertension who presents to ED brought in by ambulance for AMS. Today pt was consulted by the psychiatry. Pt at time of contact appeared afraid, anxious and despaired. Pt remained disorganized and internally preoccupied. Patient appeared depressed, isolated and withdrawn. Per staff he is not sleeping and not eating. Staff denied any suicidal ideation or any homicidal ideation. Current Medications: Active Medications Generic Name Dose Route Start Last Admin Trade Name Freq PRN Reason Stop Dose Admin Albuterol Sulfate 2.5 mg 05/14/18 09:00 05/14/18 09:25 Albuterol 0.083% Inhal Suellen (2.5 Mg/3 Ml) Ud INH 2.5 mg RQ6 ANUPAM Administration Amlodipine Besylate 5 mg 05/14/18 10:00 05/14/18 10:18 Norvasc PO 5 mg DAILY ANUPAM Administration Aspirin 81 mg 05/13/18 10:00 05/14/18 10:18 Ecotrin PO 81 mg DAILY ANUPAM Administration Atropine Sulfate 1 mg 05/07/18 19:43 05/14/18 02:00 Atropine IVP 1 mg Q3H PRN Administration Other Hydralazine HCl 10 mg 05/09/18 15:22 Apresoline IVP Q6H PRN SBP > 160 Hydralazine HCl 25 mg 05/13/18 10:00 05/14/18 10:18 Apresoline PO 25 mg TID ANUPAM Administration Heparin Sodium/Sodium Chloride 25,000 units in 250 mls @ 9.798 mls/hr 05/06/18 19:47 05/11/18 21:27 Heparin 89188 Units/250ml 1/2 Normal Saline IV 12 units/kg/hr .Q24H PRN 9.798 mls/hr ADJUST RATE PER PROTOCOL Administration Protocol 12 UNITS/KG/HR Pantoprazole Sodium 40 mg 05/07/18 10:00 05/14/18 10:18 Protonix Ec Tab PO 40 mg DAILY ANUPAM Administration Rosuvastatin Calcium 10 mg 05/06/18 22:00 05/13/18 22:11 Crestor PO 10 mg HS ANUPAM Administration Saccharomyces Boulardii 250 mg 05/06/18 20:00 05/14/18 10:18 Florastor PO 250 mg Q12H ANUPAM Administration Tamsulosin HCl 0.4 mg 05/14/18 10:00 05/14/18 10:18 Flomax PO 0.4 mg DAILY ANUPAM Administration Past Psychiatric History - Past Psychiatric History Previous Treatment History: None Pertinent Medical Hx (Current Medical&Sleep Prob, Allergies): Allergies Allergy/AdvReac Type Severity Reaction Status Date / Time Unobtainable Allergy Unverified 05/06/18 15:28 No Known Home Med 05/06/18 Review of Systems - Review of Systems All systems: reviewed and no additional remarkable complaints except - Psychiatric Psychiatric: Anxiety, Irritability. absent: Suicidal Ideation Mental Status Examination - Personal Presentation Personal Presentation: Looks stated age - Affect Affect: Constricted - Motor Activity Motor Activity: Calm - Reliability in Providing Information Reliability in Providing Information: Poor, due to altered mood - Mood Mood: Anxious - Formal Thought Process Formal Thought Process: Loosening of associations - Obsessions/Compulsions Obsessions: No Compulsions: No - Cognitive Functions Orientation: Person, Place, Situation, Time Sensorium: Lethargic Attention/Concentration: Easily distracted Abstract Thinking: [place] Estimate of Intelligence: Below average Judgement: Imparied, as evidence by: Poor judgement, Imparied, as evidence by: Lack of insight into illness - Risk Risk: Diminished functioning - Limitations Limitations: Living alone DSM 5 DX - DSM 5 DSM 5 Diagnosis: Depressive disorder r/o delirium - Recommended/Plan of Treatment Treatment Recommendations and Plan of Treatment: Since patient is confused and since he has a major stroke and he cannot speak well enough to communicate, patient doesn't have any capacity to make any decision regarding his health.
--- NOTE | 2018-05-14 11:11 | CP.CCUPN ---
Addendum entered and electronically signed by Ronni Guo 05/14/18 12:47: Dr. You spoke to outside maintenance worker Aleksandar Smith covering for Anabelle at [phone] , who stated that she would get back to us. Original Note: <Ronni Guo - Last Filed: 05/14/18 11:37> CCU Subjective - Physician Review Subjective (Free Text): ICU progress note Patient seen and examined at bedside. Patient remains nonverbal and cannot provide any history. He remains awake and alert. He is able to follow some commands and is able to shake his head to yes/no questions. Unsure if he is symptomatic currently since he cannot express himself. State guardian Anabelle Austin ( [phone]) makes decisions for him. CCU Objective - Vital Signs / Intake & Output Intake and Output (Last 8hrs): Intake & Output 05/13/18 05/14/18 05/14/18 22:59 06:59 14:59 Intake Total 400 400 50 Output Total 640 490 50 Balance -240 -90 0 Weight 176 lb Intake: Intake, IV Amount 400 400 50 Left Forearm 250 50 Right Proximal Port Upper 400 150 arm Output: Urine 640 490 50 Urethral (Joshi) 640 490 50 - Physical Exam Head: Positive for: Atraumatic, Normocephalic Pupils: Negative for: Non-Reactive, Pinpoint Extroacular Muscles: Positive for: EOMI Conjunctiva: Positive for: Normal. Negative for: Injected, Icteric Mouth: Positive for: Moist Mucous Membranes, Normal Lips. Negative for: Dry, Drooling Nose (External): Positive for: Atraumatic. Negative for: Abrasion, Contusion, Laceration Nose (Internal): Positive for: No Active Bleeding. Negative for: Epistaxis Neck: Positive for: Normal Range of Motion, Trachea Midline. Negative for: JVD Respiratory/Chest: Positive for: Clear to Auscultation, Good Air Exchange. Negative for: Respiratory Distress, Accessory Muscle Use, Wheezes, Decreased Breath Sounds, Rales, Rhonchi Cardiovascular: Positive for: Murmurs (holosystolic murmur ), Normal S1, S2, Peripheal Pulses Present (+1 dorsalis pedis), Bradycardic (Currently in 60s. ). Negative for: Irregular Rhythm, Tachycardic Abdomen: Positive for: Normal Bowel Sounds. Negative for: Tenderness, Distention, Guarding Upper Extremity: Positive for: Normal Inspection, Normal ROM, NORMAL PULSES ( Radial pulses present). Negative for: Cyanosis, Edema, Tenderness, Swelling, Erythema Lower Extremity: Positive for: NORMAL PULSES, Normal ROM, Other (bandaged ulcers on right lateral thigh. Ulcer on right lateral knee. ). Negative for: Edema, CALF TENDERNESS, Cyanosis, Tenderness, Swelling, Erythema Neurological: Positive for: Motor Func Grossly Intact, Other (awake and alert, following some commands, can nod/shake his head to some yes/no questions). Negative for: Speech Normal (non-verbal, comprehension of speech intact but unable to verbalize any words) Skin: Positive for: Warm, Dry, Normal Color. Negative for: Rashes Psychiatric: Positive for: Alert, Other (awake and alert, able to nod/shake head appropriately to most yes/no questions. Does not appear anxious/agitated) - Medications Active Medications: Active Medications Generic Name Dose Route Start Last Admin Trade Name Freq PRN Reason Stop Dose Admin Albuterol Sulfate 2.5 mg 05/14/18 09:00 05/14/18 09:25 Albuterol 0.083% Inhal Suellen (2.5 Mg/3 Ml) Ud INH 2.5 mg RQ6 ANUPAM Administration Amlodipine Besylate 5 mg 05/14/18 10:00 05/14/18 10:18 Norvasc PO 5 mg DAILY ANUPAM Administration Aspirin 81 mg 05/13/18 10:00 05/14/18 10:18 Ecotrin PO 81 mg DAILY ANUPAM Administration Atropine Sulfate 1 mg 05/07/18 19:43 05/14/18 02:00 Atropine IVP 1 mg Q3H PRN Administration Other Hydralazine HCl 10 mg 05/09/18 15:22 Apresoline IVP Q6H PRN SBP > 160 Hydralazine HCl 25 mg 05/13/18 10:00 05/14/18 10:18 Apresoline PO 25 mg TID ANUPAM Administration Heparin Sodium/Sodium Chloride 25,000 units in 250 mls @ 9.798 mls/hr 19:47 05/11/18 21:27 Heparin 21087 Units/250ml 1/2 Normal Saline IV 12 units/kg/hr .Q24H PRN 9.798 mls/hr ADJUST RATE PER PROTOCOL Administration Protocol 12 UNITS/KG/HR Pantoprazole Sodium 40 mg 05/07/18 10:00 05/14/18 10:18 Protonix Ec Tab PO 40 mg DAILY ANUPAM Administration Rosuvastatin Calcium 10 mg 05/06/18 22:00 05/13/18 22:11 Crestor PO 10 mg HS ANUPAM Administration Saccharomyces Boulardii 250 mg 05/06/18 20:00 05/14/18 10:18 Florastor PO 250 mg Q12H ANUPAM Administration Tamsulosin HCl 0.4 mg 05/14/18 10:00 05/14/18 10:18 Flomax PO 0.4 mg DAILY ANUPAM Administration - Patient Studies Lab Studies: Microbiology Studies 05/12/18 18:23 Urine Culture - Final Urine,Joshi No Growth (<1,000 CFU/ML) Lab Studies 05/14/18 05/14/18 05/13/18 Range/Units 06:23 06:23 16:45 WBC 9.8 (4.8-10.8) K/uL RBC 3.84 L (4.40-5.90) Mil/uL Hgb 12.4 (12.0-18.0) g/dL Hct 35.7 (35.0-51.0) % MCV 93.0 (80.0-94.0) fL MCH 32.4 H (27.0-31.0) pg MCHC 34.8 (33.0-37.0) g/dL RDW 14.3 (11.5-14.5) % Plt Count 220 (130-400) K/uL MPV 9.2 (7.2-11.7) fL Neut % (Auto) 76.6 H (50.0-75.0) % Lymph % (Auto) 9.5 L (20.0-40.0) % [place] % (Auto) 9.8 (0.0-10.0) % Eos % (Auto) 3.8 (0.0-4.0) % Baso % (Auto) 0.3 (0.0-2.0) % Neut # (Auto) 7.5 H (1.8-7.0) K/uL Lymph # (Auto) 0.9 L (1.0-4.3) K/uL [place] # (Auto) 1.0 H (0.0-0.8) K/uL Eos # (Auto) 0.4 (0.0-0.7) K/uL Baso # (Auto) 0.0 (0.0-0.2) K/uL Neutrophils % (Manual) 80 H (50-75) % Lymphocytes % (Manual) 10 L (20-40) % Monocytes % (Manual) 8 (0-10) % Eosinophils % (Manual) 2 (0-4) % Platelet Estimate Normal (NORMAL) RBC Morphology Normal Sodium 147 (132-148) mmol/L Potassium 3.8 (3.6-5.2) mmol/L Chloride 113 H (98-107) mmol/L Carbon Dioxide 28 (22-30) mmol/L Anion Gap 10 (10-20) BUN 25 H (9-20) mg/dL Creatinine 0.9 (0.8-1.5) mg/dL Est GFR ( Amer) > 60 Est GFR (Non-Af Amer) > 60 Random Glucose 176 H (75-110) mg/dL Calcium 8.5 L (8.6-10.4) mg/dl Phosphorus 2.4 L (2.5-4.5) mg/dL Magnesium 1.9 (1.6-2.3) mg/dL Total Bilirubin 0.5 (0.2-1.3) mg/dL AST 26 (17-59) U/L ALT 34 (21-72) U/L Alkaline Phosphatase 59 (38-126) U/L Total Protein 5.6 L (6.3-8.3) g/dL Albumin 2.8 L (3.5-5.0) g/dL Globulin 2.8 (2.2-3.9) gm/dL Albumin/Globulin Ratio 1.0 (1.0-2.1) Vitamin B12 (239-931) pg/mL Folate ng/mL Ur Random Creatinine 94.3 mg/dL Ur Random Sodium 112 mmol/L 05/13/18 05/13/18 Range/Units 15:07 15:07 WBC 10.6 (4.8-10.8) K/uL RBC 4.36 L (4.40-5.90) Mil/uL Hgb 14.0 (12.0-18.0) g/dL Hct 40.9 (35.0-51.0) % MCV 93.7 (80.0-94.0) fL MCH 32.0 H (27.0-31.0) pg MCHC 34.1 (33.0-37.0) g/dL RDW 14.3 (11.5-14.5) % Plt Count 223 (130-400) K/uL MPV 8.7 (7.2-11.7) fL Neut % (Auto) 80.1 H (50.0-75.0) % Lymph % (Auto) 8.4 L (20.0-40.0) % [place] % (Auto) 9.0 (0.0-10.0) % Eos % (Auto) 1.9 (0.0-4.0) % Baso % (Auto) 0.6 (0.0-2.0) % Neut # (Auto) 8.5 H (1.8-7.0) K/uL Lymph # (Auto) 0.9 L (1.0-4.3) K/uL [place] # (Auto) 1.0 H (0.0-0.8) K/uL Eos # (Auto) 0.2 (0.0-0.7) K/uL Baso # (Auto) 0.1 (0.0-0.2) K/uL Neutrophils % (Manual) 88 H (50-75) % Lymphocytes % (Manual) 8 L (20-40) % Monocytes % (Manual) 3 (0-10) % Eosinophils % (Manual) 1 (0-4) % Platelet Estimate Normal (NORMAL) RBC Morphology Sodium 149 H (132-148) mmol/L Potassium 3.6 (3.6-5.2) mmol/L Chloride 112 H (98-107) mmol/L Carbon Dioxide 28 (22-30) mmol/L Anion Gap 12 (10-20) BUN 31 H (9-20) mg/dL Creatinine 1.2 (0.8-1.5) mg/dL Est GFR ( Amer) > 60 Est GFR (Non-Af Amer) 57 Random Glucose 98 (75-110) mg/dL Calcium 9.1 (8.6-10.4) mg/dl Phosphorus (2.5-4.5) mg/dL Magnesium (1.6-2.3) mg/dL Total Bilirubin 0.6 (0.2-1.3) mg/dL AST 29 (17-59) U/L ALT 30 (21-72) U/L Alkaline Phosphatase 70 (38-126) U/L Total Protein 6.5 (6.3-8.3) g/dL Albumin 3.3 L (3.5-5.0) g/dL Globulin 3.2 (2.2-3.9) gm/dL Albumin/Globulin Ratio 1.1 (1.0-2.1) Vitamin B12 829 (239-931) pg/mL Folate 8.4 ng/mL Ur Random Creatinine mg/dL Ur Random Sodium mmol/L Laboratory Results - last 24 hr 05/13/18 05/13/18 05/13/18 15:07 15:07 16:45 WBC 10.6 RBC 4.36 L Hgb 14.0 Hct 40.9 MCV 93.7 MCH 32.0 H MCHC 34.1 RDW 14.3 Plt Count 223 MPV 8.7 Neut % (Auto) 80.1 H Lymph % (Auto) 8.4 L [place] % (Auto) 9.0 Eos % (Auto) 1.9 Baso % (Auto) 0.6 Neut # (Auto) 8.5 H Lymph # (Auto) 0.9 L [place] # (Auto) 1.0 H Eos # (Auto) 0.2 Baso # (Auto) 0.1 Neutrophils % (Manual) 88 H Lymphocytes % (Manual) 8 L Monocytes % (Manual) 3 Eosinophils % (Manual) 1 Platelet Estimate Normal RBC Morphology Sodium 149 H Potassium 3.6 Chloride 112 H Carbon Dioxide 28 Anion Gap 12 BUN 31 H Creatinine 1.2 Est GFR ( Amer) > 60 Est GFR (Non-Af Amer) 57 Random Glucose 98 Calcium 9.1 Phosphorus Magnesium Total Bilirubin 0.6 AST 29 ALT 30 Alkaline Phosphatase 70 Total Protein 6.5 Albumin 3.3 L Globulin 3.2 Albumin/Globulin Ratio 1.1 Vitamin B12 829 Folate 8.4 Ur Random Creatinine 94.3 Ur Random Sodium 112 05/14/18 05/14/18 06:23 06:23 WBC 9.8 RBC 3.84 L Hgb 12.4 Hct 35.7 MCV 93.0 MCH 32.4 H MCHC 34.8 RDW 14.3 Plt Count 220 MPV 9.2 Neut % (Auto) 76.6 H Lymph % (Auto) 9.5 L [place] % (Auto) 9.8 Eos % (Auto) 3.8 Baso % (Auto) 0.3 Neut # (Auto) 7.5 H Lymph # (Auto) 0.9 L [place] # (Auto) 1.0 H Eos # (Auto) 0.4 Baso # (Auto) 0.0 Neutrophils % (Manual) 80 H Lymphocytes % (Manual) 10 L Monocytes % (Manual) 8 Eosinophils % (Manual) 2 Platelet Estimate Normal RBC Morphology Normal Sodium 147 Potassium 3.8 Chloride 113 H Carbon Dioxide 28 Anion Gap 10 BUN 25 H Creatinine 0.9 Est GFR ( Amer) > 60 Est GFR (Non-Af Amer) > 60 Random Glucose 176 H Calcium 8.5 L Phosphorus 2.4 L Magnesium 1.9 Total Bilirubin 0.5 AST 26 ALT 34 Alkaline Phosphatase 59 Total Protein 5.6 L Albumin 2.8 L Globulin 2.8 Albumin/Globulin Ratio 1.0 Vitamin B12 Folate Ur Random Creatinine Ur Random Sodium Fingerstick Blood Sugar Results: 119 Review of Systems - Review of Systems Systems not reviewed;Unavailable: Other (Nonverbal) Critical Care Progress Note - Nutrition Nutrition: Nutrition Category Date Time Status Pureed [Dysphagia/Modified Consistency Diet] [DIET] Diets 05/07/18 Dinner Active Assessment/Plan - Assessment and Plan (Free Text) Assessment: This is a 88 year old male with history of possible dementia and unspecified psychiatric illness who presented for evaluation after he was found altered at home. Patient is reportedly under state guardianship. Rapid response was called after nurse was unable to obtain blood pressure on patient, and was found to be in A-flutter at 34 bpm. Patient was admitted to ICU for bradycardia with atrial flutter. CT head revealed subtle hypodensity of L MCA territory. Pending Cardio recommendations for severe aortic stenosis and psychiatric evaluation regarding patient's ability to understand. 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 -Bone survey done, no metallic radioopaque foreign bodies noted. -Brain MRI cancelled for now -Heparin drip resumed today given history of A flutter -Neurology Dr. Kumar consulted, help appreciated; Cardiovascular: -Current HR in 30s, varies -continue Atropine Q3 PRN for HR < 45 -Trops post-[facility] 0.0790, 0.0640, 0.0690 -Norvasc 5mg PO daily - Hydralazine 25mg PO TID - continue Crestor - heparin drip resumed - started back on ASA 81mg -05/06/18 Echo left atrium is severely dilated. Normal sized LV, RA, RV. Normal LV wall motion and systolic function with EF of 55-60%. Aortic valve is probably trileaflet and heavily calcified with peak/mean gradient or 52/23 mmHg and calculated frankie of 0.8mcaq, c/w severe aortic stenosis. mac. mild MR. mild to moderate TR with calculated pulmonary systolic pressures of 60mmHg, c/w moderately severe pulmonary HTN. sclerotic normal size aortic root. no pericardial effusion seen. -pro-BNP 7020 on admission; unknown if hx CHF, avoid aggressive fluid rehydration -Cardio (Dr. Billingsley) following, appreciate all recs; -Dig level ordered, pending -BP elevated today, Hydralazine 25mg PO TID, Hydralazine 10mg IVP q6 prn for SBP > 160 - As per Dr. Monroe's notes from 05/12/18 nitrates not advised at this time. Since patient has had slow A fib without pauses without correlation to his HR and syncope, does not recommend pacemaker for now. Recommends pacemaker only if pauses occur or HR drops even lower. Defer to neurologist or psychiatrist ability to understand regarding TAVR. - Psychiatry Dr. Roman consulted, help appreciated. Pulmonary -Admission Chest X-ray: Left lower lobe infiltrates vs atelectasis -Finished 8 day course of Rocephin -O2 sat 98% on NC -Duonebs Q6 ANUPAM GI -Protonix 40mg PO for GI ppx -Pureed diet ordered, monitor for signs of aspiration Renal: -BUN 25 Cr 0.9 -Joshi removed. Started on Flomax -continue to monitor I&O's; currently net positive +1204ml - renal US no evidence of obstructive uropathy, calculous disease or mass lesion. ID -WBCs 9.8, afebrile -LLL infiltrates vs atelectasis on CXR -Finished 8 day course of Rocephin -Urine culture no growth, Blood culture final no growth -UA 3+ protein 1+ ketones 3+ blood Endo -Maintain euglycemia Heme -H/H stable at 12.4/35.7 Dispo: ICU, physical therapy, occupational therapy, close monitoring of HR on Atropine PRN, pending cardio recs Case discussed with Dr. You <Caity You - Last Filed: 05/14/18 15:09> CCU Objective - Vital Signs / Intake & Output Vital Signs (Last 4 hours): Vital Signs Temp Pulse Resp BP Pulse Ox 05/14/18 12:10 33 L 15 178/58 H 99 05/14/18 12:00 98 F 35 L 13 99 05/14/18 11:12 64 19 152/80 H 96 05/14/18 11:00 32 L 14 99 Intake and Output (Last 8hrs): Intake & Output 05/13/18 05/14/18 05/14/18 22:59 06:59 14:59 Intake Total 400 400 490 Output Total 640 490 250 Balance -240 -90 240 Weight 176 lb Intake: Intake, IV Amount 400 400 250 Left Forearm 250 250 Right Hand 0 Right Proximal Port Upper 400 150 arm Oral 240 Output: Urine 640 490 250 Urethral (Joshi) 640 490 250 Emesis 0 Other: # Bowel Movements 0 - Medications Active Medications: Active Medications Generic Name Dose Route Start Last Admin Trade Name Freq PRN Reason Stop Dose Admin Albuterol Sulfate 2.5 mg 05/14/18 09:05/14/18 13:33 Albuterol 0.083% Inhal Suellen (2.5 Mg/3 Ml) Ud INH 2.5 mg RQ6 ANUPAM Administration Amlodipine Besylate 5 mg 05/14/18 10:00 05/14/18 10:18 Norvasc PO 5 mg DAILY ANUPAM Administration Aspirin 81 mg 05/13/18 10:00 05/14/18 10:18 Ecotrin PO 81 mg DAILY ANUPAM Administration Atropine Sulfate 1 mg 05/07/18 19:43 05/14/18 02:00 Atropine IVP 1 mg Q3H PRN Administration Other Hydralazine HCl 10 mg 05/09/18 15:22 Apresoline IVP Q6H PRN SBP > 160 Hydralazine HCl 25 mg 05/13/18 10:00 05/14/18 13:46 Apresoline PO 25 mg TID ANUPAM Administration Heparin Sodium/Sodium Chloride 25,000 units in 250 mls @ 9.58 mls/hr 05/14/18 11:27 05/14/18 12:44 Heparin 15830 Units/250ml 1/2 Normal Saline IV 12 units/kg/hr .Q24H PRN 9.58 mls/hr ADJUST RATE PER PROTOCOL Administration Protocol 12 UNITS/KG/HR Pantoprazole Sodium 40 mg 05/07/18 10:00 05/14/18 10:18 Protonix Ec Tab PO 40 mg DAILY NAUPAM Administration Rosuvastatin Calcium 10 mg 05/06/18 22:00 05/13/18 22:11 Crestor PO 10 mg HS ANUPAM Administration Saccharomyces Boulardii 250 mg 05/06/18 20:00 05/14/18 10:18 Florastor PO 250 mg Q12H NAUPAM Administration Tamsulosin HCl 0.4 mg 05/14/18 10:00 05/14/18 10:18 Flomax PO 0.4 mg DAILY ANUPAM Administration - Patient Studies Lab Studies: Microbiology Studies 05/12/18 18:23 Urine Culture - Final Urine,Joshi No Growth (<1,000 CFU/ML) Lab Studies 05/14/18 05/14/18 05/13/18 Range/Units 06:23 06:23 16:45 WBC 9.8 (4.8-10.8) K/uL RBC 3.84 L (4.40-5.90) Mil/uL Hgb 12.4 (12.0-18.0) g/dL Hct 35.7 (35.0-51.0) % MCV 93.0 (80.0-94.0) fL MCH 32.4 H (27.0-31.0) pg MCHC 34.8 (33.0-37.0) g/dL RDW 14.3 (11.5-14.5) % Plt Count 220 (130-400) K/uL MPV 9.2 (7.2-11.7) fL Neut % (Auto) 76.6 H (50.0-75.0) % Lymph % (Auto) 9.5 L (20.0-40.0) % [place] % (Auto) 9.8 (0.0-10.0) % Eos % (Auto) 3.8 (0.0-4.0) % Baso % (Auto) 0.3 (0.0-2.0) % Neut # (Auto) 7.5 H (1.8-7.0) K/uL Lymph # (Auto) 0.9 L (1.0-4.3) K/uL [place] # (Auto) 1.0 H (0.0-0.8) K/uL Eos # (Auto) 0.4 (0.0-0.7) K/uL Baso # (Auto) 0.0 (0.0-0.2) K/uL Neutrophils % (Manual) 80 H (50-75) % Lymphocytes % (Manual) 10 L (20-40) % Monocytes % (Manual) 8 (0-10) % Eosinophils % (Manual) 2 (0-4) % Platelet Estimate Normal (NORMAL) RBC Morphology Normal Sodium 147 (132-148) mmol/L Potassium 3.8 (3.6-5.2) mmol/L Chloride 113 H (98-107) mmol/L Carbon Dioxide 28 (22-30) mmol/L Anion Gap 10 (10-20) BUN 25 H (9-20) mg/dL Creatinine 0.9 (0.8-1.5) mg/dL Est GFR ( Amer) > 60 Est GFR (Non-Af Amer) > 60 Random Glucose 176 H (75-110) mg/dL Calcium 8.5 L (8.6-10.4) mg/dl Phosphorus 2.4 L (2.5-4.5) mg/dL Magnesium 1.9 (1.6-2.3) mg/dL Total Bilirubin 0.5 (0.2-1.3) mg/dL AST 26 (17-59) U/L ALT 34 (21-72) U/L Alkaline Phosphatase 59 (38-126) U/L Total Protein 5.6 L (6.3-8.3) g/dL Albumin 2.8 L (3.5-5.0) g/dL Globulin 2.8 (2.2-3.9) gm/dL Albumin/Globulin Ratio 1.0 (1.0-2.1) Vitamin B12 (239-931) pg/mL Folate ng/mL Ur Random Creatinine 94.3 mg/dL Ur Random Sodium 112 mmol/L 05/13/18 05/13/18 Range/Units 15:07 15:07 WBC 10.6 (4.8-10.8) K/uL RBC 4.36 L (4.40-5.90) Mil/uL Hgb 14.0 (12.0-18.0) g/dL Hct 40.9 (35.0-51.0) % MCV 93.7 (80.0-94.0) fL MCH 32.0 H (27.0-31.0) pg MCHC 34.1 (33.0-37.0) g/dL RDW 14.3 (11.5-14.5) % Plt Count 223 (130-400) K/uL MPV 8.7 (7.2-11.7) fL Neut % (Auto) 80.1 H (50.0-75.0) % Lymph % (Auto) 8.4 L (20.0-40.0) % [place] % (Auto) 9.0 (0.0-10.0) % Eos % (Auto) 1.9 (0.0-4.0) % Baso % (Auto) 0.6 (0.0-2.0) % Neut # (Auto) 8.5 H (1.8-7.0) K/uL Lymph # (Auto) 0.9 L (1.0-4.3) K/uL [place] # (Auto) 1.0 H (0.0-0.8) K/uL Eos # (Auto) 0.2 (0.0-0.7) K/uL Baso # (Auto) 0.1 (0.0-0.2) K/uL Neutrophils % (Manual) 88 H (50-75) % Lymphocytes % (Manual) 8 L (20-40) % Monocytes % (Manual) 3 (0-10) % Eosinophils % (Manual) 1 (0-4) % Platelet Estimate Normal (NORMAL) RBC Morphology Sodium 149 H (132-148) mmol/L Potassium 3.6 (3.6-5.2) mmol/L Chloride 112 H (98-107) mmol/L Carbon Dioxide 28 (22-30) mmol/L Anion Gap 12 (10-20) BUN 31 H (9-20) mg/dL Creatinine 1.2 (0.8-1.5) mg/dL Est GFR ( Amer) > 60 Est GFR (Non-Af Amer) 57 Random Glucose 98 (75-110) mg/dL Calcium 9.1 (8.6-10.4) mg/dl Phosphorus (2.5-4.5) mg/dL Magnesium (1.6-2.3) mg/dL Total Bilirubin 0.6 (0.2-1.3) mg/dL AST 29 (17-59) U/L ALT 30 (21-72) U/L Alkaline Phosphatase 70 (38-126) U/L Total Protein 6.5 (6.3-8.3) g/dL Albumin 3.3 L (3.5-5.0) g/dL Globulin 3.2 (2.2-3.9) gm/dL Albumin/Globulin Ratio 1.1 (1.0-2.1) Vitamin B12 829 (239-931) pg/mL Folate 8.4 ng/mL Ur Random Creatinine mg/dL Ur Random Sodium mmol/L Laboratory Results - last 24 hr 05/13/18 05/13/18 05/13/18 15:07 15:07 16:45 WBC 10.6 RBC 4.36 L Hgb 14.0 Hct 40.9 MCV 93.7 MCH 32.0 H MCHC 34.1 RDW 14.3 Plt Count 223 MPV 8.7 Neut % (Auto) 80.1 H Lymph % (Auto) 8.4 L [place] % (Auto) 9.0 Eos % (Auto) 1.9 Baso % (Auto) 0.6 Neut # (Auto) 8.5 H Lymph # (Auto) 0.9 L [place] # (Auto) 1.0 H Eos # (Auto) 0.2 Baso # (Auto) 0.1 Neutrophils % (Manual) 88 H Lymphocytes % (Manual) 8 L Monocytes % (Manual) 3 Eosinophils % (Manual) 1 Platelet Estimate Normal RBC Morphology Sodium 149 H Potassium 3.6 Chloride 112 H Carbon Dioxide 28 Anion Gap 12 BUN 31 H Creatinine 1.2 Est GFR ( Amer) > 60 Est GFR (Non-Af Amer) 57 Random Glucose 98 Calcium 9.1 Phosphorus Magnesium Total Bilirubin 0.6 AST 29 ALT 30 Alkaline Phosphatase 70 Total Protein 6.5 Albumin 3.3 L Globulin 3.2 Albumin/Globulin Ratio 1.1 Vitamin B12 829 Folate 8.4 Ur Random Creatinine 94.3 Ur Random Sodium 112 05/14/18 05/14/18 06:23 06:23 WBC 9.8 RBC 3.84 L Hgb 12.4 Hct 35.7 MCV 93.0 MCH 32.4 H MCHC 34.8 RDW 14.3 Plt Count 220 MPV 9.2 Neut % (Auto) 76.6 H Lymph % (Auto) 9.5 L [place] % (Auto) 9.8 Eos % (Auto) 3.8 Baso % (Auto) 0.3 Neut # (Auto) 7.5 H Lymph # (Auto) 0.9 L [place] # (Auto) 1.0 H Eos # (Auto) 0.4 Baso # (Auto) 0.0 Neutrophils % (Manual) 80 H Lymphocytes % (Manual) 10 L Monocytes % (Manual) 8 Eosinophils % (Manual) 2 Platelet Estimate Normal RBC Morphology Normal Sodium 147 Potassium 3.8 Chloride 113 H Carbon Dioxide 28 Anion Gap 10 BUN 25 H Creatinine 0.9 Est GFR ( Amer) > 60 Est GFR (Non-Af Amer) > 60 Random Glucose 176 H Calcium 8.5 L Phosphorus 2.4 L Magnesium 1.9 Total Bilirubin 0.5 AST 26 ALT 34 Alkaline Phosphatase 59 Total Protein 5.6 L Albumin 2.8 L Globulin 2.8 Albumin/Globulin Ratio 1.0 Vitamin B12 Folate Ur Random Creatinine Ur Random Sodium Critical Care Progress Note - Nutrition Nutrition: Nutrition Category Date Time Status Pureed [Dysphagia/Modified Consistency Diet] [DIET] Diets 05/07/18 Dinner Active Assessment/Plan - Assessment and Plan (Free Text) Plan: Above patient seen and examined at bedside. Patient remain hemodynamically stable with HR near 32s. I personally called [facility] guardian. Aleksandar Smith was covering for Anabelle Austin. Thereafter, i spoke with [employer] MACHINE OPERATOR. Clarification of guardian's decision. Guardian agrees with PPM placement so that patient can be transferred to a nursing care facility. d/w cardiology team who have advsied to consult EP. Tentative date possible Thursday. Guardian advsied to call on the day of surgery (guardian has left a note on their system to approve PPM placement procedure). -Patient remains hemodynamically stable -continue to monitor - Date & Time Date: 05/14/18 Time: 15:09
--- NOTE | 2018-05-14 11:43 | CP.PCM.PN ---
Subjective - Date & Time of Evaluation Date of Evaluation: 05/14/18 Time of Evaluation: 11:30 - Subjective Subjective: I tried again calling the court appointed guardian [phone] - Norman Ahn. I left a message on phone. I wanted to discuss with guardian the patient's code status and possibly if the patient can be made hospice/pallitaive care. I had previously discussed over the phone on Thursday of this week but no decisions were made at that time. During that previous conversation I made her aware of the very slow HR as well as the severe aortic stenosis and stroke that he had. Today the patient was awake, again was nonverbal. He was able to wave hello. He was NOT able to point to the television today. Objective - Vital Signs/Intake and Output Vital Signs (last 24 hours): Temp Pulse Resp BP Pulse Ox 97.7 F 64 19 152/80 H 96 05/14/18 04:00 05/14/18 11:12 05/14/18 11:12 05/14/18 11:12 05/14/18 11:12 Intake and Output: 05/14/18 05/14/18 06:59 18:59 Intake Total 600 160 Output Total 810 125 Balance -210 35 - Medications Medications: Current Medications Albuterol Sulfate (Albuterol 0.083% Inhal Suellen (2.5 Mg/3 Ml) Ud) 2.5 mg INH RQ6 ON LICENSE OF [facility] Last Admin: 05/14/18 09:25 Dose: 2.5 mg Amlodipine Besylate (Norvasc) 5 mg PO DAILY ON LICENSE OF [facility] Last Admin: 05/14/18 10:18 Dose: 5 mg Aspirin (Ecotrin) 81 mg PO DAILY ON [facility] OF [facility] Last Admin: 05/14/18 10:18 Dose: 81 mg Atropine Sulfate (Atropine) 1 mg IVP Q3H PRN PRN Reason: Other Last Admin: 05/14/18 02:00 Dose: 1 mg Hydralazine HCl (Apresoline) 10 mg IVP Q6H PRN PRN Reason: SBP > 160 Hydralazine HCl (Apresoline) 25 mg PO TID ON LICENSE OF [facility] Last Admin: 05/14/18 10:18 Dose: 25 mg Heparin Sodium/Sodium Chloride (Heparin 04095 Units/250ml 1/2 Normal Saline) 25 ,000 units in 250 mls @ 9.58 mls/hr IV .Q24H PRN; Protocol; 12 UNITS/KG/HR PRN Reason: ADJUST RATE PER PROTOCOL Pantoprazole Sodium (Protonix Ec Tab) 40 mg PO DAILY ON LICENSE OF [facility] Last Admin: 05/14/18 10:18 Dose: 40 mg Rosuvastatin Calcium (Crestor) 10 mg PO HS ON LICENSE OF [facility] Last Admin: 05/13/18 22:11 Dose: 10 mg Saccharomyces Boulardii (Florastor) 250 mg PO Q12H ON LICENSE OF [facility] Last Admin: 05/14/18 10:18 Dose: 250 mg Tamsulosin HCl (Flomax) 0.4 mg PO DAILY ON LICENSE OF [facility] Last Admin: 05/14/18 10:18 Dose: 0.4 mg - Labs Labs: 05/14/18 06:23 05/14/18 06:23 PT 14.2 SECONDS (9.7-12.2) H 05/12/18 05:54 INR 1.3 05/12/18 05:54 APTT 67 SECONDS (21-34) H D 05/12/18 05:54 - Constitutional Appears: Unkempt, Agitated, Confused, Cachectic, Chronically Ill - Eye Exam Eye Exam: EOMI - ENT Exam ENT Exam: Mucous Membranes Moist - Respiratory Exam Respiratory Exam: Decreased Breath Sounds - Cardiovascular Exam Cardiovascular Exam: Irregular Rhythm, Murmur Additional comments: Loud systolic mumur from severe aortic stenoisi - Neurological Exam Neurological Exam: Alert, Altered, Awake. absent: Abnormal Gait, CN II-XII Intact, Normal Gait, Oriented x3 Neuro motor strength exam: Left Upper Extremity: 4, Right Upper Extremity: 4 - Psychiatric Exam Psychiatric exam: Flat Affect - Skin Skin Exam: Pallor, Pallor Assessment and Plan - Assessment and Plan (Free Text) Assessment: From Previous: " This is a frail 88 year old male with possible history of hypertension , unknown psychiatric illness and possible dementia was brought for evaluation after patient was reportedly found on the floor in his house by cleaning staff in his home. Unknown how long he was on the floor. Patient is under state guardianship.He was living alone with the help of once a week home care service.On admission patient was in atrial flutter with varing response.His lowest rate was in 30ies. Patient was asymptomatic on admission and admitted to tele. Brought to ICU for bradycardia with evidence of Atrial flutter with block.Patient will be seen by EP physician. Possible pace maker Advance directive -full code Patient has no family.He was living alone with once a week help.History of dementia,psychiatry disorder and hypertension.He was refusing medical care in the past as per his watch caser d/w patient's case resource manager. His state guardian is on vacation State guardian . " The State appointed Guardin number is [phone] - her name is Norman Ahn 1. Severe Aortic Stenosis 05/14: I called again and left a message, my thoughts are the patient should be changed to DNR. Waiting call back 05/13: Per my previous discussion with [place] Court Appointed Guardian she was inclined to not do any invasive procedures including valve replacement but that she needs to follow up with the committee she reports to. I called again today and left a message. 05/10: Echo returned, there is ALEXANDER of 0.8, also moderate to severe pulmonary HTN seen and severely dialated left atrium He remains on heparin ggt at this time. 2. Atrial flutter with block, bradycardia 05/13: Still requiring atropine from time to time. 05/11: Remains off of the dopamine, the blood pressure is stable however HR still dropping into the 30s and still getting atropine 05/10: As of this morning he is now off of the dopamine ggt. The blood pressure is stable however HR can still decrease to the 30s. He remains on the heparin ggt at this time. Pending decision if patient will need a pacer or not 3 .New CVA with aphasia /subacute stroke 05/13: Still pending the MRI to be done. - Neurology consulted on case (Dr. Kumar) - CT without contrast: subtle hypodensity in the left MCA territory ( nonspecific and may represent subacute infarct) patient is on Heparinn Continue Crestor 10mg PO HS Pending brain MRI 4 Community Acquired Pneumonia 05/10: Cultures have been negative 3 days now. He remains on IV rocephin Chest X-ray: Left lower lobe infiltrates/atelectasis 4.Ulcers secondary to being on the ground for unknown duration - Wound Care 5.Advance directives-full code Previously d/w patient's case resource manager. His state guardian is on vacation
[2018-05-14] MEDS: Heparin25000 units/250ml 1/2NS 25,000 UNITS/250 ML BAG IV PRN (12:44)
[2018-05-14] MEDS ORDERED: Albuterol Sulfate 2 mg/5 ml Cup PO ONE (13:15)
[2018-05-15] MEDS: Albuterol 0.083% Inhal Sol (2.5 mg/3 mL) UD INH SCH ×4 (01:04→20:06)
[2018-05-15 03:38] LABS: SQUAMOUS EPITHIAL < 1 /hpf (0-5); URINE BACTERIA OCC (<OCC); URINE BILIRUBIN NEGATIVE (NEGATIVE); URINE BLOOD 2+ (NEGATIVE); URINE CLARITY Hazy (Clear); URINE COLOR Yellow (YELLOW); URINE GLUCOSE (UA) NORMAL (Normal); URINE LEUKOCYTE ESTERASE TRACE Leu/uL (Negative); URINE PROTEIN 1+ mg/dL (NEGATIVE); URINE UROBILINOGEN NORMAL mg/dL (0.2-1.0)
[2018-05-15 06:21] LABS: BASO # 0.1 K/uL (0.0-0.2); BASO % 0.7 % (0.0-2.0); EOS # 0.4 K/uL (0.0-0.7); LYMPH # 1.1 K/uL (1.0-4.3); LYMPH % 11.3 % (20.0-40.0); MEAN CELL VOLUME 93.1 fL (80.0-94.0); MEAN CORPUSCULAR HEMOGLOBIN 32.6 pg (27.0-31.0); MEAN PLATELET VOLUME 9.1 fL (7.2-11.7); MONO # 0.9 K/uL (0.0-0.8); MONO % 9.1 % (0.0-10.0); NEUT # 7.1 K/uL (1.8-7.0); NEUT % 74.9 % (50.0-75.0); NRBC % 0.1 % (0.0-2.0); RBC 3.67 Mil/uL (4.40-5.90); RED CELL DISTRIBUTION WIDTH 14.5 % (11.5-14.5); WHITE BLOOD COUNT 9.5 K/uL (4.8-10.8)
[2018-05-15 06:52] LABS: ALB/GLOB RATIO 0.8 (1.0-2.1); ALBUMIN 2.4 g/dL (3.5-5.0); ALT/SGPT 36 U/L (21-72); AST/SGOT 34 U/L (17-59); BLOOD UREA NITROGEN 21 mg/dL (9-20); CALCIUM 7.5 mg/dl (8.6-10.4); GFR NON-AFRICAN AMERICAN > 60
[2018-05-15] MEDS ORDERED: Potassium Chloride 20 mEq/15 ml LIQ UD PO ONE (09:30)
--- NOTE | 2018-05-15 09:30 | CP.PCM.PN ---
Subjective - Date & Time of Evaluation Date of Evaluation: 05/15/18 Time of Evaluation: 09:27 - Subjective Subjective: Patient has no specific complaints. HR nears 30s at night Objective - Vital Signs/Intake and Output Vital Signs (last 24 hours): Temp Pulse Resp BP Pulse Ox 98.1 F 38 L 14 117/45 L 97 05/15/18 04:00 05/15/18 07:00 05/15/18 07:00 05/15/18 06:10 05/15/18 07:00 Intake and Output: 05/15/18 05/15/18 06:59 18:59 Intake Total 235.2 9.6 Output Total 0 Balance 235.2 9.6 - Medications Medications: Current Medications Albuterol Sulfate (Albuterol 0.083% Inhal Suellen (2.5 Mg/3 Ml) Ud) 2.5 mg INH RQ6 [facility] Last Admin: 05/15/18 08:01 Dose: 2.5 mg Amlodipine Besylate (Norvasc) 5 mg PO DAILY [facility] Last Admin: 05/14/18 10:18 Dose: 5 mg Aspirin (Ecotrin) 81 mg PO DAILY [facility] Last Admin: 05/14/18 10:18 Dose: 81 mg Atropine Sulfate (Atropine) 1 mg IVP Q3H PRN PRN Reason: Other Last Admin: 05/14/18 02:00 Dose: 1 mg Hydralazine HCl (Apresoline) 10 mg IVP Q6H PRN PRN Reason: SBP > 160 Hydralazine HCl (Apresoline) 25 mg PO TID [facility] Last Admin: 05/14/18 17:34 Dose: 25 mg Heparin Sodium/Sodium Chloride (Heparin 64485 Units/250ml 1/2 Normal Saline) 25 ,000 units in 250 mls @ 9.58 mls/hr IV .Q24H PRN; Protocol; 12 UNITS/KG/HR PRN Reason: ADJUST RATE PER PROTOCOL Last Admin: 05/14/18 12:44 Dose: 12 units/kg/hr, 9.58 mls/hr Pantoprazole Sodium (Protonix Ec Tab) 40 mg PO DAILY [facility] Last Admin: 05/14/18 10:18 Dose: 40 mg Potassium Chloride (Potassium Chloride Oral Soln) 40 meq PO ONCE ONE Stop: 05/15/18 09:31 Rosuvastatin Calcium (Crestor) 10 mg PO HS [facility] Last Admin: 05/14/18 22:47 Dose: 10 mg Saccharomyces Boulardii (Florastor) 250 mg PO Q12H [facility] Last Admin: 05/14/18 22:46 Dose: 250 mg Tamsulosin HCl (Flomax) 0.4 mg PO DAILY [facility] Last Admin: 05/14/18 10:18 Dose: 0.4 mg - Labs Labs: 05/15/18 06:14 05/15/18 06:14 PT 14.2 SECONDS (9.7-12.2) H 05/12/18 05:54 INR 1.3 05/12/18 05:54 APTT 66 SECONDS (21-34) H 05/15/18 06:14 - Head Exam Head Exam: ATRAUMATIC, NORMAL INSPECTION, NORMOCEPHALIC - Neck Exam Neck Exam: Normal Inspection - Cardiovascular Exam Cardiovascular Exam: Bradycardia, +S1, +S2, Murmur - GI/Abdominal Exam GI & Abdominal Exam: Normal Bowel Sounds - Extremities Exam Extremities Exam: Normal Capillary Refill, Normal Inspection - Neurological Exam Neurological Exam: Alert, Awake - Skin Skin Exam: Normal Color Assessment and Plan - Assessment and Plan (Free Text) Assessment: 88 year old male with history of possible dementia and unspecified psychiatric illness who presented for evaluation after he was found altered at home. Patient is reportedly under state guardianship. Patient admitted to ICU for severe bradycardia HR near 30s -bradycardia: eps segun hines -dementia: stable, at baseline -A-flutter: rate wayne, continue AC, monitor for bleeding -continue all other treatement. -PT/OT -continue dvt/pud ppx -continue to [facility]
[2018-05-15] MEDS: Pantoprazole 40 mg EC Tab PO SCH (10:15)
[2018-05-15] MEDS: Saccharomyces Boulardi 250 mg Cap PO SCH ×2 (10:16→20:40)
--- NOTE | 2018-05-15 10:47 | CP.PCM.PN ---
Subjective - Date & Time of Evaluation Date of Evaluation: 05/15/18 Time of Evaluation: 10:30 - Subjective Subjective: There is a substituting guardian for patient who the ICU team was able to reach and the plan is to get a pacer for the patient. The patient this morning was awake, he was not in distress. Today the most he was able to do was point at the TV and door as well as wave hello when I came into room. Overnight his HR still decreases into the 30s. When he is awake it is in the 40s to 50s and remains in slow atrial fib. Objective - Vital Signs/Intake and Output Vital Signs (last 24 hours): Temp Pulse Resp BP Pulse Ox 98.1 F 38 L 14 117/45 L 97 05/15/18 04:00 05/15/18 07:00 05/15/18 07:00 05/15/18 06:10 05/15/18 07:00 Intake and Output: 05/15/18 05/15/18 06:59 18:59 Intake Total 235.2 9.6 Output Total 0 Balance 235.2 9.6 - Medications Medications: Current Medications Albuterol Sulfate (Albuterol 0.083% Inhal Suellen (2.5 Mg/3 Ml) Ud) 2.5 mg INH RQ6 [facility] Last Admin: 05/15/18 08:01 Dose: 2.5 mg Amlodipine Besylate (Norvasc) 5 mg PO DAILY [facility] Last Admin: 05/15/18 10:16 Dose: 5 mg Aspirin (Ecotrin) 81 mg PO DAILY [facility] Last Admin: 05/15/18 10:15 Dose: 81 mg Atropine Sulfate (Atropine) 1 mg IVP Q3H PRN PRN Reason: Other Last Admin: 05/14/18 02:00 Dose: 1 mg Hydralazine HCl (Apresoline) 10 mg IVP Q6H PRN PRN Reason: SBP > 160 Hydralazine HCl (Apresoline) 25 mg PO TID [facility] Last Admin: 05/15/18 10:15 Dose: 25 mg Heparin Sodium/Sodium Chloride (Heparin 26522 Units/250ml 1/2 Normal Saline) 25 ,000 units in 250 mls @ 9.58 mls/hr IV .Q24H PRN; Protocol; 12 UNITS/KG/HR PRN Reason: ADJUST RATE PER PROTOCOL Last Admin: 05/14/18 12:44 Dose: 12 units/kg/hr, 9.58 mls/hr Ceftriaxone Sodium 1 gm/ (Sodium Chloride) 100 mls @ 100 mls/hr IVPB Q24H [facility] PRN Reason: Protocol Stop: 05/17/18 11:29 Pantoprazole Sodium (Protonix Ec Tab) 40 mg PO DAILY [facility] Last Admin: 05/15/18 10:15 Dose: 40 mg Rosuvastatin Calcium (Crestor) 10 mg PO HS [facility] Last Admin: 05/14/18 22:47 Dose: 10 mg Saccharomyces Boulardii (Florastor) 250 mg PO Q12H [facility] Last Admin: 05/15/18 10:16 Dose: 250 mg Tamsulosin HCl (Flomax) 0.4 mg PO DAILY [facility] Last Admin: 05/15/18 10:16 Dose: 0.4 mg Terazosin HCl (Hytrin) 1 mg PO [facility] - Labs Labs: 05/15/18 06:14 05/15/18 06:14 PT 14.2 SECONDS (9.7-12.2) H 05/12/18 05:54 INR 1.3 05/12/18 05:54 APTT 66 SECONDS (21-34) H 05/15/18 06:14 - Constitutional Appears: Unkempt, Confused, Cachectic, Chronically Ill - Head Exam Head Exam: NORMAL INSPECTION - Eye Exam Eye Exam: EOMI, Normal appearance - ENT Exam ENT Exam: Mucous Membranes Moist - Respiratory Exam Respiratory Exam: Clear to Ausculation Bilateral, NORMAL BREATHING PATTERN - Cardiovascular Exam Cardiovascular Exam: Irregular Rhythm, Murmur Additional comments: As mentioned before systolic mumur from aortic stenosis - Neurological Exam Neurological Exam: Alert, Altered, Awake. absent: Oriented x3 Neuro motor strength exam: Left Upper Extremity: 4, Right Upper Extremity: 4 - Psychiatric Exam Psychiatric exam: Depressed, Flat Affect - Skin Skin Exam: Normal Color, Warm Assessment and Plan - Assessment and Plan (Free Text) Assessment: From Previous: " This is a frail 88 year old male with possible history of hypertension , unknown psychiatric illness and possible dementia was brought for evaluation after patient was reportedly found on the floor in his house by cleaning staff in his home. Unknown how long he was on the floor. Patient is under state guardianship.He was living alone with the help of once a week home care service.On admission patient was in atrial flutter with varing response.His lowest rate was in 30ies. Patient was asymptomatic on admission and admitted to tele. Brought to ICU for bradycardia with evidence of Atrial flutter with block.Patient will be seen by EP physician. Possible pace maker Advance directive -full code Patient has no family.He was living alone with once a week help.History of dementia,psychiatry disorder and hypertension.He was refusing medical care in the past as per his nurse case manager d/w patient's assistant case manager. His state guardian is on vacation [facility] guardian . " The State appointed Guardin number is [phone] - her name is Norman Ahn 1. Atrialfibrillation / flutter with block, bradycardia often in the 30s 05/15: Pending EP cardiology evaluation. HR remains in atrial fibrillation, remains on heparin ggt. 05/13: Still requiring atropine from time to time. 05/11: Remains off of the dopamine, the blood pressure is stable however HR still dropping into the 30s and still getting atropine 05/10: As of this morning he is now off of the dopamine ggt. The blood pressure is stable however HR can still decrease to the 30s. He remains on the heparin ggt at this time. Pending decision if patient will need a pacer or not 1. Severe Aortic Stenosis 05/14: I called again and left a message, my thoughts are the patient should be changed to DNR. Waiting call back 05/13: Per my previous discussion with [place] Court Appointed Guardian she was inclined to not do any invasive procedures including valve replacement but that she needs to follow up with the committee she reports to. I called again today and left a message. 05/10: Echo returned, there is ALEXANDER of 0.8, also moderate to severe pulmonary HTN seen and severely dialated left atrium He remains on heparin ggt at this time. 3 .New CVA with aphasia /subacute stroke - Neurology consulted on case (Dr. Kumar) - CT without contrast: subtle hypodensity in the left MCA territory ( nonspecific and may represent subacute infarct) patient is on Heparinn Continue Crestor 10mg PO HS Pending brain MRI 4 Community Acquired Pneumonia 05/10: Cultures have been negative 3 days now. He remains on IV rocephin Chest X-ray: Left lower lobe infiltrates/atelectasis 4.Ulcers secondary to being on the ground for unknown duration - Wound Care 5.Advance directives-full code Previously d/w patient's assistant case manager. His state guardian is on vacation
[2018-05-15] MEDS: Sodium Chloride 0.45% 1,000 ML IV SCH (12:40)
[2018-05-15] MEDS: Heparin25000 units/250ml 1/2NS 25,000 UNITS/250 ML BAG IV PRN (12:53)
[2018-05-15] MEDS ORDERED: Enalaprilat 2.5 MG/2 ML IV ONE (23:00)
[2018-05-16] MEDS: Sodium Chloride 0.45% 1,000 ML IV SCH ×4 (01:05→21:54)
[2018-05-16] MEDS: Albuterol 0.083% Inhal Sol (2.5 mg/3 mL) UD INH SCH ×4 (02:31→19:58)
--- NOTE | 2018-05-16 06:33 | CP.CCUPN ---
CCU Subjective - Physician Review Subjective (Free Text): 05/09/18 14:57 Patient seen and examined at bedside. Awake and alert, but remains non-verbal ( comprehension intact, but unable to verbalize). Able to nod/shake head yes/no to most questions appropriately. Mitts remain due to intermittent pulling and agitation. As per nursing overnight, became more confused overnight, no longer understood that he was at [facility]. Got Atropine IV x1 overnight for low HR, increased briefly to 70's, then returned to 40's-50's, and has remained since. IVF was discontinued but SBP remains elevated at 160's-180's. CCU Objective - Vital Signs / Intake & Output Vital Signs (Last 4 hours): Vital Signs Pulse Resp BP Pulse Ox 05/16/18 06:10 39 L 19 148/89 05/16/18 05:10 46 L 18 128/56 L 97 05/16/18 04:10 133/48 L 05/16/18 04:00 48 L 14 133/48 L 98 05/16/18 03:10 40 L 14 110/43 L 97 05/16/18 03:00 45 L 13 97 Intake and Output (Last 8hrs): Intake & Output 05/15/18 05/15/18 05/16/18 14:59 22:59 06:59 Intake Total 801.8 1061.8 896.8 Output Total 230 320 395 Balance 571.8 741.8 501.8 Weight 68.972 kg Intake: IV 250 Intake, IV Amount 351.8 751.8 676.8 Left Forearm 76.8 76.8 76.8 Right Proximal Port Upper 275 675 600 arm Oral 200 310 220 Output: Urine 230 320 395 Urethral (Joshi) 230 320 395 Emesis 0 0 0 Other: # Voids Urine, Voided 0 # Bowel Movements 0 0 0 - Physical Exam Head: Positive for: Atraumatic, Normocephalic Pupils: Negative for: Non-Reactive, Pinpoint Extroacular Muscles: Positive for: EOMI Conjunctiva: Positive for: Normal. Negative for: Injected, Icteric Mouth: Positive for: Moist Mucous Membranes, Normal Lips. Negative for: Dry, Drooling Nose (External): Positive for: Atraumatic. Negative for: Abrasion, Contusion, Laceration Nose (Internal): Positive for: No Active Bleeding. Negative for: Epistaxis Neck: Positive for: Normal Range of Motion, Trachea Midline. Negative for: JVD Respiratory/Chest: Positive for: Clear to Auscultation, Good Air Exchange. Negative for: Respiratory Distress, Accessory Muscle Use, Wheezes, Decreased Breath Sounds, Rales, Rhonchi Cardiovascular: Positive for: Murmurs (holosystolic murmur ), Normal S1, S2, Peripheal Pulses Present (+1 dorsalis pedis), Bradycardic (Currently in 60s. ). Negative for: Irregular Rhythm, Tachycardic Abdomen: Positive for: Normal Bowel Sounds. Negative for: Tenderness, Distention, Guarding Upper Extremity: Positive for: Normal Inspection, Normal ROM, NORMAL PULSES ( Radial pulses present). Negative for: Cyanosis, Edema, Tenderness, Swelling, Erythema Lower Extremity: Positive for: NORMAL PULSES, Normal ROM, Other (bandaged ulcers on right lateral thigh. Ulcer on right lateral knee. ). Negative for: Edema, CALF TENDERNESS, Cyanosis, Tenderness, Swelling, Erythema Neurological: Positive for: Motor Func Grossly Intact, Other (awake and alert, following some commands, can nod/shake his head to some yes/no questions). Negative for: Speech Normal (non-verbal, comprehension of speech intact but unable to verbalize any words) Skin: Positive for: Warm, Dry, Normal Color. Negative for: Rashes Psychiatric: Positive for: Alert, Other (awake and alert, able to nod/shake head appropriately to most yes/no questions. Does not appear anxious/agitated) - Medications Active Medications: Active Medications Generic Name Dose Route Start Last Admin Trade Name Freq PRN Reason Stop Dose Admin Albuterol Sulfate 2.5 mg 05/14/18 09:00 05/16/18 02:31 Albuterol 0.083% Inhal Suellen (2.5 Mg/3 Ml) Ud INH Not Given RQ6 [facility] Amlodipine Besylate 5 mg 05/14/18 10:00 05/15/18 10:16 Norvasc PO 5 mg DAILY [facility] Administration Aspirin 81 mg 05/13/18 10:00 05/15/18 10:15 Ecotrin PO 81 mg DAILY [facility] Administration Atropine Sulfate 1 mg 05/07/18 19:43 05/16/18 02:15 Atropine IVP 1 mg Q3H PRN Administration Other Hydralazine HCl 10 mg 05/09/18 15:22 Apresoline IVP Q6H PRN SBP > 160 Hydralazine HCl 25 mg 05/13/18 10:00 05/15/18 17:33 Apresoline PO 25 mg TID [facility] Administration Heparin Sodium/Sodium Chloride 25,000 units in 250 mls @ 9.58 mls/hr 05/14/18 11:27 05/15/18 12:53 Heparin 34130 Units/250ml 1/2 Normal Saline IV 12 units/kg/hr .Q24H PRN 9.58 mls/hr ADJUST RATE PER PROTOCOL Administration Protocol 12 UNITS/KG/HR Ceftriaxone Sodium 1 gm/ 100 mls @ 100 mls/hr 05/15/18 10:30 05/15/18 11:30 Sodium Chloride IVPB 05/17/18 11:29 100 mls/hr Q24H [facility] Administration Protocol Sodium Chloride 1,000 mls @ 75 mls/hr 05/15/18 11:45 05/16/18 01:05 Sodium Chloride 0.45% IV Not Given .[id number] [facility] Pantoprazole Sodium 40 mg 05/07/18 10:00 05/15/18 10:15 Protonix Ec Tab PO 40 mg DAILY [facility] Administration Rosuvastatin Calcium 10 mg 05/06/18 22:00 05/15/18 22:08 Crestor PO 10 mg HS [facility] Administration Saccharomyces Boulardii 250 mg 05/06/18 20:00 05/15/18 20:40 Florastor PO 250 mg Q12H [facility] Administration Tamsulosin HCl 0.4 mg 05/14/18 10:00 05/15/18 10:16 Flomax PO 0.4 mg DAILY [facility] Administration Terazosin HCl 1 mg 05/15/18 22:00 05/15/18 22:08 Hytrin PO 1 mg HS [facility] Administration - Patient Studies Lab Studies: Lab Studies 05/15/18 Range/Units 06:14 Sodium 148 (132-148) mmol/L Potassium 3.4 L (3.6-5.2) mmol/L Chloride 117 H (98-107) mmol/L Carbon Dioxide 23 (22-30) mmol/L Anion Gap 12 (10-20) BUN 21 H (9-20) mg/dL Creatinine 0.8 (0.8-1.5) mg/dL Est GFR ( Amer) > 60 Est GFR (Non-Af Amer) > 60 Random Glucose 120 H (75-110) mg/dL Calcium 7.5 L (8.6-10.4) mg/dl Phosphorus 2.9 (2.5-4.5) mg/dL Magnesium 1.7 (1.6-2.3) mg/dL Total Bilirubin 0.6 (0.2-1.3) mg/dL AST 34 (17-59) U/L ALT 36 (21-72) U/L Alkaline Phosphatase 40 (38-126) U/L Total Protein 5.3 L (6.3-8.3) g/dL Albumin 2.4 L (3.5-5.0) g/dL Globulin 2.9 (2.2-3.9) gm/dL Albumin/Globulin Ratio 0.8 L (1.0-2.1) Laboratory Results - last 24 hr 05/15/18 06:14 Sodium 148 Potassium 3.4 L Chloride 117 H Carbon Dioxide 23 Anion Gap 12 BUN 21 H Creatinine 0.8 Est GFR ( Amer) > 60 Est GFR (Non-Af Amer) > 60 Random Glucose 120 H Calcium 7.5 L Phosphorus 2.9 Magnesium 1.7 Total Bilirubin 0.6 AST 34 ALT 36 Alkaline Phosphatase 40 Total Protein 5.3 L Albumin 2.4 L Globulin 2.9 Albumin/Globulin Ratio 0.8 L Fingerstick Blood Sugar Results: 119 Critical Care Progress Note - Nutrition Nutrition: Nutrition Category Date Time Status Pureed [Dysphagia/Modified Consistency Diet] [DIET] Diets 05/07/18 Dinner Active
[2018-05-16 06:57] LABS: ALB/GLOB RATIO 0.9 (1.0-2.1); ALBUMIN 2.7 g/dL (3.5-5.0); ALT/SGPT 39 U/L (21-72); AST/SGOT 36 U/L (17-59); BLOOD UREA NITROGEN 19 mg/dL (9-20); CALCIUM 8.2 mg/dl (8.6-10.4); GFR NON-AFRICAN AMERICAN > 60
[2018-05-16 07:07] LABS: EOS # 0.4 K/uL (0.0-0.7); HEMOGLOBIN 11.9 g/dL (12.0-18.0); LYMPH # 1.1 K/uL (1.0-4.3); LYMPH % 13.3 % (20.0-40.0)
[2018-05-16 07:12] LABS: BASO % 0.5 % (0.0-2.0); EOS % 4.8 % (0.0-4.0); MEAN CELL VOLUME 93.6 fL (80.0-94.0); MEAN CORPUSCULAR HEMOGLOBIN 31.7 pg (27.0-31.0); MEAN CORPUSCULAR HGB CONC 33.9 g/dL (33.0-37.0); MEAN PLATELET VOLUME 9.6 fL (7.2-11.7); MONO # 0.8 K/uL (0.0-0.8); NEUT # 6.1 K/uL (1.8-7.0); NEUT % 72.4 % (50.0-75.0); RBC 3.74 Mil/uL (4.40-5.90); RED CELL DISTRIBUTION WIDTH 14.2 % (11.5-14.5); WHITE BLOOD COUNT 8.4 K/uL (4.8-10.8)
[2018-05-16] MEDS: Saccharomyces Boulardi 250 mg Cap PO SCH ×2 (09:14→20:14)
[2018-05-16] MEDS: Pantoprazole 40 mg EC Tab PO SCH (09:14)
--- NOTE | 2018-05-16 10:18 | CP.PCM.PN ---
Subjective - Date & Time of Evaluation Date of Evaluation: 05/16/18 Time of Evaluation: 10:15 - Subjective Subjective: Patient awake, alert, eating. Objective - Vital Signs/Intake and Output Vital Signs (last 24 hours): Temp Pulse Resp BP Pulse Ox 98.2 F 46 L 14 126/46 L 98 05/16/18 08:00 05/16/18 09:10 05/16/18 09:10 05/16/18 09:10 05/16/18 09:10 Intake and Output: 05/16/18 05/16/18 06:59 18:59 Intake Total 1435.2 493.8 Output Total 580 105 Balance 855.2 388.8 - Medications Medications: Current Medications Albuterol Sulfate (Albuterol 0.083% Inhal Suellen (2.5 Mg/3 Ml) Ud) 2.5 mg INH RQ6 [facility] Last Admin: 05/16/18 08:18 Dose: 2.5 mg Amlodipine Besylate (Norvasc) 5 mg PO DAILY [facility] Last Admin: 05/16/18 09:14 Dose: 5 mg Aspirin (Ecotrin) 81 mg PO DAILY [facility] Last Admin: 05/16/18 09:14 Dose: 81 mg Atropine Sulfate (Atropine) 1 mg IVP Q3H PRN PRN Reason: Other Last Admin: 05/16/18 08:28 Dose: 1 mg Hydralazine HCl (Apresoline) 10 mg IVP Q6H PRN PRN Reason: SBP > 160 Hydralazine HCl (Apresoline) 25 mg PO TID [facility] Last Admin: 05/16/18 09:14 Dose: 25 mg Heparin Sodium/Sodium Chloride (Heparin 48225 Units/250ml 1/2 Normal Saline) 25 ,000 units in 250 mls @ 9.58 mls/hr IV .Q24H PRN; Protocol; 12 UNITS/KG/HR PRN Reason: ADJUST RATE PER PROTOCOL Last Admin: 05/15/18 12:53 Dose: 12 units/kg/hr, 9.58 mls/hr Ceftriaxone Sodium 1 gm/ (Sodium Chloride) 100 mls @ 100 mls/hr IVPB Q24H [facility] PRN Reason: Protocol Stop: 05/17/18 11:29 Last Admin: 05/15/18 11:30 Dose: 100 mls/hr Sodium Chloride (Sodium Chloride 0.45%) 1,000 mls @ 75 mls/hr IV .[id number] [facility] Last Admin: 05/16/18 06:37 Dose: 75 mls/hr Pantoprazole Sodium (Protonix Ec Tab) 40 mg PO DAILY [facility] Last Admin: 05/16/18 09:14 Dose: 40 mg Rosuvastatin Calcium (Crestor) 10 mg PO HS [facility] Last Admin: 05/15/18 22:08 Dose: 10 mg Saccharomyces Boulardii (Florastor) 250 mg PO Q12H [facility] Last Admin: 05/16/18 09:14 Dose: 250 mg Tamsulosin HCl (Flomax) 0.4 mg PO DAILY [facility] Last Admin: 05/16/18 09:14 Dose: 0.4 mg Terazosin HCl (Hytrin) 1 mg PO HS [facility] Last Admin: 05/15/18 22:08 Dose: 1 mg - Labs Labs: 05/16/18 06:30 05/16/18 06:30 PT 14.2 SECONDS (9.7-12.2) H 05/12/18 05:54 INR 1.3 05/12/18 05:54 APTT 59 SECONDS (21-34) H D 05/16/18 06:30 - Head Exam Head Exam: ATRAUMATIC, NORMAL INSPECTION, NORMOCEPHALIC - Eye Exam Eye Exam: Normal appearance - Respiratory Exam Respiratory Exam: Clear to Ausculation Bilateral, NORMAL BREATHING PATTERN - Cardiovascular Exam Cardiovascular Exam: +S1, +S2 - GI/Abdominal Exam GI & Abdominal Exam: Soft - Extremities Exam Extremities Exam: Normal Inspection Assessment and Plan - Assessment and Plan (Free Text) Assessment: 88 year old male with history of possible dementia and unspecified psychiatric illness who presented for evaluation after he was found altered at home. Patient is reportedly under state guardianship. Patient admitted to ICU for severe bradycardia HR near 30s -bradycardia: eps, possible PPM tomorrow, NPO post midnight -hold heparin at 4AM -dementia: stable, at baseline -A-flutter: rate wayne, continue AC, monitor for bleeding -continue all other treatment. -PT/OT -continue dvt/pud ppx -patient remains hemodynamicall stable.
[2018-05-16] MEDS: Heparin25000 units/250ml 1/2NS 25,000 UNITS/250 ML BAG IV PRN (17:18)
[2018-05-17] MEDS: Albuterol 0.083% Inhal Sol (2.5 mg/3 mL) UD INH SCH ×4 (01:29→19:06)
[2018-05-17] MEDS: Sodium Chloride 0.45% 1,000 ML IV SCH ×3 (03:45→15:00)
[2018-05-17 06:31] LABS: BASO # 0.1 K/uL (0.0-0.2); BASO % 0.7 % (0.0-2.0); EOS # 0.3 K/uL (0.0-0.7); EOS % 4.2 % (0.0-4.0); HEMOGLOBIN 11.9 g/dL (12.0-18.0); LYMPH # 1.2 K/uL (1.0-4.3); LYMPH % 14.8 % (20.0-40.0); MEAN CELL VOLUME 92.7 fL (80.0-94.0); MEAN CORPUSCULAR HEMOGLOBIN 32.5 pg (27.0-31.0); MEAN CORPUSCULAR HGB CONC 35.1 g/dL (33.0-37.0); MEAN PLATELET VOLUME 9.9 fL (7.2-11.7); MONO # 0.7 K/uL (0.0-0.8); MONO % 8.7 % (0.0-10.0); NEUT # 5.9 K/uL (1.8-7.0); NEUT % 71.6 % (50.0-75.0); RBC 3.68 Mil/uL (4.40-5.90); RED CELL DISTRIBUTION WIDTH 14.3 % (11.5-14.5); WHITE BLOOD COUNT 8.3 K/uL (4.8-10.8)
[2018-05-17 06:46] LABS: ALB/GLOB RATIO 0.9 (1.0-2.1); ALBUMIN 2.6 g/dL (3.5-5.0); ALT/SGPT 38 U/L (21-72); AST/SGOT 29 U/L (17-59); BLOOD UREA NITROGEN 16 mg/dL (9-20); CALCIUM 8.1 mg/dl (8.6-10.4); GFR NON-AFRICAN AMERICAN > 60
[2018-05-17] MEDS: Saccharomyces Boulardi 250 mg Cap PO SCH ×2 (08:14→20:59)
[2018-05-17] MEDS: Pantoprazole 40 mg EC Tab PO SCH (09:14)
--- NOTE | 2018-05-17 09:45 | CP.PCM.PN ---
Subjective - Date & Time of Evaluation Date of Evaluation: 05/17/18 Time of Evaluation: 09:42 - Subjective Subjective: Seen and examined by me. patient is lying on bed comfortable. Denies pain, nonverbal,alert and responsive He is bradycardic 37,BP 139/99 Heparin on hold for possible pace maker place Objective - Vital Signs/Intake and Output Vital Signs (last 24 hours): Temp Pulse Resp BP Pulse Ox 97.8 F 46 L 19 134/99 H 96 05/17/18 08:00 05/17/18 09:00 05/17/18 09:00 05/17/18 08:27 05/17/18 09:00 Intake and Output: 05/17/18 05/17/18 06:59 18:59 Intake Total 1191.4 150 Output Total 425 30 Balance 766.4 120 - Medications Medications: Current Medications Albuterol Sulfate (Albuterol 0.083% Inhal Suellen (2.5 Mg/3 Ml) Ud) 2.5 mg INH RQ6 [facility] Last Admin: 05/17/18 07:42 Dose: 2.5 mg Amlodipine Besylate (Norvasc) 5 mg PO DAILY [facility] Last Admin: 05/17/18 09:13 Dose: 5 mg Aspirin (Ecotrin) 81 mg PO DAILY [facility] Last Admin: 05/17/18 09:13 Dose: 81 mg Atropine Sulfate (Atropine) 1 mg IVP Q3H PRN PRN Reason: Other Last Admin: 05/16/18 16:33 Dose: 1 mg Bisacodyl (Dulcolax) 10 mg [place] HS PRN PRN Reason: Constipation Docusate Sodium (Colace) 100 mg PO TID [facility] Last Admin: 05/17/18 09:14 Dose: 100 mg Hydralazine HCl (Apresoline) 10 mg IVP Q6H PRN PRN Reason: SBP > 160 Hydralazine HCl (Apresoline) 25 mg PO TID [facility] Last Admin: 05/17/18 09:13 Dose: 25 mg Heparin Sodium/Sodium Chloride (Heparin 71773 Units/250ml 1/2 Normal Saline) 25 ,000 units in 250 mls @ 9.58 mls/hr IV .Q24H PRN; Protocol; 12 UNITS/KG/HR PRN Reason: ADJUST RATE PER PROTOCOL Last Titration: 05/17/18 04:00 Dose: 0 units/kg/hr, 0 mls/hr Ceftriaxone Sodium 1 gm/ (Sodium Chloride) 100 mls @ 100 mls/hr IVPB Q24H [facility] PRN Reason: Protocol Stop: 05/17/18 11:29 Last Admin: 05/16/18 10:44 Dose: 100 mls/hr Sodium Chloride (Sodium Chloride 0.45%) 1,000 mls @ 75 mls/hr IV .[id number] [facility] Last Admin: 05/17/18 03:45 Dose: Not Given Pantoprazole Sodium (Protonix Ec Tab) 40 mg PO DAILY [facility] Last Admin: 05/17/18 09:14 Dose: 40 mg Rosuvastatin Calcium (Crestor) 10 mg PO HS [facility] Last Admin: 05/16/18 21:06 Dose: 10 mg Saccharomyces Boulardii (Florastor) 250 mg PO Q12H [facility] Last Admin: 05/17/18 08:14 Dose: 250 mg Sennosides (Senokot Tab) 8.6 mg PO DAILY [facility] Last Admin: 05/17/18 09:14 Dose: 8.6 mg Tamsulosin HCl (Flomax) 0.4 mg PO DAILY [facility] Last Admin: 05/17/18 09:14 Dose: 0.4 mg Terazosin HCl (Hytrin) 1 mg PO HS [facility] Last Admin: 05/16/18 21:55 Dose: 1 mg - Labs Labs: 05/17/18 06:19 05/17/18 06:16 PT 14.2 SECONDS (9.7-12.2) H 05/12/18 05:54 INR 1.3 05/12/18 05:54 APTT 72 SECONDS (21-34) H D 05/17/18 06:19 - Constitutional Appears: Non-toxic, No Acute Distress - Head Exam Head Exam: NORMAL INSPECTION - Eye Exam Eye Exam: Normal appearance - ENT Exam ENT Exam: Mucous Membranes Moist - Neck Exam Neck Exam: Full ROM, Normal Inspection - Respiratory Exam Respiratory Exam: Clear to Ausculation Bilateral, NORMAL BREATHING PATTERN - Cardiovascular Exam Cardiovascular Exam: Bradycardia, Irregular Rhythm, Murmur - GI/Abdominal Exam GI & Abdominal Exam: Soft, Normal Bowel Sounds - Extremities Exam Extremities Exam: Full ROM - Back Exam Back Exam: NORMAL INSPECTION - Neurological Exam Neurological Exam: Awake. absent: Oriented x3 (nonverbal) - Psychiatric Exam Psychiatric exam: Normal Mood - Skin Skin Exam: Abrasion (right shoulder), Dry, Normal Color Assessment and Plan - Assessment and Plan (Free Text) Assessment: This is a frail 88 year old male with possible history of hypertension ,unknown psychiatric illness and possible dementia was brought for evaluation after patient was reportedly found on the floor in his house by cleaning staff in his home. Unknown how long he was on the floor. Patient is under state guardianship.He was living alone with the help of once a week home care service.On admission patient was in atrial flutter with varing response.His lowest rate was in 30ies. Patient was asymptomatic on admission and admitted to tele. Brought to ICU for bradycardia with evidence of Atrial flutter with block.Patient will be seen by EP physician. Possible pace maker Advance directive -full code Patient has no family.He was living alone with once a week help.History of dementia,psychiatry disorder and hypertension.He was refusing medical care in the past as per his community case manager d/w patient's outpatient case manager. His state guardian is on vacation State guardian . The State appointed Guardin number is [phone] - her name is Norman Ahn 1 Plan: 1.Atrialfibrillation / flutter with block, bradycardia often in the 30s Patient is bradycardic with HR in 30ies Spoke to DR Rj Whalen th morning. He will see the patient .Not decided about pace maker placement we will continue heparin Patient's covering Guardian was contacted for PPM consent.Agreed for PPM The State appointed Guardin number is [phone] - her name is Norman Ahn HR remains in atrial fibrillation, remains on heparin ggt. On atropine as needed 2. Severe Aortic Stenosis 05/10: Echo returned, there is ALEXANDER of 0.8, also moderate to severe pulmonary HTN seen and severely dialated left atrium He remains on heparin ggt at this time. 3 .New CVA with aphasia /subacute stroke - Neurology consulted on case (Dr. Kumar) - CT without contrast: subtle hypodensity in the left MCA territory ( nonspecific and may represent subacute infarct) patient is on Heparinn Continue Crestor 10mg PO HS Pending brain MRI 4 Community Acquired Pneumonia 05/10: Cultures have been negative 3 days now. He remains on IV rocephin/ completing today Chest X-ray: Left lower lobe infiltrates/atelectasis 5.Ulcers secondary to being on the ground for unknown duration - Wound Care 6.Advance directives-full code Previously d/w patient's outpatient case manager. His state guardian is on vacation
--- NOTE | 2018-05-17 10:58 | CP.CCUPN ---
CCU Subjective - Physician Review Subjective (Free Text): ICU progress note Patient seen and examined at bedside. Patient is attempting to speak currently. As per nurse, patient is able to say a few words like milk. State guardian Anabelle Austin ) makes decisions for him. 05/17/18 12:30 CCU Objective - Vital Signs / Intake & Output Vital Signs (Last 4 hours): Vital Signs Temp Pulse Resp BP Pulse Ox 05/17/18 10:31 119 H 19 127/71 05/17/18 10:27 71 14 96 05/17/18 09:28 39 L 18 143/101 H 96 05/17/18 09:00 46 L 19 96 05/17/18 08:27 45 L 19 134/99 H 97 05/17/18 08:00 97.8 F 38 L 22 100 05/17/18 07:28 54 L 22 138/105 H 97 05/17/18 07:00 42 L 20 98 Intake and Output (Last 8hrs): Intake & Output 05/16/18 05/17/18 05/17/18 22:59 06:59 14:59 Intake Total 776.8 753.0 334.6 Output Total 195 305 90 Balance 581.8 448.0 244.6 Weight 162 lb Intake: IV 105 0 Intake, IV Amount 676.8 648.0 334.6 Left Forearm 76.8 48.0 9.6 Right Proximal Port Upper 600 600 325 arm Oral 100 Output: Urine 195 305 90 Urethral (Joshi) 195 305 90 Other: # Bowel Movements 0 0 - Physical Exam Head: Positive for: Atraumatic, Normocephalic Pupils: Negative for: Non-Reactive, Pinpoint Extroacular Muscles: Positive for: EOMI Conjunctiva: Positive for: Normal. Negative for: Injected, Icteric Mouth: Positive for: Moist Mucous Membranes, Normal Lips. Negative for: Dry, Drooling Nose (External): Positive for: Atraumatic. Negative for: Abrasion, Contusion, Laceration Nose (Internal): Positive for: No Active Bleeding. Negative for: Epistaxis Neck: Positive for: Normal Range of Motion, Trachea Midline. Negative for: JVD Respiratory/Chest: Positive for: Clear to Auscultation, Good Air Exchange. Negative for: Respiratory Distress, Accessory Muscle Use, Wheezes, Decreased Breath Sounds, Rales, Rhonchi Cardiovascular: Positive for: Murmurs (holosystolic murmur ), Normal S1, S2, Peripheal Pulses Present (+1 dorsalis pedis), Bradycardic (Goes between 30s and 40s. Out of bed and sitting in chair. ). Negative for: Irregular Rhythm, Tachycardic Abdomen: Positive for: Normal Bowel Sounds. Negative for: Tenderness, Distention, Guarding Upper Extremity: Positive for: Normal Inspection, Normal ROM, NORMAL PULSES ( Radial pulses present). Negative for: Cyanosis, Edema, Tenderness, Swelling, Erythema Lower Extremity: Positive for: NORMAL PULSES, Normal ROM, Other (bandaged ulcers on right lateral thigh. Ulcer on right lateral knee. ). Negative for: Edema, CALF TENDERNESS, Cyanosis, Tenderness, Swelling, Erythema Neurological: Positive for: Motor Func Grossly Intact, Other (awake and alert, following some commands, can nod/shake his head to some yes/no questions). Negative for: Speech Normal (non-verbal, comprehension of speech intact but unable to verbalize any words) Skin: Positive for: Warm, Dry, Normal Color. Negative for: Rashes Psychiatric: Positive for: Alert, Other (awake and alert, able to nod/shake head appropriately to most yes/no questions. Does not appear anxious/agitated) - Medications Active Medications: Active Medications Generic Name Dose Route Start Last Admin Trade Name Freq PRN Reason Stop Dose Admin Albuterol Sulfate 2.5 mg 05/14/18 09:00 05/17/18 07:42 Albuterol 0.083% Inhal Suellen (2.5 Mg/3 Ml) Ud INH 2.5 mg RQ6 [facility] Administration Amlodipine Besylate 5 mg 05/14/18 10:00 05/17/18 09:13 Norvasc PO 5 mg DAILY [facility] Administration Aspirin 81 mg 05/13/18 10:00 05/17/18 09:13 Ecotrin PO 81 mg DAILY [facility] Administration Atropine Sulfate 1 mg 05/07/18 19:43 05/16/18 16:33 Atropine IVP 1 mg Q3H PRN Administration Other Bisacodyl 10 mg 05/16/18 14:17 Dulcolax [place] HS PRN Constipation Docusate Sodium 100 mg 05/16/18 18:00 05/17/18 09:14 Colace PO 100 mg TID [facility] Administration Hydralazine HCl 10 mg 05/09/18 15:22 Apresoline IVP Q6H PRN SBP > 160 Hydralazine HCl 25 mg 05/13/18 10:00 05/17/18 09:13 Apresoline PO 25 mg TID [facility] Administration Heparin Sodium/Sodium Chloride 25,000 units in 250 mls @ 9.58 mls/hr 05/14/18 11:27 05/17/18 10:00 Heparin 92282 Units/250ml 1/2 Normal Saline IV 12 units/kg/hr .Q24H PRN 9.58 mls/hr ADJUST RATE PER PROTOCOL Titration Protocol 12 UNITS/KG/HR Ceftriaxone Sodium 1 gm/ 100 mls @ 100 mls/hr 05/15/18 10:30 05/17/18 09:52 Sodium Chloride IVPB 05/17/18 11:29 100 mls/hr Q24H [facility] Administration Protocol Sodium Chloride 1,000 mls @ 75 mls/hr 05/15/18 11:45 05/17/18 03:45 Sodium Chloride 0.45% IV Not Given .[id number] [facility] Pantoprazole Sodium 40 mg 05/07/18 10:00 05/17/18 09:14 Protonix Ec Tab PO 40 mg DAILY [facility] Administration Rosuvastatin Calcium 10 mg 05/06/18 22:00 05/16/18 21:06 Crestor PO 10 mg HS [facility] Administration Saccharomyces Boulardii 250 mg 05/06/18 20:00 05/17/18 08:14 Florastor PO 250 mg Q12H [facility] Administration Sennosides 8.6 mg 05/17/18 10:00 05/17/18 09:14 Senokot Tab PO 8.6 mg DAILY [facility] Administration Tamsulosin HCl 0.4 mg 05/14/18 10:00 05/17/18 09:14 Flomax PO 0.4 mg DAILY [facility] Administration Terazosin HCl 1 mg 05/15/18 22:00 05/16/18 21:55 Hytrin PO 1 mg HS [facility] Administration - Patient Studies Lab Studies: Microbiology Studies 05/15/18 Unknown Urine Culture - Final Urine,Joshi No Growth (<1,000 CFU/ML) Lab Studies 05/17/18 05/17/18 05/17/18 Range/Units 06:19 06:19 06:16 WBC 8.3 (4.8-10.8) K/uL RBC 3.68 L (4.40-5.90) Mil/uL Hgb 11.9 L (12.0-18.0) g/dL Hct 34.1 L (35.0-51.0) % MCV 92.7 (80.0-94.0) fL MCH 32.5 H (27.0-31.0) pg MCHC 35.1 (33.0-37.0) g/dL RDW 14.3 (11.5-14.5) % Plt Count 217 (130-400) K/uL MPV 9.9 (7.2-11.7) fL Neut % (Auto) 71.6 (50.0-75.0) % Lymph % (Auto) 14.8 L (20.0-40.0) % Motley % (Auto) 8.7 (0.0-10.0) % Eos % (Auto) 4.2 H (0.0-4.0) % Baso % (Auto) 0.7 (0.0-2.0) % Neut # (Auto) 5.9 (1.8-7.0) K/uL Lymph # (Auto) 1.2 (1.0-4.3) K/uL Motley # (Auto) 0.7 (0.0-0.8) K/uL Eos # (Auto) 0.3 (0.0-0.7) K/uL Baso # (Auto) 0.1 (0.0-0.2) K/uL APTT 72 H D (21-34) SECONDS Sodium 143 (132-148) mmol/L Potassium 3.6 (3.6-5.2) mmol/L Chloride 111 H (98-107) mmol/L Carbon Dioxide 21 L (22-30) mmol/L Anion Gap 13 (10-20) BUN 16 (9-20) mg/dL Creatinine 0.8 (0.8-1.5) mg/dL Est GFR ( Amer) > 60 Est GFR (Non-Af Amer) > 60 Random Glucose 90 (75-110) mg/dL Calcium 8.1 L (8.6-10.4) mg/dl Phosphorus 2.6 (2.5-4.5) mg/dL Magnesium 1.7 (1.6-2.3) mg/dL Total Bilirubin 0.5 (0.2-1.3) mg/dL AST 29 (17-59) U/L ALT 38 (21-72) U/L Alkaline Phosphatase 55 (38-126) U/L Total Protein 5.5 L (6.3-8.3) g/dL Albumin 2.6 L (3.5-5.0) g/dL Globulin 2.9 (2.2-3.9) gm/dL Albumin/Globulin Ratio 0.9 L (1.0-2.1) Renin (0.25-5.82) ng/mL/h Urine Chloride (32-290) mmol/L 05/13/18 05/13/18 Range/Units 16:45 12:46 WBC (4.8-10.8) K/uL RBC (4.40-5.90) Mil/uL Hgb (12.0-18.0) g/dL Hct (35.0-51.0) % MCV (80.0-94.0) fL MCH (27.0-31.0) pg MCHC (33.0-37.0) g/dL RDW (11.5-14.5) % Plt Count (130-400) K/uL MPV (7.2-11.7) fL Neut % (Auto) (50.0-75.0) % Lymph % (Auto) (20.0-40.0) % Motley % (Auto) (0.0-10.0) % Eos % (Auto) (0.0-4.0) % Baso % (Auto) (0.0-2.0) % Neut # (Auto) (1.8-7.0) K/uL Lymph # (Auto) (1.0-4.3) K/uL Motley # (Auto) (0.0-0.8) K/uL Eos # (Auto) (0.0-0.7) K/uL Baso # (Auto) (0.0-0.2) K/uL APTT (21-34) SECONDS Sodium (132-148) mmol/L Potassium (3.6-5.2) mmol/L Chloride (98-107) mmol/L Carbon Dioxide (22-30) mmol/L Anion Gap (10-20) BUN (9-20) mg/dL Creatinine (0.8-1.5) mg/dL Est GFR ( Amer) Est GFR (Non-Af Amer) Random Glucose (75-110) mg/dL Calcium (8.6-10.4) mg/dl Phosphorus (2.5-4.5) mg/dL Magnesium (1.6-2.3) mg/dL Total Bilirubin (0.2-1.3) mg/dL AST (17-59) U/L ALT (21-72) U/L Alkaline Phosphatase (38-126) U/L Total Protein (6.3-8.3) g/dL Albumin (3.5-5.0) g/dL Globulin (2.2-3.9) gm/dL Albumin/Globulin Ratio (1.0-2.1) Renin 0.35 (0.25-5.82) ng/mL/h Urine Chloride 135 (32-290) mmol/L Laboratory Results - last 24 hr 05/13/18 05/13/18 05/17/18 12:46 16:45 06:16 WBC RBC Hgb Hct MCV MCH MCHC RDW Plt Count MPV Neut % (Auto) Lymph % (Auto) Motley % (Auto) Eos % (Auto) Baso % (Auto) Neut # (Auto) Lymph # (Auto) Motley # (Auto) Eos # (Auto) Baso # (Auto) APTT Sodium 143 Potassium 3.6 Chloride 111 H Carbon Dioxide 21 L Anion Gap 13 BUN 16 Creatinine 0.8 Est GFR ( Amer) > 60 Est GFR (Non-Af Amer) > 60 Random Glucose 90 Calcium 8.1 L Phosphorus 2.6 Magnesium 1.7 Total Bilirubin 0.5 AST 29 ALT 38 Alkaline Phosphatase 55 Total Protein 5.5 L Albumin 2.6 L Globulin 2.9 Albumin/Globulin Ratio 0.9 L Renin 0.35 Urine Chloride 135 05/17/18 05/17/18 06:19 06:19 WBC 8.3 RBC 3.68 L Hgb 11.9 L Hct 34.1 L MCV 92.7 MCH 32.5 H MCHC 35.1 RDW 14.3 Plt Count 217 MPV 9.9 Neut % (Auto) 71.6 Lymph % (Auto) 14.8 L Motley % (Auto) 8.7 Eos % (Auto) 4.2 H Baso % (Auto) 0.7 Neut # (Auto) 5.9 Lymph # (Auto) 1.2 Motley # (Auto) 0.7 Eos # (Auto) 0.3 Baso # (Auto) 0.1 APTT 72 H D Sodium Potassium Chloride Carbon Dioxide Anion Gap BUN Creatinine Est GFR ( Amer) Est GFR (Non-Af Amer) Random Glucose Calcium Phosphorus Magnesium Total Bilirubin AST ALT Alkaline Phosphatase Total Protein Albumin Globulin Albumin/Globulin Ratio Renin Urine Chloride Fingerstick Blood Sugar Results: 119 Review of Systems - Review of Systems Systems not reviewed;Unavailable: Other (Unable to obtain) Critical Care Progress Note - Nutrition Nutrition: Nutrition Category Date Time Status Heart Healthy Diet [DIET] Diets 05/17/18 Breakfast Active Assessment/Plan - Assessment and Plan (Free Text) Assessment: 88 year old male with history of possible dementia and unspecified psychiatric illness who presented for evaluation after he was found altered at home. Patient is reportedly under state guardianship. Rapid response was called after nurse was unable to obtain blood pressure on patient, and was found to be in A- flutter at 34 bpm. Patient was admitted to ICU for bradycardia with atrial flutter. CT head revealed subtle hypodensity of L MCA territory. Pending Cardio recommendations. 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 -Bone survey done, no metallic radioopaque foreign bodies noted. -Brain MRI cancelled for now -Heparin drip resumed given history of A flutter -Neurology Dr. Kumar consulted, help appreciated; Cardiovascular: -Current HR in 30s, varies -continue Atropine Q3 PRN for HR < 45 -Trops post-SALES DESIGNER 0.0790, 0.0640, 0.0690 -Norvasc 5mg PO daily - Hydralazine 25mg PO TID - continue Crestor - heparin drip resumed - started back on ASA 81mg -05/06/18 Echo left atrium is severely dilated. Normal sized LV, RA, RV. Normal LV wall motion and systolic function with EF of 55-60%. Aortic valve is probably trileaflet and heavily calcified with peak/mean gradient or 52/23 mmHg and calculated frankie of 0.8mcaq, c/w severe aortic stenosis. mac. mild MR. mild to moderate TR with calculated pulmonary systolic pressures of 60mmHg, c/w moderately severe pulmonary HTN. sclerotic normal size aortic root. no pericardial effusion seen. -pro-BNP 7020 on admission; unknown if hx CHF, avoid aggressive fluid rehydration -Cardio (Dr. Billingsley) following, appreciate all recs; -Dig level ordered, pending -BP elevated today, Hydralazine 25mg PO TID, Hydralazine 10mg IVP q6 prn for SBP > 160 - As per Dr. Monroe's notes from 05/12/18 nitrates not advised at this time. Since patient has had slow A fib without pauses without correlation to his HR and syncope, does not recommend pacemaker for now. Recommends pacemaker only if pauses occur or HR drops even lower. Defer to neurologist or psychiatrist ability to understand regarding TAVR. - Psychiatry Dr. Roman consulted, help appreciated. As per Psych note, patient is unable to make decisions regarding his health. State guardian agreed with PPM placement so that patient can be transferred to detention care facility. - EP Dr. De La Rosa consulted, help appreciated. Pulmonary -Admission Chest X-ray: Left lower lobe infiltrates vs atelectasis - Completed course of Rocephin -O2 sat 98% on NC -Duonebs Q6 [facility]UPAM GI -Protonix 40mg PO for GI ppx -Pureed diet ordered, monitor for signs of aspiration Renal: -BUN 16 Cr 0.8 -On Flomax -continue to monitor I&O's; currently net positive +1815ml - renal US no evidence of obstructive uropathy, calculous disease or mass lesion. ID -WBCs 8.3, afebrile -LLL infiltrates vs atelectasis on CXR -Finished 8 day course of Rocephin -Urine culture no growth, Blood culture final no growth Endo -Maintain euglycemia Heme -H/H stable at 11.9/34.1 Dispo: ICU, pending possible pacemaker placement as per EP. Case discussed with Dr. Higuera
--- NOTE | 2018-05-17 15:49 | CP.PCM.CON ---
History of Present Illness - History of Present Illness History of Present Illness: CARDIAC EP CONSULT Reason for consult: bradycardia HPI: Pt is an 88 yo man with history of HTN, dementia, under legal guardianship , who was found down at home covered in feces. Patient unable to provide history due to new expressive aphasia. However, he is alert, awake and oriented. He was found to have acute/subacute stroke. EKG shows newly diagnosed atrial fibrillation, with bradycardia down to 30's. Patient is hemodynamically stable. He is being anticoagulated with heparin drip. Echo shows severe with preserved LVEF. EP is now consulted for significant bradycardia. ROS: unable to obtain PMH: as above SH: no tob/etoh/drugs FH: no premature cad Meds: reviewed All: reviewed Past Patient History - Tetanus Immunizations Tetanus Immunization: Unknown - Past Medical History & Family History Past Medical History?: No - Past Social History Smoking Status: Unknown If Ever Smoked - CARDIAC Hx Hypertension: Yes - MUSCULOSKELETAL/RHEUMATOLOGICAL Hx Falls: Yes - PSYCHIATRIC Hx Substance Use: No (UNKNOWN) - SURGICAL HISTORY Other/Comment: UNABLE TO OBTAIN AT TIME OF TRIAGE - ANESTHESIA Hx Anesthesia: (UNABLE TO GET INFO AT THIS TIME ,PT APHASIC) Meds Allergies/Adverse Reactions: Allergies Allergy/AdvReac Type Severity Reaction Status Date / Time Unobtainable Allergy Unverified 05/06/18 15:28 - Medications Medications: Current Medications Albuterol Sulfate (Albuterol 0.083% Inhal Suellen (2.5 Mg/3 Ml) Ud) 2.5 mg INH RQ6 [facility] Last Admin: 05/17/18 13:42 Dose: 2.5 mg Amlodipine Besylate (Norvasc) 5 mg PO DAILY [facility] Last Admin: 05/17/18 09:13 Dose: 5 mg Aspirin (Ecotrin) 81 mg PO DAILY [facility] Last Admin: 05/17/18 09:13 Dose: 81 mg Atropine Sulfate (Atropine) 1 mg IVP Q3H PRN PRN Reason: Other Last Admin: 05/16/18 16:33 Dose: 1 mg Bisacodyl (Dulcolax) 10 mg [place] HS PRN PRN Reason: Constipation Docusate Sodium (Colace) 100 mg PO TID [facility] Last Admin: 05/17/18 13:33 Dose: 100 mg Hydralazine HCl (Apresoline) 10 mg IVP Q6H PRN PRN Reason: SBP > 160 Hydralazine HCl (Apresoline) 25 mg PO TID [facility] Last Admin: 05/17/18 09:13 Dose: 25 mg Heparin Sodium/Sodium Chloride (Heparin 80794 Units/250ml 1/2 Normal Saline) 25 ,000 units in 250 mls @ 9.58 mls/hr IV .Q24H PRN; Protocol; 12 UNITS/KG/HR PRN Reason: ADJUST RATE PER PROTOCOL Last Titration: 05/17/18 10:00 Dose: 12 units/kg/hr, 9.58 mls/hr Sodium Chloride (Sodium Chloride 0.45%) 1,000 mls @ 75 mls/hr IV .[id number] [facility] Last Admin: 05/17/18 12:30 Dose: 75 mls/hr Pantoprazole Sodium (Protonix Ec Tab) 40 mg PO DAILY [facility] Last Admin: 05/17/18 09:14 Dose: 40 mg Rosuvastatin Calcium (Crestor) 10 mg PO [facility] Last Admin: 05/16/18 21:06 Dose: 10 mg Saccharomyces Boulardii (Florastor) 250 mg PO Q12H [facility] Last Admin: 05/17/18 08:14 Dose: 250 mg Sennosides (Senokot Tab) 8.6 mg PO DAILY [facility] Last Admin: 05/17/18 09:14 Dose: 8.6 mg Tamsulosin HCl (Flomax) 0.4 mg PO DAILY [facility] Last Admin: 05/17/18 09:14 Dose: 0.4 mg Terazosin HCl (Hytrin) 1 mg PO [facility] Last Admin: 05/16/18 21:55 Dose: 1 mg Physical Exam - Constitutional Appears: Well - Head Exam Head Exam: ATRAUMATIC - ENT Exam ENT Exam: Mucous Membranes Moist - Neck Exam Neck exam: Positive for: Normal Inspection - Respiratory Exam Respiratory Exam: Clear to Auscultation Bilateral, NORMAL BREATHING PATTERN. absent: Rales - Cardiovascular Exam Cardiovascular Exam: REGULAR RHYTHM, +S1, +S2. absent: Systolic Murmur - GI/Abdominal Exam GI & Abdominal Exam: Soft. absent: Tenderness - Extremities Exam Extremities exam: Positive for: normal inspection - Skin Skin Exam: Warm Results - Vital Signs Recent Vital Signs: Last Vital Signs Temp 96.9 F L 05/17/18 12:00 Pulse 37 L 05/17/18 14:45 Resp 18 05/17/18 14:45 BP 126/43 L 05/17/18 14:26 Pulse Ox 98 05/17/18 14:45 - Labs Result Diagrams: 05/17/18 06:19 05/17/18 06:16 Labs: Laboratory Results - last 24 hr 05/13/18 05/17/18 05/17/18 12:46 06:16 06:19 WBC 8.3 RBC 3.68 L Hgb 11.9 L Hct 34.1 L MCV 92.7 MCH 32.5 H MCHC 35.1 RDW 14.3 Plt Count 217 MPV 9.9 Neut % (Auto) 71.6 Lymph % (Auto) 14.8 L Winkler % (Auto) 8.7 Eos % (Auto) 4.2 H Baso % (Auto) 0.7 Neut # (Auto) 5.9 Lymph # (Auto) 1.2 Winkler # (Auto) 0.7 Eos # (Auto) 0.3 Baso # (Auto) 0.1 APTT Sodium 143 Potassium 3.6 Chloride 111 H Carbon Dioxide 21 L Anion Gap 13 BUN 16 Creatinine 0.8 Est GFR ( Amer) > 60 Est GFR (Non-Af Amer) > 60 Random Glucose 90 Calcium 8.1 L Phosphorus 2.6 Magnesium 1.7 Total Bilirubin 0.5 AST 29 ALT 38 Alkaline Phosphatase 55 Total Protein 5.5 L Albumin 2.6 L Globulin 2.9 Albumin/Globulin Ratio 0.9 L Renin 0.35 05/17/18 06:19 WBC RBC Hgb Hct MCV MCH MCHC RDW Plt Count MPV Neut % (Auto) Lymph % (Auto) Winkler % (Auto) Eos % (Auto) Baso % (Auto) Neut # (Auto) Lymph # (Auto) Winkler # (Auto) Eos # (Auto) Baso # (Auto) APTT 72 H D Sodium Potassium Chloride Carbon Dioxide Anion Gap BUN Creatinine Est GFR ( Amer) Est GFR (Non-Af Amer) Random Glucose Calcium Phosphorus Magnesium Total Bilirubin AST ALT Alkaline Phosphatase Total Protein Albumin Globulin Albumin/Globulin Ratio Renin - Impressions Impression: EKG: afib, wayne to 30's, narrow QRS, NSST's Assessment & Plan - Assessment and Plan (Free Text) Assessment: 1. Bradycardic atrial fibrillation -- HR in 30's. Pt did have syncope on admission, which may or may not be due to pt's severe bradycardia 2. Severe with preserved LVEF 3. Syncope 4. Stroke with expressive aphasia Plan: Given inability to rule out syncope due to severe bradycardia, I recommend a pacemaker implant. I specifically advise a leadless ventricular pacemaker due to its minimally invasive nature, which will lower the risk of the procedure and allow quicker recover for this frail elderly male. Will make arrangements for transfer to [facility] tomorrow afternoon for the leadless pacemaker, and transfer back to [facility] [place] later that day. Keep NPO after midnight. Hold heparin drip after midnight tonight.
[2018-05-18] MEDS: Albuterol 0.083% Inhal Sol (2.5 mg/3 mL) UD INH SCH ×4 (01:05→19:29)
[2018-05-18] MEDS: Sodium Chloride 0.45% 1,000 ML IV SCH ×3 (01:43→18:46)
[2018-05-18 05:04] LABS: BASO % 0.4 % (0.0-2.0); EOS # 0.1 K/uL (0.0-0.7); EOS % 0.8 % (0.0-4.0); HEMOGLOBIN 11.9 g/dL (12.0-18.0); LYMPH # 0.7 K/uL (1.0-4.3); MEAN CELL VOLUME 92.8 fL (80.0-94.0); MEAN CORPUSCULAR HEMOGLOBIN 31.7 pg (27.0-31.0); MEAN CORPUSCULAR HGB CONC 34.1 g/dL (33.0-37.0); MEAN PLATELET VOLUME 8.7 fL (7.2-11.7); MONO # 0.7 K/uL (0.0-0.8); MONO % 5.7 % (0.0-10.0); NEUT # 10.5 K/uL (1.8-7.0); NEUT % 87.1 % (50.0-75.0); NRBC % 0.1 % (0.0-2.0); PLATELET COUNT 236 K/uL (130-400); RBC 3.77 Mil/uL (4.40-5.90); RED CELL DISTRIBUTION WIDTH 14.2 % (11.5-14.5)
[2018-05-18 05:11] LABS: INR 1.3; PROTHROMBIN TIME 13.9 SECONDS (9.7-12.2)
[2018-05-18 05:18] LABS: ALB/GLOB RATIO 0.9 (1.0-2.1); ALBUMIN 2.7 g/dL (3.5-5.0); ALT/SGPT 43 U/L (21-72); AST/SGOT 33 U/L (17-59); BLOOD UREA NITROGEN 16 mg/dL (9-20); CALCIUM 8.3 mg/dl (8.6-10.4); GFR NON-AFRICAN AMERICAN > 60
[2018-05-18 06:46] LABS: LYMPHOCYTE 5 % (20-40); MONOCYTE 4 % (0-10); NEUTROPHIL 91 % (50-75); PLATELET ESTIMATE NORMAL (NORMAL); TOTAL CELLS COUNTED 100
[2018-05-18] MEDS: Saccharomyces Boulardi 250 mg Cap PO SCH ×2 (07:58→20:29)
[2018-05-18] MEDS: Pantoprazole 40 mg EC Tab PO SCH (09:19)
--- NOTE | 2018-05-18 09:43 | CP.PCM.PN ---
Subjective - Date & Time of Evaluation Date of Evaluation: 05/18/18 Time of Evaluation: 09:30 - Subjective Subjective: Seen and examined by me this morning. He was lying on bed comfortable.denies pain. d/w RN at bedside patient was told about pacemaker placement. Objective - Vital Signs/Intake and Output Vital Signs (last 24 hours): Temp Pulse Resp BP Pulse Ox 98.3 F 41 L 14 152/99 H 95 05/18/18 04:00 05/18/18 08:00 05/18/18 08:00 05/18/18 07:26 05/18/18 04:00 Intake and Output: 05/18/18 05/18/18 06:59 18:59 Intake Total 1358.0 75 Output Total 410 30 Balance 948.0 45 - Medications Medications: Current Medications Albuterol Sulfate (Albuterol 0.083% Inhal Suellen (2.5 Mg/3 Ml) Ud) 2.5 mg INH RQ6 [facility] Last Admin: 05/18/18 07:51 Dose: 2.5 mg Amlodipine Besylate (Norvasc) 5 mg PO DAILY [facility] Last Admin: 05/18/18 09:19 Dose: 5 mg Aspirin (Ecotrin) 81 mg PO DAILY [facility] Last Admin: 05/17/18 09:13 Dose: 81 mg Atropine Sulfate (Atropine) 1 mg IVP Q3H PRN PRN Reason: Other Last Admin: 05/16/18 16:33 Dose: 1 mg Bisacodyl (Dulcolax) 10 mg [place] HS PRN PRN Reason: Constipation Last Admin: 05/17/18 17:32 Dose: 10 mg Docusate Sodium (Colace) 100 mg PO TID [facility] Last Admin: 05/17/18 17:32 Dose: 100 mg Hydralazine HCl (Apresoline) 10 mg IVP Q6H PRN PRN Reason: SBP > 160 Hydralazine HCl (Apresoline) 25 mg PO TID [facility] Last Admin: 05/18/18 09:19 Dose: 25 mg Heparin Sodium/Sodium Chloride (Heparin 58615 Units/250ml 1/2 Normal Saline) 25 ,000 units in 250 mls @ 9.58 mls/hr IV .Q24H PRN; Protocol; 12 UNITS/KG/HR PRN Reason: ADJUST RATE PER PROTOCOL Last Titration: 05/18/18 00:00 Dose: 0 units/kg/hr, 0 mls/hr Sodium Chloride (Sodium Chloride 0.45%) 1,000 mls @ 75 mls/hr IV .[id number] [facility] Last Admin: 05/18/18 01:43 Dose: 75 mls/hr Pantoprazole Sodium (Protonix Ec Tab) 40 mg PO DAILY [facility] Last Admin: 05/18/18 09:19 Dose: 40 mg Rosuvastatin Calcium (Crestor) 10 mg PO [facility] Last Admin: 05/17/18 20:59 Dose: 10 mg Saccharomyces Boulardii (Florastor) 250 mg PO Q12H [facility] Last Admin: 05/18/18 07:58 Dose: 250 mg Sennosides (Senokot Tab) 8.6 mg PO DAILY [facility] Last Admin: 05/17/18 09:14 Dose: 8.6 mg Tamsulosin HCl (Flomax) 0.4 mg PO DAILY [facility] Last Admin: 05/18/18 09:19 Dose: 0.4 mg Terazosin HCl (Hytrin) 1 mg PO [facility] Last Admin: 05/17/18 21:28 Dose: 1 mg - Labs Labs: 05/18/18 05:01 05/18/18 05:01 PT 13.9 SECONDS (9.7-12.2) H 05/18/18 05:01 INR 1.3 05/18/18 05:01 APTT 31 SECONDS (21-34) D 05/18/18 05:01 - Constitutional Appears: Non-toxic, No Acute Distress - Head Exam Head Exam: NORMAL INSPECTION - Eye Exam Eye Exam: Normal appearance - ENT Exam ENT Exam: Mucous Membranes Moist - Neck Exam Neck Exam: Full ROM - Respiratory Exam Respiratory Exam: Clear to Ausculation Bilateral, NORMAL BREATHING PATTERN - Cardiovascular Exam Cardiovascular Exam: Bradycardia, Murmur - GI/Abdominal Exam GI & Abdominal Exam: Soft, Normal Bowel Sounds - Extremities Exam Extremities Exam: Full ROM - Back Exam Back Exam: NORMAL INSPECTION - Neurological Exam Neurological Exam: Alert. absent: Oriented x3 (nonverbal) - Psychiatric Exam Psychiatric exam: Normal Mood - Skin Skin Exam: Dry Assessment and Plan - Assessment and Plan (Free Text) Plan: This is a frail 88 year old male with possible history of hypertension ,unknown psychiatric illness and possible dementia was brought for evaluation after patient was reportedly found on the floor in his house by cleaning staff in his home. Unknown how long he was on the floor. Patient is under state guardianship.He was living alone with the help of once a week home care service.On admission patient was in atrial flutter with varing response.His lowest rate was in 30ies. Patient was asymptomatic on admission and admitted to tele. Brought to ICU for bradycardia with evidence of Atrial flutter with block.Patient will be seen by EP physician. 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 His state guardian is on vacation State guardian . The State appointed Guardin number is [phone] - her name is Norman Ahn 1.Atrialfibrillation / flutter with block, bradycardia often in the 30s Patient is bradycardic with HR in 30ies Patient is going to [facility] for pacemaker placement by DR Rj Whalen this morning. Heaprin is on hold The State appointed Guardin number is [phone] - her name is Norman Ahn 2. Severe Aortic Stenosis 05/10: Echo returned, there is ALEXANDER of 0.8, also moderate to severe pulmonary HTN seen and severely dialated left atrium 3 .New CVA with aphasia /subacute stroke - Neurology consulted on case (Dr. Kuamr) - CT without contrast: subtle hypodensity in the left MCA territory ( nonspecific and may represent subacute infarct) Heparinn on hold Continue Crestor 10mg PO HS Pending brain MRI 4 Community Acquired Pneumonia 05/10: Cultures have been negative 3 days now. He remains on IV rocephin/ completing today Chest X-ray: Left lower lobe infiltrates/atelectasis 5.Ulcers secondary to being on the ground for unknown duration - Wound Care 6.Advance directives-full code Previously d/w patient's employment evaluator/case manager. His state guardian is on vacation Note-Spoke to Dr De La Rosa this afternoon. Patient tolerated the placement of leadless pacemaker through right femoral access. Right groin can be removed tomorrow. Recommending to follow Dr Wesley Ng in 2 weeks as an out patient. no heparin until tomorrow night.Ok to start on Eliquis on morning
--- NOTE | 2018-05-18 10:34 | CP.CCUPN ---
Addendum entered and electronically signed by Ronni Guo 05/18/18 15:05: Case discussed with Dr. De La Rosa after leadless pacemaker placed in patient. Plan for patient to stay at [facility] for 4 hours post procedure. 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 Does not recommend restarting patient heparin today, may restart tomorrow evening as needed. Original Note: <Ronni Guo - Last Filed: 05/18/18 10:49> CCU Subjective - Physician Review Subjective (Free Text): ICU progress note Patient seen and examined at bedside. Patient is attempting to speak however is difficult to understand. State guardian Anabelle Austin ) makes decisions for him. Patient to be transferred to [facility] for leadless pacemaker with Dr. De La Rosa today. CCU Objective - Vital Signs / Intake & Output Vital Signs (Last 4 hours): Vital Signs Pulse Resp BP 05/18/18 08:00 41 L 14 05/18/18 07:26 45 L 22 152/99 H 05/18/18 07:00 47 L 17 Intake and Output (Last 8hrs): Intake & Output 05/17/18 05/18/18 05/18/18 22:59 06:59 14:59 Intake Total 1326.8 659.6 75 Output Total 230 290 30 Balance 1096.8 369.6 45 Weight 159 lb 0.13 oz Intake: IV 50 Intake, IV Amount 676.8 609.6 75 Left Distal Port Forearm 600 600 75 Left Forearm 76.8 9.6 Oral 650 Output: Urine 230 290 30 Urethral (Joshi) 230 290 30 Emesis 0 0 Other: # Bowel Movements 1 - Physical Exam Head: Positive for: Atraumatic, Normocephalic Pupils: Negative for: Non-Reactive, Pinpoint Extroacular Muscles: Positive for: EOMI Conjunctiva: Positive for: Normal. Negative for: Injected, Icteric Mouth: Positive for: Moist Mucous Membranes, Normal Lips. Negative for: Dry, Drooling Nose (External): Positive for: Atraumatic. Negative for: Abrasion, Contusion, Laceration Nose (Internal): Positive for: No Active Bleeding. Negative for: Epistaxis Neck: Positive for: Normal Range of Motion, Trachea Midline. Negative for: JVD Respiratory/Chest: Positive for: Clear to Auscultation, Good Air Exchange. Negative for: Respiratory Distress, Accessory Muscle Use, Wheezes, Decreased Breath Sounds, Rales, Rhonchi Cardiovascular: Positive for: Murmurs (holosystolic murmur ), Normal S1, S2, Peripheal Pulses Present (+1 dorsalis pedis), Bradycardic (Goes between 30s and 40s. Out of bed and sitting in chair. ). Negative for: Irregular Rhythm, Tachycardic Abdomen: Positive for: Normal Bowel Sounds. Negative for: Tenderness, Distention, Guarding Upper Extremity: Positive for: Normal Inspection, Normal ROM, NORMAL PULSES ( Radial pulses present). Negative for: Cyanosis, Edema, Tenderness, Swelling, Erythema Lower Extremity: Positive for: NORMAL PULSES, Normal ROM, Other (bandaged ulcers on right lateral thigh. Ulcer on right lateral knee. ). Negative for: Edema, CALF TENDERNESS, Cyanosis, Tenderness, Swelling, Erythema Neurological: Positive for: Motor Func Grossly Intact, Other (awake and alert, following some commands, can nod/shake his head to some yes/no questions). Negative for: Speech Normal (non-verbal, comprehension of speech intact but unable to verbalize any words) Skin: Positive for: Warm, Dry, Normal Color. Negative for: Rashes Psychiatric: Positive for: Alert, Other (awake and alert, able to can nod/shake head to most yes/no questions. Does not appear anxious/agitated) - Medications Active Medications: Active Medications Generic Name Dose Route Start Last Admin Trade Name Freq PRN Reason Stop Dose Admin Albuterol Sulfate 2.5 mg 05/14/18 09:00 05/18/18 07:51 Albuterol 0.083% Inhal Suellen (2.5 Mg/3 Ml) Ud INH 2.5 mg RQ6 ANUPAM Administration Amlodipine Besylate 5 mg 05/14/18 10:00 05/18/18 09:19 Norvasc PO 5 mg DAILY ANUPAM Administration Aspirin 81 mg 05/13/18 10:00 05/18/18 09:45 Ecotrin PO Not Given DAILY ANUPAM Atropine Sulfate 1 mg 05/07/18 19:43 05/16/18 16:33 Atropine IVP 1 mg Q3H PRN Administration Other Bisacodyl 10 mg 05/16/18 14:17 05/17/18 17:32 Dulcolax WI 10 mg HS PRN Administration Constipation Docusate Sodium 100 mg 05/16/18 18:00 05/18/18 09:45 Colace PO Not Given TID ANUPAM Hydralazine HCl 10 mg 05/09/18 15:22 Apresoline IVP Q6H PRN SBP > 160 Hydralazine HCl 25 mg 05/13/18 10:00 05/18/18 09:19 Apresoline PO 25 mg TID ANUPAM Administration Heparin Sodium/Sodium Chloride 25,000 units in 250 mls @ 9.58 mls/hr 05/14/18 11:27 05/18/18 00:00 Heparin 77149 Units/250ml 1/2 Normal Saline IV 0 units/kg/hr .Q24H PRN 0 mls/hr ADJUST RATE PER PROTOCOL Titration Protocol 12 UNITS/KG/HR Sodium Chloride 1,000 mls @ 75 mls/hr 05/15/18 11:45 05/18/18 09:55 Sodium Chloride 0.45% IV Not Given .[id number] ANUPAM Pantoprazole Sodium 40 mg 05/07/18 10:00 05/18/18 09:19 Protonix Ec Tab PO 40 mg DAILY ANUPAM Administration Rosuvastatin Calcium 10 mg 05/06/18 22:00 05/17/18 20:59 Crestor PO 10 mg HS ANUPAM Administration Saccharomyces Boulardii 250 mg 05/06/18 20:00 05/18/18 07:58 Florastor PO 250 mg Q12H ANUPAM Administration Sennosides 8.6 mg 05/17/18 10:00 05/18/18 09:46 Senokot Tab PO Not Given DAILY ANUPAM Tamsulosin HCl 0.4 mg 05/14/18 10:00 05/18/18 09:19 Flomax PO 0.4 mg DAILY ANUPAM Administration Terazosin HCl 1 mg 05/15/18 22:00 05/17/18 21:28 Hytrin PO 1 mg HS ANUPAM Administration - Patient Studies Lab Studies: Lab Studies 05/18/18 05/18/18 05/18/18 Range/Units 05:01 05:01 05:01 WBC 12.0 H (4.8-10.8) K/uL RBC 3.77 L (4.40-5.90) Mil/uL Hgb 11.9 L (12.0-18.0) g/dL Hct 35.0 (35.0-51.0) % MCV 92.8 (80.0-94.0) fL MCH 31.7 H (27.0-31.0) pg MCHC 34.1 (33.0-37.0) g/dL RDW 14.2 (11.5-14.5) % Plt Count 236 (130-400) K/uL MPV 8.7 (7.2-11.7) fL Neut % (Auto) 87.1 H (50.0-75.0) % Lymph % (Auto) 6.0 L (20.0-40.0) % Barbour % (Auto) 5.7 (0.0-10.0) % Eos % (Auto) 0.8 (0.0-4.0) % Baso % (Auto) 0.4 (0.0-2.0) % Neut # (Auto) 10.5 H (1.8-7.0) K/uL Lymph # (Auto) 0.7 L (1.0-4.3) K/uL Barbour # (Auto) 0.7 (0.0-0.8) K/uL Eos # (Auto) 0.1 (0.0-0.7) K/uL Baso # (Auto) 0.0 (0.0-0.2) K/uL Neutrophils % (Manual) 91 H (50-75) % Lymphocytes % (Manual) 5 L (20-40) % Monocytes % (Manual) 4 (0-10) % Platelet Estimate Normal (NORMAL) PT 13.9 H (9.7-12.2) SECONDS INR 1.3 APTT 31 D (21-34) SECONDS Sodium 140 (132-148) mmol/L Potassium 3.9 (3.6-5.2) mmol/L Chloride 109 H (98-107) mmol/L Carbon Dioxide 23 (22-30) mmol/L Anion Gap 12 (10-20) BUN 16 (9-20) mg/dL Creatinine 0.9 (0.8-1.5) mg/dL Est GFR ( Amer) > 60 Est GFR (Non-Af Amer) > 60 Random Glucose 105 (75-110) mg/dL Calcium 8.3 L (8.6-10.4) mg/dl Phosphorus 2.5 (2.5-4.5) mg/dL Magnesium 1.6 (1.6-2.3) mg/dL Total Bilirubin 0.5 (0.2-1.3) mg/dL AST 33 (17-59) U/L ALT 43 (21-72) U/L Alkaline Phosphatase 60 (38-126) U/L Total Protein 5.7 L (6.3-8.3) g/dL Albumin 2.7 L (3.5-5.0) g/dL Globulin 3.0 (2.2-3.9) gm/dL Albumin/Globulin Ratio 0.9 L (1.0-2.1) 05/17/18 Range/Units 16:40 WBC (4.8-10.8) K/uL RBC (4.40-5.90) Mil/uL Hgb (12.0-18.0) g/dL Hct (35.0-51.0) % MCV (80.0-94.0) fL MCH (27.0-31.0) pg MCHC (33.0-37.0) g/dL RDW (11.5-14.5) % Plt Count (130-400) K/uL MPV (7.2-11.7) fL Neut % (Auto) (50.0-75.0) % Lymph % (Auto) (20.0-40.0) % Barbour % (Auto) (0.0-10.0) % Eos % (Auto) (0.0-4.0) % Baso % (Auto) (0.0-2.0) % Neut # (Auto) (1.8-7.0) K/uL Lymph # (Auto) (1.0-4.3) K/uL Barbour # (Auto) (0.0-0.8) K/uL Eos # (Auto) (0.0-0.7) K/uL Baso # (Auto) (0.0-0.2) K/uL Neutrophils % (Manual) (50-75) % Lymphocytes % (Manual) (20-40) % Monocytes % (Manual) (0-10) % Platelet Estimate (NORMAL) PT (9.7-12.2) SECONDS INR APTT 70 H (21-34) SECONDS Sodium (132-148) mmol/L Potassium (3.6-5.2) mmol/L Chloride (98-107) mmol/L Carbon Dioxide (22-30) mmol/L Anion Gap (10-20) BUN (9-20) mg/dL Creatinine (0.8-1.5) mg/dL Est GFR ( Amer) Est GFR (Non-Af Amer) Random Glucose (75-110) mg/dL Calcium (8.6-10.4) mg/dl Phosphorus (2.5-4.5) mg/dL Magnesium (1.6-2.3) mg/dL Total Bilirubin (0.2-1.3) mg/dL AST (17-59) U/L ALT (21-72) U/L Alkaline Phosphatase (38-126) U/L Total Protein (6.3-8.3) g/dL Albumin (3.5-5.0) g/dL Globulin (2.2-3.9) gm/dL Albumin/Globulin Ratio (1.0-2.1) Laboratory Results - last 24 hr 05/17/18 05/18/18 05/18/18 16:40 05:01 05:01 WBC 12.0 H RBC 3.77 L Hgb 11.9 L Hct 35.0 MCV 92.8 MCH 31.7 H MCHC 34.1 RDW 14.2 Plt Count 236 MPV 8.7 Neut % (Auto) 87.1 H Lymph % (Auto) 6.0 L Barbour % (Auto) 5.7 Eos % (Auto) 0.8 Baso % (Auto) 0.4 Neut # (Auto) 10.5 H Lymph # (Auto) 0.7 L Barbour # (Auto) 0.7 Eos # (Auto) 0.1 Baso # (Auto) 0.0 Neutrophils % (Manual) 91 H Lymphocytes % (Manual) 5 L Monocytes % (Manual) 4 Platelet Estimate Normal PT INR APTT 70 H Sodium 140 Potassium 3.9 Chloride 109 H Carbon Dioxide 23 Anion Gap 12 BUN 16 Creatinine 0.9 Est GFR ( Amer) > 60 Est GFR (Non-Af Amer) > 60 Random Glucose 105 Calcium 8.3 L Phosphorus 2.5 Magnesium 1.6 Total Bilirubin 0.5 AST 33 ALT 43 Alkaline Phosphatase 60 Total Protein 5.7 L Albumin 2.7 L Globulin 3.0 Albumin/Globulin Ratio 0.9 L 05/18/18 05:01 WBC RBC Hgb Hct MCV MCH MCHC RDW Plt Count MPV Neut % (Auto) Lymph % (Auto) Barbour % (Auto) Eos % (Auto) Baso % (Auto) Neut # (Auto) Lymph # (Auto) Barbour # (Auto) Eos # (Auto) Baso # (Auto) Neutrophils % (Manual) Lymphocytes % (Manual) Monocytes % (Manual) Platelet Estimate PT 13.9 H INR 1.3 APTT 31 D Sodium Potassium Chloride Carbon Dioxide Anion Gap BUN Creatinine Est GFR ( Amer) Est GFR (Non-Af Amer) Random Glucose Calcium Phosphorus Magnesium Total Bilirubin AST ALT Alkaline Phosphatase Total Protein Albumin Globulin Albumin/Globulin Ratio Fingerstick Blood Sugar Results: 119 Review of Systems - Review of Systems Systems not reviewed;Unavailable: Other (Patient unable to speak) Critical Care Progress Note - Nutrition Nutrition: Nutrition Category Date Time Status NPO Diet [DIET] Diets 05/17/18 Breakfast Active Assessment/Plan - Assessment and Plan (Free Text) Assessment: 88 year old male with history of possible dementia and unspecified psychiatric illness who presented for evaluation after he was found altered at home. Patient is reportedly under state guardianship. Rapid response was called after nurse was unable to obtain blood pressure on patient, and was found to be in A- flutter at 34 bpm. Patient was admitted to ICU for bradycardia with atrial flutter. CT head revealed subtle hypodensity of L MCA territory. Scheduled for leadless pacemaker with Dr. De La Rosa today at [facility]. 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 -Bone survey done, no metallic radioopaque foreign bodies noted. -Heparin drip resumed -Neurology Dr. Kumar consulted, help appreciated; Cardiovascular: -Current HR in 30s, varies -continue Atropine 1mg Q3 PRN for HR < 45 -Trops post-GREY PERCHER 0.0790, 0.0640, 0.0690 - Norvasc 5mg PO daily - continue Crestor 10mg PO HS - heparin drip resumed - started back on ASA 81mg -05/06/18 Echo left atrium is severely dilated. Normal sized LV, RA, RV. Normal LV wall motion and systolic function with EF of 55-60%. Aortic valve is probably trileaflet and heavily calcified with peak/mean gradient or 52/23 mmHg and calculated frankie of 0.8mcaq, c/w severe aortic stenosis. mac. mild MR. mild to moderate TR with calculated pulmonary systolic pressures of 60mmHg, c/w moderately severe pulmonary HTN. sclerotic normal size aortic root. no pericardial effusion seen. -pro-BNP 7020 on admission; unknown if hx CHF, avoid aggressive fluid rehydration -Cardio (Dr. Billingsley/Dr. Monroe) following, appreciate all recs; -Hydralazine 25mg PO TID, Hydralazine 10mg IVP q6 prn for SBP > 160 - As per Dr. Monroe's notes from 05/12/18 nitrates not advised at this time. Since patient has had slow A fib without pauses without correlation to his HR and syncope, does not recommend pacemaker for now. Recommends pacemaker only if pauses occur or HR drops even lower. Defer to neurologist or psychiatrist ability to understand regarding TAVR. - Psychiatry Dr. Roman consulted, help appreciated. As per Psych note, patient is unable to make decisions regarding his health. State guardian agreed with PPM placement so that patient can be transferred to piping drafter care facility. - EP Dr. De La Rosa consulted, help appreciated. Plan to have leadless pacemaker at [facility] [place]. Pulmonary -O2 sat 98% on NC -Duonebs Q6 ANUPAM GI -Protonix 40mg PO for GI ppx -Pureed diet ordered, monitor for signs of aspiration -Dulcolax 10mg WI as needed -Colace 100mg TID Renal: -BUN 16 Cr 0.9 -On Flomax -On NS @ 75cc/hr IV -continue to monitor I&O's; currently net positive +1815ml - renal US no evidence of obstructive uropathy, calculous disease or mass lesion. ID -WBCs 8.3, afebrile -Finished 8 day course of Rocephin -Urine culture no growth, Blood culture final no growth Endo -Maintain euglycemia Heme -H/H stable at 11.9/[address] Posey <Kristofer Posey - Last Filed: 05/18/18 18:24> CCU Subjective - Physician Review Critical Care Time Spent (in minutes): 30 CCU Objective - Vital Signs / Intake & Output Intake and Output (Last 8hrs): Intake & Output 05/18/18 05/18/18 05/18/18 06:59 14:59 22:59 Intake Total 659.6 300 Output Total 290 150 Balance 369.6 150 Weight 159 lb 0.13 oz Intake: IV 50 Intake, IV Amount 609.6 300 Left Distal Port Forearm 600 300 Left Forearm 9.6 Output: Urine 290 150 Urethral (Joshi) 290 150 Emesis 0 0 Other: # Bowel Movements 1 1 - Medications Active Medications: Active Medications Generic Name Dose Route Start Last Admin Trade Name Freq PRN Reason Stop Dose Admin Albuterol Sulfate 2.5 mg 05/14/18 09:00 05/18/18 13:22 Albuterol 0.083% Inhal Suellen (2.5 Mg/3 Ml) Ud INH Not Given RQ6 ANUPAM Amlodipine Besylate 5 mg 05/14/18 10:00 05/18/18 09:19 Norvasc PO 5 mg DAILY ANUPAM Administration Aspirin 81 mg 05/13/18 10:00 05/18/18 09:45 Ecotrin PO Not Given DAILY ANUPAM Atropine Sulfate 1 mg 05/07/18 19:43 05/16/18 16:33 Atropine IVP 1 mg Q3H PRN Administration Other Bisacodyl 10 mg 05/16/18 14:17 05/17/18 17:32 Dulcolax WI 10 mg HS PRN Administration Constipation Docusate Sodium 100 mg 05/16/18 18:00 05/18/18 09:45 Colace PO Not Given TID ANUPAM Hydralazine HCl 10 mg 05/09/18 15:22 Apresoline IVP Q6H PRN SBP > 160 Hydralazine HCl 25 mg 05/13/18 10:00 05/18/18 09:19 Apresoline PO 25 mg TID ANUPAM Administration Sodium Chloride 1,000 mls @ 75 mls/hr 05/15/18 11:45 05/18/18 09:55 Sodium Chloride 0.45% IV Not Given .[id number] ANUPAM Pantoprazole Sodium 40 mg 05/07/18 10:00 05/18/18 09:19 Protonix Ec Tab PO 40 mg DAILY ANUPAM Administration Rosuvastatin Calcium 10 mg 05/06/18 22:00 05/17/18 20:59 Crestor PO 10 mg HS ANUPAM Administration Saccharomyces Boulardii 250 mg 05/06/18 20:00 05/18/18 07:58 Florastor PO 250 mg Q12H ANUPAM Administration Sennosides 8.6 mg 05/17/18 10:00 05/18/18 09:46 Senokot Tab PO Not Given DAILY ANUPAM Tamsulosin HCl 0.4 mg 05/14/18 10:00 05/18/18 09:19 Flomax PO 0.4 mg DAILY ANUPAM Administration Terazosin HCl 1 mg 05/15/18 22:00 05/17/18 21:28 Hytrin PO 1 mg HS ANUPAM Administration - Patient Studies Lab Studies: Lab Studies 05/18/18 05/18/18 05/18/18 Range/Units 05:01 05:01 05:01 WBC 12.0 H (4.8-10.8) K/uL RBC 3.77 L (4.40-5.90) Mil/uL Hgb 11.9 L (12.0-18.0) g/dL Hct 35.0 (35.0-51.0) % MCV 92.8 (80.0-94.0) fL MCH 31.7 H (27.0-31.0) pg MCHC 34.1 (33.0-37.0) g/dL RDW 14.2 (11.5-14.5) % Plt Count 236 (130-400) K/uL MPV 8.7 (7.2-11.7) fL Neut % (Auto) 87.1 H (50.0-75.0) % Lymph % (Auto) 6.0 L (20.0-40.0) % Barbour % (Auto) 5.7 (0.0-10.0) % Eos % (Auto) 0.8 (0.0-4.0) % Baso % (Auto) 0.4 (0.0-2.0) % Neut # (Auto) 10.5 H (1.8-7.0) K/uL Lymph # (Auto) 0.7 L (1.0-4.3) K/uL Barbour # (Auto) 0.7 (0.0-0.8) K/uL Eos # (Auto) 0.1 (0.0-0.7) K/uL Baso # (Auto) 0.0 (0.0-0.2) K/uL Neutrophils % (Manual) 91 H (50-75) % Lymphocytes % (Manual) 5 L (20-40) % Monocytes % (Manual) 4 (0-10) % Platelet Estimate Normal (NORMAL) PT 13.9 H (9.7-12.2) SECONDS INR 1.3 APTT 31 D (21-34) SECONDS Sodium 140 (132-148) mmol/L Potassium 3.9 (3.6-5.2) mmol/L Chloride 109 H (98-107) mmol/L Carbon Dioxide 23 (22-30) mmol/L Anion Gap 12 (10-20) BUN 16 (9-20) mg/dL Creatinine 0.9 (0.8-1.5) mg/dL Est GFR ( Amer) > 60 Est GFR (Non-Af Amer) > 60 Random Glucose 105 (75-110) mg/dL Calcium 8.3 L (8.6-10.4) mg/dl Phosphorus 2.5 (2.5-4.5) mg/dL Magnesium 1.6 (1.6-2.3) mg/dL Total Bilirubin 0.5 (0.2-1.3) mg/dL AST 33 (17-59) U/L ALT 43 (21-72) U/L Alkaline Phosphatase 60 (38-126) U/L Total Protein 5.7 L (6.3-8.3) g/dL Albumin 2.7 L (3.5-5.0) g/dL Globulin 3.0 (2.2-3.9) gm/dL Albumin/Globulin Ratio 0.9 L (1.0-2.1) Laboratory Results - last 24 hr 0905/18/18 05/18/18 05:01 05:01 05:01 WBC 12.0 H RBC 3.77 L Hgb 11.9 L Hct 35.0 MCV 92.8 MCH 31.7 H MCHC 34.1 RDW 14.2 Plt Count 236 MPV 8.7 Neut % (Auto) 87.1 H Lymph % (Auto) 6.0 L Barbour % (Auto) 5.7 Eos % (Auto) 0.8 Baso % (Auto) 0.4 Neut # (Auto) 10.5 H Lymph # (Auto) 0.7 L Barbour # (Auto) 0.7 Eos # (Auto) 0.1 Baso # (Auto) 0.0 Neutrophils % (Manual) 91 H Lymphocytes % (Manual) 5 L Monocytes % (Manual) 4 Platelet Estimate Normal PT 13.9 H INR 1.3 APTT 31 D Sodium 140 Potassium 3.9 Chloride 109 H Carbon Dioxide 23 Anion Gap 12 BUN 16 Creatinine 0.9 Est GFR ( Amer) > 60 Est GFR (Non-Af Amer) > 60 Random Glucose 105 Calcium 8.3 L Phosphorus 2.5 Magnesium 1.6 Total Bilirubin 0.5 AST 33 ALT 43 Alkaline Phosphatase 60 Total Protein 5.7 L Albumin 2.7 L Globulin 3.0 Albumin/Globulin Ratio 0.9 L Critical Care Progress Note - Nutrition Nutrition: Nutrition Category Date Time Status Dysphagia/Modified Consistency Diet [DIET] Diets 05/18/18 Breakfast Active Attending/Attestation - Attestation I have personally seen and examined this patient.: Yes I have fully participated in the care of the patient.: Yes I have reviewed all pertinent clinical information: Yes Notes (Text): 05/18/18 18:23 patient seen and examined in the intensive care unit. Status post leadless pacemaker insertion Continue to monitor in ICU
[2018-05-19] MEDS: Albuterol 0.083% Inhal Sol (2.5 mg/3 mL) UD INH SCH ×4 (01:14→19:18)
[2018-05-19 06:27] LABS: BASO % 0.4 % (0.0-2.0); EOS # 0.2 K/uL (0.0-0.7); EOS % 2.5 % (0.0-4.0); HEMOGLOBIN 11.5 g/dL (12.0-18.0); LYMPH # 0.9 K/uL (1.0-4.3); LYMPH % 10.3 % (20.0-40.0); MEAN CELL VOLUME 92.2 fL (80.0-94.0); MEAN CORPUSCULAR HEMOGLOBIN 32.5 pg (27.0-31.0); MEAN CORPUSCULAR HGB CONC 35.2 g/dL (33.0-37.0); MEAN PLATELET VOLUME 9.2 fL (7.2-11.7); MONO # 0.7 K/uL (0.0-0.8); MONO % 7.7 % (0.0-10.0); NEUT # 7.2 K/uL (1.8-7.0); NEUT % 79.1 % (50.0-75.0); RBC 3.54 Mil/uL (4.40-5.90); RED CELL DISTRIBUTION WIDTH 14.3 % (11.5-14.5); WHITE BLOOD COUNT 9.1 K/uL (4.8-10.8)
[2018-05-19 06:45] LABS: ALB/GLOB RATIO 0.8 (1.0-2.1); ALBUMIN 2.5 g/dL (3.5-5.0); ALT/SGPT 44 U/L (21-72); AST/SGOT 47 U/L (17-59); BLOOD UREA NITROGEN 13 mg/dL (9-20); GFR NON-AFRICAN AMERICAN > 60
[2018-05-19] MEDS: Saccharomyces Boulardi 250 mg Cap PO SCH ×2 (07:38→19:04)
--- NOTE | 2018-05-19 07:48 | RAD ---
Date of service: 05/19/2018 HISTORY: leadless pacemaker placement COMPARISON: Portable chest 05/14/2018. FINDINGS: LUNGS: Prominent left hemidiaphragm elevation reiterated with limited left basilar patchy density remaining. Trace patchy is seen at the medial mid to inferior right lung zones suspicious for limited infiltrates. PLEURA: No significant pleural effusion identified, no pneumothorax apparent. CARDIOVASCULAR: Stable cardiomegaly. No pulmonary vascular congestion. OSSEOUS STRUCTURES: No significant abnormalities. VISUALIZED UPPER ABDOMEN: Normal. OTHER FINDINGS: None. IMPRESSION: Limited bilateral patchy density [place]ade as discussed above likely reflective of limited at infiltrate though atelectasis simple is a possibility. Marked left hemidiaphragm elevation unchanged. Stable prominent cardiac silhouette.
[2018-05-19] MEDS: Sodium Chloride 0.45% 1,000 ML IV SCH (08:15)
--- NOTE | 2018-05-19 08:34 | CP.CCUPN ---
CCU Subjective - Physician Review Subjective (Free Text): ICU progress note Patient seen and examined at bedside. Patient is attempting to speak however is difficult to understand. State guardian Anabelle Austin ) makes decisions for him. Patient had leadless pacemaker placed at [facility] yesterday. 05/19/18 08:41 CCU Objective - Vital Signs / Intake & Output Vital Signs (Last 4 hours): Vital Signs Temp Pulse Resp BP Pulse Ox 05/19/18 08:00 98.4 F 70 14 128/63 99 05/19/18 07:19 73 14 136/64 100 05/19/18 07:00 70 22 100 05/19/18 06:20 70 11 L 135/68 100 05/19/18 06:00 70 14 100 05/19/18 05:19 70 13 118/55 L 100 Intake and Output (Last 8hrs): Intake & Output 05/18/18 05/19/18 05/19/18 22:59 06:59 14:59 Intake Total 520 600 150 Output Total 265 350 125 Balance 255 250 25 Weight 157 lb 0.19 oz Intake: Intake, IV Amount 300 600 150 Left Distal Port Forearm 300 600 150 Oral 220 Output: Urine 265 350 125 Urethral (Joshi) 265 350 125 Other: # Bowel Movements 1 - Physical Exam Physical Exam Limitations: Positive for: Other (Attempting to speak however speech is unintelligible. Can follow commands, nods to yes/no) Head: Positive for: Atraumatic, Normocephalic Pupils: Negative for: Non-Reactive, Pinpoint Extroacular Muscles: Positive for: EOMI Conjunctiva: Positive for: Normal. Negative for: Injected, Icteric Mouth: Positive for: Moist Mucous Membranes, Normal Lips. Negative for: Dry, Drooling Nose (External): Positive for: Atraumatic. Negative for: Abrasion, Contusion, Laceration Nose (Internal): Positive for: No Active Bleeding. Negative for: Epistaxis Neck: Positive for: Normal Range of Motion, Trachea Midline. Negative for: JVD Respiratory/Chest: Positive for: Clear to Auscultation, Good Air Exchange. Negative for: Respiratory Distress, Accessory Muscle Use, Wheezes, Decreased Breath Sounds, Rales, Rhonchi Cardiovascular: Positive for: Murmurs (holosystolic murmur ), Normal S1, S2, Peripheal Pulses Present (+1 dorsalis pedis), Bradycardic (Goes between 30s and 40s. Out of bed and sitting in chair. ). Negative for: Irregular Rhythm, Tachycardic Abdomen: Positive for: Normal Bowel Sounds. Negative for: Tenderness, Distention, Guarding Upper Extremity: Positive for: Normal Inspection, Normal ROM, NORMAL PULSES ( Radial pulses present). Negative for: Cyanosis, Edema, Tenderness, Swelling, Erythema Lower Extremity: Positive for: NORMAL PULSES, Normal ROM, Other (bandaged ulcers on right lateral thigh. Ulcer on right lateral knee. ). Negative for: Edema, CALF TENDERNESS, Cyanosis, Tenderness, Swelling, Erythema Neurological: Positive for: Motor Func Grossly Intact, Other (awake and alert, following some commands, can nod/shake his head to some yes/no questions). Negative for: Speech Normal (non-verbal, comprehension of speech intact but unable to verbalize any words) Skin: Positive for: Warm, Dry, Normal Color. Negative for: Rashes Psychiatric: Positive for: Alert, Other (awake and alert, able to can nod/shake head to most yes/no questions. Does not appear anxious/agitated) - Medications Active Medications: Active Medications Generic Name Dose Route Start Last Admin Trade Name Freq PRN Reason Stop Dose Admin Albuterol Sulfate 2.5 mg 05/14/18 09:00 05/19/18 07:41 Albuterol 0.083% Inhal Suellen (2.5 Mg/3 Ml) Ud INH 2.5 mg RQ6 [facility] Administration Amlodipine Besylate 5 mg 05/14/18 10:00 05/18/18 09:19 Norvasc PO 5 mg DAILY ANUPAM Administration Aspirin 81 mg 05/13/18 10:00 05/18/18 09:45 Ecotrin PO Not Given DAILY ANUPAM Atropine Sulfate 1 mg 05/07/18 19:43 05/16/18 16:33 Atropine IVP 1 mg Q3H PRN Administration Other Bisacodyl 10 mg 05/16/18 14:17 05/17/18 17:32 Dulcolax [place] 10 mg HS PRN Administration Constipation Docusate Sodium 100 mg 05/16/18 18:00 05/18/18 18:30 Colace PO Not Given TID ANUPAM Hydralazine HCl 10 mg 09/02/18 15:22 Apresoline IVP Q6H PRN SBP > 160 Hydralazine HCl 25 mg 05/13/18 10:00 05/18/18 18:41 Apresoline PO 25 mg TID ANUPAM Administration Sodium Chloride 1,000 mls @ 75 mls/hr 05/15/18 11:45 05/18/18 18:46 Sodium Chloride 0.45% IV 75 mls/hr .[id number] ANUPAM Administration Pantoprazole Sodium 40 mg 05/07/18 10:00 05/18/18 09:19 Protonix Ec Tab PO 40 mg DAILY ANUPAM Administration Rosuvastatin Calcium 10 mg 05/06/18 22:00 05/18/18 21:33 Crestor PO 10 mg HS ANUPAM Administration Saccharomyces Boulardii 250 mg 05/06/18 20:00 05/19/18 07:38 Florastor PO 250 mg Q12H ANUPAM Administration Sennosides 8.6 mg 05/17/18 10:00 05/18/18 09:46 Senokot Tab PO Not Given DAILY ANUPAM Tamsulosin HCl 0.4 mg 05/14/18 10:00 05/18/18 09:19 Flomax PO 0.4 mg DAILY ANUPAM Administration Terazosin HCl 1 mg 05/15/18 22:00 05/18/18 21:33 Hytrin PO 1 mg HS ANUPAM Administration - Patient Studies Lab Studies: Lab Studies 05/19/18 05/19/18 Range/Units 06:18 06:16 WBC 9.1 (4.8-10.8) K/uL RBC 3.54 L (4.40-5.90) Mil/uL Hgb 11.5 L (12.0-18.0) g/dL Hct 32.6 L (35.0-51.0) % MCV 92.2 (80.0-94.0) fL MCH 32.5 H (27.0-31.0) pg MCHC 35.2 (33.0-37.0) g/dL RDW 14.3 (11.5-14.5) % Plt Count 252 (130-400) K/uL MPV 9.2 (7.2-11.7) fL Neut % (Auto) 79.1 H (50.0-75.0) % Lymph % (Auto) 10.3 L (20.0-40.0) % Osborne % (Auto) 7.7 (0.0-10.0) % Eos % (Auto) 2.5 (0.0-4.0) % Baso % (Auto) 0.4 (0.0-2.0) % Neut # (Auto) 7.2 H (1.8-7.0) K/uL Lymph # (Auto) 0.9 L (1.0-4.3) K/uL Osborne # (Auto) 0.7 (0.0-0.8) K/uL Eos # (Auto) 0.2 (0.0-0.7) K/uL Baso # (Auto) 0.0 (0.0-0.2) K/uL Sodium 137 (132-148) mmol/L Potassium 3.8 (3.6-5.2) mmol/L Chloride 108 H (98-107) mmol/L Carbon Dioxide 21 L (22-30) mmol/L Anion Gap 11 (10-20) BUN 13 (9-20) mg/dL Creatinine 0.8 (0.8-1.5) mg/dL Est GFR ( Amer) > 60 Est GFR (Non-Af Amer) > 60 Random Glucose 83 (75-110) mg/dL Calcium 8.0 L (8.6-10.4) mg/dl Phosphorus 2.6 (2.5-4.5) mg/dL Magnesium 1.6 (1.6-2.3) mg/dL Total Bilirubin 0.7 (0.2-1.3) mg/dL AST 47 (17-59) U/L ALT 44 (21-72) U/L Alkaline Phosphatase 53 (38-126) U/L Total Protein 5.5 L (6.3-8.3) g/dL Albumin 2.5 L (3.5-5.0) g/dL Globulin 3.0 (2.2-3.9) gm/dL Albumin/Globulin Ratio 0.8 L (1.0-2.1) Laboratory Results - last 24 hr 05/19/18 05/19/18 06:16 06:18 WBC 9.1 RBC 3.54 L Hgb 11.5 L Hct 32.6 L MCV 92.2 MCH 32.5 H MCHC 35.2 RDW 14.3 Plt Count 252 MPV 9.2 Neut % (Auto) 79.1 H Lymph % (Auto) 10.3 L Osborne % (Auto) 7.7 Eos % (Auto) 2.5 Baso % (Auto) 0.4 Neut # (Auto) 7.2 H Lymph # (Auto) 0.9 L Osborne # (Auto) 0.7 Eos # (Auto) 0.2 Baso # (Auto) 0.0 Sodium 137 Potassium 3.8 Chloride 108 H Carbon Dioxide 21 L Anion Gap 11 BUN 13 Creatinine 0.8 Est GFR ( Amer) > 60 Est GFR (Non-Af Amer) > 60 Random Glucose 83 Calcium 8.0 L Phosphorus 2.6 Magnesium 1.6 Total Bilirubin 0.7 AST 47 ALT 44 Alkaline Phosphatase 53 Total Protein 5.5 L Albumin 2.5 L Globulin 3.0 Albumin/Globulin Ratio 0.8 L Fingerstick Blood Sugar Results: 119 Critical Care Progress Note - Nutrition Nutrition: Nutrition Category Date Time Status Dysphagia/Modified Consistency Diet [DIET] Diets 05/18/18 Breakfast Active
--- NOTE | 2018-05-19 09:05 | CP.PCM.PN ---
Subjective - Date & Time of Evaluation Date of Evaluation: 05/19/18 Time of Evaluation: 09:02 - Subjective Subjective: Seen and examined,patient is sitting and having breakfast. Pleasant frail male.Denies pain HR 70/paced rhythm,BP 128/63 s/p Leadless pacemaker placement. Objective - Vital Signs/Intake and Output Vital Signs (last 24 hours): Temp Pulse Resp BP Pulse Ox 98.4 F 70 16 128/63 99 05/19/18 08:00 05/19/18 08:00 05/19/18 08:00 05/19/18 08:00 05/19/18 08:00 Intake and Output: 05/19/18 05/19/18 06:59 18:59 Intake Total 1045 150 Output Total 515 125 Balance 530 25 - Medications Medications: Current Medications Albuterol Sulfate (Albuterol 0.083% Inhal Suellen (2.5 Mg/3 Ml) Ud) 2.5 mg INH RQ6 [facility] Last Admin: 05/19/18 07:41 Dose: 2.5 mg Amlodipine Besylate (Norvasc) 5 mg PO DAILY [facility] Last Admin: 05/18/18 09:19 Dose: 5 mg Aspirin (Ecotrin) 81 mg PO DAILY [facility] Last Admin: 05/18/18 09:45 Dose: Not Given Atropine Sulfate (Atropine) 1 mg IVP Q3H PRN PRN Reason: Other Last Admin: 05/16/18 16:33 Dose: 1 mg Bisacodyl (Dulcolax) 10 mg SC HS PRN PRN Reason: Constipation Last Admin: 05/17/18 17:32 Dose: 10 mg Docusate Sodium (Colace) 100 mg PO TID [facility] Last Admin: 05/18/18 18:30 Dose: Not Given Hydralazine HCl (Apresoline) 10 mg IVP Q6H PRN PRN Reason: SBP > 160 Hydralazine HCl (Apresoline) 25 mg PO TID [facility] Last Admin: 05/18/18 18:41 Dose: 25 mg Sodium Chloride (Sodium Chloride 0.45%) 1,000 mls @ 75 mls/hr IV .[id number] [facility] Last Admin: 05/18/18 18:46 Dose: 75 mls/hr Pantoprazole Sodium (Protonix Ec Tab) 40 mg PO DAILY [facility] Last Admin: 05/18/18 09:19 Dose: 40 mg Rosuvastatin Calcium (Crestor) 10 mg PO [facility] Last Admin: 05/18/18 21:33 Dose: 10 mg Saccharomyces Boulardii (Florastor) 250 mg PO Q12H [facility] Last Admin: 05/19/18 07:38 Dose: 250 mg Sennosides (Senokot Tab) 8.6 mg PO DAILY [facility] Last Admin: 05/18/18 09:46 Dose: Not Given Tamsulosin HCl (Flomax) 0.4 mg PO DAILY [facility] Last Admin: 05/18/18 09:19 Dose: 0.4 mg Terazosin HCl (Hytrin) 1 mg PO [facility] Last Admin: 05/18/18 21:33 Dose: 1 mg - Labs Labs: 05/19/18 06:18 05/19/18 06:16 PT 13.9 SECONDS (9.7-12.2) H 05/18/18 05:01 INR 1.3 05/18/18 05:01 APTT 31 SECONDS (21-34) D 05/18/18 05:01 - Constitutional Appears: No Acute Distress - Head Exam Head Exam: NORMAL INSPECTION - Eye Exam Eye Exam: Normal appearance - ENT Exam ENT Exam: Mucous Membranes Moist - Neck Exam Neck Exam: Full ROM - Respiratory Exam Respiratory Exam: Clear to Ausculation Bilateral, NORMAL BREATHING PATTERN - Cardiovascular Exam Cardiovascular Exam: REGULAR RHYTHM - GI/Abdominal Exam GI & Abdominal Exam: Soft, Normal Bowel Sounds - Extremities Exam Extremities Exam: Full ROM - Back Exam Back Exam: NORMAL INSPECTION - Neurological Exam Neurological Exam: Awake. absent: Oriented x3 - Psychiatric Exam Psychiatric exam: Normal Mood - Skin Skin Exam: Normal Color Assessment and Plan - Assessment and Plan (Free Text) Assessment: This is a frail 88 year old male with possible history of hypertension ,unknown psychiatric illness and possible dementia was brought for evaluation after patient was reportedly found on the floor in his house by cleaning staff in his home. Unknown how long he was on the floor. Patient is under state guardianship.He was living alone with the help of once a week home care service.On admission patient was in atrial flutter with varing response.His lowest rate was in 30ies. Patient was asymptomatic on admission and admitted to tele. Brought to ICU for bradycardia with evidence of Atrial flutter with block.Patient will be seen by EP physician. Possible pace maker Advance directive -full code s/p pacemaker yesterday/leadless pacemaker Patient has no family.He was living alone with once a week help.History of dementia,psychiatry disorder and hypertension.He was refusing medical care in the past as per his correctional case records supervisor d/w patient's case maker. His state guardian is on vacation State guardian . The State appointed Guardin number is [phone] - her name is Norman Ahn Plan: 1.Atrialfibrillation / flutter with block, bradycardia often in the 30s Patient was in bradycardic with HR in 30ies .Had leadless pacemaker yesterday Paced rhythm rate 70 we will start on anticoagulant/NOAC tomorrow The State appointed Guardin number is [phone] - her name is Norman Ahn 2. Severe Aortic Stenosis 05/10: Echo returned, there is ALEXANDER of 0.8, also moderate to severe pulmonary HTN seen and severely dialated left atrium 3 .New CVA with aphasia /subacute stroke - Neurology consulted on case (Dr. Kumar) - CT without contrast: subtle hypodensity in the left MCA territory ( nonspecific and may represent subacute infarct) Heparinn on hold Continue Crestor 10mg PO HS Pending brain MRI 4 Community Acquired Pneumonia 05/10: Cultures have been negative 3 days now. He remains on IV rocephin/ completing today Chest X-ray: Left lower lobe infiltrates/atelectasis 5.Ulcers secondary to being on the ground for unknown duration - Wound Care 6.Advance directives-full code Previously d/w patient's case maker. His state guardian is on vacation Note-Spoke to Dr De La Rosa this afternoon. Patient tolerated the placement of leadless pacemaker through right femoral access yesterday Recommending to follow Dr Wesley Ng in 2 weeks as an out patient.
[2018-05-20] MEDS: Albuterol 0.083% Inhal Sol (2.5 mg/3 mL) UD INH SCH ×4 (01:16→19:51)
--- NOTE | 2018-05-20 07:22 | CP.PCM.PN ---
Addendum entered and electronically signed by Chi Welch DO 05/20/18 20: 36: PGY1 Addendum to progress note (05/20): Per curbside conversation with Urology: Patient's urinary retention is likely neurological in etiology and associated with most recent stroke. No further work-up indicated at this time. Per recommendations, patient will benefit from rehabilitation and is to be seen by Urology for evaluation in 1 month. Patient is cleared for discharge to rehab facility. Addendum entered and electronically signed by Chi Welch DO 05/20/18 14: 41: PGY1 Addendum to progress note (05/20): Patient also had hypokalemia. K+=3.4. Mag =1.5. Repleted with K-dur 20mg PO x1 and Magnesium sulfate 2g IVPB. Continue to monitor with CMP and replete as needed. Of note, high school social studies teacher has spoken with guardialla Ahn and she has spoken with the state accountants who have the paperwork needed for placement. Will follow-up with high school social studies teacher regarding long -term placement. Original Note: <Chi Welch - Last Filed: 05/20/18 14:33> Subjective - Date & Time of Evaluation Date of Evaluation: 05/20/18 Time of Evaluation: 12:48 - Subjective Subjective: PGY1 Progress Note for Dr. Clarke Patient seen and examined at bedside this morning. Patient was sleeping supine upon entering the room. Patient denies any pain or urge to urinate. Per nurse, moran was placed overnight due to urinary retention of 600cc. Moran was removed and placed again this morning. Patient is status post leadless pacemaker placement. Patient was revisited in the afternoon with attending physician Dr. Clarke, and was sitting up in bed and eating. Patient denied pain and/or new complaints. Patient was asked about history of BPH, but shrugged in response. Objective - Vital Signs/Intake and Output Vital Signs (last 24 hours): Temp Pulse Resp BP Pulse Ox 98.0 F 69 20 119/61 96 05/19/18 23:50 05/19/18 23:50 05/19/18 23:50 05/19/18 23:50 05/19/18 23:50 - Medications Medications: Current Medications Albuterol Sulfate (Albuterol 0.083% Inhal Suellen (2.5 Mg/3 Ml) Ud) 2.5 mg INH RQ6 [facility] Last Admin: 05/20/18 01:16 Dose: Not Given Amlodipine Besylate (Norvasc) 5 mg PO DAILY [facility] Last Admin: 05/19/18 09:45 Dose: 5 mg Apixaban (Eliquis) 2.5 mg PO BID [facility] Aspirin (Ecotrin) 81 mg PO DAILY [facility] Last Admin: 05/19/18 09:45 Dose: 81 mg Atropine Sulfate (Atropine) 1 mg IVP Q3H PRN PRN Reason: Other Last Admin: 05/16/18 16:33 Dose: 1 mg Bisacodyl (Dulcolax) 10 mg ME HS PRN PRN Reason: Constipation Last Admin: 05/17/18 17:32 Dose: 10 mg Docusate Sodium (Colace) 100 mg PO TID [facility] Last Admin: 05/19/18 19:00 Dose: 100 mg Hydralazine HCl (Apresoline) 25 mg PO TID [facility] Last Admin: 05/19/18 19:00 Dose: 25 mg Pantoprazole Sodium (Protonix Ec Tab) 40 mg PO DAILY [facility] Last Admin: 05/18/18 09:19 Dose: 40 mg Rosuvastatin Calcium (Crestor) 10 mg PO HS [facility] Last Admin: 05/19/18 22:04 Dose: 10 mg Saccharomyces Boulardii (Florastor) 250 mg PO Q12H [facility] Last Admin: 05/19/18 19:04 Dose: 250 mg Sennosides (Senokot Tab) 8.6 mg PO DAILY [facility] Last Admin: 05/19/18 09:45 Dose: 8.6 mg Tamsulosin HCl (Flomax) 0.4 mg PO DAILY [facility] Last Admin: 05/19/18 09:45 Dose: 0.4 mg Terazosin HCl (Hytrin) 1 mg PO HS [facility] Last Admin: 05/19/18 22:10 Dose: 1 mg - Labs Labs: 05/19/18 06:18 05/19/18 06:16 PT 13.9 SECONDS (9.7-12.2) H 05/18/18 05:01 INR 1.3 05/18/18 05:01 APTT 31 SECONDS (21-34) D 05/18/18 05:01 - Additional Findings Additional findings: Constitutional Appears: No Acute Distress - Head Exam Head Exam: NORMAL INSPECTION - Eye Exam Eye Exam: Normal appearance - ENT Exam ENT Exam: Mucous Membranes Moist - Neck Exam Neck Exam: Full ROM - Respiratory Exam Respiratory Exam: Clear to Ausculation Bilateral, NORMAL BREATHING PATTERN - Cardiovascular Exam Cardiovascular Exam: REGULAR RHYTHM - GI/Abdominal Exam GI & Abdominal Exam: Soft, Normal Bowel Sounds - Extremities Exam Extremities Exam: Full ROM - Back Exam Back Exam: NORMAL INSPECTION - Neurological Exam Neurological Exam: Awake. absent: Oriented x3 - Psychiatric Exam Psychiatric exam: Normal Mood - Skin Skin Exam: Normal Color Assessment and Plan - Assessment and Plan (Free Text) Assessment: This is a frail 88 year old male with possible history of hypertension ,unknown psychiatric illness and possible dementia was brought for evaluation after patient was reportedly found on the floor in his house by cleaning staff in his home. Unknown how long he was on the floor. Patient is under state guardianship. He was living alone with the help of once a week home care service. On admission patient was in atrial flutter with varying response. His lowest rate was in 30's. Patient was asymptomatic on admission and admitted to telemetry. Subsequently brought to ICU for bradycardia with evidence of Atrial flutter with block. Advance directive -full code Of note, patient has no family. He was living alone with once a week help. History of dementia,psychiatry disorder and hypertension. He was refusing medical care in the past as per his clinical case manager d/w patient's disability case manager. His state guardian is on vacation State guardian . The State appointed Guardian number is [phone] - her name is Norman Ahn Plan: Atrial fibrillation / flutter with block, bradycardia often in the 30s - Patient was in bradycardic with HR in 30ies - Day 2 status-post leadless pacemaker 05/18/18 - Paced rhythm rate 70 - Start: Eliquis 2.5mg PO BID today The State appointed Guardian number is [phone] - her name is AnabelleNorman puentes Urinary retention - Moran placed 05/20/18 - PSA=pending - Urology (Dr. Carina Pimentel) consulted, recommendations appreciated - Medications: * Flomax 0.4mg PO Daily * Terazosin 1mg PO HS Severe Aortic Stenosis 05/10: Echo returned, there is ALEXANDER of 0.8, also moderate to severe pulmonary HTN seen and severely dialated left atrium New CVA with aphasia /subacute stroke - Neurology consulted on case (Dr. Kumar) - CT without contrast: subtle hypodensity in the left MCA territory ( nonspecific and may represent subacute infarct) * Heparin on hold * Continue Crestor 10mg PO HS Community Acquired Pneumonia 05/10: Cultures have been negative 3 days now. He remains on IV rocephin/ completing today Chest X-ray: Left lower lobe infiltrates/atelectasis Ulcers secondary to being on the ground for unknown duration - Wound Care Advance directives-full code Previously d/w patient's disability case manager. His state guardian is on vacation Patient tolerated the placement of leadless pacemaker through right femoral access. Groin suture removed by labor relations representative nurse in AM 05/19/18. Follow up with Dr Wesley Ng in 2 weeks as an out patient. <Madina Clarke - Last Filed: 05/21/18 16:30> Objective - Vital Signs/Intake and Output Vital Signs (last 24 hours): Temp Pulse Resp BP Pulse Ox 98 F 67 18 125/62 95 05/21/18 08:30 05/21/18 08:30 05/21/18 08:30 05/21/18 08:30 05/21/18 08:30 Intake and Output: 05/21/18 05/21/18 06:59 18:59 Intake Total 580 Output Total 525 200 Balance 55 -200 - Medications Medications: Current Medications Albuterol Sulfate (Albuterol 0.083% Inhal Suellen (2.5 Mg/3 Ml) Ud) 2.5 mg INH RQ6 [facility] Last Admin: 05/21/18 13:44 Dose: 2.5 mg Amlodipine Besylate (Norvasc) 5 mg PO DAILY [facility] Last Admin: 05/21/18 10:05 Dose: 5 mg Apixaban (Eliquis) 2.5 mg PO BID [facility] Last Admin: 05/21/18 10:05 Dose: 2.5 mg Aspirin (Ecotrin) 81 mg PO DAILY [facility] Last Admin: 05/21/18 10:05 Dose: 81 mg Atropine Sulfate (Atropine) 1 mg IVP Q3H PRN PRN Reason: Other Last Admin: 05/16/18 16:33 Dose: 1 mg Bisacodyl (Dulcolax) 10 mg ME HS PRN PRN Reason: Constipation Last Admin: 05/17/18 17:32 Dose: 10 mg Docusate Sodium (Colace) 100 mg PO TID [facility] Last Admin: 05/21/18 13:10 Dose: 100 mg Hydralazine HCl (Apresoline) 25 mg PO TID [facility] Last Admin: 05/21/18 13:10 Dose: 25 mg Pantoprazole Sodium (Protonix Ec Tab) 40 mg PO DAILY [facility] Last Admin: 05/21/18 10:05 Dose: 40 mg Rosuvastatin Calcium (Crestor) 10 mg PO HS [facility] Last Admin: 05/20/18 21:15 Dose: 10 mg Saccharomyces Boulardii (Florastor) 250 mg PO Q12H [facility] Last Admin: 05/21/18 08:25 Dose: 250 mg Sennosides (Senokot Tab) 8.6 mg PO DAILY [facility] Last Admin: 05/21/18 10:05 Dose: 8.6 mg Tamsulosin HCl (Flomax) 0.4 mg PO DAILY [facility] Last Admin: 05/21/18 10:05 Dose: 0.4 mg Terazosin HCl (Hytrin) 1 mg PO HS [facility] Last Admin: 05/20/18 21:15 Dose: 1 mg - Labs Labs: 05/20/18 08:48 05/20/18 08:48 PT 13.9 SECONDS (9.7-12.2) H 05/18/18 05:01 INR 1.3 05/18/18 05:01 APTT 31 SECONDS (21-34) D 05/18/18 05:01 Attending/Attestation - Attestation I have personally seen and examined this patient.: Yes I have fully participated in the care of the patient.: Yes I have reviewed all pertinent clinical information, including history, physical exam and plan: Yes Notes (Text): Seen and examined by me . patient has no discomfort,nonverbal,Feeding himself.Able to follow commands Patient has urinary retention.Discussed with urologist DR Carina Degroot.Patient's urinary retention is likely neurological in etiology and associated with most recent stroke. No further work-up indicated at this time. Recommend to keep faley cath and voiding trial in a month.Urology for evaluation in 1 month if needed Patient is cleared for discharge to rehab facility. We will discuss with high school social studies teacher 1. Afib,Symptomatic bradycardia s/p leadless pacemaker placement [facility] morning show host Dr Wesley Ng in 2 weeks to check pacemaker (Pacemaker placed on 05/18/18) 2.CVA with aphasia 3.HTN 4.Urinary retention 5.Hip wound 6 Unsteady gait Assessment and the place discussed with the resident
[2018-05-20 09:06] LABS: BASO % 0.4 % (0.0-2.0); EOS # 0.4 K/uL (0.0-0.7); EOS % 4.7 % (0.0-4.0); HEMOGLOBIN 11.4 g/dL (12.0-18.0); LYMPH # 1.2 K/uL (1.0-4.3); LYMPH % 14.8 % (20.0-40.0); MEAN CELL VOLUME 91.2 fL (80.0-94.0); MEAN CORPUSCULAR HEMOGLOBIN 32.4 pg (27.0-31.0); MEAN CORPUSCULAR HGB CONC 35.6 g/dL (33.0-37.0); MEAN PLATELET VOLUME 8.7 fL (7.2-11.7); MONO # 0.7 K/uL (0.0-0.8); MONO % 8.7 % (0.0-10.0); NEUT # 5.9 K/uL (1.8-7.0); NEUT % 71.4 % (50.0-75.0); NRBC % 0.1 % (0.0-2.0); RBC 3.53 Mil/uL (4.40-5.90); RED CELL DISTRIBUTION WIDTH 13.8 % (11.5-14.5); WHITE BLOOD COUNT 8.2 K/uL (4.8-10.8)
[2018-05-20] MEDS: Pantoprazole 40 mg EC Tab PO SCH (09:13)
[2018-05-20] MEDS: Saccharomyces Boulardi 250 mg Cap PO SCH ×2 (09:14→20:00)
[2018-05-20 09:22] LABS: ALB/GLOB RATIO 0.8 (1.0-2.1); ALBUMIN 2.5 g/dL (3.5-5.0); ALT/SGPT 52 U/L (21-72); AST/SGOT 45 U/L (17-59); BLOOD UREA NITROGEN 13 mg/dL (9-20); GFR NON-AFRICAN AMERICAN > 60
[2018-05-20] MEDS ORDERED: Potassium Chloride 20 mEq/15 ml LIQ UD PO ONE (10:45)
[2018-05-20] MEDS ORDERED: Potassium Chloride 20 mEq ER Tab PO ONE (10:45)
[2018-05-20] MEDS: Magnesium Sulfate 1 gm in D5W 1 GM/100 ML BAG IVPB SCH ×2 (11:23→12:20)
[2018-05-21] MEDS: Albuterol 0.083% Inhal Sol (2.5 mg/3 mL) UD INH SCH ×3 (01:18→13:44)
[2018-05-21] MEDS: Saccharomyces Boulardi 250 mg Cap PO SCH ×2 (08:25→20:00)
--- NOTE | 2018-05-21 09:31 | CP.PCM.PN ---
<Chi Welch - Last Filed: 05/21/18 09:28> Subjective - Date & Time of Evaluation Date of Evaluation: 05/21/18 Time of Evaluation: 09:29 - Subjective Subjective: PGY1 Progress Note for Dr. Clarke Patient seen and examined at bedside this morning. Patient was sleeping supine upon entering the room. Patient denies any pain or urge to urinate. Patient is voiding via moran placed 05/21/18. Patient is status post leadless pacemaker placement. Patient sitting up in bed and eating. Patient denied pain and/or new complaints. Objective - Vital Signs/Intake and Output Vital Signs (last 24 hours): Temp Pulse Resp BP Pulse Ox 98 F 67 18 125/62 95 05/21/18 08:30 05/21/18 08:30 05/21/18 08:30 05/21/18 08:30 05/21/18 08:30 Intake and Output: 05/21/18 05/21/18 06:59 18:59 Intake Total 580 Output Total 525 Balance 55 - Medications Medications: Current Medications Albuterol Sulfate (Albuterol 0.083% Inhal Suellen (2.5 Mg/3 Ml) Ud) 2.5 mg INH RQ6 [facility] Last Admin: 05/21/18 08:16 Dose: 2.5 mg Amlodipine Besylate (Norvasc) 5 mg PO DAILY [facility] Last Admin: 05/20/18 09:13 Dose: 5 mg Apixaban (Eliquis) 2.5 mg PO BID [facility] Last Admin: 05/20/18 18:07 Dose: 2.5 mg Aspirin (Ecotrin) 81 mg PO DAILY [facility] Last Admin: 05/20/18 09:14 Dose: 81 mg Atropine Sulfate (Atropine) 1 mg IVP Q3H PRN PRN Reason: Other Last Admin: 05/16/18 16:33 Dose: 1 mg Bisacodyl (Dulcolax) 10 mg [place] HS PRN PRN Reason: Constipation Last Admin: 05/17/18 17:32 Dose: 10 mg Docusate Sodium (Colace) 100 mg PO TID [facility] Last Admin: 05/20/18 18:04 Dose: 100 mg Hydralazine HCl (Apresoline) 25 mg PO TID [facility] Last Admin: 05/20/18 18:04 Dose: 25 mg Pantoprazole Sodium (Protonix Ec Tab) 40 mg PO DAILY [facility] Last Admin: 05/20/18 09:13 Dose: 40 mg Rosuvastatin Calcium (Crestor) 10 mg PO HS [facility] Last Admin: 05/20/18 21:15 Dose: 10 mg Saccharomyces Boulardii (Florastor) 250 mg PO Q12H [facility] Last Admin: 05/20/18 20:00 Dose: 250 mg Sennosides (Senokot Tab) 8.6 mg PO DAILY [facility] Last Admin: 05/20/18 09:13 Dose: 8.6 mg Tamsulosin HCl (Flomax) 0.4 mg PO DAILY [facility] Last Admin: 05/20/18 09:13 Dose: 0.4 mg Terazosin HCl (Hytrin) 1 mg PO HS [facility] Last Admin: 05/20/18 21:15 Dose: 1 mg - Labs Labs: 05/20/18 08:48 05/20/18 08:48 PT 13.9 SECONDS (9.7-12.2) H 05/18/18 05:01 INR 1.3 05/18/18 05:01 APTT 31 SECONDS (21-34) D 05/18/18 05:01 - Additional Findings Additional findings: Constitutional Appears: No Acute Distress - Head Exam Head Exam: NORMAL INSPECTION - Eye Exam Eye Exam: Normal appearance - ENT Exam ENT Exam: Mucous Membranes Moist - Neck Exam Neck Exam: Full ROM - Respiratory Exam Respiratory Exam: Clear to Ausculation Bilateral, NORMAL BREATHING PATTERN - Cardiovascular Exam Cardiovascular Exam: REGULAR RHYTHM Systolic Murmur (appreciated on auscultation of both right and left sternal border at 2nd intercostal space bilaterally. ). - GI/Abdominal Exam GI & Abdominal Exam: Soft, Normal Bowel Sounds - Extremities Exam Extremities Exam: Full ROM - Back Exam Back Exam: NORMAL INSPECTION - Neurological Exam Neurological Exam: Awake. absent: Oriented x3 - Psychiatric Exam Psychiatric exam: Normal Mood - Skin Skin Exam: Normal Color Assessment and Plan - Assessment and Plan (Free Text) Assessment: This is a frail 88 year old male with possible history of hypertension ,unknown psychiatric illness and possible dementia was brought for evaluation after patient was reportedly found on the floor in his house by cleaning staff in his home. Unknown how long he was on the floor. Patient is under state guardianship. He was living alone with the help of once a week home care service. On admission patient was in atrial flutter with varying response. His lowest rate was in 30's. Patient was asymptomatic on admission and admitted to telemetry. Subsequently brought to ICU for bradycardia with evidence of Atrial flutter with block. Advance directive -full code Of note, patient has no family. He was living alone with once a week help. History of dementia,psychiatry disorder and hypertension. He was refusing medical care in the past as per his case packer and sealer d/w patient's case packer and sealer. His state guardian is on vacation State guardian . The State appointed Guardian number is [phone] - her name is Norman Ahn Plan: Atrial fibrillation / flutter with block, bradycardia often in the 30s - Patient was in bradycardic with HR in 30ies - Day 2 status-post leadless pacemaker 05/18/18 - Paced rhythm rate 70 - Start: Eliquis 2.5mg PO BID today The State appointed Guardian number is [phone] - her name is Norman Ahn Urinary retention - Moran placed 05/20/18 - PSA=pending - Medications: * Flomax 0.4mg PO Daily * Terazosin 1mg PO HS Severe Aortic Stenosis 05/10: Echo returned, there is ALEXANDER of 0.8, also moderate to severe pulmonary HTN seen and severely dilated left atrium New CVA with aphasia /subacute stroke - Neurology consulted on case (Dr. Kumar) - CT without contrast: subtle hypodensity in the left MCA territory ( nonspecific and may represent subacute infarct) * Heparin on hold * Continue Crestor 10mg PO HS Community Acquired Pneumonia 05/10: Cultures have been negative 3 days now. He remains on IV rocephin/ completing today Chest X-ray: Left lower lobe infiltrates/atelectasis Ulcers secondary to being on the ground for unknown duration - Wound Care Advance directives-full code Previously d/w patient's case packer and sealer. His state guardian is on vacation Patient tolerated the placement of leadless pacemaker through right femoral access. Groin suture removed by laboratory secretary nurse in AM 05/19/18. Follow up with Dr Wesley Ng in 2 weeks as an out patient. Per curbside conversation with Urology: Patient's urinary retention is likely neurological in etiology and associated with most recent stroke. No further work -up indicated at this time. Per recommendations, patient will benefit from rehabilitation. Recommends patient undergo voiding trials at rehab facility and if any issues regarding the former patient is to follow-up with Dr. Carina Pimentel ( Urology). Of note, patient is medically optimized and cleared for discharge to rehab facility. Discussed with case packer and sealer. Per case packer and sealer, patient is pending acceptance to rehab facility. Will follow recommendations. <Madina Clarke - Last Filed: 05/21/18 16:32> Objective - Vital Signs/Intake and Output Vital Signs (last 24 hours): Temp Pulse Resp BP Pulse Ox 98 F 67 18 125/62 95 05/21/18 08:30 05/21/18 08:30 05/21/18 08:30 05/21/18 08:30 05/21/18 08:30 Intake and Output: 05/21/18 05/21/18 06:59 18:59 Intake Total 580 Output Total 525 200 Balance 55 -200 - Medications Medications: Current Medications Albuterol Sulfate (Albuterol 0.083% Inhal Suellen (2.5 Mg/3 Ml) Ud) 2.5 mg INH RQ6 [facility] Last Admin: 05/21/18 13:44 Dose: 2.5 mg Amlodipine Besylate (Norvasc) 5 mg PO DAILY [facility] Last Admin: 05/21/18 10:05 Dose: 5 mg Apixaban (Eliquis) 2.5 mg PO BID [facility] Last Admin: 05/21/18 10:05 Dose: 2.5 mg Aspirin (Ecotrin) 81 mg PO DAILY [facility] Last Admin: 05/21/18 10:05 Dose: 81 mg Atropine Sulfate (Atropine) 1 mg IVP Q3H PRN PRN Reason: Other Last Admin: 05/16/18 16:33 Dose: 1 mg Bisacodyl (Dulcolax) 10 mg [place] HS PRN PRN Reason: Constipation Last Admin: 05/17/18 17:32 Dose: 10 mg Docusate Sodium (Colace) 100 mg PO TID [facility] Last Admin: 05/21/18 13:10 Dose: 100 mg Hydralazine HCl (Apresoline) 25 mg PO TID [facility] Last Admin: 05/21/18 13:10 Dose: 25 mg Pantoprazole Sodium (Protonix Ec Tab) 40 mg PO DAILY [facility] Last Admin: 05/21/18 10:05 Dose: 40 mg Rosuvastatin Calcium (Crestor) 10 mg PO HS [facility] Last Admin: 05/20/18 21:15 Dose: 10 mg Saccharomyces Boulardii (Florastor) 250 mg PO Q12H [facility] Last Admin: 05/21/18 08:25 Dose: 250 mg Sennosides (Senokot Tab) 8.6 mg PO DAILY [facility] Last Admin: 05/21/18 10:05 Dose: 8.6 mg Tamsulosin HCl (Flomax) 0.4 mg PO DAILY [facility] Last Admin: 05/21/18 10:05 Dose: 0.4 mg Terazosin HCl (Hytrin) 1 mg PO HS [facility] Last Admin: 05/20/18 21:15 Dose: 1 mg - Labs Labs: 05/20/18 08:48 05/20/18 08:48 PT 13.9 SECONDS (9.7-12.2) H 05/18/18 05:01 INR 1.3 05/18/18 05:01 APTT 31 SECONDS (21-34) D 05/18/18 05:01 Attending/Attestation - Attestation I have personally seen and examined this patient.: Yes I have fully participated in the care of the patient.: Yes I have reviewed all pertinent clinical information, including history, physical exam and plan: Yes Notes (Text): Seen and examined by me this morning . patient has no discomfort,nonverbal, Feeding himself.Able to follow commands Patient has urinary retention.Discussed with urologist DR Carina Degroot.Patient's urinary retention is likely neurological in etiology and associated with most recent stroke. No further work-up indicated at this time. Recommend to keep faley cath and voiding trial in a month.Urology for evaluation in 1 month if needed Patient is cleared for discharge to rehab facility. We will discuss with delinquency prevention social worker 1. Afib,Symptomatic bradycardia s/p leadless pacemaker placement Started on Eliquis follow public stenographer Dr Wesley Ng in 2 weeks to check pacemaker (Pacemaker placed on 05/18/18) 2.CVA with aphasia 3.HTN 4.Urinary retention 5.Hip wound 6 Unsteady gait Assessment and the place discussed with the resident Discussed with sprinkler worker. Working on getting rehab
[2018-05-21] MEDS: Pantoprazole 40 mg EC Tab PO SCH (10:05)
[2018-05-22] MEDS: Albuterol 0.083% Inhal Sol (2.5 mg/3 mL) UD INH SCH ×4 (01:46→19:24)
--- NOTE | 2018-05-22 03:19 | CP.PCM.PN ---
<Jose De La Paz - Last Filed: 05/22/18 06:50> Subjective - Date & Time of Evaluation Date of Evaluation: 05/22/18 Time of Evaluation: 03:16 - Subjective Subjective: PGY-[address] Clarke Patient seen and examined at bedside this morning. Patient appears comfortable. Patient denies any pain or urge to urinate. Patient is voiding via moran placed 05/21/18. Patient is status post leadless pacemaker placement. Patient sitting up in bed and eating. Patient denied pain and/or new complaints. Objective - Vital Signs/Intake and Output Vital Signs (last 24 hours): Temp Pulse Resp BP Pulse Ox 98.4 F 69 20 132/72 96 05/21/18 23:25 05/21/18 23:25 05/21/18 23:25 05/21/18 23:25 05/21/18 23:25 Intake and Output: 05/21/18 05/22/18 18:59 06:59 Output Total 200 500 Balance -200 -500 - Medications Medications: Current Medications Albuterol Sulfate (Albuterol 0.083% Inhal Suellen (2.5 Mg/3 Ml) Ud) 2.5 mg INH RQ6 [facility] Last Admin: 05/21/18 13:44 Dose: 2.5 mg Amlodipine Besylate (Norvasc) 5 mg PO DAILY [facility] Last Admin: 05/21/18 10:05 Dose: 5 mg Apixaban (Eliquis) 2.5 mg PO BID [facility] Last Admin: 05/21/18 18:07 Dose: 2.5 mg Aspirin (Ecotrin) 81 mg PO DAILY [facility] Last Admin: 05/21/18 10:05 Dose: 81 mg Atropine Sulfate (Atropine) 1 mg IVP Q3H PRN PRN Reason: Other Last Admin: 05/16/18 16:33 Dose: 1 mg Bisacodyl (Dulcolax) 10 mg [place] HS PRN PRN Reason: Constipation Last Admin: 05/17/18 17:32 Dose: 10 mg Docusate Sodium (Colace) 100 mg PO TID [facility] Last Admin: 05/21/18 18:07 Dose: 100 mg Hydralazine HCl (Apresoline) 25 mg PO TID [facility] Last Admin: 05/21/18 18:13 Dose: Not Given Pantoprazole Sodium (Protonix Ec Tab) 40 mg PO DAILY [facility] Last Admin: 05/21/18 10:05 Dose: 40 mg Rosuvastatin Calcium (Crestor) 10 mg PO HS [facility] Last Admin: 05/21/18 22:23 Dose: 10 mg Saccharomyces Boulardii (Florastor) 250 mg PO Q12H [facility] Last Admin: 05/21/18 20:00 Dose: 250 mg Sennosides (Senokot Tab) 8.6 mg PO DAILY [facility] Last Admin: 05/21/18 10:05 Dose: 8.6 mg Tamsulosin HCl (Flomax) 0.4 mg PO DAILY [facility] Last Admin: 05/21/18 10:05 Dose: 0.4 mg Terazosin HCl (Hytrin) 1 mg PO [facility] Last Admin: 05/21/18 22:24 Dose: 1 mg - Labs Labs: 05/20/18 08:48 05/20/18 08:48 PT 13.9 SECONDS (9.7-12.2) H 05/18/18 05:01 INR 1.3 05/18/18 05:01 APTT 31 SECONDS (21-34) D 05/18/18 05:01 - Constitutional Appears: Non-toxic, No Acute Distress - Head Exam Head Exam: ATRAUMATIC, NORMAL INSPECTION - Eye Exam Eye Exam: EOMI, Normal appearance - ENT Exam ENT Exam: Mucous Membranes Moist - Respiratory Exam Respiratory Exam: Clear to Ausculation Bilateral, NORMAL BREATHING PATTERN - Cardiovascular Exam Cardiovascular Exam: REGULAR RHYTHM, +S1, +S2, Murmur Additional comments: Systolic Murmur (appreciated on auscultation of both right and left sternal border at 2nd intercostal space bilaterally. ). - GI/Abdominal Exam GI & Abdominal Exam: Soft, Normal Bowel Sounds. absent: Tenderness - Extremities Exam Extremities Exam: Normal Inspection. absent: Pedal Edema - Neurological Exam Neurological Exam: Alert. absent: Oriented x3 - Psychiatric Exam Psychiatric exam: Normal Mood - Skin Skin Exam: Normal Color Assessment and Plan - Assessment and Plan (Free Text) Assessment: Assessment: This is a frail 88 year old male with possible history of hypertension ,unknown psychiatric illness and possible dementia was brought for evaluation after patient was reportedly found on the floor in his house by cleaning staff in his home. Unknown how long he was on the floor. Patient is under state guardianship. He was living alone with the help of once a week home care service. On admission patient was in atrial flutter with varying response. His lowest rate was in 30's. Patient was asymptomatic on admission and admitted to telemetry. Subsequently brought to ICU for bradycardia with evidence of Atrial flutter with block. Advance directive -full code Of note, patient has no family. He was living alone with once a week help. History of dementia,psychiatry disorder and hypertension. He was refusing medical care in the past as per his case aide d/w patient's showcase maker. His state guardian is on vacation State guardian . The State appointed Guardian number is [phone] - her name is Norman Ahn Plan: Atrial fibrillation / flutter with block, bradycardia often in the 30s - Patient was in bradycardic with HR in 30ies - Day 2 status-post leadless pacemaker 05/18/18 - Paced rhythm rate 70 - Start: Eliquis 2.5mg PO BID today The State appointed Guardian number is [phone] - her name is Norman Ahn Urinary retention - Moran placed 05/20/18 - PSA=pending - Medications: * Flomax 0.4mg PO Daily * Terazosin 1mg PO HS Severe Aortic Stenosis 05/10: Echo returned, there is ALEXANDER of 0.8, also moderate to severe pulmonary HTN seen and severely dilated left atrium New CVA with aphasia /subacute stroke - Neurology consulted on case (Dr. Kumar) - CT without contrast: subtle hypodensity in the left MCA territory ( nonspecific and may represent subacute infarct) * Heparin on hold * Continue Crestor 10mg PO HS Community Acquired Pneumonia 05/10: Cultures have been negative 3 days now. He remains on IV rocephin/ completing today Chest X-ray: Left lower lobe infiltrates/atelectasis Ulcers secondary to being on the ground for unknown duration - Wound Care Advance directives-full code Previously d/w patient's showcase maker. His state guardian is on vacation Patient tolerated the placement of leadless pacemaker through right femoral access. Groin suture removed by color laboratory technician nurse in AM 05/19/18. Follow up with Dr Wesley Ng in 2 weeks as an out patient. Per curbside conversation with Urology: Patient's urinary retention is likely neurological in etiology and associated with most recent stroke. No further work -up indicated at this time. Per recommendations, patient will benefit from rehabilitation. Recommends patient undergo voiding trials at rehab facility and if any issues regarding the former patient is to follow-up with Dr. Carina Pimentel ( Urology). Of note, patient is medically optimized and cleared for discharge to rehab facility. Discussed with showcase maker. Per showcase maker, patient is pending acceptance to rehab facility. Will follow recommendations. Assessment/Plan Discussed with Dr. Tricia De La Paz, PGY-1 <Madina Clarke - Last Filed: 05/22/18 14:21> Objective - Vital Signs/Intake and Output Vital Signs (last 24 hours): Temp Pulse Resp BP Pulse Ox 98 F 80 20 111/56 L 96 05/22/18 07:00 05/22/18 14:15 05/22/18 07:00 05/22/18 14:15 05/22/18 07:00 Intake and Output: 05/22/18 05/22/18 06:59 18:59 Output Total 800 Balance -800 - Medications Medications: Current Medications Albuterol Sulfate (Albuterol 0.083% Inhal Suellen (2.5 Mg/3 Ml) Ud) 2.5 mg INH RQ6 [facility] Last Admin: 05/22/18 13:34 Dose: Not Given Amlodipine Besylate (Norvasc) 5 mg PO DAILY [facility] Last Admin: 05/22/18 11:00 Dose: 5 mg Apixaban (Eliquis) 2.5 mg PO BID [facility] Last Admin: 05/22/18 11:00 Dose: 2.5 mg Aspirin (Aspirin Chewable) 81 mg PO DAILY [facility] Last Admin: 05/22/18 11:06 Dose: 81 mg Atropine Sulfate (Atropine) 1 mg IVP Q3H PRN PRN Reason: Other Last Admin: 05/16/18 16:33 Dose: 1 mg Bisacodyl (Dulcolax) 10 mg [place] HS PRN PRN Reason: Constipation Last Admin: 05/17/18 17:32 Dose: 10 mg Docusate Sodium (Colace) 100 mg PO TID [facility] Last Admin: 05/22/18 14:16 Dose: Not Given Hydralazine HCl (Apresoline) 25 mg PO TID [facility] Last Admin: 05/22/18 14:16 Dose: Not Given Pantoprazole Sodium (Protonix Ec Tab) 40 mg PO DAILY [facility] Last Admin: 05/22/18 11:00 Dose: 40 mg Rosuvastatin Calcium (Crestor) 10 mg PO HS [facility] Last Admin: 05/21/18 22:23 Dose: 10 mg Saccharomyces Boulardii (Florastor) 250 mg PO Q12H [facility] Last Admin: 05/22/18 08:52 Dose: 250 mg Sennosides (Senokot Tab) 8.6 mg PO DAILY [facility] Last Admin: 05/22/18 11:04 Dose: 8.6 mg Tamsulosin HCl (Flomax) 0.4 mg PO DAILY [facility] Last Admin: 05/22/18 11:00 Dose: 0.4 mg Terazosin HCl (Hytrin) 1 mg PO HS [facility] Last Admin: 05/21/18 22:24 Dose: 1 mg - Labs Labs: 05/22/18 08:02 05/22/18 08:02 PT 13.9 SECONDS (9.7-12.2) H 05/18/18 05:01 INR 1.3 05/18/18 05:01 APTT 31 SECONDS (21-34) D 05/18/18 05:01 Attending/Attestation - Attestation I have personally seen and examined this patient.: Yes I have fully participated in the care of the patient.: Yes I have reviewed all pertinent clinical information, including history, physical exam and plan: Yes Notes (Text): Seen and examined ,no complain.lying on bed Pending rehab placement I agree with the documentation of the resident 05/22/18 14:19
[2018-05-22 08:17] LABS: BASO % 0.5 % (0.0-2.0); EOS # 0.4 K/uL (0.0-0.7); EOS % 4.3 % (0.0-4.0); HEMOGLOBIN 11.7 g/dL (12.0-18.0); LYMPH % 11.5 % (20.0-40.0); MEAN CELL VOLUME 91.5 fL (80.0-94.0); MEAN CORPUSCULAR HEMOGLOBIN 32.7 pg (27.0-31.0); MEAN CORPUSCULAR HGB CONC 35.7 g/dL (33.0-37.0); MEAN PLATELET VOLUME 8.7 fL (7.2-11.7); MONO # 0.8 K/uL (0.0-0.8); MONO % 8.8 % (0.0-10.0); NEUT # 6.6 K/uL (1.8-7.0); NEUT % 74.9 % (50.0-75.0); RBC 3.59 Mil/uL (4.40-5.90); RED CELL DISTRIBUTION WIDTH 14.2 % (11.5-14.5); WHITE BLOOD COUNT 8.8 K/uL (4.8-10.8)
[2018-05-22 08:43] LABS: ALB/GLOB RATIO 0.9 (1.0-2.1); ALBUMIN 2.5 g/dL (3.5-5.0); ALT/SGPT 39 U/L (21-72); AST/SGOT 33 U/L (17-59); BLOOD UREA NITROGEN 11 mg/dL (9-20); CALCIUM 8.2 mg/dl (8.6-10.4); GFR NON-AFRICAN AMERICAN > 60
[2018-05-22] MEDS: Saccharomyces Boulardi 250 mg Cap PO SCH ×2 (08:52→20:29)
[2018-05-22] MEDS: Pantoprazole 40 mg EC Tab PO SCH (11:00)
[2018-05-23] MEDS: Albuterol 0.083% Inhal Sol (2.5 mg/3 mL) UD INH SCH ×2 (02:02→08:18)
[2018-05-23] MEDS: Saccharomyces Boulardi 250 mg Cap PO SCH (07:49)
--- NOTE | 2018-05-23 08:33 | CARD ---
APPROVED REPORT Date of service: 05/08/2018 EKG Measurement Heart [id number] <Conclusion> Atrial fibrillation Septal infarct, age undetermined Abnormal ECG
[2018-05-23] MEDS: Pantoprazole 40 mg EC Tab PO SCH (11:52)
--- NOTE | 2018-05-23 13:38 | CP.PCM.PN ---
Subjective - Date & Time of Evaluation Date of Evaluation: 05/23/18 Time of Evaluation: 14:14 - Subjective Subjective: Seen and examined,patient is awake and follow commands Objective - Vital Signs/Intake and Output Vital Signs (last 24 hours): Temp Pulse Resp BP Pulse Ox 97.6 F 69 20 117/65 96 05/23/18 08:10 05/23/18 11:53 05/23/18 08:10 05/23/18 11:53 05/23/18 08:10 Intake and Output: 05/23/18 05/23/18 06:59 18:59 Intake Total 400 Output Total 760 Balance -360 - Medications Medications: Current Medications Amlodipine Besylate (Norvasc) 5 mg PO DAILY [facility] Last Admin: 05/23/18 11:52 Dose: 5 mg Apixaban (Eliquis) 2.5 mg PO BID [facility] Last Admin: 05/23/18 11:52 Dose: 2.5 mg Aspirin (Aspirin Chewable) 81 mg PO DAILY [facility] Last Admin: 05/23/18 11:52 Dose: 81 mg Bisacodyl (Dulcolax) 10 mg [place] HS PRN PRN Reason: Constipation Last Admin: 05/17/18 17:32 Dose: 10 mg Docusate Sodium (Colace) 100 mg PO TID [facility] Last Admin: 05/23/18 11:52 Dose: 100 mg Famotidine (Pepcid) 20 mg PO DAILY [facility] Rosuvastatin Calcium (Crestor) 10 mg PO HS [facility] Last Admin: 05/22/18 22:22 Dose: 10 mg Sennosides (Senokot Tab) 8.6 mg PO DAILY [facility] Last Admin: 05/23/18 11:52 Dose: 8.6 mg Tamsulosin HCl (Flomax) 0.4 mg PO DAILY [facility] Last Admin: 05/23/18 11:52 Dose: 0.4 mg Terazosin HCl (Hytrin) 1 mg PO HS [facility] Last Admin: 05/22/18 22:20 Dose: 1 mg - Labs Labs: 05/22/18 08:02 05/22/18 08:02 PT 13.9 SECONDS (9.7-12.2) H 05/18/18 05:01 INR 1.3 05/18/18 05:01 APTT 31 SECONDS (21-34) D 05/18/18 05:01 - Constitutional Appears: Non-toxic, No Acute Distress - Head Exam Head Exam: NORMAL INSPECTION - Eye Exam Eye Exam: Normal appearance - ENT Exam ENT Exam: Mucous Membranes Moist - Neck Exam Neck Exam: Full ROM - Respiratory Exam Respiratory Exam: Clear to Ausculation Bilateral, NORMAL BREATHING PATTERN - Cardiovascular Exam Cardiovascular Exam: REGULAR RHYTHM - GI/Abdominal Exam GI & Abdominal Exam: Soft, Normal Bowel Sounds - Extremities Exam Extremities Exam: Full ROM - Back Exam Back Exam: NORMAL INSPECTION - Neurological Exam Neurological Exam: Awake. absent: Oriented x3 - Psychiatric Exam Psychiatric exam: Normal Mood - Skin Skin Exam: Dry Assessment and Plan - Assessment and Plan (Free Text) Plan: 1.S/P Atrial fibrillation / flutter with block, bradycardia often in the 30s - status-post leadless pacemaker 05/18/18 - Paced rhythm - Start: Eliquis 2.5mg PO BID today The State appointed Guardian number is [phone] - her name is Norman Ahn 2. Urinary retention - Joshi placed 05/20/18 - PSA-4 - Medications: * Flomax 0.4mg PO Daily * Terazosin 1mg PO HS 3. Severe Aortic Stenosis 05/10: Echo returned, there is ALEXANDER of 0.8, also moderate to severe pulmonary HTN seen and severely dilated left atrium 4. New CVA with aphasia /subacute stroke - Neurology consulted on case (Dr. Kumar) - CT without contrast: subtle hypodensity in the left MCA territory ( nonspecific and may represent subacute infarct) * Heparin on hold * Continue Crestor 10mg PO HS 5.Community Acquired Pneumonia Treated 6.Ulcers secondary to being on the ground for unknown duration - Wound Care 7. Advance directives-full code Previously d/w patient's case monitor. His state guardian is on vacation Pending discharge to rehab Patient tolerated the placement of leadless pacemaker through right femoral access. Groin suture removed by labor relations or personnel negotiator nurse in AM 05/19/18. Follow up with Dr Wesley Ng in 2 weeks as an out patient. Per joseph conversation with Urology: Patient's urinary retention is likely neurological in etiology and associated with most recent stroke. No further work -up indicated at this time. Per recommendations, patient will benefit from rehabilitation. Recommends patient undergo voiding trials at rehab facility and if any issues regarding the former patient is to follow-up with Dr. Carina Pimentel ( Urology).
--- NOTE | 2018-05-24 13:57 | CP.PCM.PN ---
<Hari Smith - Last Filed: 05/24/18 17:04> Subjective - Date & Time of Evaluation Date of Evaluation: 05/24/18 Time of Evaluation: 08:30 - Subjective Subjective: PGY-1 Medicine Progress Note for Dr. Quiñonez Patient seen and examined at bedside, resting comfortably and in no acute distress s/p leadless pacemaker placement on 05/18. No acute overnight events reported. Denies any pain or urge to urinate, follows commands. Patient is voiding via moran placed 05/21/18. No fevers/chills, headaches, dizziness, chest pain, palpitations, abdominal pain, sob, cough, nausea/vomiting/diarrhea/ constipation. Objective - Vital Signs/Intake and Output Vital Signs (last 24 hours): Temp Pulse Resp BP Pulse Ox 98.3 F 68 20 121/79 97 05/24/18 07:11 05/24/18 07:11 05/24/18 07:11 05/24/18 07:11 05/24/18 07:11 Intake and Output: 05/24/18 05/24/18 06:59 18:59 Output Total 700 Balance -700 - Medications Medications: Current Medications Amlodipine Besylate (Norvasc) 5 mg PO DAILY [facility] Last Admin: 05/24/18 10:57 Dose: 5 mg Apixaban (Eliquis) 2.5 mg PO BID [facility] Last Admin: 05/24/18 10:57 Dose: 2.5 mg Aspirin (Aspirin Chewable) 81 mg PO DAILY [facility] Last Admin: 05/24/18 10:57 Dose: 81 mg Bisacodyl (Dulcolax) [address] HS PRN PRN Reason: Constipation Last Admin: 05/17/18 17:32 Dose: 10 mg Docusate Sodium (Colace) 100 mg PO TID [facility] Last Admin: 05/24/18 10:57 Dose: 100 mg Famotidine (Pepcid) 20 mg PO DAILY [facility] Last Admin: 05/24/18 10:56 Dose: 20 mg Rosuvastatin Calcium (Crestor) 10 mg PO HS [facility] Last Admin: 05/23/18 22:00 Dose: 10 mg Sennosides (Senokot Tab) 8.6 mg PO DAILY [facility] Last Admin: 05/24/18 10:57 Dose: 8.6 mg Tamsulosin HCl (Flomax) 0.4 mg PO DAILY [facility] Last Admin: 05/24/18 10:57 Dose: 0.4 mg Terazosin HCl (Hytrin) 1 mg PO HS [facility] Last Admin: 05/23/18 22:01 Dose: 1 mg - Labs Labs: 05/22/18 08:02 05/22/18 08:02 PT 13.9 SECONDS (9.7-12.2) H 05/18/18 05:01 INR 1.3 05/18/18 05:01 APTT 31 SECONDS (21-34) D 05/18/18 05:01 - Constitutional Appears: Non-toxic, No Acute Distress - Head Exam Head Exam: ATRAUMATIC, NORMAL INSPECTION, NORMOCEPHALIC - Eye Exam Eye Exam: EOMI, Normal appearance Pupil Exam: NORMAL ACCOMODATION - ENT Exam ENT Exam: Mucous Membranes Moist, Normal Exam - Neck Exam Neck Exam: Normal Inspection - Respiratory Exam Respiratory Exam: Clear to Ausculation Bilateral, NORMAL BREATHING PATTERN. absent: Rales, Rhonchi, Wheezes - Cardiovascular Exam Cardiovascular Exam: +S1, +S2, Murmur - GI/Abdominal Exam GI & Abdominal Exam: Soft, Normal Bowel Sounds. absent: Distended, Firm, Guarding, Rigid, Tenderness, Mass, Rebound - Exam Additional comments: Moran catheter in place draining 1100 cc urine/24 hrs - Extremities Exam Extremities Exam: Normal Capillary Refill. absent: Pedal Edema, Tenderness - Back Exam Back Exam: NORMAL INSPECTION - Neurological Exam Neurological Exam: Alert, Awake, Oriented x3 - Psychiatric Exam Psychiatric exam: Normal Affect, Normal Mood - Skin Skin Exam: Dry, Intact, Normal Color, Warm Assessment and Plan - Assessment and Plan (Free Text) Assessment: 88 yo Norwegian speaking M with PMHx of dementia, psych illness, possible HTN admitted for evaluation after he was found on the floor of his house for unknown period of time. Under state guardianship, living alone with home health services 1x/week. On admission patient was in atrial flutter with varying response. His lowest rate was in 30's. Patient was asymptomatic on admission and admitted to telemetry. Subsequently brought to ICU for bradycardia with evidence of Atrial flutter with block. Plan: S/P Atrial fibrillation / flutter with block, bradycardia often in the 30s - s/p leadless pacemaker 05/18/18 Patient tolerated the placement of leadless pacemaker through right femoral access. Groin suture removed by clinical laboratory science professor nurse in AM 05/19/18. -f/u Dr Olson in 2 weeks outpatient - Paced rhythm Medications: -Eliquis 2.5mg PO BID The State appointed Guardian number is [phone] - her name is Norman Ahn Urinary retention - Urology recs (Dr. Lim) appreciated -likely neurological in etiology and associated with most recent stroke -No further work-up indicated at this time -will benefit from rehabilitation, voiding trials at rehab facility -f/u Urology outpatient -s/p moran placement: 05/20/18 Medications: -Flomax 0.4mg PO Daily -Terazosin 1mg PO HS Severe Aortic Stenosis -ECHO (05/10): there is ALEXANDER of 0.8, also moderate to severe pulmonary HTN seen and severely dilated left atrium New CVA with aphasia /subacute stroke - Neurology recs (Dr. Kumar) appreciated -CT without contrast: subtle hypodensity in the left MCA territory ( nonspecific and may represent subacute infarct) -Heparin on hold -Continue Crestor 10mg PO HS Ulcers secondary to being on the ground for unknown duration - Wound Care PPX, Diet, Disposition - Full code - Dysphagia/modified consistency diet - f/u PT/OT recs - Dispo: patient is under state guardianship, who was on vacation. Pending d/c to rehab Case discussed with Dr. Olamide Smith DO, PGY-1 <Kimo Quiñonez H - Last Filed: 05/24/18 18:56> Objective - Vital Signs/Intake and Output Vital Signs (last 24 hours): Temp Pulse Resp BP Pulse Ox 97.8 F 67 20 116/70 98 05/24/18 15:00 05/24/18 15:00 05/24/18 15:00 05/24/18 15:00 05/24/18 15:00 Intake and Output: 05/24/18 05/24/18 06:59 18:59 Output Total 700 400 Balance -700 -400 - Medications Medications: Current Medications Amlodipine Besylate (Norvasc) 5 mg PO DAILY [facility] Last Admin: 05/24/18 10:57 Dose: 5 mg Apixaban (Eliquis) 2.5 mg PO BID [facility] Last Admin: 05/24/18 17:41 Dose: 2.5 mg Aspirin (Aspirin Chewable) 81 mg PO DAILY [facility] Last Admin: 05/24/18 10:57 Dose: 81 mg Bisacodyl (Dulcolax) [address] HS PRN PRN Reason: Constipation Last Admin: 05/17/18 17:32 Dose: 10 mg Docusate Sodium (Colace) 100 mg PO TID [facility] Last Admin: 05/24/18 17:41 Dose: 100 mg Famotidine (Pepcid) 20 mg PO DAILY [facility] Last Admin: 05/24/18 10:56 Dose: 20 mg Rosuvastatin Calcium (Crestor) 10 mg PO HS [facility] Last Admin: 05/23/18 22:00 Dose: 10 mg Sennosides (Senokot Tab) 8.6 mg PO DAILY [facility] Last Admin: 05/24/18 10:57 Dose: 8.6 mg Tamsulosin HCl (Flomax) 0.4 mg PO DAILY [facility] Last Admin: 05/24/18 10:57 Dose: 0.4 mg Terazosin HCl (Hytrin) 1 mg PO HS [facility] Last Admin: 05/23/18 22:01 Dose: 1 mg - Labs Labs: 05/22/18 08:02 05/22/18 08:02 PT 13.9 SECONDS (9.7-12.2) H 05/18/18 05:01 INR 1.3 05/18/18 05:01 APTT 31 SECONDS (21-34) D 05/18/18 05:01 Attending/Attestation - Attestation I have personally seen and examined this patient.: Yes I have fully participated in the care of the patient.: Yes I have reviewed all pertinent clinical information, including history, physical exam and plan: Yes Notes (Text): 05/24/18 18:56 Medical attending: Patient was seen and examined by me, reviewed the above note by the associate medical director and agree with the above note. I'm seeing the patient again, I did discuss with my colleague over the events of the past week. He now has a pacer placement. He's been moved out of the ICU and currently he appears to be quite stable. He was able to smile at me when I came into the room. He is able to wave hello. He understands very basic questions such as if he has chest pain or stomach pain he indicates that he does not. However need to point out that he remains for the most part nonverbal other than being able to say "yes" or "no" At this moment he's pending approval to go to rehabilitation Kimo Quiñonez
[2018-05-25 07:19] LABS: BASO % 0.7 % (0.0-2.0); EOS # 0.2 K/uL (0.0-0.7); HEMOGLOBIN 11.1 g/dL (12.0-18.0); LYMPH % 16.2 % (20.0-40.0); MEAN CELL VOLUME 90.6 fL (80.0-94.0); MEAN CORPUSCULAR HEMOGLOBIN 32.9 pg (27.0-31.0); MEAN CORPUSCULAR HGB CONC 36.3 g/dL (33.0-37.0); MEAN PLATELET VOLUME 7.7 fL (7.2-11.7); MONO # 0.6 K/uL (0.0-0.8); MONO % 9.4 % (0.0-10.0); NEUT # 4.4 K/uL (1.8-7.0); NEUT % 69.7 % (50.0-75.0); RBC 3.38 Mil/uL (4.40-5.90); RED CELL DISTRIBUTION WIDTH 14.3 % (11.5-14.5); WHITE BLOOD COUNT 6.3 K/uL (4.8-10.8)
[2018-05-25 08:06] LABS: ALB/GLOB RATIO 0.9 (1.0-2.1); ALBUMIN 2.4 g/dL (3.5-5.0); ALT/SGPT 32 U/L (21-72); AST/SGOT 22 U/L (17-59); BLOOD UREA NITROGEN 12 mg/dL (9-20); CALCIUM 8.1 mg/dl (8.6-10.4); GFR NON-AFRICAN AMERICAN > 60
--- NOTE | 2018-05-25 09:14 | CP.PCM.PN ---
<Hari Smith - Last Filed: 05/25/18 12:55> Subjective - Date & Time of Evaluation Date of Evaluation: 05/25/18 Time of Evaluation: 09:11 - Subjective Subjective: PGY-1 Medicine Progress Note for Dr. Quiñonez Patient seen and examined at bedside this AM, resting comfortably and in no acute distress, s/p leadless pacemaker placement on 05/18. No acute overnight events reported. Continues to follow commands appropriately, tolerating diet well. Patient is voiding appropriately via moran placed 05/21/18. No fevers/ chills, headaches, dizziness, chest pain, palpitations, abdominal pain, sob, cough, nausea/vomiting/diarrhea/constipation. Objective - Vital Signs/Intake and Output Vital Signs (last 24 hours): Temp Pulse Resp BP Pulse Ox 98.6 F 70 18 120/67 97 05/25/18 00:00 05/25/18 00:00 05/25/18 00:00 05/25/18 00:00 05/25/18 00:00 Intake and Output: 05/25/18 05/25/18 06:59 18:59 Intake Total 550 Output Total 1650 Balance -1100 - Medications Medications: Current Medications Amlodipine Besylate (Norvasc) 5 mg PO DAILY [facility] Last Admin: 05/24/18 10:57 Dose: 5 mg Apixaban (Eliquis) 2.5 mg PO BID [facility] Last Admin: 05/24/18 17:41 Dose: 2.5 mg Aspirin (Aspirin Chewable) 81 mg PO DAILY [facility] Last Admin: 05/24/18 10:57 Dose: 81 mg Bisacodyl (Dulcolax) 10 mg [facility] HS PRN PRN Reason: Constipation Last Admin: 05/17/18 17:32 Dose: 10 mg Docusate Sodium (Colace) 100 mg PO TID [facility] Last Admin: 05/24/18 17:41 Dose: 100 mg Famotidine (Pepcid) 20 mg PO DAILY [facility] Last Admin: 05/24/18 10:56 Dose: 20 mg Rosuvastatin Calcium (Crestor) 10 mg PO HS [facility] Last Admin: 05/24/18 21:32 Dose: 10 mg Sennosides (Senokot Tab) 8.6 mg PO DAILY [facility] Last Admin: 05/24/18 10:57 Dose: 8.6 mg Tamsulosin HCl (Flomax) 0.4 mg PO DAILY [facility] Last Admin: 05/24/18 10:57 Dose: 0.4 mg Terazosin HCl (Hytrin) 1 mg PO HS [facility] Last Admin: 05/24/18 21:32 Dose: 1 mg - Labs Labs: 05/25/18 07:11 05/25/18 07:11 PT 13.9 SECONDS (9.7-12.2) H 05/18/18 05:01 INR 1.3 05/18/18 05:01 APTT 31 SECONDS (21-34) D 05/18/18 05:01 - Constitutional Appears: Non-toxic, No Acute Distress - Head Exam Head Exam: ATRAUMATIC, NORMAL INSPECTION, NORMOCEPHALIC - Eye Exam Eye Exam: EOMI, Normal appearance Pupil Exam: NORMAL ACCOMODATION - ENT Exam ENT Exam: Mucous Membranes Moist, Normal Exam - Neck Exam Neck Exam: Normal Inspection. absent: Lymphadenopathy, Tenderness - Respiratory Exam Respiratory Exam: Clear to Ausculation Bilateral, NORMAL BREATHING PATTERN. absent: Rales, Rhonchi, Wheezes, Respiratory Distress - Cardiovascular Exam Cardiovascular Exam: REGULAR RHYTHM, +S1, +S2 - GI/Abdominal Exam GI & Abdominal Exam: Soft, Normal Bowel Sounds. absent: Distended, Firm, Guarding, Rigid, Tenderness, Mass, Organomegaly, Rebound - Exam Additional comments: Moran cath in place, draining 2050 cc/24 hrs - Extremities Exam Extremities Exam: Normal Inspection - Back Exam Back Exam: NORMAL INSPECTION. absent: CVA tenderness (L), CVA tenderness (R) - Neurological Exam Neurological Exam: Alert, Awake, Normal Gait, Oriented x3 - Psychiatric Exam Psychiatric exam: Normal Affect, Normal Mood - Skin Skin Exam: Dry, Intact, Normal Color, Warm Assessment and Plan - Assessment and Plan (Free Text) Assessment: 88 yo Irish speaking M with PMHx of dementia, psych illness, possible HTN admitted for evaluation after he was found on the floor of his house for unknown period of time. Under state guardianship, living alone with home health services 1x/week. On admission patient was in atrial flutter with varying response. His lowest rate was in 30's. Patient was asymptomatic on admission and admitted to telemetry. Subsequently brought to ICU for bradycardia with evidence of Atrial flutter with block. Plan: New CVA with aphasia /subacute stroke - Neurology recs (Dr. Kumar) appreciated -CT without contrast: subtle hypodensity in the left MCA territory ( nonspecific and may represent subacute infarct) -Heparin on hold -Continue Crestor 10mg PO HS Urinary retention - Urology recs (Dr. Lim) appreciated -likely neurological in etiology and associated with most recent stroke -No further work-up indicated at this time -will benefit from rehabilitation, voiding trials at rehab facility -f/u Urology outpatient -s/p moran placement: 05/20/18 Medications: -Flomax 0.4mg PO Daily -Terazosin 1mg PO HS S/P Atrial fibrillation / flutter with block, bradycardia often in the 30s - s/p leadless pacemaker 05/18/18 Patient tolerated the placement of leadless pacemaker through right femoral access. Groin suture removed by laboratory supervisor nurse in AM 05/19/18. -f/u Dr Olson in 2 weeks outpatient - Paced rhythm Medications: -Eliquis 2.5mg PO BID The State appointed Guardian number is [phone] - her name is Norman Ahn Severe Aortic Stenosis -ECHO (05/10): there is ALEXANDER of 0.8, also moderate to severe pulmonary HTN seen and severely dilated left atrium Ulcers secondary to being on the ground for unknown duration - Wound Care PPX, Diet, Disposition - Full code - Dysphagia/modified consistency diet - PT/OT recs appreciated -gait 50 ft w/ rolling walker, min assist - Dispo: patient is under state guardianship; pending approval for rehab Case discussed with Dr. Olamide Smith DO, PGY-1 <Kimo Quiñonez H - Last Filed: 05/25/18 13:20> Objective - Vital Signs/Intake and Output Vital Signs (last 24 hours): Temp Pulse Resp BP Pulse Ox 98 F 69 20 127/74 97 05/25/18 07:00 05/25/18 07:00 05/25/18 07:00 05/25/18 07:00 05/25/18 07:00 Intake and Output: 05/25/18 05/25/18 06:59 18:59 Intake Total 550 Output Total 1650 Balance -1100 - Medications Medications: Current Medications Amlodipine Besylate (Norvasc) 5 mg PO DAILY [facility] Last Admin: 05/25/18 10:56 Dose: 5 mg Apixaban (Eliquis) 2.5 mg PO BID [facility] Last Admin: 05/25/18 10:56 Dose: 2.5 mg Aspirin (Aspirin Chewable) 81 mg PO DAILY [facility] Last Admin: 05/25/18 10:56 Dose: 81 mg Bisacodyl (Dulcolax) 10 mg [facility] HS PRN PRN Reason: Constipation Last Admin: 05/17/18 17:32 Dose: 10 mg Docusate Sodium (Colace) 100 mg PO TID [facility] Last Admin: 05/25/18 10:56 Dose: 100 mg Famotidine (Pepcid) 20 mg PO DAILY [facility] Last Admin: 05/25/18 10:56 Dose: 20 mg Rosuvastatin Calcium (Crestor) 10 mg PO HS [facility] Last Admin: 05/24/18 21:32 Dose: 10 mg Sennosides (Senokot Tab) 8.6 mg PO DAILY [facility] Last Admin: 05/25/18 10:56 Dose: 8.6 mg Tamsulosin HCl (Flomax) 0.4 mg PO DAILY [facility] Last Admin: 05/25/18 10:56 Dose: 0.4 mg Terazosin HCl (Hytrin) 1 mg PO HS [facility] Last Admin: 05/24/18 21:32 Dose: 1 mg - Labs Labs: 05/25/18 07:11 05/25/18 07:11 PT 13.9 SECONDS (9.7-12.2) H 05/18/18 05:01 INR 1.3 05/18/18 05:01 APTT 31 SECONDS (21-34) D 05/18/18 05:01 Attending/Attestation - Attestation I have personally seen and examined this patient.: Yes I have fully participated in the care of the patient.: Yes I have reviewed all pertinent clinical information, including history, physical exam and plan: Yes Notes (Text): 05/25/18 13:19 Medical consult: Patient was seen and examined by me during rounds with the medical record assistant, agree with the the above note by the medical record assistant. Today the patient was not in any acute distress. Like yesterday he is awake and alert, he is able to respond to very simple 1 step commands such as pointing at the door, sticking his tongue out, raising his arms. At times though he is not able to follow commands and this may be due to a language barrier as well as any possible damage due to the recent CVA that he had As mentioned previously the patient has placement of pacemaker Also working currently pending on approval for the patient to go to subacute rehabilitation Kimo Quiñonez
[2018-05-26 06:33] LABS: BASO % 0.4 % (0.0-2.0); EOS # 0.2 K/uL (0.0-0.7); EOS % 3.4 % (0.0-4.0); HEMOGLOBIN 11.3 g/dL (12.0-18.0); LYMPH # 1.2 K/uL (1.0-4.3); LYMPH % 16.9 % (20.0-40.0); MEAN CELL VOLUME 92.5 fL (80.0-94.0); MEAN CORPUSCULAR HEMOGLOBIN 31.7 pg (27.0-31.0); MEAN CORPUSCULAR HGB CONC 34.3 g/dL (33.0-37.0); MEAN PLATELET VOLUME 7.6 fL (7.2-11.7); MONO # 0.6 K/uL (0.0-0.8); MONO % 8.6 % (0.0-10.0); NEUT # 4.9 K/uL (1.8-7.0); NEUT % 70.7 % (50.0-75.0); RBC 3.56 Mil/uL (4.40-5.90)
[2018-05-26 07:37] LABS: ALB/GLOB RATIO 0.9 (1.0-2.1); ALBUMIN 2.5 g/dL (3.5-5.0); ALT/SGPT 40 U/L (21-72); AST/SGOT 27 U/L (17-59); BLOOD UREA NITROGEN 15 mg/dL (9-20); CALCIUM 8.1 mg/dl (8.6-10.4); GFR NON-AFRICAN AMERICAN > 60
--- NOTE | 2018-05-26 09:04 | CP.PCM.PN ---
<Hari Smith - Last Filed: 05/26/18 12:35> Subjective - Date & Time of Evaluation Date of Evaluation: 05/26/18 Time of Evaluation: 09:01 - Subjective Subjective: PGY-1 Medicine Progress Note for Dr. Quiñonez Patient seen and examined at bedside, resting comfortably and in no acute distress s/p leadless pacemaker placement on 05/18. No acute overnight events reported. Patient continues to follow simple 1 step commands, has difficulties communicating due in part to likely language barriers and residual CVA effects. Patient is voiding appropriately via moran placed 05/21/18. No fevers/chills, headaches, dizziness, chest pain, palpitations, abdominal pain, sob, cough, nausea/vomiting/diarrhea/constipation. Pending approval for rehab placement, under state guardianship. Objective - Vital Signs/Intake and Output Vital Signs (last 24 hours): Temp Pulse Resp BP Pulse Ox 97.4 F L 68 20 117/70 97 05/26/18 07:00 05/26/18 07:00 05/26/18 07:00 05/26/18 07:00 05/26/18 07:00 Intake and Output: 05/26/18 05/26/18 06:59 18:59 Intake Total 50 Output Total 400 Balance -350 - Medications Medications: Current Medications Amlodipine Besylate (Norvasc) 5 mg PO DAILY [facility] Last Admin: 05/25/18 10:56 Dose: 5 mg Apixaban (Eliquis) 2.5 mg PO BID [facility] Last Admin: 05/25/18 17:40 Dose: 2.5 mg Aspirin (Aspirin Chewable) 81 mg PO DAILY [facility] Last Admin: 05/25/18 10:56 Dose: 81 mg Bisacodyl (Dulcolax) 10 mg [place] HS PRN PRN Reason: Constipation Last Admin: 05/17/18 17:32 Dose: 10 mg Docusate Sodium (Colace) 100 mg PO TID [facility] Last Admin: 05/25/18 17:40 Dose: 100 mg Famotidine (Pepcid) 20 mg PO DAILY [facility] Last Admin: 05/25/18 10:56 Dose: 20 mg Rosuvastatin Calcium (Crestor) 10 mg PO HS [facility] Last Admin: 05/25/18 21:43 Dose: 10 mg Sennosides (Senokot Tab) 8.6 mg PO DAILY [facility] Last Admin: 05/25/18 10:56 Dose: 8.6 mg Tamsulosin HCl (Flomax) 0.4 mg PO DAILY [facility] Last Admin: 05/25/18 10:56 Dose: 0.4 mg Terazosin HCl (Hytrin) 1 mg PO HS [facility] Last Admin: 05/25/18 21:43 Dose: 1 mg - Labs Labs: 05/26/18 06:17 05/26/18 06:17 PT 13.9 SECONDS (9.7-12.2) H 05/18/18 05:01 INR 1.3 05/18/18 05:01 APTT 31 SECONDS (21-34) D 05/18/18 05:01 - Constitutional Appears: Non-toxic, No Acute Distress - Head Exam Head Exam: ATRAUMATIC, NORMAL INSPECTION, NORMOCEPHALIC - Eye Exam Eye Exam: EOMI, Normal appearance Pupil Exam: NORMAL ACCOMODATION - ENT Exam ENT Exam: Mucous Membranes Moist, Normal Exam - Neck Exam Neck Exam: Normal Inspection. absent: Lymphadenopathy, Tenderness - Respiratory Exam Respiratory Exam: Clear to Ausculation Bilateral, NORMAL BREATHING PATTERN. absent: Rales, Rhonchi, Wheezes, Respiratory Distress - Cardiovascular Exam Cardiovascular Exam: REGULAR RHYTHM, +S1, +S2 - GI/Abdominal Exam GI & Abdominal Exam: Soft, Normal Bowel Sounds. absent: Distended, Firm, Guarding, Rigid, Tenderness, Mass, Rebound - Exam Additional comments: Moran catheter in place draining 800cc urine/24 hr - Extremities Exam Extremities Exam: Normal Capillary Refill, Normal Inspection. absent: Pedal Edema, Tenderness - Back Exam Back Exam: NORMAL INSPECTION - Neurological Exam Neurological Exam: Alert, Awake, Oriented x3 - Psychiatric Exam Psychiatric exam: Normal Affect, Normal Mood - Skin Skin Exam: Dry, Intact, Normal Color, Warm Assessment and Plan - Assessment and Plan (Free Text) Assessment: 88 yo Greek speaking M with PMHx of dementia, psych illness, possible HTN admitted for evaluation after he was found on the floor of his house for unknown period of time. Under state guardianship, living alone with home health services 1x/week. On admission patient was in atrial flutter with varying response. His lowest rate was in 30's. Patient was asymptomatic on admission and admitted to telemetry. Subsequently brought to ICU for bradycardia with evidence of Atrial flutter with block. Plan: New CVA with aphasia /subacute stroke - Neurology recs (Dr. Kumar) appreciated -CT without contrast: subtle hypodensity in the left MCA territory ( nonspecific and may represent subacute infarct) -Heparin on hold -Continue Crestor 10mg PO HS Urinary retention - Urology recs (Dr. Lim) appreciated -likely neurological in etiology and associated with most recent stroke -No further work-up indicated at this time -will benefit from rehabilitation, voiding trials at rehab facility -f/u Urology outpatient -s/p moran placement: 05/20/18 Medications: -Flomax 0.4mg PO Daily -Terazosin 1mg PO HS S/P Atrial fibrillation / flutter with block, bradycardia often in the 30s - s/p leadless pacemaker 05/18/18 Patient tolerated the placement of leadless pacemaker through right femoral access. Groin suture removed by prosthetics lab technician nurse in AM 05/19/18. -f/u Dr Olson in 2 weeks outpatient - Paced rhythm Medications: -Eliquis 2.5mg PO BID The State appointed Guardian number is [phone] - her name is Norman Ahn Severe Aortic Stenosis -ECHO (05/10): there is ALEXANDER of 0.8, also moderate to severe pulmonary HTN seen and severely dilated left atrium Ulcers secondary to being on the ground for unknown duration - Wound Care PPX, Diet, Disposition - Full code - Dysphagia/modified consistency diet - PT/OT recs appreciated -gait 50 ft w/ rolling walker, min assist - Dispo: patient is under state guardianship; pending approval for rehab Case discussed with Dr. Olamide Smith DO, PGY-1 <Kimo Quiñonez - Last Filed: 05/26/18 17:09> Objective - Vital Signs/Intake and Output Vital Signs (last 24 hours): Temp Pulse Resp BP Pulse Ox 97 F L 68 20 107/61 96 05/26/18 15:49 05/26/18 15:49 05/26/18 15:49 05/26/18 15:49 05/26/18 15:49 Intake and Output: 05/26/18 05/26/18 06:59 18:59 Intake Total 50 300 Output Total 400 600 Balance -350 -300 - Medications Medications: Current Medications Amlodipine Besylate (Norvasc) 5 mg PO DAILY [facility] Last Admin: 05/26/18 09:38 Dose: 5 mg Apixaban (Eliquis) 2.5 mg PO BID [facility] Last Admin: 05/26/18 09:38 Dose: 2.5 mg Aspirin (Aspirin Chewable) 81 mg PO DAILY [facility] Last Admin: 05/26/18 09:38 Dose: 81 mg Bisacodyl (Dulcolax) 10 mg [place] HS PRN PRN Reason: Constipation Last Admin: 05/17/18 17:32 Dose: 10 mg Docusate Sodium (Colace) 100 mg PO TID [facility] Last Admin: 05/26/18 13:11 Dose: 100 mg Famotidine (Pepcid) 20 mg PO DAILY [facility] Last Admin: 05/26/18 09:39 Dose: 20 mg Rosuvastatin Calcium (Crestor) 10 mg PO HS [facility] Last Admin: 05/25/18 21:43 Dose: 10 mg Sennosides (Senokot Tab) 8.6 mg PO DAILY [facility] Last Admin: 05/26/18 09:39 Dose: 8.6 mg Tamsulosin HCl (Flomax) 0.4 mg PO DAILY [facility] Last Admin: 05/26/18 09:38 Dose: 0.4 mg Terazosin HCl (Hytrin) 1 mg PO HS [facility] Last Admin: 05/25/18 21:43 Dose: 1 mg - Labs Labs: 05/26/18 06:17 05/26/18 06:17 PT 13.9 SECONDS (9.7-12.2) H 05/18/18 05:01 INR 1.3 05/18/18 05:01 APTT 31 SECONDS (21-34) D 05/18/18 05:01 Attending/Attestation - Attestation I have personally seen and examined this patient.: Yes I have fully participated in the care of the patient.: Yes I have reviewed all pertinent clinical information, including history, physical exam and plan: Yes Notes (Text): 05/26/18 17:09 Medical attending: Patient was seen and examined by me, agrees the above note by the certified medical technician. I spoke with the ear nose and throat physician covering today. And he recommended that the patient have outpatient ENT follow-up. We explained to the patient that he would probably benefit from a laryngoscopic the chest to evaluate for potential polyps or anything that may be contributing to him having coughing. We are pending the patient's smutter evaluation. When we saw the patient in the morning he was not in any acute distress. He was sitting up out of bed. Says. He was able to walk around with us without any difficulty. He was not wheezing when we came and saw him. Thank you very much, Kimo Quiñonez
--- NOTE | 2018-05-27 07:05 | CP.PCM.PN ---
<Hari Smith - Last Filed: 05/27/18 14:49> Subjective - Date & Time of Evaluation Date of Evaluation: 05/27/18 Time of Evaluation: 07:02 - Subjective Subjective: PGY-1 Medicine Progress Note for Dr. Quiñonez Patient seen and examined at bedside s/p leadless pacemaker placement on 05/18. No acute overnight events reported. Resting comfortably, in no acute distress, patient continues to follow simple 1 step commands. He has trouble communicating due in part to likely language barriers and residual CVA effects but shakes his head yes or no to questions asked. Voiding appropriately via moran placed 05/21/18. Pending approval for rehab placement, under state guardianship. No acute complaints at this time. Objective - Vital Signs/Intake and Output Vital Signs (last 24 hours): Temp Pulse Resp BP Pulse Ox 98.6 F 69 20 123/67 94 L 05/27/18 00:00 05/27/18 00:00 05/27/18 00:00 05/27/18 00:00 05/27/18 00:00 Intake and Output: 05/27/18 05/27/18 06:59 18:59 Intake Total 200 Output Total 1400 Balance -1200 - Medications Medications: Current Medications Amlodipine Besylate (Norvasc) 5 mg PO DAILY [facility] Last Admin: 05/26/18 09:38 Dose: 5 mg Apixaban (Eliquis) 2.5 mg PO BID [facility] Last Admin: 05/26/18 17:58 Dose: 2.5 mg Aspirin (Aspirin Chewable) 81 mg PO DAILY [facility] Last Admin: 05/26/18 09:38 Dose: 81 mg Bisacodyl (Dulcolax) 10 mg [place] HS PRN PRN Reason: Constipation Last Admin: 05/17/18 17:32 Dose: 10 mg Docusate Sodium (Colace) 100 mg PO TID [facility] Last Admin: 05/26/18 17:58 Dose: 100 mg Famotidine (Pepcid) 20 mg PO DAILY [facility] Last Admin: 05/26/18 09:39 Dose: 20 mg Rosuvastatin Calcium (Crestor) 10 mg PO HS [facility] Last Admin: 05/26/18 22:26 Dose: 10 mg Sennosides (Senokot Tab) 8.6 mg PO DAILY [facility] Last Admin: 05/26/18 09:39 Dose: 8.6 mg Tamsulosin HCl (Flomax) 0.4 mg PO DAILY [facility] Last Admin: 05/26/18 09:38 Dose: 0.4 mg Terazosin HCl (Hytrin) 1 mg PO HS [facility] Last Admin: 05/26/18 22:26 Dose: 1 mg - Labs Labs: 05/26/18 06:17 05/26/18 06:17 PT 13.9 SECONDS (9.7-12.2) H 05/18/18 05:01 INR 1.3 05/18/18 05:01 APTT 31 SECONDS (21-34) D 05/18/18 05:01 - Constitutional Appears: Non-toxic, No Acute Distress - Head Exam Head Exam: ATRAUMATIC, NORMAL INSPECTION, NORMOCEPHALIC - Eye Exam Eye Exam: EOMI, Normal appearance Pupil Exam: NORMAL ACCOMODATION - ENT Exam ENT Exam: Mucous Membranes Moist, Normal Exam - Respiratory Exam Respiratory Exam: Clear to Ausculation Bilateral, NORMAL BREATHING PATTERN. absent: Rales, Rhonchi, Wheezes, Respiratory Distress, Stridor - Cardiovascular Exam Cardiovascular Exam: REGULAR RHYTHM, +S1, +S2 - GI/Abdominal Exam GI & Abdominal Exam: Soft, Normal Bowel Sounds. absent: Distended, Firm, Guarding, Rigid, Tenderness, Mass, Rebound - Extremities Exam Extremities Exam: Normal Capillary Refill, Normal Inspection. absent: Pedal Edema, Tenderness - Back Exam Back Exam: NORMAL INSPECTION. absent: CVA tenderness (L), CVA tenderness (R) - Neurological Exam Neurological Exam: Alert, Awake, Oriented x3 - Psychiatric Exam Psychiatric exam: Normal Affect, Normal Mood - Skin Skin Exam: Dry, Intact, Normal Color, Warm Assessment and Plan - Assessment and Plan (Free Text) Assessment: 88 yo Stateless speaking M with PMHx of dementia, psych illness, possible HTN admitted for evaluation after he was found on the floor of his house for unknown period of time. Under state guardianship, living alone with home health services 1x/week. On admission patient was in atrial flutter with varying response. His lowest rate was in 30's. Patient was asymptomatic on admission and admitted to telemetry. Subsequently brought to ICU for bradycardia with evidence of Atrial flutter with block Plan: New CVA with aphasia /subacute stroke - Neurology recs (Dr. Kumar) appreciated -CT without contrast: subtle hypodensity in the left MCA territory ( nonspecific and may represent subacute infarct) -Heparin on hold -Continue Crestor 10mg PO HS Urinary retention - Urology recs (Dr. Lim) appreciated -likely neurological in etiology and associated with most recent stroke -No further work-up indicated at this time -will benefit from rehabilitation, voiding trials at rehab facility -f/u Urology outpatient -s/p moran placement: 05/20/18 Medications: -Flomax 0.4mg PO Daily -Terazosin 1mg PO HS S/P Atrial fibrillation / flutter with block, bradycardia often in the 30s - s/p leadless pacemaker 05/18/18 Patient tolerated the placement of leadless pacemaker through right femoral access. Groin suture removed by forestry laborer nurse in AM 05/19/18. -f/u Dr Olson in 2 weeks outpatient - Paced rhythm Medications: -Eliquis 2.5mg PO BID The State appointed Guardian number is [phone] - her name is Norman Ahn Severe Aortic Stenosis -ECHO (05/10): there is ALEXANDER of 0.8, also moderate to severe pulmonary HTN seen and severely dilated left atrium Ulcers secondary to being on the ground for unknown duration - Wound Care PPX, Diet, Disposition - Full code - Dysphagia/modified consistency diet - PT/OT recs appreciated -gait 50 ft w/ rolling walker, min assist - Dispo: patient is under state guardianship; pending approval for rehab Case discussed with Dr. Olamide Smith DO, PGY-1 <Kimo Quiñonez H - Last Filed: 05/27/18 15:01> Objective - Vital Signs/Intake and Output Vital Signs (last 24 hours): Temp Pulse Resp BP Pulse Ox 98 F 69 18 114/69 96 05/27/18 08:20 05/27/18 08:20 05/27/18 08:20 05/27/18 08:20 05/27/18 08:20 Intake and Output: 05/27/18 05/27/18 06:59 18:59 Intake Total 200 Output Total 1400 425 Balance -1200 -425 - Medications Medications: Current Medications Amlodipine Besylate (Norvasc) 5 mg PO DAILY [facility] Last Admin: 09/20/18 09:35 Dose: 5 mg Apixaban (Eliquis) 2.5 mg PO BID [facility] Last Admin: 05/27/18 09:35 Dose: 2.5 mg Aspirin (Aspirin Chewable) 81 mg PO DAILY [facility] Last Admin: 05/27/18 09:34 Dose: 81 mg Bisacodyl (Dulcolax) 10 mg [place] HS PRN PRN Reason: Constipation Last Admin: 05/17/18 17:32 Dose: 10 mg Docusate Sodium (Colace) 100 mg PO TID [facility] Last Admin: 05/27/18 13:55 Dose: 100 mg Famotidine (Pepcid) 20 mg PO DAILY [facility] Last Admin: 05/27/18 09:35 Dose: 20 mg Rosuvastatin Calcium (Crestor) 10 mg PO HS [facility] Last Admin: 05/26/18 22:26 Dose: 10 mg Sennosides (Senokot Tab) 8.6 mg PO DAILY [facility] Last Admin: 05/27/18 09:35 Dose: 8.6 mg Tamsulosin HCl (Flomax) 0.4 mg PO DAILY [facility] Last Admin: 05/27/18 09:34 Dose: 0.4 mg Terazosin HCl (Hytrin) 1 mg PO HS [facility] Last Admin: 05/26/18 22:26 Dose: 1 mg - Labs Labs: 05/27/18 07:33 05/27/18 07:33 PT 13.9 SECONDS (9.7-12.2) H 05/18/18 05:01 INR 1.3 05/18/18 05:01 APTT 31 SECONDS (21-34) D 05/18/18 05:01 Attending/Attestation - Attestation I have personally seen and examined this patient.: Yes I have fully participated in the care of the patient.: Yes I have reviewed all pertinent clinical information, including history, physical exam and plan: Yes Notes (Text): 05/27/18 15:00 Medical attending: Patient was seen and examined by me, reviewed the above note by the medical billing associate. We saw the patient together. Per discussion with the caseworkers, the patient is still pending for a critical access hospital subacute rehabilitation approval. Otherwise he remains stable. He is non verbal - however is awake, alert and follows very simple one step commands. Kimo Quiñonez
[2018-05-27 07:58] LABS: ALB/GLOB RATIO 0.9 (1.0-2.1); ALBUMIN 2.6 g/dL (3.5-5.0); ALT/SGPT 30 U/L (21-72); AST/SGOT 24 U/L (17-59); BLOOD UREA NITROGEN 13 mg/dL (9-20); CALCIUM 8.2 mg/dl (8.6-10.4); GFR NON-AFRICAN AMERICAN > 60
[2018-05-27 08:03] LABS: BASO % 0.6 % (0.0-2.0); EOS # 0.3 K/uL (0.0-0.7); EOS % 4.3 % (0.0-4.0); HEMOGLOBIN 11.7 g/dL (12.0-18.0); LYMPH % 16.4 % (20.0-40.0); MEAN CELL VOLUME 92.5 fL (80.0-94.0); MEAN CORPUSCULAR HEMOGLOBIN 33.2 pg (27.0-31.0); MEAN CORPUSCULAR HGB CONC 35.9 g/dL (33.0-37.0); MEAN PLATELET VOLUME 7.8 fL (7.2-11.7); MONO # 0.6 K/uL (0.0-0.8); MONO % 10.1 % (0.0-10.0); NEUT # 4.2 K/uL (1.8-7.0); NEUT % 68.6 % (50.0-75.0); NRBC % 0.2 % (0.0-2.0); RBC 3.54 Mil/uL (4.40-5.90); RED CELL DISTRIBUTION WIDTH 13.9 % (11.5-14.5); WHITE BLOOD COUNT 6.1 K/uL (4.8-10.8)
--- NOTE | 2018-05-28 06:58 | CP.PCM.PN ---
<Daniel Rai - Last Filed: 05/28/18 16:33> Subjective - Date & Time of Evaluation Date of Evaluation: 05/28/18 Time of Evaluation: 07:05 - Subjective Subjective: PGY 1 Medicine Progress Note for Dr. Quiñonez. Patient seen and examined at bedside. Patient lying in bed in no acute distress. No overnight events reported. Patient able to nod head yes/ no secondary to underlying medication condition. Patient nodded no to chest pain, SOB, abdominal pain, constipation, diarrhea. Patient currently has urinary moran in place. Patient attempted to verbalize something but was unable to produce comprehensible words. Additionally word board was used but unable to comprehend patient as well. Objective - Vital Signs/Intake and Output Vital Signs (last 24 hours): Temp Pulse Resp BP Pulse Ox 98.5 F 62 20 116/68 98 05/28/18 00:00 05/28/18 00:00 05/28/18 00:00 05/28/18 00:00 05/28/18 00:00 Intake and Output: 05/27/18 05/28/18 18:59 06:59 Intake Total 240 Output Total 425 900 Balance -425 -660 - Medications Medications: Current Medications Amlodipine Besylate (Norvasc) 5 mg PO DAILY [facility] Last Admin: 05/27/18 09:35 Dose: 5 mg Apixaban (Eliquis) 2.5 mg PO BID [facility] Last Admin: 05/27/18 17:52 Dose: 2.5 mg Aspirin (Aspirin Chewable) 81 mg PO DAILY [facility] Last Admin: 05/27/18 09:34 Dose: 81 mg Bisacodyl (Dulcolax) 10 mg [place] HS PRN PRN Reason: Constipation Last Admin: 05/27/18 18:35 Dose: 10 mg Docusate Sodium (Colace) 100 mg PO TID [facility] Last Admin: 05/27/18 17:52 Dose: 100 mg Famotidine (Pepcid) 20 mg PO DAILY [facility] Last Admin: 05/27/18 09:35 Dose: 20 mg Rosuvastatin Calcium (Crestor) 10 mg PO HS [facility] Last Admin: 05/27/18 21:19 Dose: 10 mg Sennosides (Senokot Tab) 8.6 mg PO DAILY [facility] Last Admin: 05/27/18 09:35 Dose: 8.6 mg Tamsulosin HCl (Flomax) 0.4 mg PO DAILY [facility] Last Admin: 05/27/18 09:34 Dose: 0.4 mg Terazosin HCl (Hytrin) 1 mg PO HS [facility] Last Admin: 05/27/18 21:19 Dose: 1 mg - Labs Labs: 05/27/18 07:33 05/27/18 07:33 PT 13.9 SECONDS (9.7-12.2) H 05/18/18 05:01 INR 1.3 05/18/18 05:01 APTT 31 SECONDS (21-34) D 05/18/18 05:01 - Constitutional Appears: Non-toxic, No Acute Distress - Head Exam Head Exam: ATRAUMATIC, NORMAL INSPECTION, NORMOCEPHALIC - Eye Exam Eye Exam: EOMI, Normal appearance - ENT Exam ENT Exam: Mucous Membranes Moist - Respiratory Exam Respiratory Exam: Clear to Ausculation Bilateral, NORMAL BREATHING PATTERN. absent: Rales, Rhonchi, Wheezes - Cardiovascular Exam Cardiovascular Exam: +S1, +S2. absent: Irregular Rhythm, Murmur - GI/Abdominal Exam GI & Abdominal Exam: Soft, Normal Bowel Sounds. absent: Tenderness - Exam Additional comments: urinary moran in place - Extremities Exam Extremities Exam: Full ROM, Normal Inspection. absent: Calf Tenderness, Pedal Edema - Neurological Exam Neurological Exam: Alert, Awake - Psychiatric Exam Psychiatric exam: Normal Affect, Normal Mood - Skin Skin Exam: Dry, Intact, Normal Color, Warm Assessment and Plan - Assessment and Plan (Free Text) Assessment: 88 yo Danish speaking M with PMHx of dementia, psych illness, possible HTN admitted for evaluation after he was found on the floor of his house for unknown period of time. Under state guardianship, living alone with home health services 1x/week. On admission patient was in atrial flutter with varying response. His lowest rate was in 30's. Patient was asymptomatic on admission and admitted to telemetry. Subsequently brought to ICU for bradycardia with evidence of Atrial flutter with block s/p leadless pacemaker 05/18/18 Plan: New CVA with aphasia /subacute stroke - Neurology recs (Dr. Kumar) appreciated -CT without contrast: subtle hypodensity in the left MCA territory ( nonspecific and may represent subacute infarct) -Heparin on hold Medications: -Crestor 10mg PO HS -Aspirin 81 mg PO daily Urinary retention - Urology recs (Dr. Lim) appreciated -likely neurological in etiology and associated with most recent stroke -No further work-up indicated at this time -will benefit from rehabilitation, voiding trials at rehab facility -f/u Urology outpatient -s/p moran placement: 05/20/18 Medications: -Flomax 0.4mg PO Daily -Terazosin 1mg PO HS S/P Atrial fibrillation / flutter with block, bradycardia often in the 30s - s/p leadless pacemaker 05/18/18 Patient tolerated the placement of leadless pacemaker through right femoral access. Groin suture removed by skilled labor nurse in AM 05/19/18. -f/u Dr Olson in 2 weeks outpatient - Paced rhythm Medications: -Eliquis 2.5mg PO BID HTN Medications: -Amlodipine 5mg PO daily Severe Aortic Stenosis -ECHO (05/10): there is ALEXANDER of 0.8, also moderate to severe pulmonary HTN seen and severely dilated left atrium Ulcers secondary to being on the ground for unknown duration - Wound Care PPX, Diet, Disposition - Full code - Dysphagia/modified consistency diet - PT/OT recs appreciated -gait 50 ft w/ rolling walker, min assist - GI: Pepcid 20 mg PO daily - Dispo: patient is under state guardianship; pending approval for rehab The State appointed Guardian number is [phone] - her name is Norman Ahn d/w Dr. Olamide Rai DO, PGY-1 <Kimo Quiñonez H - Last Filed: 05/28/18 18:00> Objective - Vital Signs/Intake and Output Vital Signs (last 24 hours): Temp Pulse Resp BP Pulse Ox 98.2 F 70 20 97/59 L 97 05/28/18 15:00 05/28/18 15:00 05/28/18 15:00 05/28/18 15:00 05/28/18 15:00 Intake and Output: 05/28/18 05/28/18 06:59 18:59 Intake Total 240 500 Output Total 900 1325 Balance -699 -825 - Medications Medications: Current Medications Amlodipine Besylate (Norvasc) 5 mg PO DAILY [facility] Last Admin: 05/28/18 10:02 Dose: 5 mg Apixaban (Eliquis) 2.5 mg PO BID [facility] Last Admin: 05/28/18 10:02 Dose: 2.5 mg Aspirin (Aspirin Chewable) 81 mg PO DAILY [facility] Last Admin: 05/28/18 10:02 Dose: 81 mg Bisacodyl (Dulcolax) 10 mg [place] HS PRN PRN Reason: Constipation Last Admin: 05/27/18 18:35 Dose: 10 mg Docusate Sodium (Colace) 100 mg PO TID [facility] Last Admin: 05/28/18 14:01 Dose: 100 mg Famotidine (Pepcid) 20 mg PO DAILY [facility] Last Admin: 05/28/18 10:02 Dose: 20 mg Rosuvastatin Calcium (Crestor) 10 mg PO HS [facility] Last Admin: 05/27/18 21:19 Dose: 10 mg Sennosides (Senokot Tab) 8.6 mg PO DAILY [facility] Last Admin: 05/28/18 10:02 Dose: 8.6 mg Tamsulosin HCl (Flomax) 0.4 mg PO DAILY [facility] Last Admin: 05/28/18 10:02 Dose: 0.4 mg Terazosin HCl (Hytrin) 1 mg PO HS [facility] Last Admin: 05/27/18 21:19 Dose: 1 mg - Labs Labs: 05/27/18 07:33 05/27/18 07:33 PT 13.9 SECONDS (9.7-12.2) H 05/18/18 05:01 INR 1.3 05/18/18 05:01 APTT 31 SECONDS (21-34) D 05/18/18 05:01 Attending/Attestation - Attestation I have personally seen and examined this patient.: Yes I have fully participated in the care of the patient.: Yes I have reviewed all pertinent clinical information, including history, physical exam and plan: Yes Notes (Text): 05/28/18 18:00 Medical attending: Patient was seen and examined by me with the medical residents, agrees the above note by medical residents. Today Mr. Javed was not in any acute distress, he remains nonverbal as he has before he is able to nod his head yes or no. He's able to follow very simple 1 step commands. The overall situation is unchanged from before, were still waiting to hear back from the state guardian with regards to the patient's ability to go to subacute rehabilitation. Kimo Quiñonez
--- NOTE | 2018-05-29 03:27 | CP.PCM.PN ---
<Hari Smith - Last Filed: 05/29/18 08:16> Subjective - Date & Time of Evaluation Date of Evaluation: 05/29/18 Time of Evaluation: 03:25 - Subjective Subjective: PGY-1 Medicine Progress Note for Dr. Quiñonez Patient seen and examined at bedside, resting comfortably and in no acute distress s/p leadless pacemaker placement on 05/18. Patient able to nod head yes / no secondary to underlying medication condition. Patient nodded no to chest pain, SOB, abdominal pain, constipation, diarrhea. Voiding appropriately via moran placed 05/21/18. Pending approval for rehab placement, under state guardianship. No acute complaints at this time. Objective - Vital Signs/Intake and Output Vital Signs (last 24 hours): Temp Pulse Resp BP Pulse Ox 98.1 F 69 20 117/70 96 05/28/18 23:40 05/28/18 23:40 05/28/18 23:40 05/28/18 23:40 05/28/18 23:40 Intake and Output: 05/28/18 05/29/18 18:59 06:59 Intake Total 500 Output Total 1325 350 Balance -825 -350 - Medications Medications: Current Medications Amlodipine Besylate (Norvasc) 5 mg PO DAILY [facility] Last Admin: 05/28/18 10:02 Dose: 5 mg Apixaban (Eliquis) 2.5 mg PO BID [facility] Last Admin: 05/28/18 18:07 Dose: 2.5 mg Aspirin (Aspirin Chewable) 81 mg PO DAILY [facility] Last Admin: 05/28/18 10:02 Dose: 81 mg Bisacodyl (Dulcolax) 10 mg [place] HS PRN PRN Reason: Constipation Last Admin: 05/27/18 18:35 Dose: 10 mg Docusate Sodium (Colace) 100 mg PO TID [facility] Last Admin: 05/28/18 18:07 Dose: 100 mg Famotidine (Pepcid) 20 mg PO DAILY [facility] Last Admin: 05/28/18 10:02 Dose: 20 mg Rosuvastatin Calcium (Crestor) 10 mg PO HS [facility] Last Admin: 05/28/18 21:22 Dose: 10 mg Sennosides (Senokot Tab) 8.6 mg PO DAILY [facility] Last Admin: 05/28/18 10:02 Dose: 8.6 mg Tamsulosin HCl (Flomax) 0.4 mg PO DAILY [facility] Last Admin: 05/28/18 10:02 Dose: 0.4 mg Terazosin HCl (Hytrin) 1 mg PO HS [facility] Last Admin: 05/28/18 21:22 Dose: 1 mg - Labs Labs: 05/27/18 07:33 05/27/18 07:33 PT 13.9 SECONDS (9.7-12.2) H 05/18/18 05:01 INR 1.3 05/18/18 05:01 APTT 31 SECONDS (21-34) D 05/18/18 05:01 - Constitutional Appears: Non-toxic, No Acute Distress - Head Exam Head Exam: ATRAUMATIC, NORMAL INSPECTION, NORMOCEPHALIC - Eye Exam Eye Exam: EOMI, Normal appearance Pupil Exam: NORMAL ACCOMODATION - ENT Exam ENT Exam: Mucous Membranes Moist, Normal Exam - Neck Exam Neck Exam: Full ROM, Normal Inspection. absent: Tenderness - Respiratory Exam Respiratory Exam: Clear to Ausculation Bilateral, NORMAL BREATHING PATTERN. absent: Rales, Rhonchi, Wheezes, Respiratory Distress, Stridor - Cardiovascular Exam Cardiovascular Exam: REGULAR RHYTHM, +S1, +S2 - GI/Abdominal Exam GI & Abdominal Exam: Soft, Normal Bowel Sounds. absent: Distended, Firm, Guarding, Rigid, Tenderness, Organomegaly, Rebound - Exam Additional comments: moran catheter in place - Extremities Exam Extremities Exam: Normal Capillary Refill, Normal Inspection. absent: Joint Swelling, Pedal Edema, Tenderness - Back Exam Back Exam: NORMAL INSPECTION - Neurological Exam Neurological Exam: Alert, Awake, Oriented x3 - Psychiatric Exam Psychiatric exam: Normal Affect, Normal Mood - Skin Skin Exam: Dry, Intact, Normal Color, Warm Assessment and Plan - Assessment and Plan (Free Text) Assessment: 88 yo South African speaking M with PMHx of dementia, psych illness, possible HTN admitted for evaluation after he was found on the floor of his house for unknown period of time. Under state guardianship, living alone with home health services 1x/week. On admission patient was in atrial flutter with varying response. His lowest rate was in 30's. Patient was asymptomatic on admission and admitted to telemetry. Subsequently brought to ICU for bradycardia with evidence of Atrial flutter with block s/p leadless pacemaker 05/18/18 Plan: New CVA with aphasia /subacute stroke - Neurology recs (Dr. Kumar) appreciated -CT without contrast: subtle hypodensity in the left MCA territory ( nonspecific and may represent subacute infarct) -Heparin on hold Medications: -Crestor 10mg PO HS -Aspirin 81 mg PO daily Urinary retention - Urology recs (Dr. Lim) appreciated -likely neurological in etiology and associated with most recent stroke -No further work-up indicated at this time -will benefit from rehabilitation, voiding trials at rehab facility -f/u Urology outpatient -s/p moran placement: 05/20/18 Medications: -Flomax 0.4mg PO Daily -Terazosin 1mg PO HS S/P Atrial fibrillation / flutter with block, bradycardia often in the 30s - s/p leadless pacemaker 05/18/18 Patient tolerated the placement of leadless pacemaker through right femoral access. Groin suture removed by clinical laboratory aides teacher nurse in AM 05/19/18. -f/u Dr Olson in 2 weeks outpatient - Paced rhythm Medications: -Eliquis 2.5mg PO BID HTN Medications: -Amlodipine 5mg PO daily Severe Aortic Stenosis -ECHO (05/10): there is ALEXANDER of 0.8, also moderate to severe pulmonary HTN seen and severely dilated left atrium Ulcers secondary to being on the ground for unknown duration - Wound Care PPX, Diet, Disposition - Full code - Dysphagia/modified consistency diet - PT/OT recs appreciated -gait 50 ft w/ rolling walker, min assist - GI: Pepcid 20 mg PO daily - Dispo: patient is under state guardianship; pending approval for rehab The State appointed Guardian number is [phone] - her name is Norman Ahn Case to be discussed with Dr. Olamide Smith DO, PGY-1 <Kimo Quiñonez H - Last Filed: 05/29/18 10:08> Objective - Vital Signs/Intake and Output Vital Signs (last 24 hours): Temp Pulse Resp BP Pulse Ox 98.0 F 65 20 115/53 L 97 05/29/18 07:00 05/29/18 07:00 05/29/18 07:00 05/29/18 07:00 05/29/18 07:00 Intake and Output: 05/29/18 05/29/18 06:59 18:59 Intake Total 100 Output Total 950 Balance -850 - Medications Medications: Current Medications Amlodipine Besylate (Norvasc) 5 mg PO DAILY [facility] Last Admin: 05/29/18 09:31 Dose: 5 mg Apixaban (Eliquis) 2.5 mg PO BID [facility] Last Admin: 05/29/18 09:31 Dose: 2.5 mg Aspirin (Aspirin Chewable) 81 mg PO DAILY [facility] Last Admin: 05/29/18 09:31 Dose: 81 mg Bisacodyl (Dulcolax) 10 mg [place] HS PRN PRN Reason: Constipation Last Admin: 05/27/18 18:35 Dose: 10 mg Docusate Sodium (Colace) 100 mg PO TID [facility] Last Admin: 05/29/18 09:31 Dose: 100 mg Famotidine (Pepcid) 20 mg PO DAILY [facility] Last Admin: 05/29/18 09:31 Dose: 20 mg Rosuvastatin Calcium (Crestor) 10 mg PO HS [facility] Last Admin: 05/28/18 21:22 Dose: 10 mg Sennosides (Senokot Tab) 8.6 mg PO DAILY [facility] Last Admin: 05/29/18 09:31 Dose: 8.6 mg Tamsulosin HCl (Flomax) 0.4 mg PO DAILY [facility] Last Admin: 05/29/18 09:31 Dose: 0.4 mg Terazosin HCl (Hytrin) 1 mg PO HS [facility] Last Admin: 05/28/18 21:22 Dose: 1 mg - Labs Labs: 05/27/18 07:33 05/27/18 07:33 PT 13.9 SECONDS (9.7-12.2) H 05/18/18 05:01 INR 1.3 05/18/18 05:01 APTT 31 SECONDS (21-34) D 05/18/18 05:01 Attending/Attestation - Attestation I have personally seen and examined this patient.: Yes I have fully participated in the care of the patient.: Yes I have reviewed all pertinent clinical information, including history, physical exam and plan: Yes Notes (Text): 05/29/18 10:07 Patient was seen and examined by me, agree with the above note by the resident The patient was not in any acute distress when I came and saw. Interestingly enough today he seems to have more affect today and patient tried to be more verbal than more Otherwise we are still waiting on the state guardian to figure out if he can go to facility or not. Kimo Quiñonez
--- NOTE | 2018-05-30 02:34 | CP.PCM.PN ---
<Hari Smith - Last Filed: 05/30/18 02:31> Subjective - Date & Time of Evaluation Date of Evaluation: 05/30/18 Time of Evaluation: 02:31 - Subjective Subjective: PGY-1 Medicine Progress Note for Dr. Quiñonez Patient seen and examined at bedside, resting comfortably and in no acute distress s/p leadless pacemaker placement on 05/18. Patient more talkative today , but still difficult to comprehend/communicate with. Voiding appropriately via moran placed 05/21/18. Pending approval for rehab placement, under state guardianship. No acute complaints at this time. Objective - Vital Signs/Intake and Output Vital Signs (last 24 hours): Temp Pulse Resp BP Pulse Ox 98 F 69 20 118/69 96 05/29/18 23:20 05/29/18 23:20 05/29/18 23:20 05/29/18 23:20 05/29/18 23:20 Intake and Output: 05/29/18 05/30/18 18:59 06:59 Intake Total 480 200 Output Total 700 400 Balance -220 -200 - Medications Medications: Current Medications Amlodipine Besylate (Norvasc) 5 mg PO DAILY [facility] Last Admin: 05/29/18 09:31 Dose: 5 mg Apixaban (Eliquis) 2.5 mg PO BID [facility] Last Admin: 05/29/18 17:44 Dose: 2.5 mg Aspirin (Aspirin Chewable) 81 mg PO DAILY [facility] Last Admin: 05/29/18 09:31 Dose: 81 mg Bisacodyl (Dulcolax) 10 mg [place] HS PRN PRN Reason: Constipation Last Admin: 05/27/18 18:35 Dose: 10 mg Docusate Sodium (Colace) 100 mg PO TID [facility] Last Admin: 05/29/18 17:44 Dose: 100 mg Famotidine (Pepcid) 20 mg PO DAILY [facility] Last Admin: 05/29/18 09:31 Dose: 20 mg Rosuvastatin Calcium (Crestor) 10 mg PO HS [facility] Last Admin: 05/29/18 21:30 Dose: 10 mg Sennosides (Senokot Tab) 8.6 mg PO DAILY [facility] Last Admin: 05/29/18 09:31 Dose: 8.6 mg Tamsulosin HCl (Flomax) 0.4 mg PO DAILY [facility] Last Admin: 05/29/18 09:31 Dose: 0.4 mg Terazosin HCl (Hytrin) 1 mg PO HS [facility] Last Admin: 05/29/18 21:30 Dose: 1 mg - Labs Labs: 05/27/18 07:33 05/27/18 07:33 PT 13.9 SECONDS (9.7-12.2) H 05/18/18 05:01 INR 1.3 05/18/18 05:01 APTT 31 SECONDS (21-34) D 05/18/18 05:01 - Constitutional Appears: Non-toxic, No Acute Distress - Head Exam Head Exam: ATRAUMATIC, NORMAL INSPECTION, NORMOCEPHALIC - Eye Exam Eye Exam: EOMI, Normal appearance Pupil Exam: NORMAL ACCOMODATION - ENT Exam ENT Exam: Mucous Membranes Moist, Normal Exam - Neck Exam Neck Exam: Full ROM, Normal Inspection. absent: Tenderness - Respiratory Exam Respiratory Exam: Clear to Ausculation Bilateral, NORMAL BREATHING PATTERN. absent: Rales, Rhonchi, Wheezes, Respiratory Distress, Stridor - Cardiovascular Exam Cardiovascular Exam: REGULAR RHYTHM, +S1, +S2. absent: Murmur - GI/Abdominal Exam GI & Abdominal Exam: Soft, Normal Bowel Sounds. absent: Distended, Firm, Guarding, Rigid, Tenderness, Organomegaly, Rebound - Exam Additional comments: moran catheter in place - Extremities Exam Extremities Exam: Normal Capillary Refill, Normal Inspection. absent: Pedal Edema, Tenderness - Back Exam Back Exam: NORMAL INSPECTION - Neurological Exam Neurological Exam: Alert, Awake, Oriented x3 - Psychiatric Exam Psychiatric exam: Normal Affect, Normal Mood - Skin Skin Exam: Dry, Intact, Normal Color, Warm Assessment and Plan - Assessment and Plan (Free Text) Assessment: 88 yo Amharic speaking M with PMHx of dementia, psych illness, possible HTN admitted for evaluation after he was found on the floor of his house for unknown period of time. Under state guardianship, living alone with home health services 1x/week. On admission patient was in atrial flutter with varying response. His lowest rate was in 30's. Patient was asymptomatic on admission and admitted to telemetry. Subsequently brought to ICU for bradycardia with evidence of Atrial flutter with block s/p leadless pacemaker 05/18/18 Plan: New CVA with aphasia /subacute stroke - Neurology recs (Dr. Kumar) appreciated -CT without contrast: subtle hypodensity in the left MCA territory ( nonspecific and may represent subacute infarct) -Heparin on hold Medications: -Crestor 10mg PO HS -Aspirin 81 mg PO daily Urinary retention - Urology recs (Dr. Lim) appreciated -likely neurological in etiology and associated with most recent stroke -No further work-up indicated at this time -will benefit from rehabilitation, voiding trials at rehab facility -f/u Urology outpatient -s/p moran placement: 05/20/18 Medications: -Flomax 0.4mg PO Daily -Terazosin 1mg PO HS S/P Atrial fibrillation / flutter with block, bradycardia often in the 30s - s/p leadless pacemaker 05/18/18 Patient tolerated the placement of leadless pacemaker through right femoral access. Groin suture removed by cathodic protection technician nurse in AM 05/19/18. -f/u Dr Olson in 2 weeks outpatient - Paced rhythm Medications: -Eliquis 2.5mg PO BID HTN Medications: -Amlodipine 5mg PO daily Severe Aortic Stenosis -ECHO (05/10): there is ALEXANDER of 0.8, also moderate to severe pulmonary HTN seen and severely dilated left atrium Ulcers secondary to being on the ground for unknown duration - Wound Care PPX, Diet, Disposition - Full code - Dysphagia/modified consistency diet - PT/OT recs appreciated -gait 50 ft w/ rolling walker, min assist - GI: Pepcid 20 mg PO daily - Dispo: patient is under state guardianship; pending approval for rehab The State appointed Guardian number is [phone] - her name is Norman Ahn Case to be discussed with Dr. Olamide Smith DO, PGY-1 <Kimo Quiñonez H - Last Filed: 05/30/18 12:35> Objective - Vital Signs/Intake and Output Vital Signs (last 24 hours): Temp Pulse Resp BP Pulse Ox 97.4 F L 74 20 110/64 98 05/30/18 08:00 05/30/18 09:32 05/30/18 08:00 05/30/18 09:32 05/30/18 08:00 Intake and Output: 05/30/18 05/30/18 06:59 18:59 Intake Total 320 Output Total 950 Balance -630 - Medications Medications: Current Medications Amlodipine Besylate (Norvasc) 5 mg PO DAILY [facility] Last Admin: 05/30/18 09:33 Dose: 5 mg Apixaban (Eliquis) 2.5 mg PO BID [facility] Last Admin: 05/30/18 09:33 Dose: 2.5 mg Aspirin (Aspirin Chewable) 81 mg PO DAILY [facility] Last Admin: 05/30/18 09:33 Dose: 81 mg Bisacodyl (Dulcolax) 10 mg [place] HS PRN PRN Reason: Constipation Last Admin: 05/27/18 18:35 Dose: 10 mg Docusate Sodium (Colace) 100 mg PO TID [facility] Last Admin: 05/30/18 09:32 Dose: 100 mg Famotidine (Pepcid) 20 mg PO DAILY [facility] Last Admin: 05/30/18 09:33 Dose: 20 mg Rosuvastatin Calcium (Crestor) 10 mg PO HS [facility] Last Admin: 05/29/18 21:30 Dose: 10 mg Sennosides (Senokot Tab) 8.6 mg PO DAILY [facility] Last Admin: 05/30/18 09:33 Dose: 8.6 mg Tamsulosin HCl (Flomax) 0.4 mg PO DAILY [facility] Last Admin: 05/30/18 09:33 Dose: 0.4 mg Terazosin HCl (Hytrin) 1 mg PO HS [facility] Last Admin: 05/29/18 21:30 Dose: 1 mg - Labs Labs: 05/30/18 07:27 05/30/18 07:27 PT 13.9 SECONDS (9.7-12.2) H 05/18/18 05:01 INR 1.3 05/18/18 05:01 APTT 31 SECONDS (21-34) D 05/18/18 05:01 Attending/Attestation - Attestation I have personally seen and examined this patient.: Yes I have fully participated in the care of the patient.: Yes I have reviewed all pertinent clinical information, including history, physical exam and plan: Yes Notes (Text): 05/30/18 12:33 Medical attending: Patient was seen and examined by me. Reviewed the above note by the resident The patient was not in any acute distress. He is like before, appearing pleasant however mostly non verbal and tries to use hand and arm gestures. He looked a little dry on my examination - mouth looked parched more so than before so will give IVF x 1 liter Kimo Quiñonez
[2018-05-30 07:42] LABS: BASO % 0.7 % (0.0-2.0); EOS # 0.3 K/uL (0.0-0.7); EOS % 5.4 % (0.0-4.0); HEMOGLOBIN 11.8 g/dL (12.0-18.0); LYMPH # 1.2 K/uL (1.0-4.3); LYMPH % 19.9 % (20.0-40.0); MEAN CELL VOLUME 92.8 fL (80.0-94.0); MEAN CORPUSCULAR HEMOGLOBIN 32.3 pg (27.0-31.0); MEAN CORPUSCULAR HGB CONC 34.8 g/dL (33.0-37.0); MEAN PLATELET VOLUME 7.7 fL (7.2-11.7); MONO # 0.5 K/uL (0.0-0.8); MONO % 9.3 % (0.0-10.0); NEUT # 3.8 K/uL (1.8-7.0); NEUT % 64.7 % (50.0-75.0); NRBC % 0.1 % (0.0-2.0); RBC 3.65 Mil/uL (4.40-5.90); RED CELL DISTRIBUTION WIDTH 13.9 % (11.5-14.5); WHITE BLOOD COUNT 5.9 K/uL (4.8-10.8)
[2018-05-30 08:15] LABS: ALB/GLOB RATIO 0.9 (1.0-2.1); ALBUMIN 2.8 g/dL (3.5-5.0); ALT/SGPT 27 U/L (21-72); AST/SGOT 27 U/L (17-59); BLOOD UREA NITROGEN 13 mg/dL (9-20); CALCIUM 8.6 mg/dl (8.6-10.4); GFR NON-AFRICAN AMERICAN > 60
--- NOTE | 2018-05-31 07:40 | CP.PCM.PN ---
<Malaika Gardiner - Last Filed: 05/31/18 16:16> Subjective - Date & Time of Evaluation Date of Evaluation: 05/31/18 Time of Evaluation: 15:54 - Subjective Subjective: Pt examined resting comfortably in bed, in no acute distress. Pt denies any complaints at this time. Pt's ability to communicate limited due to baseline altered status. Per wound care, right unstageable hip ulcer may benefit from surgical intervention. Objective - Vital Signs/Intake and Output Vital Signs (last 24 hours): Temp Pulse Resp BP Pulse Ox 98.2 F 69 20 129/77 97 05/30/18 23:25 05/30/18 23:25 05/30/18 23:25 05/30/18 23:25 05/30/18 23:25 Intake and Output: 05/31/18 05/31/18 06:59 18:59 Intake Total 500 Output Total 2100 Balance -1600 - Medications Medications: Current Medications Amlodipine Besylate (Norvasc) 5 mg PO DAILY [facility] Last Admin: 05/30/18 09:33 Dose: 5 mg Apixaban (Eliquis) 2.5 mg PO BID [facility] Last Admin: 05/30/18 17:38 Dose: 2.5 mg Aspirin (Aspirin Chewable) 81 mg PO DAILY [facility] Last Admin: 05/30/18 09:33 Dose: 81 mg Bisacodyl (Dulcolax) 10 mg [place] HS PRN PRN Reason: Constipation Last Admin: 05/27/18 18:35 Dose: 10 mg Docusate Sodium (Colace) 100 mg PO TID [facility] Last Admin: 05/30/18 17:38 Dose: 100 mg Famotidine (Pepcid) 20 mg PO DAILY [facility] Last Admin: 05/30/18 09:33 Dose: 20 mg Rosuvastatin Calcium (Crestor) 10 mg PO HS [facility] Last Admin: 05/30/18 21:29 Dose: 10 mg Sennosides (Senokot Tab) 8.6 mg PO DAILY [facility] Last Admin: 05/30/18 09:33 Dose: 8.6 mg Tamsulosin HCl (Flomax) 0.4 mg PO DAILY [facility] Last Admin: 05/30/18 09:33 Dose: 0.4 mg - Labs Labs: 05/30/18 07:27 05/30/18 07:27 PT 13.9 SECONDS (9.7-12.2) H 05/18/18 05:01 INR 1.3 05/18/18 05:01 APTT 31 SECONDS (21-34) D 05/18/18 05:01 - Constitutional Appears: Non-toxic, No Acute Distress - Head Exam Head Exam: ATRAUMATIC, NORMAL INSPECTION, NORMOCEPHALIC - Eye Exam Eye Exam: EOMI, Normal appearance - ENT Exam ENT Exam: Mucous Membranes Moist, Normal Exam - Neck Exam Neck Exam: Normal Inspection - Respiratory Exam Respiratory Exam: Clear to Ausculation Bilateral, NORMAL BREATHING PATTERN. absent: Wheezes - Cardiovascular Exam Cardiovascular Exam: REGULAR RHYTHM, Murmur. absent: Tachycardia - GI/Abdominal Exam GI & Abdominal Exam: Soft, Normal Bowel Sounds. absent: Distended, Tenderness - Back Exam Back Exam: NORMAL INSPECTION - Neurological Exam Neurological Exam: Awake. absent: Oriented x3 - Skin Skin Exam: Abrasion (right shoulder, hip and knee, dressings clean/dry/intact), Dry, Intact, Normal Color, Warm Assessment and Plan - Assessment and Plan (Free Text) Assessment: 88 yo M w/ PMHx of dementia, psych illness, poss HTN admitted s/p fall w/ AMS. State appointed guardianship CVA -crestor 10mg po hs -ASA 81mg po -Neuro consult Dr. Kumar S/P pacemaker 05/18 -hx of a flutter, a fib, bradycardia -eliquis 2.5mg PO BID -EP consult -cardio consult Dr. Olson Ulcers -right shoulder/hip/knee ulcers -wound care dressing changes -sx consult Dr. Foster for debridement of right hip, unstageable ulcer. Wound vac to be placed s/p debridement per resident HTN -norvasc 5mg PO Psych -Psych consult Dr. Roman, no intervention BPH -flomax .4mg po Ppx -pepcid 20mg PO -SCD Dispo: Rehab placement to continue w/ woundvac changes s/p debridement <Madina Clarke - Last Filed: 05/31/18 20:02> Objective - Vital Signs/Intake and Output Vital Signs (last 24 hours): Temp Pulse Resp BP Pulse Ox 97.4 F L 70 20 120/64 98 05/31/18 15:00 05/31/18 15:00 05/31/18 15:00 05/31/18 15:00 05/31/18 15:00 Intake and Output: 05/31/18 06/01/18 18:59 06:59 Intake Total 200 Output Total 500 Balance -300 - Medications Medications: Current Medications Amlodipine Besylate (Norvasc) 5 mg PO DAILY [facility] Last Admin: 05/31/18 09:50 Dose: 5 mg Apixaban (Eliquis) 2.5 mg PO BID [facility] Last Admin: 05/31/18 18:02 Dose: 2.5 mg Aspirin (Aspirin Chewable) 81 mg PO DAILY [facility] Last Admin: 05/31/18 09:50 Dose: 81 mg Docusate Sodium (Colace) 100 mg PO TID [facility] Last Admin: 05/31/18 18:02 Dose: 100 mg Famotidine (Pepcid) 20 mg PO DAILY [facility] Last Admin: 05/31/18 09:50 Dose: 20 mg Rosuvastatin Calcium (Crestor) 10 mg PO HS [facility] Last Admin: 05/30/18 21:29 Dose: 10 mg Sennosides (Senokot Tab) 8.6 mg PO DAILY [facility] Last Admin: 05/31/18 09:50 Dose: 8.6 mg Tamsulosin HCl (Flomax) 0.4 mg PO DAILY [facility] Last Admin: 05/31/18 09:50 Dose: 0.4 mg - Labs Labs: 05/30/18 07:27 05/30/18 07:27 PT 13.9 SECONDS (9.7-12.2) H 05/18/18 05:01 INR 1.3 05/18/18 05:01 APTT 31 SECONDS (21-34) D 05/18/18 05:01 Attending/Attestation - Attestation I have personally seen and examined this patient.: Yes I have fully participated in the care of the patient.: Yes I have reviewed all pertinent clinical information, including history, physical exam and plan: Yes Notes (Text): Seen and examined,nonverbal,pleasant,denies pain His hip ulcer with surrounding inflammation and base necrotic tissue Surgery consult for debridement.D/W The resident. I agree with the documentation of the aseesment and the plan d/w DR Acosta We will hold Jessica
--- NOTE | 2018-05-31 09:55 | CP.PCM.PN ---
Subjective - Date & Time of Evaluation Date of Evaluation: 05/31/18 Time of Evaluation: 09:53 - Subjective Subjective: PGY-[address] Mcduffie's Service: Neurology Patient seen and examined at bedside. Per nursing no acute events occurred overnight. Patient denies any complaints at this time. Patient ROS limited due to current clinical condition. Objective - Vital Signs/Intake and Output Vital Signs (last 24 hours): Temp Pulse Resp BP Pulse Ox 98.5 F 693 H 20 117/71 98 05/31/18 07:30 05/31/18 07:30 05/31/18 07:30 05/31/18 07:30 05/31/18 07:30 Intake and Output: 05/31/18 05/31/18 06:59 18:59 Intake Total 500 Output Total 2100 Balance -1600 - Medications Medications: Current Medications Amlodipine Besylate (Norvasc) 5 mg PO DAILY [facility] Last Admin: 05/31/18 09:50 Dose: 5 mg Apixaban (Eliquis) 2.5 mg PO BID [facility] Last Admin: 05/30/18 17:38 Dose: 2.5 mg Aspirin (Aspirin Chewable) 81 mg PO DAILY [facility] Last Admin: 05/31/18 09:50 Dose: 81 mg Bisacodyl (Dulcolax) 10 mg [place] HS PRN PRN Reason: Constipation Last Admin: 05/27/18 18:35 Dose: 10 mg Docusate Sodium (Colace) 100 mg PO TID [facility] Last Admin: 05/31/18 09:50 Dose: 100 mg Famotidine (Pepcid) 20 mg PO DAILY [facility] Last Admin: 05/31/18 09:50 Dose: 20 mg Rosuvastatin Calcium (Crestor) 10 mg PO HS [facility] Last Admin: 05/30/18 21:29 Dose: 10 mg Sennosides (Senokot Tab) 8.6 mg PO DAILY [facility] Last Admin: 05/31/18 09:50 Dose: 8.6 mg Tamsulosin HCl (Flomax) 0.4 mg PO DAILY [facility] Last Admin: 05/31/18 09:50 Dose: 0.4 mg - Labs Labs: 05/30/18 07:27 05/30/18 07:27 PT 13.9 SECONDS (9.7-12.2) H 05/18/18 05:01 INR 1.3 05/18/18 05:01 APTT 31 SECONDS (21-34) D 05/18/18 05:01 - Head Exam Head Exam: ATRAUMATIC, NORMAL INSPECTION - Eye Exam Eye Exam: EOMI, Normal appearance, PERRL Pupil Exam: NORMAL ACCOMODATION - ENT Exam ENT Exam: Mucous Membranes Moist, Normal Oropharynx - Respiratory Exam Respiratory Exam: Clear to Ausculation Bilateral, NORMAL BREATHING PATTERN - Cardiovascular Exam Cardiovascular Exam: REGULAR RHYTHM, +S1, +S2 - GI/Abdominal Exam GI & Abdominal Exam: Soft, Normal Bowel Sounds. absent: Hyperactive Bowel Sounds - Extremities Exam Extremities Exam: absent: Joint Swelling, Pedal Edema - Neurological Exam Neurological Exam: Altered - Psychiatric Exam Psychiatric exam: Normal Affect, Normal Mood Assessment and Plan - Assessment and Plan (Free Text) Assessment: 88 yo Bur[place]ian speaking M with PMHx of dementia, psych illness, possible HTN admitted for evaluation after he was found on the floor of his house for unknown period of time. Under state guardianship, living alone with home health services 1x/week. On admission patient was in atrial flutter with varying response. His lowest rate was in 30's. Patient was asymptomatic on admission and admitted to telemetry. Subsequently brought to ICU for bradycardia with evidence of Atrial flutter with block s/p leadless pacemaker 05/18/18. Patient downgraded.
--- NOTE | 2018-05-31 16:07 | CP.PCM.CON ---
<Amaury Reyes Felicitas - Last Filed: 05/31/18 16:13> History of Present Illness - History of Present Illness History of Present Illness: Gen Surg: Dr Foster Pt is a 88M admitted for code stroke. Found to have CVA, now aphasic. Has had prolonged hospital course, and approaching time for discharge to [facility]. Surgery was consulted for evaluation of right hip ulcer. There is a 4x4 necrotic eschar on the right hip, distal to the lateral trochanter. Pt has been afebrile, VSS. Review of Systems - Review of Systems Systems not reviewed;Unavailable: Language Barrier (aphasic) Past Patient History - Tetanus Immunizations Tetanus Immunization: Unknown - Past Medical History & Family History Past Medical History?: No - Past Social History Smoking Status: Unknown If Ever Smoked - CARDIAC Hx Hypertension: Yes - MUSCULOSKELETAL/RHEUMATOLOGICAL Hx Falls: Yes - PSYCHIATRIC Hx Substance Use: No (UNKNOWN) - SURGICAL HISTORY Other/Comment: UNABLE TO OBTAIN AT TIME OF TRIAGE - ANESTHESIA Hx Anesthesia: (UNABLE TO GET INFO AT THIS TIME ,PT APHASIC) Meds Allergies/Adverse Reactions: Allergies Allergy/AdvReac Type Severity Reaction Status Date / Time No Known Allergies Allergy Verified 06/06/18 08:15 - Medications Medications: Current Medications Amlodipine Besylate (Norvasc) 5 mg PO DAILY [facility] Last Admin: 05/31/18 09:50 Dose: 5 mg Apixaban (Eliquis) 2.5 mg PO BID [facility] Last Admin: 05/30/18 17:38 Dose: 2.5 mg Aspirin (Aspirin Chewable) 81 mg PO DAILY [facility] Last Admin: 05/31/18 09:50 Dose: 81 mg Docusate Sodium (Colace) 100 mg PO TID [facility] Last Admin: 05/31/18 14:46 Dose: 100 mg Famotidine (Pepcid) 20 mg PO DAILY [facility] Last Admin: 05/31/18 09:50 Dose: 20 mg Rosuvastatin Calcium (Crestor) 10 mg PO HS [facility] Last Admin: 05/30/18 21:29 Dose: 10 mg Sennosides (Senokot Tab) 8.6 mg PO DAILY [facility] Last Admin: 05/31/18 09:50 Dose: 8.6 mg Tamsulosin HCl (Flomax) 0.4 mg PO DAILY [facility] Last Admin: 05/31/18 09:50 Dose: 0.4 mg Physical Exam - Constitutional Appears: Non-toxic, No Acute Distress, Chronically Ill - Respiratory Exam Respiratory Exam: absent: Respiratory Distress - Cardiovascular Exam Cardiovascular Exam: Irregular Rhythm - GI/Abdominal Exam GI & Abdominal Exam: Soft. absent: Distended - Extremities Exam Additional comments: 4x4 black eschar on right hip with surrounding erythema - Neurological Exam Neurological exam: Alert Results - Vital Signs Recent Vital Signs: Last Vital Signs Temp 97.4 F L 05/31/18 15:00 Pulse 70 05/31/18 15:00 Resp 20 05/31/18 15:00 BP 120/64 05/31/18 15:00 Pulse Ox 98 05/31/18 15:00 - Labs Result Diagrams: 05/30/18 07:27 05/30/18 07:27 Assessment & Plan - Assessment and Plan (Free Text) Assessment: 88M s/p CVA; now with right hip pressure sore Plan: will plan for debridement, bedside vs OR consent obtained via [employer] Anabelle Austin [phone] will d/w Dr Foster d/w Eirc PGY4 <Carmine Foster B - Last Filed: 06/06/18 19:56> Meds - Medications Medications: Current Medications Amlodipine Besylate (Norvasc) 5 mg PO DAILY [facility] Last Admin: 06/06/18 09:22 Dose: 5 mg Aspirin (Aspirin Chewable) 81 mg PO DAILY [facility] Last Admin: 06/06/18 09:23 Dose: 81 mg Docusate Sodium (Colace) 100 mg PO TID [facility] Last Admin: 06/06/18 17:51 Dose: 100 mg Enoxaparin Sodium (Lovenox) 70 mg SC Q12 [facility] Last Admin: 06/06/18 09:23 Dose: 70 mg Famotidine (Pepcid) 20 mg PO DAILY [facility] Last Admin: 06/06/18 09:23 Dose: 20 mg Nystatin (Nystop Topical Powder) 1 applic TOP BID [facility] Last Admin: 06/06/18 17:52 Dose: 1 applic Rosuvastatin Calcium (Crestor) 10 mg PO HS [facility] Last Admin: 06/05/18 21:50 Dose: 10 mg Sennosides (Senokot Tab) 8.6 mg PO DAILY [facility] Last Admin: 06/06/18 09:23 Dose: 8.6 mg Tamsulosin HCl (Flomax) 0.4 mg PO DAILY [facility] Last Admin: 06/06/18 09:22 Dose: 0.4 mg Results - Vital Signs Recent Vital Signs: Last Vital Signs Temp 98.1 F 06/06/18 16:00 Pulse 68 06/06/18 16:00 Resp 20 06/06/18 16:00 BP 103/62 06/06/18 16:00 Pulse Ox 97 06/06/18 16:00 - Labs Result Diagrams: 06/05/18 03:41 06/05/18 03:41 Labs: Laboratory Results - last 24 hr 06/06/18 08:38 PT 14.1 H INR 1.3 Attending/Attestation - Attestation I have personally seen and examined this patient.: Yes I have fully participated in the care of the patient.: Yes I have reviewed all pertinent clinical information: Yes Notes (Text): Pt was seen and examine at bedside Agree with above note and assessment Pt with CVA and Right Hip decubitus ulcer Labs and Radiology reviewed Ass: Right Hip Decubitus ulcer Plan : Ulcer debridement at bedside Consent C/w current mx Local wound care Plan d.w pt in detail Risk and benefit explained in detail
[2018-05-31] MEDS ORDERED: Lidocaine 2% w Epi 1:100,000 Inj IJ ONE (22:07)
--- NOTE | 2018-06-01 00:27 | PCM.SURG1 ---
Surgeon's Initial Post Op Note - Surgeon's Notes Surgeon: Bernice Dunaway, PGY-2 [employer] Broker: None Type of Anesthesia: Local Pre-Operative Diagnosis: Right hip eschar Operative Findings: Right hip eschar Post-Operative Diagnosis: Right hip eschar Operation Performed: Right hip eschar debridment at bedside Specimen/Specimens Removed: None Estimated Blood Loss: EBL {In ML}: 2 Blood Products Given: N/A Drains Used: No Drains Post-Op Condition: Good Date of Surgery/Procedure: 05/31/18 Time of Surgery/Procedure: 23:02
--- NOTE | 2018-06-01 10:42 | CP.PCM.PN ---
<Amaury Reyes Felicitas - Last Filed: 06/01/18 10:34> Subjective - Date & Time of Evaluation Date of Evaluation: 06/01/18 Time of Evaluation: 06:44 - Subjective Subjective: General Surgery: Dr Foster Pt S&E. S/P debridement of right hip ulcer yesterday. Dressing is c/d/i. Pain appears controlled though pt is aphasic. Objective - Vital Signs/Intake and Output Vital Signs (last 24 hours): Temp Pulse Resp BP Pulse Ox 98.6 F 69 20 123/71 96 06/01/18 08:00 06/01/18 08:00 06/01/18 08:00 06/01/18 08:00 06/01/18 08:00 Intake and Output: 06/01/18 06/01/18 06:59 18:59 Intake Total 300 50 Output Total 400 900 Balance -100 -850 - Medications Medications: Current Medications Amlodipine Besylate (Norvasc) 5 mg PO DAILY [facility] Last Admin: 06/01/18 09:58 Dose: 5 mg Apixaban (Eliquis) 2.5 mg PO BID [facility] Last Admin: 05/31/18 18:02 Dose: 2.5 mg Aspirin (Aspirin Chewable) 81 mg PO DAILY [facility] Last Admin: 06/01/18 09:58 Dose: 81 mg Docusate Sodium (Colace) 100 mg PO TID [facility] Last Admin: 06/01/18 09:58 Dose: 100 mg Famotidine (Pepcid) 20 mg PO DAILY [facility] Last Admin: 06/01/18 09:58 Dose: 20 mg Rosuvastatin Calcium (Crestor) 10 mg PO HS [facility] Last Admin: 05/31/18 21:24 Dose: 10 mg Sennosides (Senokot Tab) 8.6 mg PO DAILY [facility] Last Admin: 06/01/18 09:58 Dose: 8.6 mg Tamsulosin HCl (Flomax) 0.4 mg PO DAILY [facility] Last Admin: 06/01/18 09:58 Dose: 0.4 mg - Labs Labs: 05/30/18 07:27 05/30/18 07:27 PT 13.9 SECONDS (9.7-12.2) H 05/18/18 05:01 INR 1.3 05/18/18 05:01 APTT 31 SECONDS (21-34) D 05/18/18 05:01 - Constitutional Appears: Non-toxic, No Acute Distress - ENT Exam ENT Exam: Mucous Membranes Moist - Respiratory Exam Respiratory Exam: absent: Respiratory Distress - Cardiovascular Exam Cardiovascular Exam: REGULAR RHYTHM - GI/Abdominal Exam GI & Abdominal Exam: Soft. absent: Distended - Neurological Exam Neurological Exam: Awake Assessment and Plan - Assessment and Plan (Free Text) Assessment: 88M with recent CVA now s/p right hip debridement Plan: cont daily dressing changes with wet to dry dressing pt clear for d/c with wound care at nursing facility d/w Dr Kristin Reyes, PGY4 <Carmine Foster B - Last Filed: 06/06/18 19:57> Objective - Vital Signs/Intake and Output Vital Signs (last 24 hours): Temp Pulse Resp BP Pulse Ox 98.1 F 68 20 103/62 97 06/06/18 16:00 06/06/18 16:00 06/06/18 16:00 06/06/18 16:00 06/06/18 16:00 Intake and Output: 06/06/18 06/07/18 18:59 06:59 Output Total 300 Balance -300 - Medications Medications: Current Medications Amlodipine Besylate (Norvasc) 5 mg PO DAILY [facility] Last Admin: 06/06/18 09:22 Dose: 5 mg Aspirin (Aspirin Chewable) 81 mg PO DAILY [facility] Last Admin: 06/06/18 09:23 Dose: 81 mg Docusate Sodium (Colace) 100 mg PO TID [facility] Last Admin: 06/06/18 17:51 Dose: 100 mg Enoxaparin Sodium (Lovenox) 70 mg SC Q12 [facility] Last Admin: 06/06/18 09:23 Dose: 70 mg Famotidine (Pepcid) 20 mg PO DAILY [facility] Last Admin: 06/06/18 09:23 Dose: 20 mg Nystatin (Nystop Topical Powder) 1 applic TOP BID [facility] Last Admin: 06/06/18 17:52 Dose: 1 applic Rosuvastatin Calcium (Crestor) 10 mg PO HS [facility] Last Admin: 06/05/18 21:50 Dose: 10 mg Sennosides (Senokot Tab) 8.6 mg PO DAILY [facility] Last Admin: 06/06/18 09:23 Dose: 8.6 mg Tamsulosin HCl (Flomax) 0.4 mg PO DAILY [facility] Last Admin: 06/06/18 09:22 Dose: 0.4 mg - Labs Labs: 06/05/18 03:41 06/05/18 03:41 PT 14.1 SECONDS (9.7-12.2) H 06/06/18 08:38 INR 1.3 06/06/18 08:38 APTT 31 SECONDS (21-34) D 05/18/18 05:01 Attending/Attestation - Attestation I have personally seen and examined this patient.: Yes I have fully participated in the care of the patient.: Yes I have reviewed all pertinent clinical information, including history, physical exam and plan: Yes Notes (Text): Pt was seen and examine at bedside Agree with above note and assessment Pt is stable Wound with mild saturation of blood No active bleeding C/w current mx f/u as out pt DC plan Plan d.w pt in detail Risk and benefit explained in detail
[2018-06-01] MEDS ORDERED: Enoxaparin 80 mg Syringe SC SCH (11:00)
--- NOTE | 2018-06-01 19:27 | CP.PCM.PN ---
Subjective - Date & Time of Evaluation Date of Evaluation: 06/01/18 Time of Evaluation: 16:00 - Subjective Subjective: lying on bed and watching TV,No complain,denies pain nonverbal s/p Right hip debridement Eliquis on hold since last night Objective - Vital Signs/Intake and Output Vital Signs (last 24 hours): Temp Pulse Resp BP Pulse Ox 98.2 F 70 20 121/70 97 06/01/18 15:00 06/01/18 15:00 06/01/18 15:00 06/01/18 15:00 06/01/18 15:00 Intake and Output: 06/01/18 06/02/18 18:59 06:59 Intake Total 50 Output Total 1700 Balance -1650 - Medications Medications: Current Medications Amlodipine Besylate (Norvasc) 5 mg PO DAILY [facility] Last Admin: 06/01/18 09:58 Dose: 5 mg Apixaban (Eliquis) 2.5 mg PO BID [facility] Last Admin: 05/31/18 18:02 Dose: 2.5 mg Aspirin (Aspirin Chewable) 81 mg PO DAILY [facility] Last Admin: 06/01/18 09:58 Dose: 81 mg Docusate Sodium (Colace) 100 mg PO TID [facility] Last Admin: 06/01/18 17:58 Dose: 100 mg Famotidine (Pepcid) 20 mg PO DAILY [facility] Last Admin: 06/01/18 09:58 Dose: 20 mg Rosuvastatin Calcium (Crestor) 10 mg PO HS [facility] Last Admin: 05/31/18 21:24 Dose: 10 mg Sennosides (Senokot Tab) 8.6 mg PO DAILY [facility] Last Admin: 06/01/18 09:58 Dose: 8.6 mg Tamsulosin HCl (Flomax) 0.4 mg PO DAILY [facility] Last Admin: 06/01/18 09:58 Dose: 0.4 mg - Labs Labs: 05/30/18 07:27 05/30/18 07:27 PT 13.9 SECONDS (9.7-12.2) H 05/18/18 05:01 INR 1.3 05/18/18 05:01 APTT 31 SECONDS (21-34) D 05/18/18 05:01 - Constitutional Appears: Non-toxic - Head Exam Head Exam: NORMAL INSPECTION - Eye Exam Eye Exam: Normal appearance - ENT Exam ENT Exam: Mucous Membranes Moist - Neck Exam Neck Exam: Full ROM - Respiratory Exam Respiratory Exam: Clear to Ausculation Bilateral, NORMAL BREATHING PATTERN - Cardiovascular Exam Cardiovascular Exam: REGULAR RHYTHM, Murmur - GI/Abdominal Exam GI & Abdominal Exam: Soft, Normal Bowel Sounds - Extremities Exam Extremities Exam: absent: Normal Inspection (right hip wound dressing soaked with blood/dressing changed by sugery team) - Back Exam Back Exam: NORMAL INSPECTION - Neurological Exam Neurological Exam: Awake. absent: Oriented x3 (aphasic) - Psychiatric Exam Psychiatric exam: Normal Mood - Skin Skin Exam: Dry Assessment and Plan - Assessment and Plan (Free Text) Plan: 1. 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 Olson 3 Right hip Ulcer with necrotic base -right shoulder/hip/knee ulcers -wound care dressing changes -sx consult Dr. Foster for debridement of right hip, unstageable ulcer. Wound vac to be placed s/p debridement per resident 4.HTN -norvasc 5mg PO Psych -Psych consult Dr. Roman, no intervention BPH -flomax .4mg po Ppx -pepcid 20mg PO -SCD Dispo: Pending approval to go to rehabilitation
[2018-06-02 06:37] LABS: BASO % 0.6 % (0.0-2.0); EOS # 0.2 K/uL (0.0-0.7); EOS % 4.6 % (0.0-4.0); HEMOGLOBIN 12.2 g/dL (12.0-18.0); LYMPH # 1.3 K/uL (1.0-4.3); LYMPH % 24.5 % (20.0-40.0); MEAN CELL VOLUME 90.5 fL (80.0-94.0); MEAN CORPUSCULAR HEMOGLOBIN 32.4 pg (27.0-31.0); MEAN CORPUSCULAR HGB CONC 35.8 g/dL (33.0-37.0); MEAN PLATELET VOLUME 7.4 fL (7.2-11.7); MONO # 0.5 K/uL (0.0-0.8); MONO % 9.1 % (0.0-10.0); NEUT # 3.2 K/uL (1.8-7.0); NEUT % 61.2 % (50.0-75.0); RBC 3.76 Mil/uL (4.40-5.90); RED CELL DISTRIBUTION WIDTH 13.6 % (11.5-14.5); WHITE BLOOD COUNT 5.2 K/uL (4.8-10.8)
[2018-06-02 07:44] LABS: ALB/GLOB RATIO 0.9 (1.0-2.1); ALBUMIN 2.9 g/dL (3.5-5.0); ALT/SGPT 30 U/L (21-72); AST/SGOT 23 U/L (17-59); BLOOD UREA NITROGEN 17 mg/dL (9-20); CALCIUM 8.7 mg/dl (8.6-10.4); GFR NON-AFRICAN AMERICAN > 60
--- NOTE | 2018-06-02 20:28 | CP.PCM.PN ---
<Frank Membreno - Last Filed: 06/02/18 20:45> Subjective - Date & Time of Evaluation Date of Evaluation: 06/02/18 Time of Evaluation: 15:30 - Subjective Subjective: PGY-[address] Clarke Patient is seen and examined at bedside. Patient is nonverbal due to CVA status. Patient is able to understand questions in occitan. Patient nods to questions. Patient denies pain or any acute changes overnight. Patient is currently in no acute distress lying in bed. Patient refuses to use communication board and attempts to write but it is not comprehensive. ROS unattainable due to patient aphasic speech. Objective - Vital Signs/Intake and Output Vital Signs (last 24 hours): Temp Pulse Resp BP Pulse Ox 98.5 F 64 20 111/69 97 06/02/18 15:00 06/02/18 15:00 06/02/18 15:00 06/02/18 15:00 06/02/18 15:00 Intake and Output: 06/02/18 06/03/18 18:59 06:59 Intake Total 480 Output Total 600 Balance -120 - Medications Medications: Current Medications Amlodipine Besylate (Norvasc) 5 mg PO DAILY [facility] Last Admin: 06/02/18 09:54 Dose: 5 mg Apixaban (Eliquis) 2.5 mg PO BID [facility] Last Admin: 05/31/18 18:02 Dose: 2.5 mg Aspirin (Aspirin Chewable) 81 mg PO DAILY [facility] Last Admin: 06/02/18 09:54 Dose: 81 mg Docusate Sodium (Colace) 100 mg PO TID [facility] Last Admin: 06/02/18 17:43 Dose: 100 mg Famotidine (Pepcid) 20 mg PO DAILY [facility] Last Admin: 06/02/18 09:54 Dose: 20 mg Nystatin (Nystop Topical Powder) 1 applic TOP BID [facility] Last Admin: 06/02/18 17:45 Dose: 1 applic Rosuvastatin Calcium (Crestor) 10 mg PO HS [facility] Last Admin: 06/01/18 21:44 Dose: 10 mg Sennosides (Senokot Tab) 8.6 mg PO DAILY [facility] Last Admin: 06/02/18 09:54 Dose: 8.6 mg Tamsulosin HCl (Flomax) 0.4 mg PO DAILY [facility] Last Admin: 06/02/18 09:54 Dose: 0.4 mg - Labs Labs: 06/02/18 06:14 06/02/18 06:14 PT 13.9 SECONDS (9.7-12.2) H 05/18/18 05:01 INR 1.3 05/18/18 05:01 APTT 31 SECONDS (21-34) D 05/18/18 05:01 - Constitutional Appears: Well, Non-toxic, No Acute Distress - Head Exam Head Exam: ATRAUMATIC, NORMAL INSPECTION, NORMOCEPHALIC - Eye Exam Eye Exam: EOMI, Normal appearance - ENT Exam ENT Exam: Mucous Membranes Moist, Normal Exam - Respiratory Exam Respiratory Exam: NORMAL BREATHING PATTERN. absent: Accessory Muscle Use, Respiratory Distress - Cardiovascular Exam Cardiovascular Exam: REGULAR RHYTHM - GI/Abdominal Exam GI & Abdominal Exam: Soft - Extremities Exam Extremities Exam: Full ROM, Normal Inspection Additional comments: right hip wound dressing changed by sugery team. clean, dry and intact, non bloody, not wet. - Back Exam Back Exam: Full ROM, NORMAL INSPECTION - Neurological Exam Neurological Exam: Alert, Awake Additional comments: aphasia noted, dysgraphia - Psychiatric Exam Psychiatric exam: Normal Affect, Normal Mood - Skin Skin Exam: Dry, Normal Color Assessment and Plan - Assessment and Plan (Free Text) Plan: Plan: 1. 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 Olson 3 Right hip Ulcer with necrotic base -right shoulder/hip/knee ulcers -wound care dressing changes -Surgical consult - cont daily dressing changes with wet to dry dressing -pt clear for d/c with wound care at nursing facility - F/u am labs 4.HTN -norvasc 5mg PO Groin rash possible due to candiasis -nystatin topical apply BID to groin area Psych -Psych consult Dr. Roman, no intervention BPH -flomax .4mg po Ppx -pepcid 20mg PO -SCD -colace and senokot -dysphagia/modified diet = PT/OT consult - f/u recs -Speech therapy consult - f/u recs Plan discussed with Dr Tricia Membreno, PGY-1 <Madina Clarke - Last Filed: 06/13/18 08:31> Objective - Vital Signs/Intake and Output Vital Signs (last 24 hours): Temp Pulse Resp BP Pulse Ox 98.5 F 73 20 110/70 96 06/13/18 08:09 06/13/18 08:09 06/13/18 08:09 06/13/18 08:09 06/13/18 08:09 Intake and Output: 06/13/18 06/13/18 06:59 18:59 Intake Total 150 Output Total 300 Balance -150 - Medications Medications: Current Medications Amlodipine Besylate (Norvasc) 5 mg PO DAILY [facility] Last Admin: 06/12/18 10:58 Dose: 5 mg Aspirin (Aspirin Chewable) 81 mg PO DAILY [facility] Last Admin: 06/12/18 10:58 Dose: 81 mg Docusate Sodium (Colace) 100 mg PO TID [facility] Last Admin: 06/12/18 18:00 Dose: Not Given Famotidine (Pepcid) 20 mg PO DAILY [facility] Last Admin: 06/12/18 10:58 Dose: 20 mg Nystatin (Nystop Topical Powder) 1 applic TOP BID [facility] Last Admin: 06/11/18 18:11 Dose: 1 applic Rosuvastatin Calcium (Crestor) 10 mg PO HS [facility] Last Admin: 06/12/18 21:14 Dose: 10 mg Sennosides (Senokot Tab) 8.6 mg PO DAILY [facility] Last Admin: 06/12/18 10:58 Dose: 8.6 mg Tamsulosin HCl (Flomax) 0.4 mg PO DAILY [facility] Last Admin: 06/12/18 10:58 Dose: 0.4 mg - Labs Labs: 06/11/18 07:40 06/11/18 07:40 PT 24.9 SECONDS (9.7-12.2) H D 06/12/18 08:17 INR 2.3 D 06/12/18 08:17 APTT 31 SECONDS (21-34) D 05/18/18 05:01 Attending/Attestation - Attestation I have personally seen and examined this patient.: Yes I have fully participated in the care of the patient.: Yes I have reviewed all pertinent clinical information, including history, physical exam and plan: Yes Notes (Text): Seen and examined Has no complain I agree with the residents documentation
--- NOTE | 2018-06-03 17:01 | CP.PCM.PN ---
<Malaika Gardiner - Last Filed: 06/03/18 17:10> Subjective - Date & Time of Evaluation Date of Evaluation: 06/03/18 Time of Evaluation: 09:35 - Subjective Subjective: Pt examined at bedside, no acute events overnight. Nursing reports pt is no longer bleeding from right hip ulcer s/p debridement. Pt is baseline non- verbal. Objective - Vital Signs/Intake and Output Vital Signs (last 24 hours): Temp Pulse Resp BP Pulse Ox 98 F 62 20 115/71 97 06/03/18 07:48 06/03/18 07:48 06/03/18 07:48 06/03/18 07:48 06/03/18 07:48 Intake and Output: 06/03/18 06/03/18 06:59 18:59 Intake Total 300 360 Output Total 1200 600 Balance -900 -240 - Medications Medications: Current Medications Amlodipine Besylate (Norvasc) 5 mg PO DAILY [facility] Last Admin: 06/03/18 09:47 Dose: 5 mg Apixaban (Eliquis) 2.5 mg PO BID [facility] Last Admin: 05/31/18 18:02 Dose: 2.5 mg Aspirin (Aspirin Chewable) 81 mg PO DAILY [facility] Last Admin: 06/03/18 09:46 Dose: 81 mg Docusate Sodium (Colace) 100 mg PO TID [facility] Last Admin: 06/03/18 09:46 Dose: 100 mg Famotidine (Pepcid) 20 mg PO DAILY [facility] Last Admin: 06/03/18 09:47 Dose: 20 mg Nystatin (Nystop Topical Powder) 1 applic TOP BID [facility] Last Admin: 06/03/18 09:51 Dose: 1 applic Rosuvastatin Calcium (Crestor) 10 mg PO HS [facility] Last Admin: 06/02/18 21:42 Dose: 10 mg Sennosides (Senokot Tab) 8.6 mg PO DAILY [facility] Last Admin: 06/03/18 09:47 Dose: 8.6 mg Tamsulosin HCl (Flomax) 0.4 mg PO DAILY [facility] Last Admin: 06/03/18 09:47 Dose: 0.4 mg - Labs Labs: 06/02/18 06:14 06/02/18 06:14 PT 13.9 SECONDS (9.7-12.2) H 05/18/18 05:01 INR 1.3 05/18/18 05:01 APTT 31 SECONDS (21-34) D 05/18/18 05:01 - Constitutional Appears: No Acute Distress - Head Exam Head Exam: ATRAUMATIC, NORMAL INSPECTION, NORMOCEPHALIC - Eye Exam Eye Exam: EOMI, Normal appearance - ENT Exam ENT Exam: Mucous Membranes Moist - Neck Exam Neck Exam: Normal Inspection - Respiratory Exam Respiratory Exam: Clear to Ausculation Bilateral, NORMAL BREATHING PATTERN. absent: Rhonchi, Wheezes - Cardiovascular Exam Cardiovascular Exam: REGULAR RHYTHM, Murmur - GI/Abdominal Exam GI & Abdominal Exam: Soft, Normal Bowel Sounds. absent: Distended, Tenderness - Extremities Exam Extremities Exam: Normal Inspection. absent: Calf Tenderness - Neurological Exam Neurological Exam: Altered, Awake - Psychiatric Exam Psychiatric exam: Normal Affect - Skin Skin Exam: Dry, Normal Color, Warm. absent: Intact (ulcers healing well, wound care changes) Assessment and Plan - Assessment and Plan (Free Text) Assessment: 88 yo M w/ PMHx of dementia, psych illness, poss HTN admitted s/p fall w/ AMS. State appointed guardianship CVA -crestor 10mg po hs -ASA 81mg po -Neuro consult Dr. Kumar S/P pacemaker 05/18 -hx of a flutter, a fib, bradycardia -eliquis 2.5mg PO BID resumed -EP consult -cardio consult Dr. Olson Ulcers -right shoulder/hip/knee ulcers -wound care dressing changes -sx consult Dr. Foster for debridement of right hip, unstageable ulcer. Wound vac to be placed s/p debridement per resident HTN -norvasc 5mg PO Psych -Psych consult Dr. Roman, no intervention BPH -flomax .4mg po Ppx -pepcid 20mg PO -SCD Dispo: Rehab placement to continue w/ woundvac changes s/p debridement <Madina Clarke - Last Filed: 06/03/18 17:16> Objective - Vital Signs/Intake and Output Vital Signs (last 24 hours): Temp Pulse Resp BP Pulse Ox 97.7 F 70 20 114/65 97 06/03/18 16:00 06/03/18 16:00 06/03/18 16:00 06/03/18 16:00 06/03/18 16:00 Intake and Output: 06/03/18 06/03/18 06:59 18:59 Intake Total 300 360 Output Total 1200 600 Balance -900 -240 - Medications Medications: Current Medications Amlodipine Besylate (Norvasc) 5 mg PO DAILY [facility] Last Admin: 06/03/18 09:47 Dose: 5 mg Apixaban (Eliquis) 2.5 mg PO BID [facility] Last Admin: 05/31/18 18:02 Dose: 2.5 mg Aspirin (Aspirin Chewable) 81 mg PO DAILY [facility] Last Admin: 06/03/18 09:46 Dose: 81 mg Docusate Sodium (Colace) 100 mg PO TID [facility] Last Admin: 06/03/18 09:46 Dose: 100 mg Famotidine (Pepcid) 20 mg PO DAILY [facility] Last Admin: 06/03/18 09:47 Dose: 20 mg Nystatin (Nystop Topical Powder) 1 applic TOP BID [facility] Last Admin: 06/03/18 09:51 Dose: 1 applic Rosuvastatin Calcium (Crestor) 10 mg PO HS [facility] Last Admin: 06/02/18 21:42 Dose: 10 mg Sennosides (Senokot Tab) 8.6 mg PO DAILY [facility] Last Admin: 06/03/18 09:47 Dose: 8.6 mg Tamsulosin HCl (Flomax) 0.4 mg PO DAILY [facility] Last Admin: 06/03/18 09:47 Dose: 0.4 mg - Labs Labs: 06/02/18 06:14 06/02/18 06:14 PT 13.9 SECONDS (9.7-12.2) H 05/18/18 05:01 INR 1.3 05/18/18 05:01 APTT 31 SECONDS (21-34) D 05/18/18 05:01 Attending/Attestation - Attestation I have personally seen and examined this patient.: Yes I have fully participated in the care of the patient.: Yes I have reviewed all pertinent clinical information, including history, physical exam and plan: Yes Notes (Text): Seen and examined by me,Lying on bed ,no complain, Denies pain,s/p hip wound debridement. continue wound care No bleeding resume Jessica Has perineal fungal rash,started on Nystatin d/w resident I agree with the documentation of the assessment and the plan
--- NOTE | 2018-06-04 12:42 | CP.PCM.PN ---
Subjective - Date & Time of Evaluation Date of Evaluation: 06/04/18 Time of Evaluation: 09:35 - Subjective Subjective: PGY-[address] Clarke service Patient is seen and examined at bedside. Patient is nonverbal due to history of CVA. Patient understands when asked and nods for yes and shakes head for no answers. Patient is in no acute distress at time of encounter and resting comfortably in bed. Patient denies pain at this time. Patient denies fever, chills, shortness of breath, chest pain, abdominal pain. Further ROS unttainable due to patient's non verbal status. Objective - Vital Signs/Intake and Output Vital Signs (last 24 hours): Temp Pulse Resp BP Pulse Ox 98.9 F 69 20 113/73 97 06/04/18 08:14 06/04/18 08:14 06/04/18 08:14 06/04/18 08:14 06/04/18 08:14 Intake and Output: 06/04/18 06/04/18 06:59 18:59 Intake Total 200 Output Total 650 Balance -450 - Medications Medications: Current Medications Amlodipine Besylate (Norvasc) 5 mg PO DAILY [facility] Last Admin: 06/04/18 10:04 Dose: 5 mg Aspirin (Aspirin Chewable) 81 mg PO DAILY [facility] Last Admin: 06/04/18 10:04 Dose: 81 mg Docusate Sodium (Colace) 100 mg PO TID [facility] Last Admin: 06/04/18 10:08 Dose: 100 mg Enoxaparin Sodium (Lovenox) 60 mg SC Q12 [facility] Famotidine (Pepcid) 20 mg PO DAILY [facility] Last Admin: 06/04/18 10:04 Dose: 20 mg Nystatin (Nystop Topical Powder) 1 applic TOP BID [facility] Last Admin: 06/04/18 10:04 Dose: 1 applic Rosuvastatin Calcium (Crestor) 10 mg PO HS [facility] Last Admin: 06/03/18 21:43 Dose: 10 mg Sennosides (Senokot Tab) 8.6 mg PO DAILY [facility] Last Admin: 06/04/18 10:04 Dose: 8.6 mg Tamsulosin HCl (Flomax) 0.4 mg PO DAILY [facility] Last Admin: 06/04/18 10:04 Dose: 0.4 mg Warfarin Sodium (Coumadin) 7.5 mg PO 1800 [facility] Stop: 06/04/18 18:01 - Labs Labs: 06/02/18 06:14 06/02/18 06:14 PT 13.9 SECONDS (9.7-12.2) H 05/18/18 05:01 INR 1.3 05/18/18 05:01 APTT 31 SECONDS (21-34) D 05/18/18 05:01 - Constitutional Appears: Well, Non-toxic, No Acute Distress - Head Exam Head Exam: ATRAUMATIC, NORMAL INSPECTION, NORMOCEPHALIC - Eye Exam Eye Exam: EOMI, Normal appearance - ENT Exam ENT Exam: Mucous Membranes Moist, Normal Exam - Neck Exam Neck Exam: Full ROM - Respiratory Exam Respiratory Exam: NORMAL BREATHING PATTERN. absent: Accessory Muscle Use, Respiratory Distress - Cardiovascular Exam Cardiovascular Exam: REGULAR RHYTHM, +S1, +S2 - GI/Abdominal Exam GI & Abdominal Exam: Soft, Normal Bowel Sounds. absent: Distended, Guarding, Rigid, Tenderness - Extremities Exam Extremities Exam: Full ROM, Normal Inspection Additional comments: right hip wound dressing, clean dry and intact - Back Exam Back Exam: Full ROM, NORMAL INSPECTION - Neurological Exam Neurological Exam: Alert, Awake Additional comments: aphasia noted - Psychiatric Exam Psychiatric exam: Normal Affect, Normal Mood - Skin Skin Exam: Dry Additional comments: Bilateral inner thigh erythema, nontender to palpation, no open lesions or wounds, nonbloody. Assessment and Plan - Assessment and Plan (Free Text) Plan: CVA -crestor 10mg po hs -ASA 81mg po -Neuro consult Dr. Kumar S/P pacemaker 05/18 -hx of a flutter, a fib, bradycardia -eliquis 2.5mg PO BID D/C - Lovenox given this am 70 mg PO Q12 - Patient started on first dose of coumadin 7.5 mg PO x 1 dose - PT/INR to be checked tomorrow - F/U levels - Start coumadin 5.0mg tomorrow night -EP consult -cardio consult Dr. Olson Ulcers -sx consult Dr. Foster for debridement of right hip, unstageable ulcer. -right shoulder/hip/knee ulcers -wound care dressing changes - f/u wound care nurse perineal fungal rash - continue Nystatin top apply BID to groin area HTN -norvasc 5mg PO Psych -Psych consult Dr. Abel, no intervention BPH -flomax .4mg po Ppx -pepcid 20mg PO -SCD -Dysphagia diet Dispo: awaiting [facility] placement as per State guardian is applying for medicare. Follow PT recs and wound care nurse recs. Plan discussed with Dr Tricia Membreno PGY-1
[2018-06-04] MEDS: Pneumococcal 23-Valent Vaccine IM ONE ×2 (16:28→16:32)
[2018-06-04] MEDS: Enoxaparin 80 mg Syringe SC SCH ×2 (21:11→21:21)
--- NOTE | 2018-06-05 06:06 | CP.PCM.PN ---
<Kati Gardinereca - Last Filed: 06/05/18 06:13> Subjective - Date & Time of Evaluation Date of Evaluation: 06/05/18 Time of Evaluation: 06:13 - Subjective Subjective: Pt examined resting comfortably in bed. No acute overnight events. Pt baseline non-verbal, ROS not well obtainable. Objective - Vital Signs/Intake and Output Vital Signs (last 24 hours): Temp Pulse Resp BP Pulse Ox 98.6 F 69 20 118/72 97 06/04/18 23:34 06/04/18 23:34 06/04/18 23:34 06/04/18 23:34 06/04/18 23:34 Intake and Output: 06/04/18 06/05/18 18:59 06:59 Intake Total 200 200 Output Total 1600 800 Balance -1400 -600 - Medications Medications: Current Medications Amlodipine Besylate (Norvasc) 5 mg PO DAILY [facility] Last Admin: 06/04/18 10:04 Dose: 5 mg Aspirin (Aspirin Chewable) 81 mg PO DAILY [facility] Last Admin: 06/04/18 10:04 Dose: 81 mg Docusate Sodium (Colace) 100 mg PO TID [facility] Last Admin: 06/04/18 17:22 Dose: 100 mg Enoxaparin Sodium (Lovenox) 70 mg SC Q12 [facility] Last Admin: 06/04/18 21:21 Dose: Not Given Famotidine (Pepcid) 20 mg PO DAILY [facility] Last Admin: 06/04/18 10:04 Dose: 20 mg Nystatin (Nystop Topical Powder) 1 applic TOP BID [facility] Last Admin: 06/04/18 17:58 Dose: 1 applic Rosuvastatin Calcium (Crestor) 10 mg PO HS [facility] Last Admin: 06/04/18 21:11 Dose: 10 mg Sennosides (Senokot Tab) 8.6 mg PO DAILY [facility] Last Admin: 06/04/18 10:04 Dose: 8.6 mg Tamsulosin HCl (Flomax) 0.4 mg PO DAILY [facility] Last Admin: 06/04/18 10:04 Dose: 0.4 mg Warfarin Sodium (Coumadin) 5 mg PO 1800 [facility] Stop: 06/05/18 18:01 - Labs Labs: 06/02/18 06:14 06/02/18 06:14 PT 13.9 SECONDS (9.7-12.2) H 05/18/18 05:01 INR 1.3 05/18/18 05:01 APTT 31 SECONDS (21-34) D 05/18/18 05:01 - Constitutional Appears: Non-toxic - Head Exam Head Exam: ATRAUMATIC, NORMAL INSPECTION, NORMOCEPHALIC - Eye Exam Eye Exam: EOMI, Normal appearance - ENT Exam ENT Exam: Mucous Membranes Moist - Neck Exam Neck Exam: Normal Inspection. absent: Lymphadenopathy - Respiratory Exam Respiratory Exam: Clear to Ausculation Bilateral, NORMAL BREATHING PATTERN. absent: Rales, Rhonchi, Wheezes - Cardiovascular Exam Cardiovascular Exam: REGULAR RHYTHM, +S1, +S2. absent: Tachycardia, Murmur - GI/Abdominal Exam GI & Abdominal Exam: Soft, Tenderness, Normal Bowel Sounds. absent: Distended - Extremities Exam Extremities Exam: Normal Inspection. absent: Calf Tenderness, Pedal Edema - Neurological Exam Neurological Exam: Alert, Awake - Skin Skin Exam: Dry, Intact, Normal Color, Warm Assessment and Plan - Assessment and Plan (Free Text) Assessment: 88 yo M w/ PMHx of dementia, psych illness, poss HTN admitted s/p fall w/ AMS. State appointed guardianship CVA -crestor 10mg po hs -ASA 81mg po -Neuro consult Dr. 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 Olson Ulcers -right shoulder/hip/knee ulcers -wound care dressing changes -sx consult Dr. Foster for debridement of right hip, unstageable ulcer. HTN -norvasc 5mg PO Psych -Psych consult Dr. Roman, no intervention BPH -flomax .4mg po Ppx -pepcid 20mg PO -SCD Dispo: placement <Madina Clarke - Last Filed: 06/10/18 17:18> Objective - Vital Signs/Intake and Output Vital Signs (last 24 hours): Temp Pulse Resp BP Pulse Ox 97.1 F L 70 20 117/74 98 06/10/18 16:56 06/10/18 16:56 06/10/18 16:56 06/10/18 16:56 06/10/18 16:56 Intake and Output: 06/10/18 06/10/18 06:59 18:59 Intake Total 600 480 Output Total 900 200 Balance -300 280 - Medications Medications: Current Medications Amlodipine Besylate (Norvasc) 5 mg PO DAILY [facility] Last Admin: 06/10/18 09:30 Dose: 5 mg Aspirin (Aspirin Chewable) 81 mg PO DAILY [facility] Last Admin: 06/10/18 09:30 Dose: 81 mg Docusate Sodium (Colace) 100 mg PO TID [facility] Last Admin: 06/10/18 14:03 Dose: 100 mg Famotidine (Pepcid) 20 mg PO DAILY [facility] Last Admin: 06/10/18 09:30 Dose: 20 mg Nystatin (Nystop Topical Powder) 1 applic TOP BID [facility] Last Admin: 06/10/18 10:41 Dose: 1 applic Rosuvastatin Calcium (Crestor) 10 mg PO HS [facility] Last Admin: 06/09/18 21:18 Dose: 10 mg Sennosides (Senokot Tab) 8.6 mg PO DAILY [facility] Last Admin: 06/10/18 09:30 Dose: 8.6 mg Tamsulosin HCl (Flomax) 0.4 mg PO DAILY [facility] Last Admin: 06/10/18 09:30 Dose: 0.4 mg Warfarin Sodium (Coumadin) 3 mg PO ONCE [facility] Stop: 06/10/18 18:01 - Labs Labs: 06/08/18 06:55 06/08/18 06:55 PT 29.4 SECONDS (9.7-12.2) H D 06/10/18 06:30 INR 2.7 D 06/10/18 06:30 APTT 31 SECONDS (21-34) D 05/18/18 05:01 Attending/Attestation - Attestation I have personally seen and examined this patient.: Yes I have fully participated in the care of the patient.: Yes I have reviewed all pertinent clinical information, including history, physical exam and plan: Yes Notes (Text): No complain,Started on coumadin because of risk of bleeding from his hip wound,off Eliquis on Lovenox for bridging we will follow INR Discussed with the resident
[2018-06-05 07:29] LABS: BASO % 0.7 % (0.0-2.0); EOS # 0.4 K/uL (0.0-0.7); EOS % 6.8 % (0.0-4.0); HEMOGLOBIN 12.5 g/dL (12.0-18.0); INR 1.3; LYMPH # 1.1 K/uL (1.0-4.3); MEAN CELL VOLUME 91.6 fL (80.0-94.0); MEAN CORPUSCULAR HEMOGLOBIN 32.2 pg (27.0-31.0); MEAN CORPUSCULAR HGB CONC 35.2 g/dL (33.0-37.0); MEAN PLATELET VOLUME 7.4 fL (7.2-11.7); MONO # 0.6 K/uL (0.0-0.8); MONO % 11.6 % (0.0-10.0); NEUT # 3.4 K/uL (1.8-7.0); NEUT % 60.9 % (50.0-75.0); PROTHROMBIN TIME 13.7 SECONDS (9.7-12.2); RBC 3.89 Mil/uL (4.40-5.90); RED CELL DISTRIBUTION WIDTH 13.9 % (11.5-14.5); WHITE BLOOD COUNT 5.6 K/uL (4.8-10.8)
[2018-06-05 07:33] LABS: ALBUMIN 3.1 g/dL (3.5-5.0); ALT/SGPT 29 U/L (21-72); AST/SGOT 23 U/L (17-59); BLOOD UREA NITROGEN 18 mg/dL (9-20); CALCIUM 8.9 mg/dl (8.6-10.4); GFR NON-AFRICAN AMERICAN > 60
[2018-06-05] MEDS: Enoxaparin 80 mg Syringe SC SCH ×2 (09:39→21:50)
--- NOTE | 2018-06-06 02:11 | CP.PCM.PN ---
<GardinerMalaika - Last Filed: 06/06/18 06:31> Subjective - Date & Time of Evaluation Date of Evaluation: 06/06/18 Time of Evaluation: 06:31 - Subjective Subjective: Patient examined at bedside, resting comfortably. No acute events overnight. Pt is baseline non-verbal and does not offer any complaints. Objective - Vital Signs/Intake and Output Vital Signs (last 24 hours): Temp Pulse Resp BP Pulse Ox 98.8 F 67 20 112/69 97 06/05/18 23:14 06/05/18 23:14 06/05/18 23:14 06/05/18 23:14 06/05/18 23:14 Intake and Output: 06/05/18 06/06/18 18:59 06:59 Intake Total 240 Output Total 200 500 Balance -200 -260 - Medications Medications: Current Medications Amlodipine Besylate (Norvasc) 5 mg PO DAILY [facility] Last Admin: 06/05/18 09:38 Dose: 5 mg Aspirin (Aspirin Chewable) 81 mg PO DAILY [facility] Last Admin: 06/05/18 09:38 Dose: 81 mg Docusate Sodium (Colace) 100 mg PO TID [facility] Last Admin: 06/05/18 17:30 Dose: 100 mg Enoxaparin Sodium (Lovenox) 70 mg SC Q12 [facility] Last Admin: 06/05/18 21:50 Dose: 70 mg Famotidine (Pepcid) 20 mg PO DAILY [facility] Last Admin: 06/05/18 09:38 Dose: 20 mg Nystatin (Nystop Topical Powder) 1 applic TOP BID [facility] Last Admin: 06/05/18 18:00 Dose: 1 applic Rosuvastatin Calcium (Crestor) 10 mg PO HS [facility] Last Admin: 06/05/18 21:50 Dose: 10 mg Sennosides (Senokot Tab) 8.6 mg PO DAILY [facility] Last Admin: 06/05/18 09:39 Dose: 8.6 mg Tamsulosin HCl (Flomax) 0.4 mg PO DAILY [facility] Last Admin: 06/05/18 09:39 Dose: 0.4 mg - Labs Labs: 06/05/18 03:41 06/05/18 03:41 PT 13.7 SECONDS (9.7-12.2) H 06/05/18 03:41 INR 1.3 06/05/18 03:41 APTT 31 SECONDS (21-34) D 05/18/18 05:01 - Constitutional Appears: Non-toxic, No Acute Distress - Head Exam Head Exam: ATRAUMATIC, NORMAL INSPECTION, NORMOCEPHALIC - Eye Exam Eye Exam: EOMI, Normal appearance - ENT Exam ENT Exam: Mucous Membranes Moist - Neck Exam Neck Exam: Normal Inspection - Respiratory Exam Respiratory Exam: Clear to Ausculation Bilateral, NORMAL BREATHING PATTERN. absent: Rales, Wheezes - Cardiovascular Exam Cardiovascular Exam: REGULAR RHYTHM, +S1, +S2. absent: Murmur - GI/Abdominal Exam GI & Abdominal Exam: Soft, Normal Bowel Sounds. absent: Distended, Tenderness - Extremities Exam Extremities Exam: Normal Inspection. absent: Calf Tenderness, Pedal Edema - Neurological Exam Neurological Exam: Awake - Psychiatric Exam Psychiatric exam: Normal Affect Assessment and Plan - Assessment and Plan (Free Text) Assessment: 88 yo M w/ PMHx of A Fib, dementia, psych illness, poss HTN admitted s/p fall w/ AMS. State appointed guardianship CVA -crestor 10mg po hs -ASA 81mg po -Neuro consult Dr. 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 Olson Ulcers -right shoulder/hip/knee ulcers -wound care dressing changes -sx consult Dr. Foster for debridement of right hip, unstageable ulcer. HTN -norvasc 5mg PO Psych -Psych consult Dr. Roman, no intervention BPH -flomax .4mg po Ppx -pepcid 20mg PO -SCD Dispo: placement <Madina Clarke - Last Filed: 06/10/18 16:32> Objective - Vital Signs/Intake and Output Vital Signs (last 24 hours): Temp Pulse Resp BP Pulse Ox 98.6 F 70 20 118/72 97 06/10/18 07:59 06/10/18 07:59 06/10/18 07:59 06/10/18 07:59 06/10/18 07:59 Intake and Output: 06/10/18 06/10/18 06:59 18:59 Intake Total 600 480 Output Total 900 200 Balance -300 280 - Medications Medications: Current Medications Amlodipine Besylate (Norvasc) 5 mg PO DAILY [facility] Last Admin: 06/10/18 09:30 Dose: 5 mg Aspirin (Aspirin Chewable) 81 mg PO DAILY [facility] Last Admin: 06/10/18 09:30 Dose: 81 mg Docusate Sodium (Colace) 100 mg PO TID [facility] Last Admin: 06/10/18 14:03 Dose: 100 mg Famotidine (Pepcid) 20 mg PO DAILY [facility] Last Admin: 06/10/18 09:30 Dose: 20 mg Nystatin (Nystop Topical Powder) 1 applic TOP BID [facility] Last Admin: 06/10/18 10:41 Dose: 1 applic Rosuvastatin Calcium (Crestor) 10 mg PO HS [facility] Last Admin: 06/09/18 21:18 Dose: 10 mg Sennosides (Senokot Tab) 8.6 mg PO DAILY [facility] Last Admin: 06/10/18 09:30 Dose: 8.6 mg Tamsulosin HCl (Flomax) 0.4 mg PO DAILY [facility] Last Admin: 06/10/18 09:30 Dose: 0.4 mg Warfarin Sodium (Coumadin) 3 mg PO ONCE ONE Stop: 06/10/18 18:01 - Labs Labs: 06/08/18 06:55 06/08/18 06:55 PT 29.4 SECONDS (9.7-12.2) H D 06/10/18 06:30 INR 2.7 D 06/10/18 06:30 APTT 31 SECONDS (21-34) D 05/18/18 05:01 Attending/Attestation - Attestation I have personally seen and examined this patient.: Yes I have fully participated in the care of the patient.: Yes I have reviewed all pertinent clinical information, including history, physical exam and plan: Yes Notes (Text): Seen and examined by me Patient denies pain,lying comfortable,hip wound dressed by wound care continue warfarin with Lovenox I agree with the assessment and the documented by the resident
[2018-06-06 08:55] LABS: INR 1.3; PROTHROMBIN TIME 14.1 SECONDS (9.7-12.2)
[2018-06-06] MEDS: Enoxaparin 80 mg Syringe SC SCH ×2 (09:23→21:31)
[2018-06-07 08:11] LABS: INR 1.4; PROTHROMBIN TIME 15.8 SECONDS (9.7-12.2)
--- NOTE | 2018-06-07 09:11 | CP.PCM.PN ---
<GardinerMalaika - Last Filed: 06/07/18 14:45> Subjective - Date & Time of Evaluation Date of Evaluation: 06/07/18 Time of Evaluation: 07:35 - Subjective Subjective: Pt was examined at bedside. no overnight events. Pt was resting comfortably about to have breakfast. Pt is non verbal but was alert and responsive. Pt had no complaints, Denied chest pain, SOB, abd pain. Objective - Vital Signs/Intake and Output Vital Signs (last 24 hours): Temp Pulse Resp BP Pulse Ox 98.2 F 69 20 117/69 97 06/07/18 07:36 06/07/18 07:36 06/07/18 07:36 06/07/18 07:36 06/07/18 07:36 Intake and Output: 06/07/18 06/07/18 06:59 18:59 Intake Total 500 Output Total 1000 Balance -500 - Medications Medications: Current Medications Amlodipine Besylate (Norvasc) 5 mg PO DAILY [facility] Last Admin: 06/06/18 09:22 Dose: 5 mg Aspirin (Aspirin Chewable) 81 mg PO DAILY [facility] Last Admin: 06/06/18 09:23 Dose: 81 mg Docusate Sodium (Colace) 100 mg PO TID [facility] Last Admin: 06/06/18 17:51 Dose: 100 mg Enoxaparin Sodium (Lovenox) 70 mg SC Q12 [facility] Last Admin: 06/06/18 21:31 Dose: 70 mg Famotidine (Pepcid) 20 mg PO DAILY [facility] Last Admin: 06/06/18 09:23 Dose: 20 mg Nystatin (Nystop Topical Powder) 1 applic TOP BID [facility] Last Admin: 06/06/18 17:52 Dose: 1 applic Rosuvastatin Calcium (Crestor) 10 mg PO HS [facility] Last Admin: 06/06/18 21:31 Dose: 10 mg Sennosides (Senokot Tab) 8.6 mg PO DAILY [facility] Last Admin: 06/06/18 09:23 Dose: 8.6 mg Tamsulosin HCl (Flomax) 0.4 mg PO DAILY [facility] Last Admin: 06/06/18 09:22 Dose: 0.4 mg - Labs Labs: 06/05/18 03:41 06/05/18 03:41 PT 15.8 SECONDS (9.7-12.2) H 06/07/18 07:43 INR 1.4 06/07/18 07:43 APTT 31 SECONDS (21-34) D 05/18/18 05:01 - Constitutional Appears: No Acute Distress - Head Exam Head Exam: ATRAUMATIC, NORMAL INSPECTION, NORMOCEPHALIC - Eye Exam Eye Exam: EOMI, Normal appearance - ENT Exam ENT Exam: Mucous Membranes Moist, Normal Exam - Neck Exam Neck Exam: Normal Inspection - Respiratory Exam Respiratory Exam: Clear to Ausculation Bilateral, NORMAL BREATHING PATTERN - Cardiovascular Exam Cardiovascular Exam: REGULAR RHYTHM, +S1, +S2 - GI/Abdominal Exam GI & Abdominal Exam: Soft, Normal Bowel Sounds. absent: Distended, Tenderness - Extremities Exam Extremities Exam: Normal Capillary Refill. absent: Calf Tenderness, Normal Inspection (Small, well healing ulcer noted on the right lateral malleolus. Ulcer on right lateral knee, bandaged, c/d/i. ), Pedal Edema - Neurological Exam Neurological Exam: Awake - Psychiatric Exam Psychiatric exam: Normal Affect, Normal Mood. absent: Agitated - Skin Skin Exam: Warm Assessment and Plan - Assessment and Plan (Free Text) Assessment: 88 yo M w/ PMHx of A Fib, dementia, psych illness, poss HTN admitted s/p fall w/ AMS. State appointed guardianship CVA -crestor 10mg po hs -ASA 81mg po -Neuro consult Dr. 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 Olson Ulcers -right shoulder/hip/knee ulcers -wound care dressing changes -sx consult Dr. Foster for debridement of right hip, unstageable ulcer. HTN -norvasc 5mg PO Psych -Psych consult Dr. Roman, no intervention BPH -flomax .4mg po Ppx -pepcid 20mg PO -SCD Dispo: placement <Kimo Quiñonez - Last Filed: 06/07/18 17:36> Objective - Vital Signs/Intake and Output Vital Signs (last 24 hours): Temp Pulse Resp BP Pulse Ox 98.2 F 69 20 117/69 97 06/07/18 07:36 06/07/18 07:36 06/07/18 07:36 06/07/18 07:36 06/07/18 07:36 Intake and Output: 06/07/18 06/07/18 06:59 18:59 Intake Total 500 360 Output Total 1000 500 Balance -500 -140 - Medications Medications: Current Medications Amlodipine Besylate (Norvasc) 5 mg PO DAILY [facility] Last Admin: 06/07/18 09:48 Dose: 5 mg Aspirin (Aspirin Chewable) 81 mg PO DAILY [facility] Last Admin: 06/07/18 09:48 Dose: 81 mg Docusate Sodium (Colace) 100 mg PO TID [facility] Last Admin: 06/07/18 09:49 Dose: 100 mg Enoxaparin Sodium (Lovenox) 70 mg SC Q12 [facility] Last Admin: 06/07/18 09:49 Dose: 70 mg Famotidine (Pepcid) 20 mg PO DAILY [facility] Last Admin: 06/07/18 09:49 Dose: 20 mg Nystatin (Nystop Topical Powder) 1 applic TOP BID [facility] Last Admin: 06/07/18 09:50 Dose: 1 applic Rosuvastatin Calcium (Crestor) 10 mg PO HS [facility] Last Admin: 06/06/18 21:31 Dose: 10 mg Sennosides (Senokot Tab) 8.6 mg PO DAILY [facility] Last Admin: 06/07/18 09:48 Dose: 8.6 mg Tamsulosin HCl (Flomax) 0.4 mg PO DAILY [facility] Last Admin: 06/07/18 09:48 Dose: 0.4 mg Warfarin Sodium (Coumadin) 7.5 mg PO 1800 [facility] Stop: 06/07/18 18:01 - Labs Labs: 06/05/18 03:41 06/05/18 03:41 PT 15.8 SECONDS (9.7-12.2) H 06/07/18 07:43 INR 1.4 06/07/18 07:43 APTT 31 SECONDS (21-34) D 05/18/18 05:01 Attending/Attestation - Attestation I have personally seen and examined this patient.: Yes I have fully participated in the care of the patient.: Yes I have reviewed all pertinent clinical information, including history, physical exam and plan: Yes Notes (Text): 06/07/18 17:36 Medical attending: Patient was seen and examined by me, reviewed the above note by the center medical specialist the above At this moment were still currently pending the state to give us further inform ation with regards to the patient's status. Hopefully once this is done so will be able to go to rehabilitation. In the meantime his situation does not change from before he is mostly nonverbal however he follows simple commands. He appears to be comfortable. He's able to indicate yes or no to very simple questions Thank you very much, Kimo Quiñonez
[2018-06-07] MEDS: Enoxaparin 80 mg Syringe SC SCH ×2 (09:49→22:08)
--- NOTE | 2018-06-07 10:19 | OP ---
PROCEDURE DATE: 05/31/2018 SURGEON: Carmine Foster MD ELECTRICAL ELECTRONICS ENGINEER: Bernice Dunaway DO ANESTHESIOLOGIST: None. ANESTHESIA: Xylocaine 2% with epinephrine. PREOPERATIVE DIAGNOSIS: Right hip eschar. POSTOPERATIVE DIAGNOSIS: Right hip eschar. FINDINGS: Right hip eschar. SPECIMENS: None. BLOOD LOSS: 1 mL. DRAINS: None. COMPLICATIONS: None. INDICATION FOR PROCEDURE: The patient is an 88-year-old male who presented with a right hip eschar, requiring debridement. Consent was obtained from the patient's guardian as the patient is aphasic and is unable to consent and under the care of the state. DESCRIPTION OF PROCEDURE: Procedure was perfomed at bedside. The patient was prepped and draped in the usual sterile fashion using Betadine. A time-out was performed, verifying the correct patient, procedure, and site. Local anesthetic was infiltrated circumferentially. An 11-blade was used to carefully circumferentially dissect the eschar from the eschar bed. The patient tolerated the procedure well. There was minimal blood loss. The wound was then cleansed with sterile saline. A wet-to-dry dressing was applied without complication. The patient tolerated the procedure well. All sharps were disposed of in the sharps container. All instruments were discarded at bedside. Bernice Dunaway DO Carmine Foster MD [facility]ITAL[facility]ov[facility]
[2018-06-08 07:21] LABS: INR 1.6; PROTHROMBIN TIME 17.2 SECONDS (9.7-12.2)
[2018-06-08 07:25] LABS: BASO % 0.5 % (0.0-2.0); EOS # 0.3 K/uL (0.0-0.7); EOS % 5.3 % (0.0-4.0); HEMOGLOBIN 12.4 g/dL (12.0-18.0); LYMPH # 1.2 K/uL (1.0-4.3); LYMPH % 22.2 % (20.0-40.0); MEAN CELL VOLUME 91.3 fL (80.0-94.0); MEAN CORPUSCULAR HEMOGLOBIN 32.4 pg (27.0-31.0); MEAN CORPUSCULAR HGB CONC 35.5 g/dL (33.0-37.0); MEAN PLATELET VOLUME 7.9 fL (7.2-11.7); MONO # 0.6 K/uL (0.0-0.8); MONO % 10.4 % (0.0-10.0); NEUT # 3.4 K/uL (1.8-7.0); NEUT % 61.6 % (50.0-75.0); RBC 3.81 Mil/uL (4.40-5.90); RED CELL DISTRIBUTION WIDTH 13.9 % (11.5-14.5); WHITE BLOOD COUNT 5.5 K/uL (4.8-10.8)
--- NOTE | 2018-06-08 07:31 | CP.PCM.PN ---
<Malaika Gardiner - Last Filed: 06/08/18 15:17> Subjective - Date & Time of Evaluation Date of Evaluation: 06/08/18 Time of Evaluation: 09:00 - Subjective Subjective: Pt examined at bedside. No acute events overnight. Pt denies chest pain, difficulty breathing, abdominal pain. Patient nods yes when I ask if he is constipated. Per records, pt has not has a BM in several days. Although pt is not verbal, he is alert and communicates with his hands and by nodding. Objective - Vital Signs/Intake and Output Vital Signs (last 24 hours): Temp Pulse Resp BP Pulse Ox 98.2 F 67 20 107/65 97 06/08/18 00:00 06/08/18 00:00 06/08/18 00:00 06/08/18 00:00 06/08/18 00:00 Intake and Output: 06/08/18 06/08/18 06:59 18:59 Intake Total 300 150 Output Total 500 300 Balance -200 -150 - Medications Medications: Current Medications Amlodipine Besylate (Norvasc) 5 mg PO DAILY [facility] Last Admin: 06/07/18 09:48 Dose: 5 mg Aspirin (Aspirin Chewable) 81 mg PO DAILY [facility] Last Admin: 06/07/18 09:48 Dose: 81 mg Docusate Sodium (Colace) 100 mg PO TID [facility] Last Admin: 06/07/18 17:36 Dose: 100 mg Enoxaparin Sodium (Lovenox) 70 mg SC Q12 [facility] Last Admin: 06/07/18 22:08 Dose: 70 mg Famotidine (Pepcid) 20 mg PO DAILY [facility] Last Admin: 06/07/18 09:49 Dose: 20 mg Nystatin (Nystop Topical Powder) 1 applic TOP BID [facility] Last Admin: 06/07/18 18:07 Dose: 1 applic Rosuvastatin Calcium (Crestor) 10 mg PO HS [facility] Last Admin: 06/07/18 22:08 Dose: 10 mg Sennosides (Senokot Tab) 8.6 mg PO DAILY [facility] Last Admin: 06/07/18 09:48 Dose: 8.6 mg Tamsulosin HCl (Flomax) 0.4 mg PO DAILY [facility] Last Admin: 06/07/18 09:48 Dose: 0.4 mg - Labs Labs: 06/08/18 06:55 06/05/18 03:41 PT 17.2 SECONDS (9.7-12.2) H 06/08/18 06:55 INR 1.6 06/08/18 06:55 APTT 31 SECONDS (21-34) D 05/18/18 05:01 - Constitutional Appears: No Acute Distress - Head Exam Head Exam: ATRAUMATIC, NORMAL INSPECTION, NORMOCEPHALIC - Eye Exam Eye Exam: EOMI, Normal appearance - ENT Exam ENT Exam: Mucous Membranes Moist, Normal Exam - Neck Exam Neck Exam: Normal Inspection - Respiratory Exam Respiratory Exam: Clear to Ausculation Bilateral, NORMAL BREATHING PATTERN. absent: Rhonchi, Wheezes - Cardiovascular Exam Cardiovascular Exam: REGULAR RHYTHM, +S1, +S2, Murmur. absent: Tachycardia - GI/Abdominal Exam GI & Abdominal Exam: Soft, Normal Bowel Sounds. absent: Distended - Extremities Exam Extremities Exam: Normal Capillary Refill, Normal Inspection. absent: Calf Tenderness, Pedal Edema - Neurological Exam Neurological Exam: Awake - Psychiatric Exam Psychiatric exam: Normal Affect, Normal Mood - Skin Skin Exam: Dry, Normal Color, Warm. absent: Intact (right hip ulcer bandaged, clean, dry, and intact. no surrounding erythema) Assessment and Plan - Assessment and Plan (Free Text) Assessment: 88 yo M w/ PMHx of A Fib, dementia, psych illness, poss HTN admitted s/p fall w/ AMS. State appointed guardianship CVA -crestor 10mg po hs -ASA 81mg po -Neuro consult Dr. 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 Olson Ulcers -right shoulder/hip/knee ulcers -wound care dressing changes -sx consult Dr. Foster for debridement of right hip, unstageable ulcer. Constipation -miralax x1 HTN -norvasc 5mg PO Psych -Psych consult Dr. Roman, no intervention BPH -flomax .4mg po -moran d/c 06/08 -condom cath used in place -bladder scan prn Ppx -pepcid 20mg PO -SCD Dispo: placement <Quiñonez,Peter H - Last Filed: 06/08/18 16:43> Objective - Vital Signs/Intake and Output Vital Signs (last 24 hours): Temp Pulse Resp BP Pulse Ox 98.2 F 64 20 106/66 97 06/08/18 15:00 06/08/18 15:00 06/08/18 15:00 06/08/18 15:00 06/08/18 15:00 Intake and Output: 06/08/18 06/08/18 06:59 18:59 Intake Total 300 390 Output Total 500 600 Balance -200 -210 - Medications Medications: Current Medications Amlodipine Besylate (Norvasc) 5 mg PO DAILY [facility] Last Admin: 06/08/18 09:55 Dose: 5 mg Aspirin (Aspirin Chewable) 81 mg PO DAILY [facility] Last Admin: 06/08/18 09:58 Dose: 81 mg Docusate Sodium (Colace) 100 mg PO TID [facility] Last Admin: 06/08/18 14:00 Dose: 100 mg Enoxaparin Sodium (Lovenox) 70 mg SC Q12 [facility] Last Admin: 06/08/18 10:07 Dose: Not Given Famotidine (Pepcid) 20 mg PO DAILY [facility] Last Admin: 06/08/18 09:55 Dose: 20 mg Nystatin (Nystop Topical Powder) 1 applic TOP BID [facility] Last Admin: 06/08/18 09:59 Dose: 1 applic Rosuvastatin Calcium (Crestor) 10 mg PO HS [facility] Last Admin: 06/07/18 22:08 Dose: 10 mg Sennosides (Senokot Tab) 8.6 mg PO DAILY [facility] Last Admin: 06/08/18 09:55 Dose: 8.6 mg Tamsulosin HCl (Flomax) 0.4 mg PO DAILY [facility] Last Admin: 06/08/18 09:55 Dose: 0.4 mg Warfarin Sodium (Coumadin) 7.5 mg PO 1800 [facility] Stop: 06/08/18 18:01 - Labs Labs: 06/08/18 06:55 06/08/18 06:55 PT 17.2 SECONDS (9.7-12.2) H 06/08/18 06:55 INR 1.6 06/08/18 06:55 APTT 31 SECONDS (21-34) D 05/18/18 05:01 Attending/Attestation - Attestation I have personally seen and examined this patient.: Yes I have fully participated in the care of the patient.: Yes I have reviewed all pertinent clinical information, including history, physical exam and plan: Yes Notes (Text): 06/08/18 16:41 Medical attending : Patient was seen and examined by me. Agree with the above note by the medical superintendent The patient was not in any acute distress when we came and saw him. The wound dressing on the right hip was clean/dry/intact. The moran will be changed over to a condom cathter today We are still pending for the patient to go to rehab placement Kimo Quiñonez
[2018-06-08 07:40] LABS: ALBUMIN 3.1 g/dL (3.5-5.0); AST/SGOT 22 U/L (17-59); BLOOD UREA NITROGEN 20 mg/dL (9-20); CALCIUM 8.8 mg/dl (8.6-10.4); GFR NON-AFRICAN AMERICAN > 60
[2018-06-08 07:41] LABS: ALT/SGPT 31 U/L (21-72)
[2018-06-08] MEDS ORDERED: POLYETHYLENE GLYCOL 3350 17 GM/Dose PACKET PO ONE ×2 (09:14→12:15)
[2018-06-08] MEDS: Enoxaparin 80 mg Syringe SC SCH ×4 (09:59→21:22)
[2018-06-09 08:35] LABS: INR 2.1; PROTHROMBIN TIME 22.6 SECONDS (9.7-12.2)
[2018-06-09] MEDS: Enoxaparin 80 mg Syringe SC SCH (10:29)
--- NOTE | 2018-06-09 13:25 | CP.PCM.PN ---
<Rg Velazquez - Last Filed: 06/09/18 18:04> Subjective - Date & Time of Evaluation Date of Evaluation: 06/09/18 Time of Evaluation: 09:15 - Subjective Subjective: Medicine Progress Note for Hospitalist Service Pt seen and examined at bedside this am. Denies any acute complaints. Observed ambulating with PT today, no acute events reported overnight. Pending placement. 12-point ROS obtained, otherwise neg as per pt. Objective - Vital Signs/Intake and Output Vital Signs (last 24 hours): Temp Pulse Resp BP Pulse Ox 98.3 F 69 20 103/66 95 06/09/18 08:00 06/09/18 08:00 06/09/18 08:00 06/09/18 08:00 06/09/18 08:00 Intake and Output: 06/09/18 06/09/18 06:59 18:59 Intake Total 500 180 Output Total 450 250 Balance 50 -70 - Medications Medications: Current Medications Amlodipine Besylate (Norvasc) 5 mg PO DAILY [facility] Last Admin: 06/09/18 10:28 Dose: 5 mg Aspirin (Aspirin Chewable) 81 mg PO DAILY [facility] Last Admin: 06/09/18 10:28 Dose: 81 mg Docusate Sodium (Colace) 100 mg PO TID [facility] Last Admin: 06/09/18 10:29 Dose: 100 mg Enoxaparin Sodium (Lovenox) 70 mg SC Q12 [facility] Last Admin: 06/09/18 10:29 Dose: Not Given Famotidine (Pepcid) 20 mg PO DAILY [facility] Last Admin: 06/09/18 10:32 Dose: 20 mg Nystatin (Nystop Topical Powder) 1 applic TOP BID [facility] Last Admin: 06/09/18 10:32 Dose: 1 applic Rosuvastatin Calcium (Crestor) 10 mg PO HS [facility] Last Admin: 06/08/18 21:20 Dose: 10 mg Sennosides (Senokot Tab) 8.6 mg PO DAILY [facility] Last Admin: 06/09/18 10:28 Dose: 8.6 mg Tamsulosin HCl (Flomax) 0.4 mg PO DAILY [facility] Last Admin: 06/09/18 10:29 Dose: 0.4 mg - Labs Labs: 06/08/18 06:55 06/08/18 06:55 PT 22.6 SECONDS (9.7-12.2) H D 06/09/18 08:24 INR 2.1 D 06/09/18 08:24 APTT 31 SECONDS (21-34) D 05/18/18 05:01 - Constitutional Appears: Non-toxic, No Acute Distress - Head Exam Head Exam: ATRAUMATIC, NORMOCEPHALIC - Eye Exam Eye Exam: EOMI, Normal appearance, PERRL - ENT Exam ENT Exam: Mucous Membranes Moist - Respiratory Exam Respiratory Exam: Clear to Ausculation Bilateral, NORMAL BREATHING PATTERN. absent: Rales, Rhonchi, Wheezes - Cardiovascular Exam Cardiovascular Exam: REGULAR RHYTHM, +S1, +S2. absent: Gallop, Rubs, Murmur - GI/Abdominal Exam GI & Abdominal Exam: Soft, Normal Bowel Sounds. absent: Distended, Firm, Guarding, Rigid, Tenderness, Organomegaly - Extremities Exam Extremities Exam: Normal Capillary Refill, Normal Inspection. absent: Joint Swelling, Tenderness - Neurological Exam Neurological Exam: Alert, Awake, CN II-XII Intact Additional comments: Oriented x2 - Skin Skin Exam: Dry, Intact, Warm Assessment and Plan - Assessment and Plan (Free Text) Assessment: 88 yo M w/ PMHx of A Fib, dementia, psych illness, poss HTN admitted s/p fall w/ AMS. State appointed guardianship. Plan: CVA -crestor 10mg po hs -ASA 81mg po -Neuro consult Dr. 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 Olson Ulcers -right shoulder/hip/knee ulcers -wound care dressing changes -sx consult Dr. Foster for debridement of right hip, unstageable ulcer. Constipation -miralax x1 HTN -norvasc 5mg PO Psych -Psych consult Dr. Roman, no intervention BPH -flomax .4mg po -moran d/c 06/08 -condom cath used in place -bladder scan prn Ppx -pepcid 20mg PO -SCD Dispo: pending placement Pt seen, examined with, and plan discussed with Dr. Quiñonez, attending. Rg Velazquez, DO PGY-1, Botany Teacher Pager #[phone] <Kimo Quiñonez H - Last Filed: 06/09/18 18:17> Objective - Vital Signs/Intake and Output Vital Signs (last 24 hours): Temp Pulse Resp BP Pulse Ox 98.1 F 68 20 121/76 97 06/09/18 16:00 06/09/18 16:00 06/09/18 16:00 06/09/18 16:00 06/09/18 16:00 Intake and Output: 06/09/18 06/09/18 06:59 18:59 Intake Total 500 320 Output Total 450 450 Balance 50 -130 - Medications Medications: Current Medications Amlodipine Besylate (Norvasc) 5 mg PO DAILY [facility] Last Admin: 06/09/18 10:28 Dose: 5 mg Aspirin (Aspirin Chewable) 81 mg PO DAILY [facility] Last Admin: 06/09/18 10:28 Dose: 81 mg Docusate Sodium (Colace) 100 mg PO TID [facility] Last Admin: 06/09/18 14:25 Dose: 100 mg Famotidine (Pepcid) 20 mg PO DAILY [facility] Last Admin: 06/09/18 10:32 Dose: 20 mg Nystatin (Nystop Topical Powder) 1 applic TOP BID [facility] Last Admin: 06/09/18 10:32 Dose: 1 applic Rosuvastatin Calcium (Crestor) 10 mg PO HS [facility] Last Admin: 06/08/18 21:20 Dose: 10 mg Sennosides (Senokot Tab) 8.6 mg PO DAILY [facility] Last Admin: 06/09/18 10:28 Dose: 8.6 mg Tamsulosin HCl (Flomax) 0.4 mg PO DAILY [facility] Last Admin: 06/09/18 10:29 Dose: 0.4 mg - Labs Labs: 06/08/18 06:55 06/08/18 06:55 PT 22.6 SECONDS (9.7-12.2) H D 06/09/18 08:24 INR 2.1 D 06/09/18 08:24 APTT 31 SECONDS (21-34) D 05/18/18 05:01 Attending/Attestation - Attestation I have personally seen and examined this patient.: Yes I have fully participated in the care of the patient.: Yes I have reviewed all pertinent clinical information, including history, physical exam and plan: Yes Notes (Text): 06/09/18 18:16 Medical attending: Patient was seen and examined by me, reviewed the above note by the medical claims processor and agree with the above note. Today we observed the patient ambulating in the hallway with the physical therapy team. He's able to walk but with a rolling walker and he needs quite a bit of assistance. As previously, the patient is very pleasant when we interact with him. INR is now 2.1, I stopped the Lovenox were giving continue Coumadin Thank you very much, Kimo Quiñonez
[2018-06-10 06:54] LABS: INR 2.7; PROTHROMBIN TIME 29.4 SECONDS (9.7-12.2)
--- NOTE | 2018-06-10 07:37 | CP.PCM.PN ---
<Malaika Gardiner - Last Filed: 06/10/18 16:59> Subjective - Date & Time of Evaluation Date of Evaluation: 06/10/18 Time of Evaluation: 07:30 - Subjective Subjective: Pt was seen walking around the hallways with PT using a walker. No overnight events. Pt has no new complaints. Pt denies chest pain, SOB, abd pain, fevers, nausea or diarrhea Objective - Vital Signs/Intake and Output Vital Signs (last 24 hours): Temp Pulse Resp BP Pulse Ox 99.1 F 68 20 111/67 97 06/09/18 23:24 06/09/18 23:24 06/09/18 23:24 06/09/18 23:24 06/09/18 23:24 Intake and Output: 06/10/18 06/10/18 06:59 18:59 Intake Total 600 Output Total 900 Balance -300 - Medications Medications: Current Medications Amlodipine Besylate (Norvasc) 5 mg PO DAILY [facility] Last Admin: 06/09/18 10:28 Dose: 5 mg Aspirin (Aspirin Chewable) 81 mg PO DAILY [facility] Last Admin: 06/09/18 10:28 Dose: 81 mg Docusate Sodium (Colace) 100 mg PO TID [facility] Last Admin: 06/09/18 19:24 Dose: 100 mg Famotidine (Pepcid) 20 mg PO DAILY [facility] Last Admin: 06/09/18 10:32 Dose: 20 mg Nystatin (Nystop Topical Powder) 1 applic TOP BID [facility] Last Admin: 06/09/18 19:16 Dose: 1 applic Rosuvastatin Calcium (Crestor) 10 mg PO HS [facility] Last Admin: 06/09/18 21:18 Dose: 10 mg Sennosides (Senokot Tab) 8.6 mg PO DAILY [facility] Last Admin: 06/09/18 10:28 Dose: 8.6 mg Tamsulosin HCl (Flomax) 0.4 mg PO DAILY [facility] Last Admin: 06/09/18 10:29 Dose: 0.4 mg - Labs Labs: 06/08/18 06:55 06/08/18 06:55 PT 29.4 SECONDS (9.7-12.2) H D 06/10/18 06:30 INR 2.7 D 06/10/18 06:30 APTT 31 SECONDS (21-34) D 05/18/18 05:01 - Constitutional Appears: No Acute Distress - Head Exam Head Exam: ATRAUMATIC, NORMAL INSPECTION, NORMOCEPHALIC - Eye Exam Eye Exam: EOMI, Normal appearance - ENT Exam ENT Exam: Mucous Membranes Moist - Neck Exam Neck Exam: Normal Inspection - Respiratory Exam Respiratory Exam: Clear to Ausculation Bilateral, NORMAL BREATHING PATTERN. absent: Rhonchi, Wheezes - Cardiovascular Exam Cardiovascular Exam: REGULAR RHYTHM, +S1, +S2, Murmur - GI/Abdominal Exam GI & Abdominal Exam: Soft, Normal Bowel Sounds. absent: Distended, Tenderness - Extremities Exam Extremities Exam: Normal Inspection. absent: Calf Tenderness, Pedal Edema - Neurological Exam Neurological Exam: Alert, Awake, Normal Gait (with assistance of a walker) - Psychiatric Exam Psychiatric exam: Normal Affect, Normal Mood - Skin Skin Exam: Dry, Normal Color, Warm. absent: Intact (Right hip wound bandaged c/d/i) Assessment and Plan - Assessment and Plan (Free Text) Assessment: 88 yo M w/ PMHx of A Fib, dementia, psych illness, poss HTN admitted s/p fall w/ AMS. State appointed guardianship. CVA -crestor 10mg po hs -ASA 81mg po -Neuro consult Dr. 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 Olson Ulcers -right shoulder/hip/knee ulcers -wound care dressing changes -sx consult Dr. Foster for debridement of right hip, unstageable ulcer. Constipation -miralax x1 HTN -norvasc 5mg PO Psych -Psych consult Dr. Roman, no intervention BPH -flomax .4mg po -moran Ppx -pepcid 20mg PO -SCD Dispo: placement <Kimo Quiñonez - Last Filed: 06/10/18 18:21> Objective - Vital Signs/Intake and Output Vital Signs (last 24 hours): Temp Pulse Resp BP Pulse Ox 97.1 F L 70 20 117/74 98 06/10/18 16:56 06/10/18 16:56 06/10/18 16:56 06/10/18 16:56 06/10/18 16:56 Intake and Output: 06/10/18 06/10/18 06:59 18:59 Intake Total 600 480 Output Total 900 200 Balance -300 280 - Medications Medications: Current Medications Amlodipine Besylate (Norvasc) 5 mg PO DAILY [facility] Last Admin: 06/10/18 09:30 Dose: 5 mg Aspirin (Aspirin Chewable) 81 mg PO DAILY [facility] Last Admin: 06/10/18 09:30 Dose: 81 mg Docusate Sodium (Colace) 100 mg PO TID [facility] Last Admin: 06/10/18 17:34 Dose: 100 mg Famotidine (Pepcid) 20 mg PO DAILY [facility] Last Admin: 06/10/18 09:30 Dose: 20 mg Nystatin (Nystop Topical Powder) 1 applic TOP BID [facility] Last Admin: 06/10/18 17:35 Dose: 1 applic Rosuvastatin Calcium (Crestor) 10 mg PO HS [facility] Last Admin: 06/09/18 21:18 Dose: 10 mg Sennosides (Senokot Tab) 8.6 mg PO DAILY [facility] Last Admin: 06/10/18 09:30 Dose: 8.6 mg Tamsulosin HCl (Flomax) 0.4 mg PO DAILY [facility] Last Admin: 06/10/18 09:30 Dose: 0.4 mg - Labs Labs: 06/08/18 06:55 06/08/18 06:55 PT 29.4 SECONDS (9.7-12.2) H D 06/10/18 06:30 INR 2.7 D 06/10/18 06:30 APTT 31 SECONDS (21-34) D 05/18/18 05:01 Attending/Attestation - Attestation I have personally seen and examined this patient.: Yes I have fully participated in the care of the patient.: Yes I have reviewed all pertinent clinical information, including history, physical exam and plan: Yes Notes (Text): 06/10/18 18:20 Medical attending: Patient was seen and examined by me. Agree with the above note by the resident The patient was actively walking about the hallway with PT and a rolling walker. He appeared really happy whenever walking INR is in range now, will use just 3 tonight of coumadin Otherwise social situation is unchanged. Still waiting Kimo Quiñonez
--- NOTE | 2018-06-11 07:36 | CP.PCM.PN ---
<Malaika Gardiner - Last Filed: 06/11/18 16:15> Subjective - Date & Time of Evaluation Date of Evaluation: 06/11/18 Time of Evaluation: 07:20 - Subjective Subjective: Pt examined at bedside. No acute events overnight. Pt denies chest pain, SOB, nausea, diarrhea. Per nursing pt has not had a good BM in several days. Objective - Vital Signs/Intake and Output Vital Signs (last 24 hours): Temp Pulse Resp BP Pulse Ox 98 F 67 20 116/71 98 06/10/18 23:53 06/10/18 23:53 06/10/18 23:53 06/10/18 23:53 06/10/18 23:53 Intake and Output: 06/11/18 06/11/18 06:59 18:59 Intake Total 180 Output Total 400 Balance -220 - Medications Medications: Current Medications Amlodipine Besylate (Norvasc) 5 mg PO DAILY [facility] Last Admin: 06/10/18 09:30 Dose: 5 mg Aspirin (Aspirin Chewable) 81 mg PO DAILY [facility] Last Admin: 06/10/18 09:30 Dose: 81 mg Docusate Sodium (Colace) 100 mg PO TID [facility] Last Admin: 06/10/18 17:34 Dose: 100 mg Famotidine (Pepcid) 20 mg PO DAILY [facility] Last Admin: 06/10/18 09:30 Dose: 20 mg Nystatin (Nystop Topical Powder) 1 applic TOP BID [facility] Last Admin: 06/10/18 17:35 Dose: 1 applic Rosuvastatin Calcium (Crestor) 10 mg PO HS [facility] Last Admin: 06/10/18 22:23 Dose: 10 mg Sennosides (Senokot Tab) 8.6 mg PO DAILY [facility] Last Admin: 06/10/18 09:30 Dose: 8.6 mg Tamsulosin HCl (Flomax) 0.4 mg PO DAILY [facility] Last Admin: 06/10/18 09:30 Dose: 0.4 mg - Labs Labs: 06/08/18 06:55 06/08/18 06:55 PT 29.4 SECONDS (9.7-12.2) H D 06/10/18 06:30 INR 2.7 D 06/10/18 06:30 APTT 31 SECONDS (21-34) D 05/18/18 05:01 - Constitutional Appears: Non-toxic, No Acute Distress - Head Exam Head Exam: ATRAUMATIC, NORMAL INSPECTION, NORMOCEPHALIC - Eye Exam Eye Exam: EOMI, Normal appearance - ENT Exam ENT Exam: Mucous Membranes Moist, Normal Exam - Neck Exam Neck Exam: Normal Inspection - Respiratory Exam Respiratory Exam: Clear to Ausculation Bilateral, NORMAL BREATHING PATTERN. absent: Rhonchi, Wheezes - Cardiovascular Exam Cardiovascular Exam: REGULAR RHYTHM, +S1, +S2, Murmur - GI/Abdominal Exam GI & Abdominal Exam: Soft, Normal Bowel Sounds. absent: Distended, Tenderness - Extremities Exam Extremities Exam: Normal Inspection. absent: Calf Tenderness, Pedal Edema - Neurological Exam Neurological Exam: Alert, Awake - Psychiatric Exam Psychiatric exam: Normal Affect, Normal Mood - Skin Skin Exam: Dry, Intact, Normal Color, Warm Assessment and Plan - Assessment and Plan (Free Text) Assessment: 88 yo M w/ PMHx of A Fib, dementia, psych illness, poss HTN admitted s/p fall w/ AMS. State appointed guardianship. CVA -crestor 10mg po hs -ASA 81mg po -Neuro consult Dr. 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 -am INR, then most likely coumadin 2.5 after -EP consult -cardio consult Dr. Olson Ulcers -right shoulder/hip/knee ulcers -wound care dressing changes -sx consult Dr. Foster for debridement of right hip, unstageable ulcer. Constipation -mag-citrate x1 HTN -norvasc 5mg PO Psych -Psych consult Dr. Roman, no intervention BPH -flomax .4mg po -moran Ppx -pepcid 20mg PO -SCD Dispo: placement <Kimo Quiñonez H - Last Filed: 06/11/18 16:19> Objective - Vital Signs/Intake and Output Vital Signs (last 24 hours): Temp Pulse Resp BP Pulse Ox 98.4 F 66 20 108/69 97 06/11/18 07:37 06/11/18 07:37 06/11/18 07:37 06/11/18 07:37 06/11/18 07:37 Intake and Output: 06/11/18 06/11/18 06:59 18:59 Intake Total 180 240 Output Total 400 300 Balance -220 -60 - Medications Medications: Current Medications Amlodipine Besylate (Norvasc) 5 mg PO DAILY [facility] Last Admin: 06/11/18 10:07 Dose: 5 mg Aspirin (Aspirin Chewable) 81 mg PO DAILY [facility] Last Admin: 06/11/18 10:07 Dose: 81 mg Docusate Sodium (Colace) 100 mg PO TID [facility] Last Admin: 06/11/18 13:28 Dose: 100 mg Famotidine (Pepcid) 20 mg PO DAILY [facility] Last Admin: 06/11/18 10:07 Dose: 20 mg Nystatin (Nystop Topical Powder) 1 applic TOP BID [facility] Last Admin: 06/11/18 10:08 Dose: 1 applic Rosuvastatin Calcium (Crestor) 10 mg PO HS [facility] Last Admin: 06/10/18 22:23 Dose: 10 mg Sennosides (Senokot Tab) 8.6 mg PO DAILY [facility] Last Admin: 06/11/18 10:07 Dose: 8.6 mg Tamsulosin HCl (Flomax) 0.4 mg PO DAILY [facility] Last Admin: 06/11/18 10:07 Dose: 0.4 mg - Labs Labs: 06/11/18 07:40 06/11/18 07:40 PT 33.8 SECONDS (9.7-12.2) H 06/11/18 07:40 INR 3.1 06/11/18 07:40 APTT 31 SECONDS (21-34) D 05/18/18 05:01 Attending/Attestation - Attestation I have personally seen and examined this patient.: Yes I have fully participated in the care of the patient.: Yes I have reviewed all pertinent clinical information, including history, physical exam and plan: Yes Notes (Text): 06/11/18 16:19 Medical attending: Patient was seen and examined by me. Agree with the above note by the resident The patient was not in any distress - he remains very plesant to interact with. Kimo Quiñonez
[2018-06-11 08:04] LABS: PROTHROMBIN TIME 33.8 SECONDS (9.7-12.2)
[2018-06-11 08:14] LABS: BASO % 0.7 % (0.0-2.0); EOS # 0.2 K/uL (0.0-0.7); EOS % 3.6 % (0.0-4.0); HEMOGLOBIN 11.7 g/dL (12.0-18.0); LYMPH # 1.4 K/uL (1.0-4.3); LYMPH % 23.3 % (20.0-40.0); MEAN CELL VOLUME 91.5 fL (80.0-94.0); MEAN CORPUSCULAR HEMOGLOBIN 32.6 pg (27.0-31.0); MEAN CORPUSCULAR HGB CONC 35.7 g/dL (33.0-37.0); MEAN PLATELET VOLUME 8.1 fL (7.2-11.7); MONO # 0.7 K/uL (0.0-0.8); MONO % 10.9 % (0.0-10.0); NEUT # 3.8 K/uL (1.8-7.0); NEUT % 61.5 % (50.0-75.0); RBC 3.58 Mil/uL (4.40-5.90); RED CELL DISTRIBUTION WIDTH 13.6 % (11.5-14.5); WHITE BLOOD COUNT 6.2 K/uL (4.8-10.8)
[2018-06-11 08:31] LABS: ALBUMIN 3.1 g/dL (3.5-5.0); ALT/SGPT 38 U/L (21-72); AST/SGOT 31 U/L (17-59); BLOOD UREA NITROGEN 20 mg/dL (9-20); CALCIUM 8.8 mg/dl (8.6-10.4); GFR NON-AFRICAN AMERICAN > 60
[2018-06-11 08:42] LABS: INR 3.1
[2018-06-11] MEDS ORDERED: Magnesium Citrate Oral SOL (300 ml) PO ONE (14:07)
[2018-06-12 09:10] LABS: INR 2.3; PROTHROMBIN TIME 24.9 SECONDS (9.7-12.2)
--- NOTE | 2018-06-12 13:06 | CP.PCM.PN ---
<Naida Galindo P - Last Filed: 06/12/18 13:03> Subjective - Date & Time of Evaluation Date of Evaluation: 06/12/18 Time of Evaluation: 08:00 - Subjective Subjective: PGY-1 progress note for hospitalist service. Patient seen and examined at bedside. No acute events ovenight. Has no complaints at this time. Denies fevers, chills, nausea, vomiting, abdominal pain chest pain and shortness of breath. Objective - Vital Signs/Intake and Output Vital Signs (last 24 hours): Temp Pulse Resp BP Pulse Ox 98.1 F 69 20 113/71 97 06/12/18 08:00 06/12/18 08:00 06/12/18 08:00 06/12/18 08:00 06/12/18 08:00 Intake and Output: 06/12/18 06/12/18 06:59 18:59 Intake Total 180 Output Total 300 Balance -120 - Medications Medications: Current Medications Amlodipine Besylate (Norvasc) 5 mg PO DAILY [facility] Last Admin: 06/12/18 10:58 Dose: 5 mg Aspirin (Aspirin Chewable) 81 mg PO DAILY [facility] Last Admin: 06/12/18 10:58 Dose: 81 mg Docusate Sodium (Colace) 100 mg PO TID [facility] Last Admin: 06/12/18 10:58 Dose: 100 mg Famotidine (Pepcid) 20 mg PO DAILY [facility] Last Admin: 06/12/18 10:58 Dose: 20 mg Nystatin (Nystop Topical Powder) 1 applic TOP BID [facility] Last Admin: 06/11/18 18:11 Dose: 1 applic Rosuvastatin Calcium (Crestor) 10 mg PO HS [facility] Last Admin: 06/11/18 21:35 Dose: 10 mg Sennosides (Senokot Tab) 8.6 mg PO DAILY [facility] Last Admin: 06/12/18 10:58 Dose: 8.6 mg Tamsulosin HCl (Flomax) 0.4 mg PO DAILY [facility] Last Admin: 06/12/18 10:58 Dose: 0.4 mg Warfarin Sodium (Coumadin) 2.5 mg PO DAILY [facility] Stop: 06/17/18 10:01 - Labs Labs: 06/11/18 07:40 06/11/18 07:40 PT 24.9 SECONDS (9.7-12.2) H D 06/12/18 08:17 INR 2.3 D 06/12/18 08:17 APTT 31 SECONDS (21-34) D 05/18/18 05:01 - Constitutional Appears: No Acute Distress - Head Exam Head Exam: ATRAUMATIC, NORMOCEPHALIC - Eye Exam Eye Exam: EOMI - ENT Exam ENT Exam: Mucous Membranes Moist - Respiratory Exam Respiratory Exam: Clear to Ausculation Bilateral. absent: Rales, Rhonchi, Wheezes - Cardiovascular Exam Cardiovascular Exam: REGULAR RHYTHM, +S1, +S2, Murmur - GI/Abdominal Exam GI & Abdominal Exam: Soft, Normal Bowel Sounds. absent: Guarding, Tenderness, Rebound - Extremities Exam Extremities Exam: Full ROM, Normal Inspection. absent: Tenderness - Neurological Exam Neurological Exam: Alert, Awake, Oriented x3 - Psychiatric Exam Psychiatric exam: Normal Affect, Normal Mood - Skin Skin Exam: Dry, Normal Color, Warm Assessment and Plan - Assessment and Plan (Free Text) Plan: 88 yo M w/ PMHx of A Fib, dementia, psych illness, poss HTN admitted s/p fall w/ AMS. State appointed guardianship. CVA -crestor 10mg po hs -ASA 81mg po -Neuro consult Dr. 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 Olson Ulcers -right shoulder/hip/knee ulcers -wound care dressing changes -sx consult Dr. Foster for debridement of right hip, unstageable ulcer. Constipation -mag-citrate x1 HTN -norvasc 5mg PO Psych -Psych consult Dr. Roman, no intervention BPH -flomax .4mg po -moran Ppx -pepcid 20mg PO -SCD Dispo: placement <Kimo Quiñonez - Last Filed: 06/12/18 13:30> Objective - Vital Signs/Intake and Output Vital Signs (last 24 hours): Temp Pulse Resp BP Pulse Ox 98.1 F 69 20 113/71 97 06/12/18 08:00 06/12/18 08:00 06/12/18 08:00 06/12/18 08:00 06/12/18 08:00 Intake and Output: 06/12/18 06/12/18 06:59 18:59 Intake Total 180 Output Total 300 Balance -120 - Medications Medications: Current Medications Amlodipine Besylate (Norvasc) 5 mg PO DAILY [facility] Last Admin: 06/12/18 10:58 Dose: 5 mg Aspirin (Aspirin Chewable) 81 mg PO DAILY [facility] Last Admin: 06/12/18 10:58 Dose: 81 mg Docusate Sodium (Colace) 100 mg PO TID [facility] Last Admin: 06/12/18 10:58 Dose: 100 mg Famotidine (Pepcid) 20 mg PO DAILY [facility] Last Admin: 06/12/18 10:58 Dose: 20 mg Nystatin (Nystop Topical Powder) 1 applic TOP BID [facility] Last Admin: 06/11/18 18:11 Dose: 1 applic Rosuvastatin Calcium (Crestor) 10 mg PO HS [facility] Last Admin: 06/11/18 21:35 Dose: 10 mg Sennosides (Senokot Tab) 8.6 mg PO DAILY [facility] Last Admin: 06/12/18 10:58 Dose: 8.6 mg Tamsulosin HCl (Flomax) 0.4 mg PO DAILY [facility] Last Admin: 06/12/18 10:58 Dose: 0.4 mg Warfarin Sodium (Coumadin) 2.5 mg PO ONCE ONE Stop: 06/12/18 18:01 - Labs Labs: 06/11/18 07:40 06/11/18 07:40 PT 24.9 SECONDS (9.7-12.2) H D 06/12/18 08:17 INR 2.3 D 06/12/18 08:17 APTT 31 SECONDS (21-34) D 05/18/18 05:01 Attending/Attestation - Attestation I have personally seen and examined this patient.: Yes I have fully participated in the care of the patient.: Yes I have reviewed all pertinent clinical information, including history, physical exam and plan: Yes Notes (Text): 06/12/18 13:29 Medical attending: Patient was seen and examined by me. Reviewed the above note by the resident Today coumadin 2.5 follow INRs. Otherwise no other changes at this time. He remains plesantly demented affect Kimo Quiñonez
[2018-06-13 09:09] LABS: INR 1.9; PROTHROMBIN TIME 20.4 SECONDS (9.7-12.2)
--- NOTE | 2018-06-13 10:59 | CP.PCM.PN ---
<Naida Galindo P - Last Filed: 06/13/18 10:56> Subjective - Date & Time of Evaluation Date of Evaluation: 06/13/18 Time of Evaluation: 05:00 - Subjective Subjective: PGY-1 progress note for hospitalist service. Patient seen and examined at bedside. Patient resting comfortably in bed. Has no complaints. Denies fever, chills, nausea, vomiting chest pain and shortness of breath. Objective - Vital Signs/Intake and Output Vital Signs (last 24 hours): Temp Pulse Resp BP Pulse Ox 98.5 F 73 20 110/70 96 06/13/18 08:09 06/13/18 08:09 06/13/18 08:09 06/13/18 08:09 06/13/18 08:09 Intake and Output: 06/13/18 06/13/18 06:59 18:59 Intake Total 150 Output Total 300 Balance -150 - Medications Medications: Current Medications Amlodipine Besylate (Norvasc) 5 mg PO DAILY [facility] Last Admin: 06/13/18 10:35 Dose: 5 mg Aspirin (Aspirin Chewable) 81 mg PO DAILY [facility] Last Admin: 06/13/18 10:39 Dose: 81 mg Docusate Sodium (Colace) 100 mg PO TID [facility] Last Admin: 06/13/18 10:35 Dose: 100 mg Famotidine (Pepcid) 20 mg PO DAILY [facility] Last Admin: 06/13/18 10:35 Dose: 20 mg Nystatin (Nystop Topical Powder) 1 applic TOP BID [facility] Last Admin: 06/13/18 10:43 Dose: 1 applic Rosuvastatin Calcium (Crestor) 10 mg PO HS [facility] Last Admin: 06/12/18 21:14 Dose: 10 mg Sennosides (Senokot Tab) 8.6 mg PO DAILY [facility] Last Admin: 06/13/18 10:35 Dose: 8.6 mg Tamsulosin HCl (Flomax) 0.4 mg PO DAILY [facility] Last Admin: 06/13/18 10:35 Dose: 0.4 mg - Labs Labs: 06/11/18 07:40 06/11/18 07:40 PT 20.4 SECONDS (9.7-12.2) H 06/13/18 08:43 INR 1.9 06/13/18 08:43 APTT 31 SECONDS (21-34) D 05/18/18 05:01 - Additional Findings Additional findings: - Constitutional Appears: No Acute Distress - Head Exam Head Exam: ATRAUMATIC, NORMOCEPHALIC - Eye Exam Eye Exam: EOMI - ENT Exam ENT Exam: Mucous Membranes Moist - Respiratory Exam Respiratory Exam: Clear to Ausculation Bilateral. absent: Rales, Rhonchi, Whe ezes - Cardiovascular Exam Cardiovascular Exam: REGULAR RHYTHM, +S1, +S2, Murmur - GI/Abdominal Exam GI & Abdominal Exam: Soft, Normal Bowel Sounds. absent: Guarding, Tenderness, Rebound - Extremities Exam Extremities Exam: Full ROM, Normal Inspection. absent: Tenderness - Neurological Exam Neurological Exam: Alert, Awake - Psychiatric Exam Psychiatric exam: Normal Affect, Normal Mood - Skin Skin Exam: Dry, Normal Color, Warm Assessment and Plan - Assessment and Plan (Free Text) Plan: 88 yo M w/ PMHx of A Fib, dementia, psych illness, poss HTN admitted s/p fall w/ AMS. State appointed guardianship. CVA -crestor 10mg po hs -ASA 81mg po -Neuro consult Dr. 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 Olson Ulcers -right shoulder/hip/knee ulcers -wound care dressing changes -sx consult Dr. Foster for debridement of right hip, unstageable ulcer. Constipation -mag-citrate x1 HTN -norvasc 5mg PO Psych -Psych consult Dr. Roman, no intervention BPH -flomax .4mg po -moran Ppx -pepcid 20mg PO -SCD Dispo: placement <Kimo Quiñonez - Last Filed: 06/13/18 13:02> Objective - Vital Signs/Intake and Output Vital Signs (last 24 hours): Temp Pulse Resp BP Pulse Ox 98.5 F 73 20 110/70 96 06/13/18 08:09 06/13/18 08:09 06/13/18 08:09 06/13/18 08:09 06/13/18 08:09 Intake and Output: 06/13/18 06/13/18 06:59 18:59 Intake Total 150 Output Total 300 Balance -150 - Medications Medications: Current Medications Amlodipine Besylate (Norvasc) 5 mg PO DAILY [facility] Last Admin: 06/13/18 10:35 Dose: 5 mg Aspirin (Aspirin Chewable) 81 mg PO DAILY [facility] Last Admin: 06/13/18 10:39 Dose: 81 mg Docusate Sodium (Colace) 100 mg PO TID [facility] Last Admin: 06/13/18 10:35 Dose: 100 mg Famotidine (Pepcid) 20 mg PO DAILY [facility] Last Admin: 06/13/18 10:35 Dose: 20 mg Nystatin (Nystop Topical Powder) 1 applic TOP BID [facility] Last Admin: 06/13/18 10:43 Dose: 1 applic Rosuvastatin Calcium (Crestor) 10 mg PO HS [facility] Last Admin: 06/12/18 21:14 Dose: 10 mg Sennosides (Senokot Tab) 8.6 mg PO DAILY [facility] Last Admin: 06/13/18 10:35 Dose: 8.6 mg Tamsulosin HCl (Flomax) 0.4 mg PO DAILY [facility] Last Admin: 06/13/18 10:35 Dose: 0.4 mg Warfarin Sodium (Coumadin) 5 mg PO ONCE ONE Stop: 06/13/18 18:01 - Labs Labs: 06/11/18 07:40 06/11/18 07:40 PT 20.4 SECONDS (9.7-12.2) H 06/13/18 08:43 INR 1.9 06/13/18 08:43 APTT 31 SECONDS (21-34) D 05/18/18 05:01 Attending/Attestation - Attestation I have personally seen and examined this patient.: Yes I have fully participated in the care of the patient.: Yes I have reviewed all pertinent clinical information, including history, physical exam and plan: Yes Notes (Text): 06/13/18 13:00 Medical attending: Patient was seen and examined by me. He is very pleasantly demntia - and it seems they are feeding him quite well considering the food at bedside that has been eaten He was able to say words like "2018" today - why he said that I do not seem to be able to fatham in my limited capacity Today INR was decrease to 1.9, will give 5 coumadin tonight, thank you kindly Kimo Quiñonez
[2018-06-14 08:25] LABS: BASO % 0.7 % (0.0-2.0); EOS # 0.2 K/uL (0.0-0.7); HEMOGLOBIN 12.6 g/dL (12.0-18.0); LYMPH # 1.5 K/uL (1.0-4.3); LYMPH % 26.2 % (20.0-40.0); MEAN CELL VOLUME 91.3 fL (80.0-94.0); MEAN CORPUSCULAR HEMOGLOBIN 32.3 pg (27.0-31.0); MEAN CORPUSCULAR HGB CONC 35.4 g/dL (33.0-37.0); MEAN PLATELET VOLUME 7.8 fL (7.2-11.7); MONO # 0.6 K/uL (0.0-0.8); MONO % 10.3 % (0.0-10.0); NEUT # 3.5 K/uL (1.8-7.0); NEUT % 59.8 % (50.0-75.0); RBC 3.91 Mil/uL (4.40-5.90); RED CELL DISTRIBUTION WIDTH 13.8 % (11.5-14.5); WHITE BLOOD COUNT 5.9 K/uL (4.8-10.8)
[2018-06-14 08:30] LABS: INR 1.8; PROTHROMBIN TIME 19.6 SECONDS (9.7-12.2)
[2018-06-14 08:53] LABS: ALBUMIN 3.3 g/dL (3.5-5.0); ALT/SGPT 29 U/L (21-72); AST/SGOT 28 U/L (17-59); BLOOD UREA NITROGEN 18 mg/dL (9-20); CALCIUM 8.9 mg/dl (8.6-10.4); GFR NON-AFRICAN AMERICAN > 60
[2018-06-14 08:56] VITALS: RESP 20
--- NOTE | 2018-06-14 09:22 | CP.PCM.PN ---
Subjective - Date & Time of Evaluation Date of Evaluation: 06/14/18 Time of Evaluation: 07:00 - Subjective Subjective: Pt examined at bedside. No acute events overnight. Pt reports he wants us to let him leave the hospital. Denies chest pain, SOB, abd pain nausea, diarrhea. Objective - Vital Signs/Intake and Output Vital Signs (last 24 hours): Temp Pulse Resp BP Pulse Ox 98.2 F 69 20 123/77 97 06/14/18 08:00 06/14/18 08:00 06/14/18 08:00 06/14/18 08:00 06/14/18 08:00 Intake and Output: 06/14/18 06/14/18 06:59 18:59 Intake Total 320 Output Total 500 Balance -180 - Medications Medications: Current Medications Amlodipine Besylate (Norvasc) 5 mg PO DAILY [facility] Last Admin: 06/13/18 10:35 Dose: 5 mg Aspirin (Aspirin Chewable) 81 mg PO DAILY [facility] Last Admin: 06/13/18 10:39 Dose: 81 mg Famotidine (Pepcid) 20 mg PO DAILY [facility] Last Admin: 06/13/18 10:35 Dose: 20 mg Nystatin (Nystop Topical Powder) 1 applic TOP BID [facility] Last Admin: 06/13/18 18:00 Dose: 1 applic Rosuvastatin Calcium (Crestor) 10 mg PO HS [facility] Last Admin: 06/13/18 21:50 Dose: 10 mg Tamsulosin HCl (Flomax) 0.4 mg PO DAILY [facility] Last Admin: 06/13/18 10:35 Dose: 0.4 mg - Labs Labs: 06/14/18 08:14 06/14/18 08:14 PT 19.6 SECONDS (9.7-12.2) H 06/14/18 08:14 INR 1.8 06/14/18 08:14 APTT 31 SECONDS (21-34) D 05/18/18 05:01 - Constitutional Appears: No Acute Distress - Head Exam Head Exam: ATRAUMATIC, NORMAL INSPECTION, NORMOCEPHALIC - Eye Exam Eye Exam: EOMI, Normal appearance - ENT Exam ENT Exam: Mucous Membranes Moist, Normal Exam - Neck Exam Neck Exam: Normal Inspection - Respiratory Exam Respiratory Exam: Clear to Ausculation Bilateral, NORMAL BREATHING PATTERN. absent: Rhonchi, Wheezes - Cardiovascular Exam Cardiovascular Exam: REGULAR RHYTHM, +S1, +S2, Murmur. absent: Tachycardia - GI/Abdominal Exam GI & Abdominal Exam: Soft, Normal Bowel Sounds. absent: Distended, Tenderness - Extremities Exam Extremities Exam: Normal Inspection. absent: Calf Tenderness, Pedal Edema - Neurological Exam Neurological Exam: Alert, Awake - Psychiatric Exam Psychiatric exam: Normal Affect, Normal Mood - Skin Skin Exam: Dry, Intact, Normal Color, Warm Assessment and Plan - Assessment and Plan (Free Text) Assessment: 88 yo M w/ PMHx of A Fib, dementia, psych illness, poss HTN admitted s/p fall w/ AMS. State appointed guardianship. CVA -crestor 10mg po hs -ASA 81mg po -Neuro consult Dr. 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 Olson Ulcers -right shoulder/hip/knee ulcers -wound care dressing changes -sx consult Dr. Foster for debridement of right hip, unstageable ulcer. Constipation -stable HTN -norvasc 5mg PO Psych -Psych consult Dr. Roman, no intervention BPH -flomax .4mg po -moran Ppx -pepcid 20mg PO -SCD Dispo: placement
--- NOTE | 2018-06-15 07:41 | CP.PCM.PN ---
Subjective - Date & Time of Evaluation Date of Evaluation: 06/15/18 Time of Evaluation: 07:20 - Subjective Subjective: Pt seen and examined at bedside. No overnight events. Pt has no new complaints. Pt denies any chest pain, SOB, fevers, nausea, or abd pain. Objective - Vital Signs/Intake and Output Vital Signs (last 24 hours): Temp Pulse Resp BP Pulse Ox 98.1 F 70 20 119/75 98 06/14/18 23:57 06/14/18 23:57 06/14/18 23:57 06/14/18 23:57 06/14/18 23:57 Intake and Output: 06/15/18 06/15/18 06:59 18:59 Intake Total 300 Output Total 300 600 Balance 0 -600 - Medications Medications: Current Medications Amlodipine Besylate (Norvasc) 5 mg PO DAILY [facility] Last Admin: 06/14/18 09:49 Dose: 5 mg Aspirin (Aspirin Chewable) 81 mg PO DAILY [facility] Last Admin: 06/14/18 09:49 Dose: 81 mg Famotidine (Pepcid) 20 mg PO DAILY [facility] Last Admin: 06/14/18 09:49 Dose: 20 mg Nystatin (Nystop Topical Powder) 1 applic TOP BID [facility] Last Admin: 06/14/18 17:34 Dose: 1 applic Rosuvastatin Calcium (Crestor) 10 mg PO HS [facility] Last Admin: 06/14/18 21:30 Dose: 10 mg Tamsulosin HCl (Flomax) 0.4 mg PO DAILY [facility] Last Admin: 06/14/18 09:49 Dose: 0.4 mg - Labs Labs: 06/14/18 08:14 06/14/18 08:14 PT 19.6 SECONDS (9.7-12.2) H 06/14/18 08:14 INR 1.8 06/14/18 08:14 APTT 31 SECONDS (21-34) D 05/18/18 05:01 - Constitutional Appears: Well, Non-toxic - Head Exam Head Exam: ATRAUMATIC, NORMAL INSPECTION, NORMOCEPHALIC - Eye Exam Eye Exam: EOMI, Normal appearance - ENT Exam ENT Exam: Mucous Membranes Moist - Neck Exam Neck Exam: Normal Inspection - Respiratory Exam Respiratory Exam: Clear to Ausculation Bilateral, NORMAL BREATHING PATTERN. absent: Rhonchi, Wheezes - Cardiovascular Exam Cardiovascular Exam: REGULAR RHYTHM, +S1, +S2, Murmur - GI/Abdominal Exam GI & Abdominal Exam: Soft, Normal Bowel Sounds. absent: Distended, Tenderness - Extremities Exam Extremities Exam: Normal Inspection. absent: Calf Tenderness, Pedal Edema - Neurological Exam Neurological Exam: Alert, Awake - Psychiatric Exam Psychiatric exam: Normal Affect, Normal Mood - Skin Skin Exam: Dry, Intact, Normal Color, Warm Assessment and Plan - Assessment and Plan (Free Text) Assessment: 88 yo M w/ PMHx of A Fib, dementia, psych illness, poss HTN admitted s/p fall w/ AMS. State appointed guardianship. CVA -crestor 10mg po hs -ASA 81mg po -Neuro consult Dr. 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 Olson Ulcers -right shoulder/hip/knee ulcers -wound care dressing changes -sx consult Dr. Foster for debridement of right hip, unstageable ulcer. Constipation -stable -miralax or mag citrate as needed, pt refusing HTN -norvasc 5mg PO Psych -Psych consult Dr. Roman, no intervention BPH -flomax .4mg po -moran Ppx -pepcid 20mg PO -SCD Dispo: placement
[2018-06-15 07:59] LABS: INR 1.8; PROTHROMBIN TIME 19.4 SECONDS (9.7-12.2)
[2018-06-15] MEDS: POLYETHYLENE GLYCOL 3350 17 GM/Dose PACKET PO SCH ×3 (11:00→17:51)
[2018-06-16 08:42] LABS: INR 1.6; PROTHROMBIN TIME 17.9 SECONDS (9.7-12.2)
--- NOTE | 2018-06-16 09:04 | CP.PCM.PN ---
Subjective - Date & Time of Evaluation Date of Evaluation: 06/16/18 Time of Evaluation: 07:30 - Subjective Subjective: Nura Alejandro PGY-1, medicine progress note Pt seen and examined at bedside. No overnight events. Pt has no new complaints. Pt denies fevers, chest pain, SOB or abd pain. As per nurse, pt has not had a BM since Thursday except for one small BM yesterday. Pt is refusing to take miralax, will switch to dulcolax. Pt denies fever, chills, chest pain, sob, abdominal pain, n/v/d, urinary complaints. Objective - Vital Signs/Intake and Output Vital Signs (last 24 hours): Temp Pulse Resp BP Pulse Ox 98 F 68 20 114/69 98 06/16/18 00:10 06/16/18 00:10 06/16/18 00:10 06/16/18 00:10 06/16/18 00:10 Intake and Output: 06/16/18 06/16/18 06:59 18:59 Intake Total 240 Output Total 950 Balance -710 - Medications Medications: Current Medications Amlodipine Besylate (Norvasc) 5 mg PO DAILY [facility] Last Admin: 06/15/18 11:00 Dose: 5 mg Aspirin (Aspirin Chewable) 81 mg PO DAILY [facility] Last Admin: 06/15/18 11:00 Dose: 81 mg Famotidine (Pepcid) 20 mg PO DAILY [facility] Last Admin: 06/15/18 11:00 Dose: 20 mg Nystatin (Nystop Topical Powder) 1 applic TOP BID [facility] Last Admin: 06/15/18 17:24 Dose: 1 applic Polyethylene Glycol (Miralax) 17 gm PO BID [facility] Last Admin: 06/15/18 17:51 Dose: 17 gm Rosuvastatin Calcium (Crestor) 10 mg PO HS [facility] Last Admin: 06/15/18 21:52 Dose: 10 mg Senna/Docusate Sodium (Senokot S 50 Mg-8.6 Mg) 1 tab PO DAILY [facility] Tamsulosin HCl (Flomax) 0.4 mg PO DAILY [facility] Last Admin: 06/15/18 11:00 Dose: 0.4 mg - Labs Labs: 06/14/18 08:14 06/14/18 08:14 PT 17.9 SECONDS (9.7-12.2) H 06/16/18 08:26 INR 1.6 06/16/18 08:26 APTT 31 SECONDS (21-34) D 05/18/18 05:01 - Constitutional Appears: Non-toxic - Head Exam Head Exam: ATRAUMATIC, NORMAL INSPECTION, NORMOCEPHALIC - Eye Exam Eye Exam: EOMI, Normal appearance - ENT Exam ENT Exam: Mucous Membranes Moist, Normal Exam - Respiratory Exam Respiratory Exam: Clear to Ausculation Bilateral, NORMAL BREATHING PATTERN. absent: Rhonchi, Wheezes - Cardiovascular Exam Cardiovascular Exam: REGULAR RHYTHM, +S1, +S2, Murmur - GI/Abdominal Exam GI & Abdominal Exam: Soft. absent: Distended, Tenderness - Extremities Exam Extremities Exam: Normal Inspection (wound on L hip, dressed, C/D/I). absent: Calf Tenderness, Pedal Edema - Neurological Exam Neurological Exam: Alert, Awake - Psychiatric Exam Psychiatric exam: Normal Affect, Normal Mood - Skin Skin Exam: Dry, Intact, Normal Color, Warm Assessment and Plan - Assessment and Plan (Free Text) Assessment: This is a 88 yo M w/ PMHx of A Fib, dementia, psych illness, poss HTN admitted s/p fall w/ AMS. State appointed guardianship. CVA -crestor 10mg po hs -ASA 81mg po -Neuro consult Dr. 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 Olson Ulcers -right shoulder/hip/knee ulcers -wound care dressing changes -sx consult Dr. Foster for debridement of right hip, unstageable ulcer. - wound care nurse is maintaining his right hip ulcer with medihoney and nystatin on periwound area Constipation -stable -pt refusing miralax - dulcolax added HTN -norvasc 5mg PO Psych -Psych consult Dr. Roman, no intervention BPH -flomax .4mg po -moran - moran chad be discontinued tonight for voiding trial Ppx -pepcid 20mg PO -SCD Dispo: [facility] [place] [facility], pending securing funds from pt's guardian. Case was reviewed and discussed with attending physician, Dr. Tricia Alejandro PGY-1
[2018-06-16] MEDS: POLYETHYLENE GLYCOL 3350 17 GM/Dose PACKET PO SCH ×3 (10:16→21:07)
[2018-06-16] MEDS: Docusate-Senna 50 mg-8.6 mg Tab PO SCH (10:17)
[2018-06-17 00:15] VITALS: O2SAT 97
[2018-06-17 07:19] LABS: BASO % 0.6 % (0.0-2.0); EOS # 0.2 K/uL (0.0-0.7); EOS % 3.2 % (0.0-4.0); HEMOGLOBIN 12.5 g/dL (12.0-18.0); LYMPH # 1.4 K/uL (1.0-4.3); LYMPH % 25.4 % (20.0-40.0); MEAN CELL VOLUME 91.5 fL (80.0-94.0); MEAN CORPUSCULAR HEMOGLOBIN 32.6 pg (27.0-31.0); MEAN CORPUSCULAR HGB CONC 35.6 g/dL (33.0-37.0); MEAN PLATELET VOLUME 7.6 fL (7.2-11.7); MONO # 0.6 K/uL (0.0-0.8); MONO % 10.6 % (0.0-10.0); NEUT # 3.4 K/uL (1.8-7.0); NEUT % 60.2 % (50.0-75.0); NRBC % 0.1 % (0.0-2.0); RBC 3.83 Mil/uL (4.40-5.90); RED CELL DISTRIBUTION WIDTH 13.9 % (11.5-14.5); WHITE BLOOD COUNT 5.6 K/uL (4.8-10.8)
[2018-06-17 07:56] LABS: ALB/GLOB RATIO 1.1 (1.0-2.1); ALBUMIN 3.2 g/dL (3.5-5.0); ALT/SGPT 25 U/L (21-72); AST/SGOT 23 U/L (17-59); BLOOD UREA NITROGEN 19 mg/dL (9-20); CALCIUM 8.8 mg/dl (8.6-10.4); GFR NON-AFRICAN AMERICAN > 60
[2018-06-17 09:12] VITALS: BP 110/73; PULSE 69; TEMP 98.5
[2018-06-17] MEDS: Docusate-Senna 50 mg-8.6 mg Tab PO SCH (09:51)
[2018-06-17] MEDS: POLYETHYLENE GLYCOL 3350 17 GM/Dose PACKET PO SCH (09:56)
[2018-06-17] MEDS ORDERED: Influenza Vaccine 60 MCG/0.5 ML SYR (3 yr & up) IM ONE (14:12)
--- NOTE | 2018-06-17 19:22 | CP.PCM.DIS ---
Provider - Provider Date of Admission: 05/06/18 17:09 Attending physician: Kimo Quiñonez DO Time Spent in preparation of Discharge (in minutes): 35 Hospital Course - Lab Results Lab Results: Micro Results 05/19/18 12:17 Naris MRSA Culture - Final MRSA NOT DETECTED 05/15/18 Unknown Urine,Moran Urine Culture - Final No Growth (<1,000 CFU/ML) 05/12/18 18:23 Urine,Moran Urine Culture - Final No Growth (<1,000 CFU/ML) 05/06/18 17:40 Blood-Venous Blood Culture - Final NO GROWTH AFTER 5 DAYS 05/06/18 17:40 Blood-Venous Gram Stain - Final TEST NOT PERFORMED 05/06/18 15:00 Blood-Venous Blood Culture - Final NO GROWTH AFTER 5 DAYS 05/06/18 15:00 Blood-Venous Gram Stain - Final TEST NOT PERFORMED 05/06/18 16:00 Urine,Catheterized Urine Culture - Final No Growth (<1,000 CFU/ML) Most Recent Lab Values WBC 5.6 K/uL (4.8-10.8) 06/17/18 07:07 RBC 3.83 Mil/uL (4.40-5.90) L 06/17/18 07:07 Hgb 12.5 g/dL (12.0-18.0) 06/17/18 07:07 Hct 35.0 % (35.0-51.0) 06/17/18 07:07 MCV 91.5 fL (80.0-94.0) 06/17/18 07:07 MCH 32.6 pg (27.0-31.0) H 06/17/18 07:07 MCHC 35.6 g/dL (33.0-37.0) 06/17/18 07:07 RDW 13.9 % (11.5-14.5) 06/17/18 07:07 Plt Count 303 K/uL (130-400) 06/17/18 07:07 MPV 7.6 fL (7.2-11.7) 06/17/18 07:07 Neut % (Auto) 60.2 % (50.0-75.0) 06/17/18 07:07 Lymph % (Auto) 25.4 % (20.0-40.0) 06/17/18 07:07 Haines % (Auto) 10.6 % (0.0-10.0) H 06/17/18 07:07 Eos % (Auto) 3.2 % (0.0-4.0) 06/17/18 07:07 Baso % (Auto) 0.6 % (0.0-2.0) 06/17/18 07:07 Neut # (Auto) 3.4 K/uL (1.8-7.0) 06/17/18 07:07 Lymph # (Auto) 1.4 K/uL (1.0-4.3) 06/17/18 07:07 Haines # (Auto) 0.6 K/uL (0.0-0.8) 06/17/18 07:07 Eos # (Auto) 0.2 K/uL (0.0-0.7) 06/17/18 07:07 Baso # (Auto) 0.0 K/uL (0.0-0.2) 06/17/18 07:07 Neutrophils % (Manual) 91 % (50-75) H 05/18/18 05:01 Band Neutrophils % 1 % (0-2) 05/09/18 06:32 Lymphocytes % (Manual) 5 % (20-40) L 05/18/18 05:01 Monocytes % (Manual) 4 % (0-10) 05/18/18 05:01 Eosinophils % (Manual) 2 % (0-4) 05/14/18 06:23 Toxic Granulation Present 05/10/18 06:36 Platelet Estimate Normal (NORMAL) 05/18/18 05:01 Large Platelets Present 05/10/18 06:36 Giant Platelets Present 05/10/18 06:36 RBC Morphology Normal 05/14/18 06:23 Anisocytosis (manual) Slight 05/10/18 06:36 PT 17.9 SECONDS (9.7-12.2) H 06/16/18 08:26 INR 1.6 06/16/18 08:26 APTT 31 SECONDS (21-34) D 05/18/18 05:01 Sodium 137 mmol/L (132-148) 06/17/18 07:07 Potassium 4.2 mmol/L (3.6-5.2) 06/17/18 07:07 Chloride 104 mmol/L (98-107) 06/17/18 07:07 Carbon Dioxide 24 mmol/L (22-30) 06/17/18 07:07 Anion Gap 14 (10-20) 06/17/18 07:07 BUN 19 mg/dL (9-20) 06/17/18 07:07 Creatinine 0.9 mg/dL (0.8-1.5) 06/17/18 07:07 Est GFR ( Amer) > 60 06/17/18 07:07 Est GFR (Non-Af Amer) > 60 06/17/18 07:07 POC Glucose (mg/dL) 113 mg/dL (65-110) H 05/19/18 16:49 Random Glucose 88 mg/dL (75-110) 06/17/18 07:07 Hemoglobin A1c 5.1 % (4.2-6.5) 05/06/18 19:18 Calcium 8.8 mg/dl (8.6-10.4) 06/17/18 07:07 Phosphorus 4.0 mg/dL (2.5-4.5) 06/11/18 07:40 Magnesium 1.9 mg/dL (1.6-2.3) 06/11/18 07:40 Total Bilirubin 0.7 mg/dL (0.2-1.3) 06/17/18 07:07 AST 23 U/L (17-59) 06/17/18 07:07 ALT 25 U/L (21-72) 06/17/18 07:07 Alkaline Phosphatase 73 U/L (38-126) 06/17/18 07:07 Total Creatine Kinase 531 U/L (55-170) H 05/07/18 18:23 CK-MB (Mass) 3.74 ng/mL (0.0-3.38) H 05/07/18 18:23 Troponin I 0.0540 ng/mL (0.00-0.120) 05/10/18 06:33 NT-Pro-B Natriuret Pep 7020 pg/mL (0-900) H 05/06/18 16:03 Total Protein 6.3 g/dL (6.3-8.3) 06/17/18 07:07 Albumin 3.2 g/dL (3.5-5.0) L 06/17/18 07:07 Globulin 3.0 gm/dL (2.2-3.9) 06/17/18 07:07 Albumin/Globulin Ratio 1.1 (1.0-2.1) 06/17/18 07:07 Triglycerides 69 mg/dL (0-149) 05/06/18 19:18 Cholesterol 132 mg/dL (0-199) 05/06/18 19:18 LDL Cholesterol Direct 62 mg/dL (0-129) 05/06/18 19:18 HDL Cholesterol 37 mg/dL (30-70) 05/06/18 19:18 Free PSA 1.2 ng/mL 05/20/18 11:41 % Free PSA 24 % (calc) (>25) L 05/20/18 11:41 Total PSA 5.0 ng/mL (< or = 4.0) H 05/20/18 11:41 Renin 0.35 ng/mL/h (0.25-5.82) 05/13/18 12:46 Aldosterone 1 ng/dL (see note) 05/13/18 12:38 Vitamin B12 829 pg/mL (239-931) 05/13/18 15:07 Folate 8.4 ng/mL 05/13/18 15:07 Procalcitonin < 0.05 NG/ML (0.19-0.49) L 05/07/18 18:23 Thyroxine (T4) 9.17 ug/dL (5.5-11.0) 05/06/18 19:18 TSH 3rd Generation 1.30 mIU/L (0.46-4.68) 05/06/18 19:18 Urine Color Yellow (YELLOW) 05/15/18 03:32 Urine Clarity Hazy (Clear) 05/15/18 03:32 Urine pH 5.0 (5.0-8.0) 05/15/18 03:32 Ur Specific Elizabeth 1.017 (1.003-1.030) 05/15/18 03:32 Urine Protein 1+ mg/dL (NEGATIVE) H 05/15/18 03:32 Urine Glucose (UA) Normal mg/dL (Normal) 05/15/18 03:32 Urine Ketones Negative mg/dL (NEGATIVE) 05/15/18 03:32 Urine Blood 2+ (NEGATIVE) H 05/15/18 03:32 Urine Nitrate Negative (NEGATIVE) 05/15/18 03:32 Urine Bilirubin Negative (NEGATIVE) 05/15/18 03:32 Urine Urobilinogen Normal mg/dL (0.2-1.0) 05/15/18 03:32 Ur Leukocyte Esterase Trace Alexsander/uL (Negative) 05/15/18 03:32 Urine WBC (Auto) 17 /hpf (0-5) H 05/15/18 03:32 Urine RBC (Auto) 124 /hpf (0-3) H 05/15/18 03:32 Ur Squamous Epith Cells < 1 /hpf (0-5) 05/15/18 03:32 Urine Bacteria Occ (<OCC) H 05/15/18 03:32 Ur Random Creatinine 94.3 mg/dL 05/13/18 16:45 Ur Random Sodium 112 mmol/L 05/13/18 16:45 Urine Chloride 135 mmol/L (32-290) 05/13/18 16:45 Urine Opiates Screen Negative (NEGATIVE) 05/06/18 16:11 Urine Methadone Screen Negative (NEGATIVE) 05/06/18 16:11 Ur Barbiturates Screen Negative (NEGATIVE) 05/06/18 16:11 Ur Phencyclidine Scrn Negative (NEGATIVE) 05/06/18 16:11 Ur Amphetamines Screen Negative (NEGATIVE) 05/06/18 16:11 U Benzodiazepines Scrn Negative (NEGATIVE) 05/06/18 16:11 U Oth Cocaine Metabols Negative (NEGATIVE) 05/06/18 16:11 U Cannabinoids Screen Negative (NEGATIVE) 05/06/18 16:11 RPR Nonreactive (NONREACTIVE) 05/06/18 19:18 - Hospital Course Hospital Course: On admission: This is an 88 year old male with past medical history of hypertension, advanced dementia and psychiatric illness, and possible past medical history of hypertension who presents to ED brought in by ambulance for AMS. Note: most of the history was obtained by ED nurse, as the patient is a poor historian. Patient was found to be altered and on the ground covered in his feces. EMS was called by the patient's cleaning lady who comes to visit on a weekly basis to help the patient with chores at home. It is unknown how long the patient was down on the ground. Patient was apparently not verbal. Per nurse, the patient has a outpatient case manager who helps the patient since he lives at home alone and has underlying dementia and psychiatric issue, however, per nurse, the patient was said to be completely independent at performing activities of daily life according to the outpatient case manager who is on his case on an out-patient basis. Per nurse, the rest of the patient's history was unknown to the outpatient case manager. Hospital course: - Neurology consulted on case (Dr. Kumar) - CT without contrast: subtle hypodensity in the left MCA territory (nonspecific and may represent subacute infarct) - Focal deficit on physical exam: Aphagia - Chest X-ray: Left lower lobe infiltrates/atelectasis - CTA of Head and Neck ordered stat: pending - MRI without contrast: pending - ASA 81mg PO daily - Started on Cardiac heparin therapy, per Dr. Vance and Dr. Kumar recommendation - Chest X-ray: Left lower lobe infiltrates/atelectasis. with leukocytosis. broad spectrum abx given. This is a summary of the hospital course. Please see chart for full details. Discharge Exam - Head Exam Head Exam: ATRAUMATIC, NORMAL INSPECTION, NORMOCEPHALIC Discharge Plan - Discharge Medications Prescriptions: Apixaban [Eliquis] 2.5 mg PO BID 30 Days #60 tablet - Follow Up Plan Condition: GOOD Disposition: TRANSF TO [facility] Instructions: Altered Mental Status (DC), Community-Acquired Pneumonia, Adult (DC) Additional Instructions: Patient is medically stable and safe for transfer [facility]hab as per Dr. Clarke. Patient should not be taking Coumadin. Patient should take Eliquis 2.5 mg by mouth twice daily. Patient should continue his medications as prescribed. Care for right hip pressure ulcer: Daily wound care: application of medihoney to the entire wound surface. apply nystatin powder to the periwound. Cover with foam dressing. Pt should have his leadless pacemaker checked. It was placed on 05/18/18. Follow home therapy teacher Dr. Wesley Ng Patient has hx of urinary retention. Discussed with urologist Dr. Zane Lim. 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 Pt passed voiding trial in the hospital, after discontinuation of moran on 06/17/18 at 0400. Patient is cleared for discharge to rehab facility. We will discuss with social welfare administrator Diet: Heart healthy, 2 g sodium. Pureed modified consistency solids. Honey thick liquids.
--- NOTE | 2018-06-18 15:56 | IP.NPCORE ---
Stroke Core Measure - CQM - Stroke Antithrombotic Prescribed: Yes Anticoagulation Prescribed for Atrial Flutter, Atrial Fibrillation and History of:: Yes Statin prescribed: Yes
== END 2018-06-17 16:15 | DRG 64 ==
LOC: C.ER 15:08 → C.9E 17:09 → C.3T 18:04 → C.9E 18:48 → C.6T 19:25 → C.9I 05-07 18:54 → C.5S 05-19 13:45 → C.3T 05-31 08:49 → C.5S 05-31 08:58 → C.3T 05-31 10:02
PROVIDERS: ADMIT Internal Medicine; ATTEND Hospitalist
PROC: 0T9B70Z Drainage of Bladder with Drainage Device, Via Natural or Artificial Opening (ICD-10-PCS; 2018-05-20)
PROC: 0HBHXZZ Excision of Right Upper Leg Skin, External Approach (ICD-10-PCS; principal; 2018-05-31)
DX: I63.9 Cerebral infarction, unspecified (principal); J18.9 Pneumonia, unspecified organism; I48.92 Unspecified atrial flutter; I48.91 Unspecified atrial fibrillation; I35.0 Nonrheumatic aortic (valve) stenosis; L89.219 Pressure ulcer of right hip, unspecified stage; I45.81 Long QT syndrome; J98.11 Atelectasis; R47.01 Aphasia; I27.20 Pulmonary hypertension, unspecified; I10 Essential (primary) hypertension; F03.90 Unspecified dementia, unspecified severity, without behavioral disturbance, psychotic disturbance, mood disturbance, and anxiety; F32.9 Major depressive disorder, single episode, unspecified; L89.111 Pressure ulcer of right upper back, stage 1; L89.522 Pressure ulcer of left ankle, stage 2; L89.892 Pressure ulcer of other site, stage 2; N40.1 Benign prostatic hyperplasia with lower urinary tract symptoms; R29.704 NIHSS score 4; R33.8 Other retention of urine; R00.1 Bradycardia, unspecified; B35.6 Tinea cruris; K59.00 Constipation, unspecified; R26.81 Unsteadiness on feet; W19.XXXA Unspecified fall, initial encounter; Y92.009 Unspecified place in unspecified non-institutional (private) residence as the place of occurrence of the external cause